=== PATIENT | female | born 1950 | race Caucasian/White ===

== ENCOUNTER → 2020-05-15 11:11 | Outpatient (CLI) | payer MEDICARE, BC, SELFPAY ==
--- NOTE | 2020-05-15 11:25 | RAD_ITS ---
STUDY: X-RAY - LUMBAR SPINE REASON FOR EXAM: Female, 70 years old. LOWER BACK PAIN TECHNIQUE: 3 view(s) of the lumbar spine were obtained. COMPARISON: None FINDINGS: Normal lumbar lordosis. There is no substantial scoliosis. There is a normal alignment of the vertebrae from L1 to L4. There is a grade 1 spondylolisthesis at L4-5. L5 and S1 align anatomically There is multilevel endplate spondylosis of the lumbar vertebrae. There is multi-level degenerative disc disease with multi-level disc space narrowing. There is no demonstrated fracture. There is atherosclerotic calcification of the abdominal aorta without a demonstrated aneurysm. RAD/Lumbar Spine 2 or 3 Views IMPRESSION: Degenerative changes of the spine, as detailed above. No evidence for fracture Grade 1 spondylolisthesis at L4-5 Electronically Signed: Po Perez MD at 11:38 EDT , Service support ,
== END ==
PROVIDERS: PCP Family Medicine; Referring Provider Anesthesiology Pain Medicine; Visit Provider Anesthesiology Pain Medicine
DX: M54.9 Dorsalgia, unspecified (principal)
CPT/HCPCS: 72100

== ENCOUNTER → 2020-05-30 10:03 | Outpatient (CLI) | payer MEDICARE, BC, SELFPAY ==
--- NOTE | 2020-05-30 10:07 | MRI_ITS ---
STUDY: MRI LUMBAR SPINE WITHOUT CONTRAST REASON FOR EXAM: Female, 70 years old. back pain, right hip pain TECHNIQUE: Standardized fat and water weighted pulse sequences were obtained in the sagittal and axial planes. COMPARISON: X-ray dated 05/15/2020 FINDINGS: Lumbar lordosis exaggerated. Dextroscoliosis. Conus medullaris terminates normally at the L1 level. No acute fracture. No acute dislocation. No acute cortical destruction. Degenerative/reactive bone marrow edema predominating at the T12-L1 and L2-3 levels. Paraspinal muscle atrophy. Normal aorta. Gallstone. Sacrum intact. T12-L1: Severe endplate spondylosis. Disc bulge, asymmetric to the right, with minimal central canal narrowing. Normal bilateral facet joints. Right lateral recess narrowing without impingement. Normal bilateral intervertebral neural foramina. L1-2: Mild endplate spondylosis. Shallow disc bulge. Normal bilateral facet joints. Normal central canal and bilateral lateral recesses. Neural foraminal narrowing without impingement. L2-3: Severe endplate spondylosis. Disc bulge, left paracentral disc protrusion, with mild central canal narrowing. Facet degenerative arthrosis. Left lateral recess narrowing with contact of the descending nerve root. Neural foraminal narrowing with impingement on the left. L3-4: Minimal endplate spondylosis. Disc bulge with mild central canal narrowing. Facet joint arthrosis. Bilateral lateral recess narrowing without impingement. Neural foraminal narrowing with contact of the right exiting nerve root. Minimal grade 1 spondylolisthesis. L4-5: Minimal endplate spondylosis. Disc bulge/uncovering with mild central canal narrowing. Facet joint arthrosis. Bilateral lateral recess narrowing without impingement. Neural foraminal narrowing with impingement bilaterally. Grade 1 spondylolisthesis. L5-S1: Mild endplate spondylosis. Disc bulge/uncovering, left paracentral disc protrusion (axial images 33 and 34 series 5), with central canal decompression. Facet joint arthrosis. Left lateral recess narrowing with contact of the left descending nerve root. Neural foraminal narrowing with contact of the left exiting nerve root. Left laminectomy. Minimal grade 1 spondylolisthesis. MRI/Spine Lumbar (Routine) IMPRESSION: Extensive multilevel intervertebral disc disease with mild central canal narrowing Multilevel neural foraminal narrowing with impingement of the left L2, right L3, bilateral L4 and left L5 nerve roots Multilevel lateral recess narrowing with contact of the left L3 and left S1 nerve roots Exaggerated lordosis, dextroscoliosis and moderate osteoarthritis Grade 1 multilevel spondylolisthesis at L3-4, L4-5 and L5-S1 Electronically Signed: Ruddy Hunt DO at 11:48 EDT Tel , Service support ,
== END ==
PROVIDERS: PCP Family Medicine; Referring Provider Anesthesiology Pain Medicine; Visit Provider Anesthesiology Pain Medicine
DX: M54.9 Dorsalgia, unspecified (principal); M79.606 Pain in leg, unspecified
CPT/HCPCS: 72148

== ENCOUNTER → 2020-09-25 11:08 | Outpatient (CLI) | payer MEDICARE, BC, SELFPAY ==
[2020-09-25 12:11] LABS: Amphetamine Urine VISTA NEGATIVE (<1000 ng/mL); Barbiturate Urine VISTA NEGATIVE (< 200 ng/mL); Benzodiazepine Urine VISTA NEGATIVE (< 200 ng/mL); Cocaine Urine VISTA NEGATIVE (< 300 ng/mL); Ecstacy Urine VISTA NEGATIVE (< 500 ng/mL); Methadone Urine VISTA NEGATIVE (< 300 ng/mL); PCP Urine VISTA NEGATIVE (< 25 ng/mL); THC Urine VISTA NEGATIVE (< 50 ng/mL); Vista UDS pH Range 8
== END ==
PROVIDERS: PCP Family Medicine; Referring Provider Anesthesiology Pain Medicine; Visit Provider Anesthesiology Pain Medicine
DX: F11.20 Opioid dependence, uncomplicated (principal)
CPT/HCPCS: 80307

== ENCOUNTER → 2021-04-07 12:30 | Outpatient (CLI) | payer MEDICARE, BC, SELFPAY ==
[2021-01-13 13:45] VITALS: BMI 26.6
[2021-04-07 14:44] LABS: Amphetamine Urine VISTA NEGATIVE (<1000 ng/mL); Barbiturate Urine VISTA NEGATIVE (< 200 ng/mL); Benzodiazepine Urine VISTA NEGATIVE (< 200 ng/mL); Cocaine Urine VISTA NEGATIVE (< 300 ng/mL); Ecstacy Urine VISTA NEGATIVE (< 500 ng/mL); Methadone Urine VISTA NEGATIVE (< 300 ng/mL); PCP Urine VISTA NEGATIVE (< 25 ng/mL); THC Urine VISTA NEGATIVE (< 50 ng/mL); Vista UDS pH Range 6
== END ==
PROVIDERS: PCP Family Medicine; Referring Provider Anesthesiology Pain Medicine; Visit Provider Anesthesiology Pain Medicine
DX: F11.20 Opioid dependence, uncomplicated (principal)
CPT/HCPCS: 80307

== ENCOUNTER → 2022-01-26 | Outpatient (CLI) | payer MEDICARE, BC, SELFPAY ==
[2022-01-26 14:07] LABS: Amphetamine Urine VISTA NEGATIVE (<1000 ng/mL); Barbiturate Urine VISTA NEGATIVE (< 200 ng/mL); Benzodiazepine Urine VISTA NEGATIVE (< 200 ng/mL); Cocaine Urine VISTA NEGATIVE (< 300 ng/mL); Ecstacy Urine VISTA NEGATIVE (< 500 ng/mL); Methadone Urine VISTA NEGATIVE (< 300 ng/mL); PCP Urine VISTA NEGATIVE (< 25 ng/mL); THC Urine VISTA NEGATIVE (< 50 ng/mL); Vista UDS pH Range 7
== END | disposition home or self-care (01) ==
PROVIDERS: PCP Family Medicine; Referring Provider Anesthesiology Pain Medicine; Visit Provider Anesthesiology Pain Medicine
DX: F11.20 Opioid dependence, uncomplicated (principal)
CPT/HCPCS: 80307

== ENCOUNTER → 2022-07-14 | Outpatient (CLI) | payer MEDICARE, BC, SELFPAY ==
[2022-07-14 15:37] LABS: Amphetamine Urine VISTA NEGATIVE (<1000 ng/mL); Barbiturate Urine VISTA NEGATIVE (< 200 ng/mL); Benzodiazepine Urine VISTA NEGATIVE (< 200 ng/mL); Cocaine Urine VISTA NEGATIVE (< 300 ng/mL); Ecstacy Urine VISTA NEGATIVE (< 500 ng/mL); Methadone Urine VISTA NEGATIVE (< 300 ng/mL); PCP Urine VISTA NEGATIVE (< 25 ng/mL); THC Urine VISTA NEGATIVE (< 50 ng/mL); Vista UDS pH Range 7
== END | disposition home or self-care (01) ==
PROVIDERS: PCP Family Medicine; Referring Provider Anesthesiology Pain Medicine; Visit Provider Anesthesiology Pain Medicine
DX: F11.20 Opioid dependence, uncomplicated (principal)
CPT/HCPCS: 80307

== ENCOUNTER → 2023-03-23 | Outpatient (CLI) | payer MEDICARE, BC, SELFPAY ==
--- NOTE | 2023-03-23 13:22 | RAD_ITS ---
STUDY: X-RAY - PELVIS AND RIGHT HIP REASON FOR EXAM: Female, 72 years old. HIP PAIN TECHNIQUE: 3 views of the pelvis and hip. COMPARISON: None. FINDINGS: There is a non-specific bowel gas pattern. Normal visualized soft tissue structures. Normal bilateral iliac wings, sacroiliac joints and visualized sacrum. Normal bilateral superior and inferior pubic rami. Normal pubic symphysis. Normal bilateral ischial tuberosities. Normal visualized femoral head. Normal acetabulum. Normal hip joint. RAD/HIP, UNI W/ Pelvis 2-3 Views IMPRESSION: Normal x-ray examination of the pelvis and hip. Electronically Signed: Dutch Grigsby MD at 23:26 EDT ,
== END | disposition home or self-care (01) ==
LOC: RAD 13:13
PROVIDERS: Referring Provider Anesthesiology Pain Medicine; Visit Provider Anesthesiology Pain Medicine
DX: M25.551 Pain in right hip (principal)
CPT/HCPCS: 73502

== ENCOUNTER → 2023-05-17 | Outpatient (CLI) | payer MEDICARE, BC, SELFPAY ==
[2023-05-17 14:40] LABS: Amphetamine Urine VISTA NEGATIVE (<1000 ng/mL); Barbiturate Urine VISTA NEGATIVE (< 200 ng/mL); Benzodiazepine Urine VISTA NEGATIVE (< 200 ng/mL); Cocaine Urine VISTA NEGATIVE (< 300 ng/mL); Ecstacy Urine VISTA POSITIVE (< 500 ng/mL); Methadone Urine VISTA NEGATIVE (< 300 ng/mL); PCP Urine VISTA NEGATIVE (< 25 ng/mL); THC Urine VISTA POSITIVE (< 50 ng/mL); Vista UDS pH Range 5
== END | disposition home or self-care (01) ==
PROVIDERS: Referring Provider Anesthesiology Pain Medicine; Visit Provider Anesthesiology Pain Medicine
DX: F11.20 Opioid dependence, uncomplicated (principal)
CPT/HCPCS: 80307

== ENCOUNTER → 2023-08-16 | Outpatient (CLI) | payer MEDICARE, BC, SELFPAY ==
--- NOTE | 2023-08-16 10:15 | MRI_ITS ---
STUDY: MRI LUMBAR SPINE WITHOUT CONTRAST REASON FOR EXAM: Female, 73 years old. RADICULOPATHY TECHNIQUE: Standardized fat and water weighted pulse sequences were obtained in the sagittal and axial planes. COMPARISON: May 30, 2020 FINDINGS: T12-L1: Narrowed disc space with endplate spurring. Desiccation of the disc and mild annular bulge.. Normal bilateral facet joints. Normal central canal and bilateral lateral recesses. Normal bilateral intervertebral neural foramina. Normal lumbar lordosis. There is mild dextro scoliosis. Normal conus medullaris that terminates at T12 L1-2: Anterior endplate spurring.. Normal disc height, desiccation and mild annular bulge.. Normal bilateral facet joints. Normal central canal and bilateral lateral recesses. Mild bilateral neural foraminal encroachment. L2-3: Narrowed disc space with degenerative endplate changes. Desiccation of the disc and mild bulging disc osteophyte complex. Facet arthropathy and thickening of ligamenta flava more pronounced on the left. Mild narrowing of the central canal.. Mild narrowing of left lateral recess. Moderate right neural foraminal stenosis and more severe narrowing on the left L3-4: Grade 1 spondylolisthesis Normal endplates. Normal disc height, desiccation mild bulging disc osteophyte complex. Facet arthropathy and thickening of ligamenta flava. Normal central canal and moderate bilateral lateral recess and neural foraminal stenosis L4-5: Degenerative endplate changes Grade 2 spondylolisthesis narrowed disc space with desiccation of the disc and moderate bulging disc osteophyte complex. Facet arthropathy and thickening of ligamenta flava. Mild narrowing of central canal. Severe bilateral lateral recess and neural foraminal stenosis exaggerated by shortened pedicles. L5-S1: Grade 1 spondylolisthesis. Narrowed disc space with desiccation of disc and mild bulging disc osteophyte complex with left paracentral/posterolateral disc protrusion displacing the descending left S1 nerve root.. Bilateral facet arthropathy.. Normal central canal. Moderate left lateral recess and neural foraminal stenosis Normal visualized sacral ala. Normal visualized paraspinous soft tissue structures. Findings are similar to that seen on prior exam MRI/Spine Lumbar (Routine) IMPRESSION: No acute fracture or other significant bony pathology. Scoliosis and degenerative changes. Multilevel spinal stenosis secondary to disc disease and bony hypertrophy most severe at L4-5 Findings as above Electronically Signed: Melecio Miller MD at 21:41 EST ,
== END | disposition home or self-care (01) ==
LOC: MRI 09:20
PROVIDERS: Referring Provider Anesthesiology Pain Medicine; Visit Provider Anesthesiology Pain Medicine
DX: M54.16 Radiculopathy, lumbar region (principal)
CPT/HCPCS: 72148

== ENCOUNTER → 2024-01-24 | Outpatient (CLI) | payer MEDICARE, BC, SELFPAY ==
[2024-01-24 11:43] LABS: Color, Urine Yellow (Yellow); Glucose, Dipstick Normal (Normal); Ketone-Dipstick Negative (Negative); Leukocyte Esterase-Dipstick 25 /ul (Negative); Nitrite-Dipstick Negative (Negative); Occult Blood-Urine Negative /ul (Negative); Protein-Dipstick Negative (Negative); Urine Bilirubin Dipstick Negative (Negative); Urine Clarity Clear (Clear); Urine Urobilinogen Normal (Normal)
[2024-01-24 11:58] LABS: Amphetamine Urine VISTA NEGATIVE (<1000 ng/mL); Barbiturate Urine VISTA NEGATIVE (< 200 ng/mL); Benzodiazepine Urine VISTA NEGATIVE (< 200 ng/mL); Cocaine Urine VISTA NEGATIVE (< 300 ng/mL); Ecstacy Urine VISTA POSITIVE (< 500 ng/mL); Methadone Urine VISTA NEGATIVE (< 300 ng/mL); PCP Urine VISTA NEGATIVE (< 25 ng/mL); THC Urine VISTA NEGATIVE (< 50 ng/mL); Vista UDS pH Range 7
== END | disposition home or self-care (01) ==
PROVIDERS: Referring Provider Anesthesiology Pain Medicine; Visit Provider Anesthesiology Pain Medicine
DX: F11.20 Opioid dependence, uncomplicated (principal)
CPT/HCPCS: 80307; 81002

== ENCOUNTER → 2025-01-08 | Outpatient (CLI) | payer MEDICARE, BC, SELFPAY ==
--- NOTE | 2025-01-08 13:15 | MRI_ITS ---
EXAM: MRI OF THE LUMBAR SPINE WITHOUT CONTRAST. CLINICAL HISTORY: Low back pain. COMPARISON: Radiographs on 12/29/2024. TECHNIQUE: Axial and sagittal T1 and T2 weighted images were obtained. Fat suppressed images were also obtained. FINDINGS: Moderate diffuse spondylotic changes. Findings are demonstrated by multifocal disc dehydration, disc space narrowing, osteophyte formation and degenerative endplate changes. Exaggerated lumbar lordosis. Degenerative dextroscoliosis apex at L3. Moderate chronic changes of Baastrup's disease. There is normal signal intensity from the visualized bone marrow without evidence of replacement or acute fracture. The conus is unremarkable. Evaluation of the individual levels revealed the following: L5-S1: There is grade 1 anterolisthesis measuring 5.2 mm. Moderate diffuse disc bulge. Superimposed broad-based left foraminal disc protrusion measuring 5.2 mm. Bilateral facet joint arthropathy and ligamentum flavum hypertrophy. Well-defined intracanicular synovial cyst adjacent to the left paramedian aspect of the intervertebral disc measuring 8 mm. Secondary compression of the exiting left S1 nerve root. The spinal canal is not narrowed. There is mild right and moderate left neural foramina narrowing. L4-5: There is grade 1 anterolisthesis measuring 7.8 mm. Moderate diffuse disc bulge. Bilateral facet joint arthropathy and ligamentum flavum hypertrophy. The spinal canal is mildly narrowed measuring 8.7 mm. There is moderate bilateral neural foramina narrowing. L3-4: There is grade 1 anterolisthesis measuring 5.6 mm. Mild diffuse disc bulge. Bilateral facet joint arthropathy and ligamentum flavum hypertrophy. The spinal canal is mildly Narrowed. There is mild bilateral neural foramina narrowing. L2-3: There is mild diffuse disc bulge. Superimposed broad-based left foraminal disc protrusion measuring 4.5 mm. Bilateral facet joint arthropathy. The spinal canal is not narrowed. There is mild right and moderate left neural foramina narrowing. L1-2: There is grade 1 retrolisthesis measuring 3.5 mm. Mild diffuse disc bulge. Bilateral facet joint arthropathy and ligamentum flavum hypertrophy. The spinal canal is not narrowed. There is mild bilateral neural foramina narrowing. T12-L1:Mild diffuse disc bulge. Bilateral facet joint arthropathy and ligamentum flavum hypertrophy. The spinal canal is not narrowed. There is mild bilateral neural foramina narrowing. T11-T12:Mild diffuse disc bulge. Bilateral facet joint arthropathy and ligamentum flavum hypertrophy. The spinal canal is not narrowed. There is mild bilateral neural foramina narrowing. T10-T11:Mild diffuse disc bulge. Bilateral facet joint arthropathy and ligamentum flavum hypertrophy. The spinal canal is not narrowed. There is mild bilateral neural foramina narrowing. Normal visualized paraspinous soft tissue structures. Heavily calcified atheromatous plaques of the aorta and its branches. MRI/Spine Lumbar (Routine) IMPRESSION: 1. Spondylosis. 2. Degenerative disc disease. Reading [facility]
== END | disposition home or self-care (01) ==
LOC: MRI 12:29
PROVIDERS: Referring Provider Student in an Organized Health Care Education/Training Program; Visit Provider Student in an Organized Health Care Education/Training Program
DX: M43.16 Spondylolisthesis, lumbar region (principal)
CPT/HCPCS: 72148

== ENCOUNTER → 2025-01-24 | Outpatient (CLI) | payer MEDICARE, BC, SELFPAY ==
--- NOTE | 2025-01-24 12:38 | BD_ITS ---
PROCEDURE: DEXA BONE DENSITY STUDY 01/24/2025 REASON FOR EXAM: LOWER BACK PAIN F, age 74 y/o . Postmenopausal. TECHNIQUE: DEXA scan of sites with data reported below. Scanner utilized: [employer]. REFERENCE LINKS: ISCD Adult Positions COMPARISON: None FINDINGS: BMD and T-SCORES Lumbar spine: 1.071 g/cm2, T-score 0.2 Levels: L1 through L4 Left femoral neck: 0.650 g/cm2, T-score -1.8 Left total hip: 0.725 g/cm2, T-score -1.8 Right femoral neck: 0.561 g/cm2, T-score -2.6 Right total hip: 0.677 g/cm2, T-score -2.2 The World Health Organization has defined the following categories based on bone density: Normal bone density: T-score equal to or greater than -1.0 Osteopenia: T-score between -1.0 and -2.5 Osteoporosis: T-score equal to or less than -2.5 FRAX (or Comparable) Fracture Risk Assessment: 10 Year Probability of Fracture: Major Osteoporotic Fracture: 17% Hip Fracture: 7.4% (Note: FRAX is not to be reported in setting of normal range bone density, osteoporosis on DEXA, known history of osteoporosis, prior osteoporotic hip or vertebral fracture, or for any patient undergoing pharmacological treatment for bone loss.) The National Osteoporosis Foundation (NOF) recommends pharmacological treatment for patients with a FRAX 10-year risk of 3% or higher for a hip fracture, or 20% or higher for a major osteoporotic fracture, to prevent osteoporosis and reduce fracture risk. The patient does meet the pharmacological treatment recommendations for prevention of osteoporosis. BD/Dexa Bone Density Study IMPRESSION: OSTEOPOROSIS. Recommend follow-up as clinically warranted. Reading Location: [id number]
== END | disposition home or self-care (01) ==
LOC: OPBD 12:34
PROVIDERS: Referring Provider Orthopaedic Surgery Orthopaedic Surgery of the Spine; Visit Provider Orthopaedic Surgery Orthopaedic Surgery of the Spine
DX: M81.0 Age-related osteoporosis without current pathological fracture (principal); M85.80 Other specified disorders of bone density and structure, unspecified site
CPT/HCPCS: 77080

== ENCOUNTER 2025-06-15 16:44 | Inpatient (IN) | payer MEDICARE, BC, SELFPAY ==
[2025-06-15] VITALS (19 sets, daily range): BP systolic 128–183; BP diastolic 74–123; PULSE 69–125; RESP 16–20; TEMP 36.4–37; O2SAT 82–99; BMI 30.2
--- NOTE | 2025-06-15 06:52 | PRE.ANES_ITS ---
ASA Classification* ASA Classification ASA Classification: 2 Assessment & Plan Anesthesia* Anesthesia Assessment Anesthesia Assessment: Discussed sedation and/or anesthesia options, risks, benefits, and alternatives with patient/parents/legal guardian/POA. Questions invited. The patient/parents/legal guardian/POA seems to understand and agrees to proceed with anesthesia plan. Reviewed the physical assessment, medical history, allergy history and patient home medications list prior to surgery/procedure/anesthetic and documented any changes. Performed airway and anesthesia risk assessments. 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 When Was Last Pacemaker Check QUESTION #4 FULL TEXT: You/Your Family Experience fever (hyperthermia) with Anesthesia Last Oral Intake Last Oral intake: Last Oral Intake NPO since Meds taken in AM with sips of water? 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 Female Yes 06/11/25 15:17 HX of Motion Sickness No 06/11/25 15:17 HX of N/V After Surgery No 06/11/25 15:17 Non-Smoker No 06/11/25 15:17 Duration of Surgery greater Yes 06/11/25 15:17 than 60 minutes Number of Risk Factors 2 06/11/25 15:17 PONV Score Moderate Risk 06/11/25 15:17 Height & Weight Height & Weight: Anesthesia: Height & Weight Height 5 ft 6 in 02/08/25 13:55 Respiratory Assessment Respiratory Assessment - automotive manufacturer: Respiratory Tract Infection Hx - automotive manufacturer Hx Respiratory Tract Infection No 06/11/25 15:17 STOP Sleep Apnea STOP Sleep Apnea - automotive manufacturer: STOP Sleep Apnea - automotive manufacturer Hx Hypertension Yes: PER PT, CONTROLLED ON 06/11/25 15:17 MEDS Hx Sleep Apnea No 06/11/25 15:17 CPAP BIPAP Do you snore loudly (louder No 06/11/25 15:17 than talking or can be heard Do you often feel tired/ No 06/11/25 15:17 fatigued/ sleepy during daytime? Has anyone observed you stop No 06/11/25 15:17 breathing during sleep? STOP Results Negative 06/11/25 15:17 QUESTION #5 FULL TEXT : Do you snore loudly (louder than talking or can be heard through closed doors)? 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 Specify any problems Hx of Preganancy in last 3 No 06/11/25 15:17 Months Nurse Filling Out Transfusion MGRIFFITH 06/11/25 15:17 & Questions: Date: 06/11/25 06/11/25 15:17 Time: 15:19 06/11/25 15:17 Patient unable to answer at this time (ie. confused, unrespo /Reproduction History /Reproductive History - automotive manufacturer: /Reproductive Hx- automotive manufacturer Hx Now No 06/11/25 15:17 Gestational Age (in weeks): EDC: Hx Hx Para Hx Section SAB No 06/11/25 15:17 PFSH Medical History Wears glasses Wears partial dentures Easy bruising Smoker HTN (hypertension) Home Medications ?Medication ?Instructions ?Recorded ?Last Taken ?Type lisinopril 20 1 tab PO DAILY 01/13/21 Unkn own History mg-hydrochlorothiazide 25 mg tablet tramadol 50 mg tablet 50 mg PO BID 01/13/21 Unknow n History buprenorphine 5 mcg/hour weekly 1 patch topical TH 01/19 Unknown History transdermal patch gabapentin 300 mg capsule 300 mg PO TID 12/29/24 Unkno wn History trazodone 100 mg tablet 100 mg PO QHS 12/29/24 Unkno wn History meloxicam 7.5 mg tablet 7.5 mg PO DAILY ANTIINFLAMAT ORY 06/11/25 Unknown History Allergy/AdvReac Type Severity Reaction Status Date / Time No Known Allergies Allergy Verified 06/11/25 15:14 Family History Father Hypertension Mother Arthritis Surgical History History of colonoscopy History of total left knee replacement (TKR) H/O total knee replacement Social History household members: spouse housing: house Smoking Status: Heavy Smoker (>10/day) Tobacco: How many years used: 25 alcohol intake: never what type of physical activity do you participate in: none do you feel safe at home: Yes Review of Systems (Anesthesia) ROS Narrative System reviewed and no additional complaints, except as documented.
--- OUTSIDE RECORDS SUMMARY | 2025-06-15 07:26 | XMS RPT_ITS | CCD ---
Author Organization [facility] CliniSytx Care Team Providers Care Epic Analyst Name Role Phone MARIE, WEI Attending Unavailable GARZA, EMILY A Consulting Unavailable MARIE, WEI Admitting Unavailable MARIE, WEI Primary Care Unavailable PROVIDER, UNKNOWN Consulting Unavailable PROVIDER, UNKNOWN Consulting Unavailable PROVIDER, UNKNOWN Consulting Unavailable MARIE, WEI Admitting Unavailable GARZA, EMILY A Consulting Unavailable MARIE, WEI Primary Care Unavailable MARIE, WEI Attending Unavailable PROVIDER, UNKNOWN Consulting Unavailable PROVIDER, UNKNOWN Consulting Unavailable PROVIDER, UNKNOWN Consulting Unavailable MARIE, WEI Admitting Unavailable GARZA, EMILY A Consulting Unavailable MARIE, WEI Primary Care Unavailable MARIE, WEI Attending Unavailable PROVIDER, UNKNOWN Consulting Unavailable PROVIDER, UNKNOWN Consulting Unavailable PROVIDER, UNKNOWN Consulting Unavailable Marie DON, Wei J Unavailable [phone] Apple TORO, Dr. Tong Unavailable Gilbert TORO, Dr. Montejo ([place] [facility]) A Unavail able Roshan TORO., Dr. Staley Unavailable Dr. Juan A Pollard MD Unavailable Dr. Yves Rajput MD Unavailable Yudi TORO, Magalys Love Unavailable Alexey CALDERON, Ramya Unavailable Alex TORO, Steve Odonnell Unavailable Liana Osuna MA Unavailable Unavailable Steve CALDERON, Elizabeth C Unavailable Unavailable Gogoi (scribe), Hemanta Unavailable Unavaila ble Elvis CALDERON, Lori Unavailable Unavailable Emily Garza MD Unavailable Jazlyn Fuller Unavailable Unavailable Margaret Hernandez MA Unavailable Unavailable Le Ely LPN Unavailable Unavailable Ruddy PIRES, Rosalia Loyd Unavailable Unavaila ble Mateo MA, Luma Unavailable Unavailable Marthey COMMISSION SPECIALIST, Lynette Unavailable Unavailable Kip (Scribe), Goran Unavailable Unavailab sarah Marie RN, Yaquelin Y Unavailable Unavailable Pinto COMMISSION SPECIALIST, Lizeth Unavailable Unavailable Mutersbaugh COMMISSION SPECIALIST, Mary K Unavailable Unavai rah Kowalski PATerrance, Catherine Escalera Unavailable Richert COMMISSION SPECIALIST, Nohemy L Unavailable Unavailab le Eren COMMISSION SPECIALIST, Magalys M Unavailable Unavailab le [employer] COMMISSION SPECIALIST, Colleen Omalley Unavailable Unavailab sarah Stafford MD, Paul Loyd Unavailable Vess COMMISSION SPECIALIST, Neilee L Unavailable Unavailable Wengerd COMMISSION SPECIALIST, Esperanza Unavailable Unavailabl e Shira COMMISSION SPECIALIST, Jennifer Tolbert Unavailable Unavaila ble Unavailable Unavailable Dulce Maldonado Unavailable Unavailable Jarvis COMMISSION SPECIALIST, Kinga Unavailable Unavailabl e Marie PA, Wei Primary Care Provider Matthew PA Wei Referring Provider Kandace Dai Attending Provider Dr. Crow Lazo MD Attending Provider Kandace Dai Referring Provider Dhruv TORO, Dr. Daley Attending Provider Dr. Edi Bartlett MD Referring Provider Marie, Wei Referring Unavailable BartlettEdi Attending Unavailable Marie, Wei Primary Care Unavailable Marie, Wei Referring Unavailable Bebeto, Kandace Attending Unavailable Marie, Wei Primary Care Unavailable Bebeto, Kandace Attending Unavailable Bebeto, Kandace Referring Unavailable Marie, Wei Primary Care Unavailable BartlettEdi Attending Unavailable Marie, Wei Primary Care Unavailable Bartlett Edi Referring Unavailable Marie, Wei Primary Care Unavailable BasaliBakari Attending Unavailable BasaliBakari Referring Unavailable Crow Lazo Attending Unavailable Marie, Wei Primary Care Unavailable Marie, Wei Referring Unavailable Bartlett Edi Attending Unavailable Marie, Wei Primary Care Unavailable Allergies Allergy Classification Reported Allergen(s) Allergy Type Date of Onset Reaction(s) Facility (20 sources) Afrin 12 Hour *NASAL AGENTS - SYSTEMIC AND TOPICAL* [facility], [employer]. (20 sources) Claritin *ANTIHISTAMINES* [facility], [facility], [facility]. Medications Current Medications Medication Drug Class(es) Dates Sig (Normalized) Sig (Original) alendronic acid 10 mg oral tablet (2 sources) Bisphosphonate Start: 5 alendronate 10 mg tablet ; 1 (one) tablet daily for 90 days Quantity: 90 {Tablet} Refills: 1 Ordered: 13-Feb-2025 DON Marie Start: 13-Feb-2025 168 hr buprenorphine 0.005 mg/hr transdermal system (2 sources) Partial Opioid Agonist Start: 5 apply 5 ug topically every week Buprenorphine 5 mcg/hour patch weekly Active NMA TOPICAL EVERY WEEK December 29, 2024 12:00am gabapentin 300 mg oral capsule (2 sources) Anti-epileptic Agent Start: 5 take 1 capsule by mouth three times daily Gabapentin 300 mg capsule Active 300 mg PO THREE TIMES A DAY December 29, 2024 12:00am hydroCHLOROthiazide 25 mg / lisinopril 20 mg oral tablet (20 sources) Thiazide Diuretic, Angiotensin Converting Enzyme Inhibitor Start: 3 lisinopriL 20 mg-hydrochlorothi azide 25 mg tablet ; 1 Tablet daily for 0 days Quantity: 90 {Tablet} Refills: 3 Ordered: 31-May-2024 DON Marie Start: 31-May-2024 Start: 01-13-2021 Lisinopril-Hyd rochlorothiazide 20-25 mg tablet Active NMA PO January 13, 2021 12:00am Start: 01-13-2021 Lisinopril-Hyd rochlorothiazide Active EACH PO January 13, 2021 12:00am traMADol hydrochloride 50 mg oral tablet (20 sources) Opioid Agonist Start: 01-13-2021 Tramadol Activ e EACH PO January 13, 2021 12:00am Start: 01-13-2021 Tramadol 50 mg tablet Active NMA PO January 13, 2021 12:00am Start: 08-19-2020 End: 08-24-2020 take 1 tablet by mouth every hour for pain traMADol HCl 50 MG Oral Tablet ; 1 (one) Tablet every six hours for moderate pain for 5 days Quantity: 20 {Tablet} Refills: 0 Ordered: 19-Aug-2020 MD Steve Johnson Start: 19-Aug-2020 End: 24-Aug-2020 Status: Inactive Comments: DO NOT TAKE WITHIN 6 HOURS OF ZOLPIDEMWMOARRS 05/20/2020 Comment on above: Dr. Pollard DO NOT TAKE WITHIN 6 HOURS OF ZOLPIDEMWMOARRS 05/20/2020 traZODone hydrochloride 100 mg oral tablet (20 sources) Serotonin Reuptake Inhibitor Start: 04-12-20 take 1 tablet by mouth at bedtime traZODone 100 mg tablet ; 1 (one) Tablet at bedtime for 0 days Quantity: 30 {Tablet} Refills: 1 Ordered: 12-Apr-2025 DON Marie Start: 12-Apr-2025 Start: 12-22-2024 take 1 tablet by chuck th at bedtime traZODone 100 mg tablet ; 1 (one) Tablet at bedtime for 0 days Quantity: 30 {Tablet} Refills: 1 Ordered: 22-Dec-2024 DON Marie Start: 22-Dec-2024 Start: 10-30-2024 take 1 tablet by chuck th at bedtime traZODone 100 mg tablet ; 1 (one) Tablet at bedtime for 0 days Quantity: 30 {Tablet} Refills: 1 Ordered: 30-Oct-2024 DON Marie Start: 30-Oct-2024 Start: 08-28-2024 take 1 tablet by chuck th at bedtime traZODone 100 mg tablet ; 1 (one) Tablet at bedtime for 0 days Quantity: 30 {Tablet} Refills: 1 Ordered: 28-Aug-2024 DON Marie Start: 28-Aug-2024 Start: 07-06-2024 take 1 tablet by chuck th at bedtime traZODone 100 mg tablet ; 1 (one) Tablet at bedtime for 0 days Quantity: 30 {Tablet} Refills: 1 Ordered: 06-Jul-2024 DON Marie Start: 06-Jul-2024 Start: 05-12-2024 take 1 tablet by chuck th at bedtime traZODone 100 mg tablet ; 1 (one) Tablet at bedtime for 0 days Quantity: 30 {Tablet} Refills: 1 Ordered: 12-May-2024 DON Marie Start: 12-May-2024 Start: 11-23-2023 take 1 tablet by chuck th at bedtime traZODone 100 mg tablet ; 1 (one) Tablet at bedtime for 0 days Quantity: 30 {Tablet} Refills: 5 Ordered: 23-Nov-2023 DON Marie Start: 23-Nov-2023 Start: 05-11-2023 take 1 tablet by chuck th at bedtime traZODone 100 mg tablet ; 1 (one) Tablet at bedtime for 0 days Quantity: 30 {Tablet} Refills: 5 Ordered: 11-May-2023 DON Marie Start: 11-May-2023 Completed/Discontinued Medications Medication Drug Class(es) Dates Sig (Normalized) Sig (Original) [id number] 200 actuat albuterol 0.09 mg/actuat metered dose inhaler (20 sources) beta2-Adrenergic Agonist Start: 05-31-2013 End: 11-16-2014 take 2 puff(s) by inhalation every four hours as needed for cough VENTOLIN HFA, 108 (90 Base)MCG/ACT (Inhalation Aerosol Solution) ; 2 (two) puff(s) puff(s) every four hours PRN cough or wheeze for 0 days Quantity: 1 {60_dose_unit} Refills: 0 Ordered: 16-Nov-2014 YUMIKO Silva Start: 31-May-2013 End: 16-Nov-2014 Status: Inactive Start: 12-07-2011 End: 11-04-2012 take 2 puff(s) by inhalation every four hours as needed for wheezing PROAIR HFA, 108 (90 Base)MCG/ACT (Inhalation Aerosol Solution) ; 2 (two) puffs Every 4 hours PRN coughing / wheezing for 0 days Quantity: 1 {Unit(s)} Refills: 0 Ordered: 04-Nov-2012 YUMIKO Silva Start: 07-Dec-2011 End: 04-Nov-2012 Status: Inactive Comments: Maximum 12 puffs/day Comment on above: Maximum 12 puffs/day azithromycin 500 mg oral tablet (20 sources) Macrolide Antimicrobial Start: 05-31-20 13 End: 06-03-20 13 take 1 tablet by mouth once daily ZITHROMAX TRI-KOBE, 500MG (Oral Tablet) ; 1 (one) Tablet daily for 3 days Quantity: 3 {Tablet} Refills: 0 Ordered: 31-May-2013 MD Emily Garza Start: 31-May-2013 End: 03-Jun-2013 Status: Inactive erythromycin 0.005 mg/mg ophthalmic ointment (20 sources) Macrolide, Macrolide Antimicrobial Start: 12-09-19 17 End: 01-08-20 17 Erythromycin 5 MG/GM Ophthalmic Ointment ; 1 application(s) three times daily to left eye for 0 days Quantity: 3.5 {Gram} Refills: 1 Ordered: 07-Jan-2017 Start: 08-Dec-2016 End: 07-Jan-2017 Status: Inactive fluconazole 150 mg oral tablet (20 sources) Azole Antifungal Start: 05-05-20 End: 05-31-20 24 fluconazole 150 mg tablet ; 1 (one) Tablet weekly for 0 days Quantity: 12 {Tablet} Refills: 0 Ordered: 31-May-2024 DON Marie Start: 05-May-2022 End: 31-May-2024 Status: Inactive fluticasone propionate 0.05 mg/actuat metered dose nasal spray (20 sources) Corticosteroid Start: 02-09-20 14 End: 01-08-20 17 take 2 puff(s) nasal route once daily Fluticasone Propionate 50 MCG/ACT Nasal Suspension ; 2 (two) puff(s) once daily each nostril for 0 days Quantity: 1 {Bottle} Refills: 4 Ordered: 07-Jan-2017 Start: 08-Feb-2014 End: 07-Jan-2017 Status: Inactive FLONASE, 50MCG/D OSE (Nasal Inhalant) ; 2 puffs every four hours, as needed (50 MCG/DOSE) Status: Inactive Comments: Medication taken as needed. Comment on above: Medication taken as needed. levoFLOXacin 500 mg oral tablet (20 sources) Quinolone Antimicrobial Start: 2011 End: 2011 take 1 tablet by mouth once daily LEVAQUIN, 500MG (Oral Tablet) ; 1 (one) Tablet daily for 7 days Quantity: 7 {Tablet} Refills: 0 Ordered: 07-Dec-2011 YUMIKO Amezcua Nohemy Underwood Start: 07-Dec-2011 End: 14-Dec-2011 Status: Inactive Loratadine / Pseudoephedrine (20 sources) alpha-Adrenergic Agonist Claritin-D 12 Hour Status: Inactive LORazepam 0.5 mg oral tablet (20 sources) Benzodiazepine Start: 2016 End: 2017 take 1 tablet by mouth once daily as needed for anxiety LORazepam 0.5 MG Oral Tablet ; 1 (one) Tablet once daily PRN anxiety for 0 days Quantity: 15 {Tablet} Refills: 0 Ordered: 15-Jul-2018 YUMIKO Leal K Start: 25-May-2017 End: 15-Jul-2018 Status: Inactive Comments: WM Comment on above: WM lovastatin 20 mg oral tablet (20 sources) HMG-CoA Reductase Inhibitor Start: 2019 End: 2021 take 1 tablet by mouth once daily in the evening Lovastatin 20 MG Oral Tablet ; 1 (one) Tablet daily in the evening for 0 days Quantity: 90 {Tablet} Refills: 3 Ordered: 05-Nov-2021 YUMIKO Ely Start: 30-Apr-2020 End: 05-Nov-2021 Status: Discontinued methylPREDNISolone 4 mg oral tablet (20 sources) Corticosteroid Start: 2012 End: 2012 MEDROL (KOBE), 4MG (Oral Tablet) ; 1 Tablet as directed on pack for 6 days Quantity: 1 {dose_pack} Refills: 0 Ordered: 31-May-2013 MD Emily Garza Start: 31-May-2013 End: 06-Jun-2013 Status: Inactive predniSONE 10 mg oral tablet (20 sources) Start: 2019 End: 2019 take 2 tablets by mouth twice daily predniSONE 10 MG Oral Tablet ; 2 (two) Tablet two times daily for 5 days Quantity: 20 {Tablet} Refills: 0 Ordered: 28-Sep-2019 MD Emily Garza Start: 28-Sep-2019 End: 03-Oct-2019 Status: Inactive sulfamethoxazole 800 mg / trimethoprim 160 mg oral tablet (20 sources) Dihydrofolate Reductase Inhibitor Antibacterial, Sulfonamide Antimicrobial Start: 2009 End: 2010 take 1 tablet by mouth twice daily BACTRIM DS, 800-160MG (Oral Tablet) ; 1 Tab two times daily for 10 days Quantity: 20 {Tab} Refills: 0 Ordered: 25-Sep-2010 MD Paul Stafford Start: 25-Sep-2010 End: 05-Oct-2010 Status: Inactive terbinafine 250 mg oral tablet (20 sources) Allylamine Antifungal Start: 2022 End: 2023 terbinafine HCL 250 mg tablet ; 1 (one) Tablet daily for 0 days Quantity: 42 {Tablet} Refills: 0 Ordered: 31-May-2024 DON Marie Start: 02-Feb-2023 End: 31-May-2024 Status: Inactive zolpidem tartrate 5 mg oral tablet (20 sources) gamma-Aminobutyric Acid-ergic Agonist Start: 2021 End: 2022 zolpidem 5 mg tablet ; 1 (one) Tablet daily at bedtime as needed for insomnia, do not take within 6 hours of tramadol for 0 days Quantity: 30 {Tablet} Refills: 1 Ordered: 11-May-2023 CONSTANZA Osuna Start: 27-Mar-2022 End: 11-May-2023 Status: Inactive Comments: Medication taken as needed. [facility] Comment on above: Medication taken as needed. [facility] Problems Active Problems Problem Classification Problem Date Documented Da te Episodic/Chronic Abdominal pain (20 sources) Flank pain; Translations: [Unspecified abdominal pain] 05-11-2023 Episodic Acute bronchitis (20 sources) Acute bronchitis 07-15-2018 Episodic Administrative/social admission (20 sources) Issue of repeat prescriptions 07-15-2018 Episodic Anxiety disorders (20 sources) Anxiety; Translations: [Anxiety disorder, unspecified] 05-11-2023 Chronic Biliary tract disease (20 sources) Biliary calculus; Translations: [Calculus of gallbladder without cholecystitis without obstruction] 05-11-2023 Episodic Cardiac dysrhythmias (20 sources) Tachycardia; Translations: [Tachycardia, unspecified] 04-17-2019 Episodic Chronic obstructive pulmonary disease and bronchiectasis (20 sources) Bronchitis; Translations: [Bronchitis, not specified as acute or chronic] 05-31-2013 Episodic Coagulation and hemorrhagic disorders (20 sources) Easy bruising; Translations: [Spontaneous ecchymoses] 05-11-2023 Episodic Deficiency and other anemia (20 sources) Anemia; Translations: [Anemia, unspecified] 04-17-2019 Episodic Diabetes mellitus with complications (20 sources) Type 2 diabetes mellitus; Translations: [Type 2 diabetes mellitus with other specified complication] 11-09-2023 Chronic Comment on above: HLD Disorders of lipid metabolism (20 sources) Hyperlipidemia; Translations: [Hyperlipidemia, unspecified] 11-09-2023 Chronic Essential hypertension (20 sources) Diastolic hypertension; Translations: [Essential (primary) hypertension] 05-11-2023 Chronic Comment on above: lisinopril-HCTZ 5 Gastrointestinal hemorrhage (20 sources) Blood in stool 08-03-2011 Episodic Immunizations and screening for infectious disease (20 sources) Needs influenza immunization; Translations: [Encounter for immunization] 07-15-2018 Episodic Inflammation; infection of eye (except that caused by tuberculosis or sexually transmitteddisease) (20 sources) Blepharitis; Translations: [Unspecified blepharitis unspecified eye, unspecified eyelid] 04-29-2012 Episodic Intestinal infection (20 sources) Viral gastroenteritis; Translations: [Viral intestinal infection, unspecified] 08-01-2011 Episodic Mycoses (20 sources) Onychomycosis; Translations: [Tinea unguium] 05-06-2021 Episodic Osteoarthritis (20 sources) Osteoarthritis of left knee joint; Translations: [Unilateral primary osteoarthritis, left knee] 04-17-2019 Chronic Osteoporosis (7 sources) Osteoporosis; Translations: [Age-related osteoporosis without current pathological fracture] Onset: 5 02-08-2025 Chronic Other acquired deformities (3 sources) Scoliosis of lumbar spine; Translations: [Scoliosis, unspecified] 01-15-2025 Chronic Other acquired deformities (1 source) Other secondary scoliosis, lumbar region; Translations: [Other secondary scoliosis, lumbar region] Onset: 5 Chronic Other acquired deformities (7 sources) Lumbar spondylolisthesis; Translations: [Spondylolisthesis, lumbar region] 12-29-2024 Episodic Other aftercare (20 sources) Long-term (current) use of other medications 07-15-2018 Episodic Other bone disease and musculoskeletal deformities (2 sources) Osteopenia; Translations: [Other specified disorders of bone density and structure, unspecified site] 01-15-2025 Episodic Other gastrointestinal disorders (20 sources) Stool DNA-based colorectal cancer screening positive; Translations: [Other fecal abnormalities] 04-17-2019 Episodic Other injuries and conditions due to external causes (20 sources) Injury of nail; Translations: [Unspecified injury of right foot, initial encounter] 01-07-2017 Episodic Other non-traumatic joint disorders (20 sources) Pain in left knee; Translations: [Pain in joint, lower leg] 05-11-2023 Episodic Other nutritional; endocrine; and metabolic disorders (20 sources) Disorder of carbohydrate metabolism; Translations: [Other disorders of intestinal carbohydrate absorption] 05-11-2023 Chronic Other nutritional; endocrine; and metabolic disorders (20 sources) Obesity; Translations: [Obesity, unspecified] 05-11-2023 Chronic Other nutritional; endocrine; and metabolic disorders (20 sources) Overweight; Translations: [Overweight] 04-18-2019 Episodic Other nutritional; endocrine; and metabolic disorders (20 sources) Body mass index 25-29 - overweight; Translations: [Overweight] 04-18-2019 Episodic Other nutritional; endocrine; and metabolic disorders (20 sources) Polydipsia 08-01-2011 Episodic Other screening for suspected conditions (not mental disorders or infectious disease) (20 sources) Electrocardiogram abnormal; Translations: [Abnormal electrocardiogram [ECG] [EKG]] 05-11-2023 Episodic Other upper respiratory disease (20 sources) Allergic rhinitis; Translations: [Allergic rhinitis, unspecified] 05-11-2023 Chronic Other upper respiratory infections (20 sources) Acute sinusitis, unspecified 07-15-2018 Episodic Pneumonia (except that caused by tuberculosis or sexually transmitted disease) (20 sources) Pneumonia; Translations: [Pneumonia, unspecified organism] 12-07-2011 Episodic Residual codes; unclassified (20 sources) Insomnia; Translations: [Insomnia, unspecified] 05-11-2023 Episodic Spondylosis; intervertebral disc disorders; other back problems (5 sources) Degeneration of lumbar intervertebral disc; Translations: [Degeneration of intervertebral disc of lumbar region] 12-29-2024 Chronic Sprains and strains (20 sources) Low back strain; Translations: [Strain of muscle, fascia and tendon of lower back, initial encounter] 05-11-2023 Episodic Substance-related disorders (20 sources) Tobacco user; Translations: [Nicotine dependence, unspecified, uncomplicated] 05-11-2023 Chronic Unclassified (20 sources) Number of Children 11-11-2022 Comment on above: 2. Unclassified (20 sources) Number of Pregnancies 11-11-2022 Comment on above: 2. Unclassified (20 sources) Vaginal deliveries 11-11-2022 Comment on above: 2. Unclassified (20 sources) Follow up for multiple chronic conditions - The patient is here for follow-up of diabetes, hyperlipidemia, insomnia and obesity. The patient always takes the prescribed medications. No side effects noted. The patient has low activity level and no regular exercise program. The patient's out of office blood pressure checks occur occasionally (Reports normal readings at home and at pain management appointments.) and dietary compliance is good with close adherance to recommendations. The patient states that there is no recent angina or dyspnea, there are no vision changes or weakness, weight has decreased (down 5lbs), sleep patterns have improved (Patient reports that she is sleeping better with her current medication. She was also recently started on Meloxicam by pain management. She is not sure how much it is helping her pain, but feels that it may be helping enough to aid in her sleep.) and they do not have headaches. Note for Multiple chronic conditions follow-up: Patient continues to see pain management for chronic hip and lower back pain. She is not interested in surgery at this time.Patient does report noticing easy bruising in her arms and legs for the past several months. She does not note bruises daily, but will find bruises that she does not recall an injury for on her arms. She reports that these heal quickly. She denies any bloody noses, easy bleeding, black stool, or bloody stool. 05-11-2023 Unclassified (20 sources) MCR Well Adult - In general the patient feels well with no complaints, has good energy level and is sleeping well. The patient has a balanced diet. The patient exercises none (active life style) and sleeps 5 hours per night. The patient denies having trouble with bathing, dressing/grooming, toileting, preparing meals and ambulating. The patient denies having trouble with grocery shopping, driving, use of telephone, housework, laundry, preparing/taking medications and finances. The patient performs monthly self breast exam. The patient has a Healthcare Power of Digital Composer and a Living Will. Note for MCR Well Adult: last mamm- November 2021last colonoscopy - 2019Patient has labs to be reviewed today.Reports blood pressure readings in the normal range at home.Patient was treated approximately two years ago for onychomycosis. She reports that her symptoms have returned. 11-11-2022 Unclassified (20 sources) MCR Well Adult - In general the patient feels well with no complaints, has good energy level and is sleeping poorly (has lower back issues- she sees Dr. Pollard for this). The patient has a balanced diet (Has been making changes in her diet to lower her cholesterol and blood sugar. Expresses some frustration over her not being willing to make these dietary changes with her.). The patient exercises none (pt is active) and sleeps 6 (/ - uses zolipem as needed) hours per night. The patient denies having trouble with bathing, dressing/grooming, toileting, preparing meals and ambulating. The patient denies having trouble with grocery shopping, driving, use of telephone, housework, laundry, preparing/taking medications and finances. The patient performs monthly self breast exam. The patient has a Healthcare Power of Digital Composer, but does not have Living Will. Note for MCR Well Adult: Dexa- 2016Mammo 10/2019colonoscopy 2020- by maria de jesus (normal)pt was on lovastatin and this gave her leg cramps- she quit taking it and these cramps seemed to improve 11-05-2021 Unclassified (20 sources) UTI - Symptoms include urinary frequency, flank pain, abdominal pain and back pain, but do not include dysuria, urinary urgency, hematuria, dark urine or malodorous urine. The pain is located in the right lower abdomen and in the right flank. There is no radiation. The patient describes the pain as dull, aching and burning. Onset was gradual 2 month(s) ago (1-2 months ago). There is no known event that preceded symptom onset. The symptoms occur frequently. The patient describes this as moderate in severity and unchanged. Associated symptoms do not include fever, chills, nausea, vomiting, urinary incontinence, urinary retention, urinary hesitancy, nocturia, urethral discharge or vaginal discharge. Note for UTI: pt has a hx of getting kidney stones. Her last kidney stone was the size of a golf ball and she was advised by another physician to come be seen with her history of kidney stones. She sees pain management for chronic back pain and is unsure if this is related to her back pain. Was previously seen by Dr. Victoria. 10-08-2021 Unclassified (20 sources) Follow up for multiple chronic conditions - The patient is here for follow-up of anxiety, hyperlipidemia, hypertension and obesity. The patient always takes the prescribed medications. Side effects noted (Patient has been experiencing some leg pain and is unsure if it is being caused by her cholesterol medication. Because of this, she has only been taking her medication occasionally.). The patient has an active lifestyle but no regular exercise program. The patient's out of office blood pressure checks occur rarely and dietary compliance is fairly good usually adhering to recommendations. The patient states that pain is worse, mood is unchanged and they do not have headaches. The patient states that the disease has mild physical impact. Note for Multiple chronic conditions follow-up: Patient has labs to be reviewed today. Needs refill of Zolpidem.Patient would also like to talk today about a fungal infection in her finger nails. This infection was present about 2 years ago and was successfully treated with terbinafine. It has returned in the last 6 months. 05-06-2021 Unclassified (7 sources) Transition into care - The patient is transitioning into care from another physician (Dr. Pollard) and a summary of care was reviewed. 11-06-2020 Unclassified (7 sources) [ADDITIONAL REASON] [facility] Routine follow-up - The patient is here for follow-up of hypertension, hyperlipidemia, obesity and insomnia. The patient always takes the prescribed medications. No side effects noted. The patient has low activity level and no regular program. The patient's out of office blood pressure checks occur rarely (not oftenat dentist last week and it was good) and dietary compliance is fairly good usually adhering to recommendations (does try to eat healthy but her wont so sometimes she eats things that are not as healthy). The patient states that there is no recent angina or dyspnea, weight is unchanged, they are still having trouble sleeping and they do not have headaches. Note for Routine chronic follow-up: LOV04/30/20labs printed 11-06-2020 Unclassified (20 sources) [facility] Routine follow-up - The patient is here for follow-up of hypertension, hyperlipidemia, obesity and ALLERGIC RHINITIS . The patient always takes the prescribed medications. No side effects noted. The patient has low activity level and no regular program. The patient's out of office blood pressure checks occur occasionally (every now and then) and dietary compliance is fairly good usually adhering to recommendations. The patient states that there is no recent angina or dyspnea, weight has decreased (down 3 lbs), they are still having trouble sleeping and they do not have headaches. Note for Routine chronic follow-up: TRISTIN 10/31/19last labs 10/23/19 lipid, cmppt has had a lot of stress with her being in the hospital, was on a ventilator and now has a bed sore that they are dealing with 04-30-2020 Unclassified (20 sources) Well adult female - The patient feels well with minor complaints (hip/sciatica pain), has good energy level and is sleeping poorly (since knee surgery its worst). The patient has a balanced diet and has poor nutrition. The patient exercises weekly (trying to ride bike and pt is active). The patient sleeps 7 hours per night. Note for Well adult female: [facility] 09/28/19labs printedwould like mammo orderpt hasnt beent aking lovastatin- wants to talk to you about that 11-01-2019 Unclassified (20 sources) [facility] Routine follow-up - The patient is here for follow-up of hypertension, hyperlipidemia, anxiety and insomnia. The patient always takes the prescribed medications. No side effects noted. The patient's out of office blood pressure checks occur rarely. The patient states that breathing effort is stable, there are no vision changes or weakness, pain is generally stable, weight has increased, mood is unchanged, they are still having trouble sleeping and they do not have headaches. The patient states that the disease has no overall impact. Note for Routine chronic follow-up: Having difficulty sleeping at night. Lay in bed awake till 3am most nights since the Ambien has been cut in half.TRISTIN 10/18/2018lipid ALT 10/13/2018, cmp a1c 07/07/2018 04-18-2019 Unclassified (20 sources) [facility] Routine Follow up - The patient is here for follow-up of hypertension, hyperlipidemia, obesity, anxiety and insomnia. The patient always takes the prescribed medications. No side effects noted. The patient has an active lifestyle but no regular program. The patient's out of office blood pressure checks occur rarely and dietary compliance is fairly good usually adhering to recommendations. The patient states that there is no recent angina or dyspnea, there are no vision changes or weakness, weight has increased (2 pounds) and they do not have headaches. Note for Routine chronic follow-up: TRISTIN 07/15/18. Labs printed. 10-18-2018 Unclassified (20 sources) [facility] Routine Follow up - The patient is here for follow-up of hypertension, anxiety and insomnia. The patient always takes the prescribed medications. No side effects noted. (needs refills) The patient has an active lifestyle but no regular program. The patient's out of office blood pressure checks occur rarely and dietary compliance is fair often eating foods not normally recommended. The patient states that there is no recent angina or dyspnea, weight has increased (up 2 pounds) and headaches have been noticed occasionally. Note for Routine chronic follow-up: Last routine office visit 01/2016. Last lipid/cmp 12/2015. 10-20-2016 Unclassified (20 sources) Follow-up for multiple chronic conditions (RAH) - The patient is here for follow-up of hypertension (BMP 11-06-13, LIPID 10-25-12) and other condition(s) (insomnia). The patient always takes the prescribed medications. No side effects noted. The patient has an active lifestyle but no regular exercise program. The patient's out of office blood pressure checks occur rarely. The patient's last lipid profile was (10-25-12). The patient states that the disease has no overall impact. 05-07-2014 Unclassified (20 sources) Well Adult, female - The patient feels well with minor complaints (chronic sinus problems), has good energy level and is sleeping well. Most recent Pap smear : (2009). The first day of the last menstrual period was : (menopause). Last Tetanus booster: unknown/unsure. The patient does not exercise. The patient sleeps 7 hours per night. 11-04-2012 Unclassified (20 sources) [facility] Routine Follow up - The patient is here for follow-up of hypertension. The patient always takes the prescribed medications. No side effects noted. The patient has an active lifestyle but no regular program. The patient's out of office blood pressure checks occur occasionally (usually 140's/80's). Note for Routine chronic follow-up: Patient only concern is that her left eye has been itchy and swollen for the last 2 days. Does wear contacts. 04-29-2012 Unclassified (20 sources) [facility] Routine Follow up - The patient is here for follow-up of hypertension (last bmp Apr 2010 last lipid than also) and other condition(s) (Insomnia Patient has trouble falling asleep for 2-3 months. Would like something to help this.). The patient always takes the prescribed medications. No side effects noted. The patient has an active lifestyle but no regular program. The patient's out of office blood pressure checks occur rarely. 04-28-2011 Unclassified (20 sources) [ADDITIONAL REASON] Cold Symptoms - Symptoms include sneezing, nasal congestion, runny nose, non-purulent sputum, productive cough and facial pain. The onset was sudden 1 week(s) ago. The symptoms occur constantly. The patient describes this as mild and improving. Current treatment includes non-prescription cold medication and NSAIDs. Risk factors include smoking. The patient has been exposed to an individual with an upper respiratory infection ( has same symptoms). Medical History Includes seasonal allergies. 04-28-2011 Unclassified (20 sources) [facility] Routine follow-up - The patient is here for follow-up of hypertension, hyperlipidemia, obesity and insomnia. The patient always takes the prescribed medications. No side effects noted. The patient has low activity level and no regular program. The patient's out of office blood pressure checks occur rarely (not oftenat dentist last week and it was good) and dietary compliance is fairly good usually adhering to recommendations (does try to eat healthy but her wont so sometimes she eats things that are not as healthy). The patient states that there is no recent angina or dyspnea, weight is unchanged, they are still having trouble sleeping and they do not have headaches. Note for Routine chronic follow-up: 04/30/20labs printed 11-06-2020 Unclassified (20 sources) [ADDITIONAL REASON] Transition into care - The patient is transitioning into care from another physician (Dr. Pollard) and a summary of care was reviewed. 11-06-2020 Unclassified (6 sources) Cold Symptoms - Symptoms include sneezing, nasal congestion, runny nose, non-purulent sputum, productive cough and facial pain. The onset was sudden 1 week(s) ago. The symptoms occur constantly. The patient describes this as mild and improving. Current treatment includes non-prescription cold medication and NSAIDs. Risk factors include smoking. The patient has been exposed to an individual with an upper respiratory infection ( has same symptoms). Medical History Includes seasonal allergies. 04-28-2011 Unclassified (6 sources) [ADDITIONAL REASON] [facility] Routine Follow up - The patient is here for follow-up of hypertension (last bmp Apr 2010 last lipid than also) and other condition(s) (Insomnia Patient has trouble falling asleep for 2-3 months. Would like something to help this.). The patient always takes the prescribed medications. No side effects noted. The patient has an active lifestyle but no regular program. The patient's out of office blood pressure checks occur rarely. 04-28-2011 Unclassified (1 source) Follow up for multiple chronic conditions - The patient is here for follow-up of anxiety, diabetes, hyperlipidemia and obesity. The patient always takes the prescribed medications. No side effects noted. The patient has an active lifestyle but no regular exercise program. The patient's glucose levels are monitored on rare occasion and out of office blood pressure checks occur rarely. The patient states that there is no recent angina or dyspnea, there are no vision changes or weakness, weight has increased and they do not have headaches. 05-31-2024 Unclassified (16 sources) Follow up for multiple chronic conditions - The patient is here for follow-up of anxiety, diabetes, hyperlipidemia, insomnia and obesity. The patient always takes the prescribed medications. No side effects noted. The patient has an active lifestyle but no regular exercise program. The patient's glucose levels are monitored on rare occasion, out of office blood pressure checks occur occasionally and dietary compliance is fairly good usually adhering to recommendations. The patient states that there is no recent angina or dyspnea, there are no vision changes or weakness, weight has increased, in general mood has improved (Patient reports good control of her symptoms with her current medication), sleep patterns have improved (Stable with medication) and they do not have headaches. 05-31-2024 Unclassified (1 source) Other intervertebral disc degeneration, lumbar region with discogenic back pain and lower extremity pain; Translations: [Other intervertebral disc degeneration, lumbar region with discogenic back pain and lower extremity pain] Onset: 5 Unclassified (1 source) Low back pain, unspecified; Translations: [Low back pain, unspecified] Onset: 5 Past or Other Problems Problem Classification Problem Date Documented Date Episodic/Chronic Other acquired deformities (1 source) Spondylolisthesis, lumbar region; Translations: [Spondylolisthesis, lumbar region] Onset: 02-08-2025 Episodic Other bone disease and musculoskeletal deformities (1 source) Other specified disorders of bone density and structure, unspecified site; Translations: [Other specified disorders of bone density and structure, unspecified site] Onset: 01-12-2025 Episodic Spondylosis; intervertebral disc disorders; other back problems (20 sources) Lumbar radiculopathy; Translations: [Radiculopathy, lumbar region] Onset: 02-08-2025 04-18-2019 Episodic Unclassified (20 sources) Follow up for multiple chronic conditions - The patient is here for follow-up of anxiety, diabetes, hyperlipidemia, insomnia and obesity. The patient always takes the prescribed medications. No side effects noted. The patient has an active lifestyle but no regular exercise program. The patient's glucose levels are monitored on rare occasion (never), out of office blood pressure checks occur rarely (not recently but gets checked monthly at pain management and its always good) and dietary compliance is fairly good usually adhering to recommendations (tries to make healthier choices). The patient states that there is no recent angina or dyspnea, weight has decreased (down 4 lbs) and they do not have headaches. Note for Multiple chronic conditions follow-up: pt was on terbinafine for onychomycosis in her finger nails and she said it didn't help. she took it for 2 months-- but her had the same thing and was give Diflucan. His resolved with this treatment. 05-05-2022 Unclassified (20 sources) Back pain - The back pain has been occurring in a persistent (the pain is worse at night and is having trouble sleeping) pattern for weeks (2-3 weeks). The course has been increasing. The pain is characterized as a dull ache (will become stabbing pain at times). The pain is located in the lower back (on the right lower back and right buttock/hip area) and radiates to the right thigh (lateral side). 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 Patient noticed that once she stopped taking narcotic pain medications from having the knee surgery that she had the low back/hip pain. Has tried taking Tylenol and Advil, no improvement.Would like refill on Zolpidem today. 09-29-2019 Unclassified (20 sources) Knee pain - The knee pain has been occurring in an intermittent (occurs with walking) pattern for 3 years. The course has been gradually worsening. The knee pain is in the left knee. The knee pain is characterized as a dull aching (during the night, but during the day will be a sharper pain). The knee pain is described as being located in the anterior knee (lower). The knee pain is aggravated by physical activity, twisting, squatting and kneeling. The knee pain is relieved by nothing (has tried ice, heat, ibuprofen). Previous diagnostic tests include plain radiographs (by the chiropractor). Previous evalutations were completed by a chiropractor. There has been no previous surgeries. Note for Knee pain: Was seen 01/29/2017 for Osteoarthritis of left knee--given joint injection at that time. 05-04-2019 Unclassified (19 sources) Fingernail problems - The onset of the fingernail problems has been gradual and they have been occurring in a persistent pattern for 2 months. The course has been increasing. The fingernail problems are described as moderate. The fingernails are characterized as brittle. Note for Fingernail problems: fingernails will not growseems to get white dry crusty under nails from three fingers on left handhusband had same issue and treated with 2 month course of diflucan and cleared completely 01-31-2019 Unclassified (19 sources) [ADDITIONAL REASON] Hip pain - The onset of the hip pain has been acute and has been occurring in a persistent pattern for 6 months. The course has been increasing. The hip pain is described as being a moderate cramping located in the hip. The hip pain radiates to the right buttock. The pain is not aggravated by anything in particular. Relieving factors include rest. The symptoms have been associated with limping, while the symptoms have not been associated with numbness or tingling. 01-31-2019 Unclassified (20 sources) M[facility] Well Adult - In general the patient feels well with minor complaints, has good energy level and is sleeping well. The patient has a balanced diet and takes no supplemental vitamins & iron. The patient exercises weekly and sleeps 7 hours per night. The patient denies having trouble with bathing, dressing/grooming, toileting, preparing meals and ambulating. The patient denies having trouble with grocery shopping, driving, use of telephone, housework, laundry, preparing/taking medications and finances. The patient performs monthly self breast exam. The patient does not have Healthcare Power of Digital Composer or Living Will. 07-15-2018 Unclassified (20 sources) MCR Well Adult - In general the patient feels well with no complaints, has good energy level and is sleeping well. The patient has a balanced diet and takes no supplemental vitamins & iron. The patient does not exercise and sleeps 7 hours per night. The patient denies having trouble with bathing, dressing/grooming, toileting, preparing meals and ambulating. The patient denies having trouble with grocery shopping, driving, use of telephone, housework, laundry, preparing/taking medications and finances. The patient performs monthly self breast exam. The patient has a Healthcare Power of Digital [employer] and a Living Will. 05-25-2017 Unclassified (20 sources) Knee pain - The onset of the knee pain has been sudden following no specific incident and has been occurring in a persistent pattern for 1 week. The course has been increasing. The knee pain is moderate in the left knee. The knee pain is characterized as a sharp stabbing. The knee pain is described as being located in the entire knee. The knee pain is aggravated by physical activity, any movement and stairs. The knee pain is relieved by lying down. The symptoms have been associated with muscle stiffness, muscle swelling and catching. 01-29-2017 Unclassified (20 sources) toe injury - Patient opened a metal door in the garage and caught her right great toenail; it peeled the toenail clear up off the skin. It bled a large amount but that has stopped. The toenail is still attached at the back of the toe but is otherwise loose. Toe is swollen and edematous. Last tetanus was in 2009. Episode happened yesterday afternoon. She has been taking ibuprofen. 01-07-2017 Unclassified (20 sources) Well Adult, female - The patient feels well with no complaints, has good energy level and is sleeping well. The patient has a balanced diet and takes no supplemental vitamins & iron. The patient does not exercise. The patient sleeps 7 hours per night. 01-27-2016 Unclassified (20 sources) Knee pain - The onset of the knee pain has been gradual following no specific incident and has been occurring in an intermittent pattern for years. The course has been gradually worsening. The knee pain is moderate in the left knee. The knee pain is characterized as a dull aching. The knee pain is described as being located in the entire knee. The knee pain is aggravated by physical activity, twisting, squatting, kneeling, climbing, stairs and prolonged standing. The knee pain is relieved by NSAIDs and modification of activity. The symptoms have been associated with giving way, joint swelling, painful ROM, decreased ROM, difficulty arising from chair and difficulty going up and down stairs. There were no previous diagnostic tests. There were no previous evaluations. There has been no previous physical therapy. There has been no previous surgeries. There is no use of assistive devices. Previous medications include Ibuprofen. Note for Knee pain: Patient is interested in getting a cortisone injection in her knee. 12-25-2014 Unclassified (20 sources) Well Adult, female - The patient feels well with minor complaints (sinus problems), has good energy level and is sleeping well. The first day of the last menstrual period was : (absent-menopause). The patient has a balanced diet and takes no supplemental vitamins & iron. The patient exercises weekly. The patient sleeps 7 hours per night. 11-18-2014 Unclassified (20 sources) Well Adult, female - The patient feels well with minor complaints, has good energy level and is sleeping poorly. The first day of the last menstrual period was : (postmenopausal). The current method of contraception is: partner had vasectomy. The patient has a balanced diet and takes no supplemental vitamins & iron. The patient does not exercise. The patient sleeps 7 hours per night. 11-13-2013 Unclassified (20 sources) Cold Symptoms - Symptoms include sneezing, nasal congestion, runny nose, scratchy throat, hoarseness, dry cough (chest burning), general malaise, headache and facial pain. The onset was sudden 1 week(s) ago. The symptoms occur constantly. The patient describes this as moderate in severity and worsening. Current treatment includes non-prescription cold medication (Mucinex) and NSAIDs. Risk factors include smoking. Medical history includes seasonal allergies. 05-31-2013 Unclassified (20 sources) [facility] Routine Follow up - The patient is here for follow-up of hypertension (Last rtn visit 04/29/12. Lipid and CMP 10/25/12.) and other condition(s) (Insomnia). The patient always takes the prescribed medications. No side effects noted. (Patient stopped the flonase because it hasn't been working or helping her symptoms) The patient has low activity level and no regular program. The patient's out of office blood pressure checks occur rarely and dietary compliance is fairly good usually adhering to recommendations. The patient states that breathing effort is stable, there is no recent angina or dyspnea, there are no vision changes or weakness, weight has decreased (1#), mood is unchanged, they are still having trouble sleeping and they do not have headaches. Note for Routine chronic follow-up: Patient is not fasting today. 05-02-2013 Unclassified (20 sources) Cold Symptoms - Symptoms include sneezing, nasal congestion, runny nose, productive cough (Chest feels tight. Is hard to take full breaths at times.), wheezing and facial pain, but do not include fever. The onset was sudden 1 week(s) ago. The symptoms occur constantly. The patient describes this as moderate in severity and worsening. Current treatment includes non-prescription cold medication. Patient denies history of seasonal allergies or asthma. 12-07-2011 Unclassified (20 sources) Well Adult, female - The patient feels well with minor complaints, has good energy level and is sleeping poorly (better with Ambien). Most recent Pap smear: : (). The first day of the last menstrual period was : (2000). Date of last mammogram : (May 2011). Date of most recent cholesterol screening : (2011). Date of most recent glucose screening : (2011). Patient has not had a Pneumovax vaccine. Date of most recent influenza vaccine : (Jun 2011). Last Tetanus booster: unknown/unsure. The patient has a balanced diet and takes no supplemental vitamins & iron. Patient does not exercise. Patient sleeps 7 hours per night. 10-30-2011 Unclassified (20 sources) feeling worse - Pt was seen on 08/01/11 for viral gastroenteritis. She presents today because her sx have not gotten better, in fact have worsened. Having blood in her stool. No n/v, no pain. She is unsteady on her feet and gets these chills that cause her body to just shake all over. She does have cough and some sneezing. These episodes come on her and last about 15minStarted having a shaking spell while waiting in waiting room 08-03-2011 Unclassified (20 sources) Cold Symptoms - Symptoms include nasal congestion, productive cough (clear mucus. No c/o dyspnea. worried she is getting bronchitis), general malaise and headache, but do not include sneezing, runny nose, ear pain, sore throat, scratchy throat or fever. The onset was gradual 4 day(s) ago. The symptoms occur constantly. The patient describes this as moderate in severity and unchanged. Current treatment includes cough suppressants (cough drops) and NSAIDs. The patient has been exposed to an individual with similar symptoms (possibly). Medical History includes seasonal allergies (flonase and claritin)Patient denies history of recurrent sinusitis, recurrent strep pharyngitis, asthma, tonsillectomy or recurrent ear infections. Note for Cold Symptoms: Pt also c/o weakness x 4-5 days. Pt c/o bloating and abd discomfort last Wednesday through Wednesday. Pt used dulcolax otc and an enema and seems to be feeling better concerning gi symptoms. Feels this was a stomach flu. No vomitting but had nausea and almost threw up; no diarrhea. 08-01-2011 Unclassified (20 sources) Cold Symptoms - Symptoms include nasal congestion and runny nose (head congestion, drainage, afebrile). The onset was gradual 2 week(s) ago. The symptoms occur constantly. The patient describes this as moderate in severity. 09-25-2010 Unclassified (10 sources) Hip pain - The onset of the hip pain has been acute and has been occurring in a persistent pattern for 6 months. The course has been increasing. The hip pain is described as being a moderate cramping located in the hip. The hip pain radiates to the right buttock. The pain is not aggravated by anything in particular. Relieving factors include rest. The symptoms have been associated with limping, while the symptoms have not been associated with numbness or tingling. 01-31-2019 Unclassified (10 sources) [ADDITIONAL REASON] Fingernail problems - The onset of the fingernail problems has been gradual and they have been occurring in a persistent pattern for 2 months. The course has been increasing. The fingernail problems are described as moderate. The fingernails are characterized as brittle. Note for Fingernail problems: fingernails will not growseems to get white dry crusty under nails from three fingers on left handhusband had same issue and treated with 2 month course of diflucan and cleared completely 01-31-2019 Unclassified (20 sources) MCR Well Adult - In general the patient feels well with no complaints, has good energy level and is sleeping well. The patient has a balanced diet. The patient does not exercise and sleeps 6 hours per night. The patient denies having trouble with bathing, dressing/grooming, toileting, preparing meals and ambulating. The patient denies having trouble with grocery shopping, driving, use of telephone, housework, laundry, preparing/taking medications and finances. The patient performs monthly self breast exam. The patient has a Healthcare Power of Digital Composer and a Living Will. Note for MCR Well Adult: Has labs to be reviewed today.Colonoscopy 2018- repeat in 10 years.Due for breast cancer screening. 11-23-2023 Unclassified (10 sources) MCR Well Adult - In general the patient feels well with no complaints, has good energy level and is sleeping well. The patient has a balanced diet. The patient does not exercise and sleeps 7 hours per night. The patient denies having trouble with bathing, dressing/grooming, toileting, preparing meals and ambulating. The patient denies having trouble with grocery shopping, driving, use of telephone, housework, laundry, preparing/taking medications and finances. The patient performs monthly self breast exam. The patient has a Healthcare Power of Digital Composer and a Living Will. Note for MCR Well Adult: mammogram 2Colonoscopy 2020 - repeat 10 yearsPatient has labs to be reviewed today. 11-28-2024 Results Test Name Value Interpretation Reference Range Facility ALBUMIN, RANDOM URINE W/CREA Dandre 06-06-2025 ALBUMIN, URINE 1.3 mg/dL Normal See Note: [facility] Comment on above: Result Comment: Refe wily Range: Reference Range Not established Performed By: #### 6 [id number] #### [facility] of [address], [address] [place] [address] Production Cook: Naun Toribio MD ALBUMIN/CREATININE RATIO, RANDOM URINE 8 mg/g creat Normal <30 [facility] Comment on above: Result Comment: The ADA defines abnormalities in albumin excretion as follows: Albuminuria Category Result (mg/g creatinine) Normal to Mildly increased <30 Moderately increased 30-299 Severely increased > OR = 300 The ADA recommends that at least two of three specimens collected within a 3-6 month period be abnormal before considering a patient to be within a diagnostic category. Performed By: #### 6 517 #### [facility] [address], [address] [place] [address] Production Cook: Naun Toribio MD Creatinine (U) [Mass/Vol] 164 mg/dL Normal 20-275 [facility] Comment on above: Performed By: #### 6 517 #### [facility] [address], [address] [place] [address] Production Cook: Naun Toribio MD Orthopedic Visit Reporton Orthopedic Visit Report [facility] [address] [place] [address] OFFICE VISIT Date of Service: 02/08/25 MR#: [id number] Acct: [id number] Name: ESTELLA BURNHAM Jw Rep #: [id number] : 1950 Provider: Dr. Edi Bartlett MD Age/Sex: 74/F Location: [facility] Status: Signed Intake Vital Signs 12/29/24 10:20 02/08/25 13:55 Height 5 ft 6 in 5 ft 6 in Weight: 160 lb BMI 25.8 Intake Visit Reasons: LUMBAR SPINE Chief Complaint: lumbar spine Bonse density results Accompanied by: Is patient in pain?: Yes Pain scale (1-10): 8 Allergies No Known Allergies Allergy (Verified 02/08/25 13:57) Medications ???Medication ???Instructions ???Recorded ???Confirmed ???Type lisinopril 20 ea PO 01/13/21 02/08/25 History mg-hydrochlorothiazide 25 mg tablet tramadol 50 mg tablet ea PO 01/13/21 02/08/25 History buprenorphine 5 mcg/hour weekly patch topical QWEEK 12/29/2402/08 History transdermal patch gabapentin 300 mg capsule 300 mg PO TID 12/29/24 02/08/25 Hi story trazodone 100 mg tablet 100 mg PO QHS 12/29/24 02/08/25 Hi story Have you fallen in the past year?: No PFSH Medical History HTN (hypertension) Surgical History H/O total knee replacement Family History Father Hypertension Mother Arthritis Social History household members: spouse housing: house Smoking Status: Heavy Smoker (>10/day) Tobacco: How many years used: 25 alcohol intake: never what type of physical activity do you participate in: none do you feel safe at home: Yes HPI LUMBAR SPINE Details: This documentation accurately reflects the service provided and the decisions made by me, Dr. Edi Bartlett MD 02/08/25 6284. Part of today???s visit was documented by Eleanor Pichardo MA and Jennifer Patel RN, acting as scribe. ESTELLA BURNHAM is a 74 year old F here today for bone density results. She complains of ongoing low back pain that is worse on the right side and radiates into her buttocks. She has to stop frequently when walking even just to her mailbox. She does have a cane but she does not use it. She does hold on to jose and items when walking around the house. She is not as active as she would like to be due to the pain. She does not have weakness in her legs or feet. The pain is better when she is sitting. She has not had any injections since her last visit. 01/12/25: ESTELLA BURNHAM is a 74 year old F here today for MRI lumbar spine follow-up. Symptoms unchanged. 12/29/24 lumbar spine pain. Pt was referred by Dr. Pollard. Pt. advises she has been experiencing low back pain for 4-5 years. Which has been progressively worsening over this time. She denies known back injury. Her pain is located over her right sided buttock and will extend down the back of the right leg. She had been seeing a chiropractor for several years and was just maintaining. She was seen by Dr. Shay in the past but patient states he wasn't really recommending it because of the long recovery and possibility of it not improving. Pt gets lumbar spine injections from Dr. Pollard every 3 months which are somewhat helpful for about a month. Last injection was 12/19/24. She currently has a pain patch for 4 weeks which has not been very helpful either. No recent MRI. She c/o pain in her right low back which radiates down her right leg to her ankle at times. She states her pain increases with weight bearing. She is also taking Gabapentin. Says that she can only walk about a block before she needs to sit down and rest due to increased low back pain. She will occasionally use a cane due to the back pain. Patient reports that recently she has to rely on a shopping cart when going grocery shopping to lean on. She says that primarily it feels like her back pain is what increases when she is walking and not her legs. No diabetes, no heart or lung issues, no blood thinners. No prior abdominal surgeries. Imaging shows a slight dextroscoliosis, multilevel disc height loss, a spondylolisthesis of L4 on L5 with instability seen on dynamic view, vacuum phenomenon of L2 on L3 seen on extension view, imaging also shows a low bone density. Reviewed MRI from July 2023 which showed L3-4 spondylolisthesis with moderate bilateral lateral recess and neuroforaminal stenosis, L4-5 spondylolisthesis with mild stenosis and severe bilateral lateral recess and neuroforaminal stenosis, L5-S1 moderate left lateral recess and neural foraminal stenosis. No MRI in the last year. Ortho Exam General General: Yes no acute distress Neurologic: (more content not included)... [facility] Dexa Bone Density Studyon Dexa Bone Density Study [facility] Imaging Services [address] [place] [address] Dexa Bone Density Study MR#: [id number] Acct: [id number] Name: ESTELLA BURNHAM Rep #: [id number] : 1950 F 74 From: Kelly Mayo PCP: LISA Robles Status: REG CLI Study: Dexa Bone Density Study Date of Exam: 01/24/25 Exam# [id number] Ordering Dr: Edi Bartlett MD PROCEDURE: DEXA BONE DENSITY STUDY 01/24/2025 REASON FOR EXAM: LOWER BACK PAIN F, age 74 y/o . Postmenopausal. TECHNIQUE: DEXA scan of sites with data reported below. Scanner utilized: [employer]. REFERENCE LINKS: ISCD Adult Positions COMPARISON: None FINDINGS: BMD and T-SCORES Lumbar spine: 1.071 g/cm2, T-score 0.2 Levels: L1 through L4 Left femoral neck: 0.650 g/cm2, T-score -1.8 Left total hip: 0.725 g/cm2, T-score -1.8 Right femoral neck: 0.561 g/cm2, T-score -2.6 Right total hip: 0.677 g/cm2, T-score -2.2 The World Health Organization has defined the following categories based on bone density: Normal bone density: T-score equal to or greater than -1.0 Osteopenia: T-score between -1.0 and -2.5 Osteoporosis: T-score equal to or less than -2.5 FRAX (or Comparable) Fracture Risk Assessment: 10 Year Probability of Fracture: Major Osteoporotic Fracture: 17% Hip Fracture: 7.4% (Note: FRAX is not to be reported in setting of normal range bone density, osteoporosis on DEXA, known history of osteoporosis, prior osteoporotic hip or vertebral fracture, or for any patient undergoing pharmacological treatment for bone loss.) The National Osteoporosis Foundation (NOF) recommends pharmacological treatment for patients with a FRAX 10-year risk of 3% or higher for a hip fracture, or 20% or higher for a major osteoporotic fracture, to prevent osteoporosis and reduce fracture risk. The patient does meet the pharmacological treatment recommendations for prevention of osteoporosis. BD/Dexa Bone Density Study IMPRESSION: OSTEOPOROSIS. Recommend follow-up as clinically warranted. Reading Location: [id number] CC: Dr. Edi Bartlett MD; LISA Robles [employer] Supervisor: Signed [facility] Orthopedic Visit Reporton Orthopedic Visit Report [facility] [address] [place] [address] [address] [place] [address] OFFICE VISIT Date of Service: 01/12/25 MR#: [id number] Acct: [id number] Name: ESTELLA BURNHAM Rep #: [id number] : 1950 Provider: Dr. 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 Accompanied by: Is patient in pain?: Yes (Right low back RLE) Pain scale (1-10): 1 Allergies No Known Allergies Allergy (Verified 01/12/25 15:09) Medications ???Medication ???Instructions ???Recorded ???Confirmed ???Type lisinopril 20 ea PO 01/13/21 01/12/25 History mg-hydrochlorothiazide 25 mg tablet tramadol 50 mg tablet ea PO 01/13/21 01/12/25 History buprenorphine 5 mcg/hour weekly patch topical QWEEK 12/29/2401/12 History transdermal patch gabapentin 300 mg capsule 300 mg PO TID 12/29/24 01/12/25 Hi story trazodone 100 mg tablet 100 mg PO QHS 12/29/24 01/12/25 Hi story Have you fallen in the past year?: No PFSH Medical History HTN (hypertension) Surgical History H/O total knee replacement Family History Father Hypertension Mother Arthritis Social History household members: spouse housing: house Smoking Status: Heavy Smoker (>10/day) Tobacco: How many years used: 25 alcohol intake: never what type of physical activity do you participate in: none do you feel safe at home: Yes HPI LUMBAR SPINE Chief Complaint: lumbar spine Details: This documentation accurately reflects the service provided and the decisions made by me, Dr. Edi Bartlett MD 01/12/25 8534. Part of today???s visit was documented by [ ], acting as scribe. ESTELLA BURNHAM is a 74 year old F here today for MRI lumbar spine follow-up. Symptoms unchanged. OV 12/29/24 lumbar spine pain. Pt was referred by Dr. Pollard. Pt. advises she has been experiencing low back pain for 4-5 years. Which has been progressively worsening over this time. She denies known back injury. Her pain is located over her right sided buttock and will extend down the back of the right leg. She had been seeing a chiropractor for several years and was just maintaining. She was seen by Dr. Shay in the past but patient states he wasn't really recommending it because of the long recovery and possibility of it not improving. Pt gets lumbar spine injections from Dr. Pollard every 3 months which are somewhat helpful for about a month. Last injection was 12/19/24. She currently has a pain patch for 4 weeks which has not been very helpful either. No recent MRI. She c/o pain in her right low back which radiates down her right leg to her ankle at times. She states her pain increases with weight bearing. She is also taking Gabapentin. Says that she can only walk about a block before she needs to sit down and rest due to increased low back pain. She will occasionally use a cane due to the back pain. Patient reports that recently she has to rely on a shopping cart when going grocery shopping to lean on. She says that primarily it feels like her back pain is what increases when she is walking and not her legs. No diabetes, no heart or lung issues, no blood thinners. No prior abdominal surgeries. Imaging shows a slight dextroscoliosis, multilevel disc height loss, a spondylolisthesis of L4 on L5 with instability seen on dynamic view, vacuum phenomenon of L2 on L3 seen on extension view, imaging also shows a low bone density. Reviewed MRI from July 2023 which showed L3-4 spondylolisthesis with moderate bilateral lateral recess and neuroforaminal stenosis, L4-5 spondylolisthesis with mild stenosis and severe bilateral lateral recess and neuroforaminal stenosis, L5-S1 moderate left lateral recess and neural foraminal stenosis. No MRI in the last year. At this time due to the patient's continued worsening walking distance due to back pain which has resulted in her needing to lean on a shopping cart and has made it only possible for her to walk a block at a time before she needs to sit down recommend a new MRI at this time. Lumbar stenosis without neurogenic claudication. Due to the spondylolisthesis most likely a fusion surgery will be recommended due to the instability. At this time the patient has tried multiple conservative treatments such as injections with pain management which has slowly been giving less and less relief the patient has also tried physical therapy in the past which did not give her any benefit. (more content not included)... [facility] Magnetic resonance imaging r eportOrdered By: Manolo Hill on 01-09-2025 Study report [facility] Imaging Services [address] [place] [address] Spine Lumbar (Routine) MR#: [id number] Acct: [id number] Name: ESTELLA BURNHAM Rep #: [id number] : 1950 F 74 From: Swati Hill MD PCP: LISA Robles Status: REG CLI Study:Spine Lumbar (Routine) Date of Exam: 01/08/25 Exam# [id number] Ordering Dr: Erick Tate EXAM: MRI OF THE LUMBAR SPINE WITHOUT CONTRAST. CLINICAL HISTORY: Low back pain. COMPARISON: Radiographs on 12/29/2024. TECHNIQUE: Axial and sagittal T1 and T2 weighted images were obtained. Fat suppressed images were also obtained. FINDINGS: Moderate diffuse spondylotic changes. Findings are demonstrated by multifocal disc dehydration, disc space narrowing, osteophyte formation and degenerative endplate changes. Exaggerated lumbar lordosis. Degenerative dextroscoliosis apex at L3. Moderate chronic changes of Baastrup's disease. There is normal signal intensity from the visualized bone marrow without evidence of replacement or acute fracture. The conus is unremarkable. Evaluation of the individual levels revealed the following: L5-S1: There is grade 1 anterolisthesis measuring 5.2 mm. Moderate diffuse discbulge. Superimposed broad-based left foraminal disc protrusion measuring 5.2 mm. Bilateral facet joint arthropathy and ligamentum flavum hypertrophy. Well-defined intracanicular synovial cyst adjacent to the left paramedian aspect of the intervertebral disc measuring 8 mm. Secondary compression of the exiting left S1 nerve root. The spinal canal is not narrowed. There is mild right and moderate left neural foramina narrowing. L4-5: There is grade 1 anterolisthesis measuring 7.8 mm. Moderate diffuse disc bulge. Bilateral facet joint arthropathy and ligamentum flavum hypertrophy. The spinal canal is mildly narrowed measuring 8.7 mm. There is moderate bilateral neural foramina narrowing. L3-4: There is grade 1 anterolisthesis measuring 5.6 mm. Mild diffuse disc bulge. Bilateral facet joint arthropathy and ligamentum flavum hypertrophy. The spinal canal is mildly Narrowed. There is mild bilateral neural foramina narrowing. L2-3: There is mild diffuse disc bulge. Superimposed broad-based left foraminal disc protrusion measuring 4.5 mm. Bilateral facet joint arthropathy. The spinal canal is not narrowed. There is mild right and moderate left neural foramina narrowing. L1-2: There is grade 1 retrolisthesis measuring 3.5 mm. Mild diffuse disc bulge. Bilateral facet joint arthropathy and ligamentum flavum hypertrophy. The spinal canal is not narrowed. There is mild bilateral neural foramina narrowing. T12-L1:Mild diffuse disc bulge. Bilateral facet joint arthropathy and ligamentum flavum hypertrophy. The spinal canal is not narrowed. There is mild bilateral neural foramina narrowing. T11-T12:Mild diffuse disc bulge. Bilateral facet joint arthropathy and ligamentum flavum hypertrophy. The spinal canal is not narrowed. There is mild bilateral neural foramina narrowing. T10-T11:Mild diffuse disc bulge. Bilateral facet joint arthropathy and ligamentum flavum hypertrophy. The spinal canal is not narrowed. There is mild bilateral neural foramina narrowing. Normal visualized paraspinous soft tissue structures. Heavily calcified atheromatous plaques of the aorta and its branches. MRI/Spine Lumbar (Routine) IMPRESSION: 1. Spondylosis. 2. Degenerative disc disease. Reading Location: [place] [address] CC: LISA Yan; LISA Robles ~ Food And Nutrition Services Supervisor: Signed [facility] Spine Lumbar (Routine)on Spine Lumbar (Routine) [facility] Imaging Services [address] [place] [address] Spine Lumbar (Routine) MR#: [id number] Acct: [id number] Name: ESTELLA BURNHAM Rep #: [id number] : 1950 F 74 From: Manolo tolbert MD PCP: LISA Robles Status: REG CLI Study: Spine Lumbar (Routine) Date of Exam: 01/08/25 Exam# [id number] Ordering Dr: Kandace Tate EXAM: MRI OF THE LUMBAR SPINE WITHOUT CONTRAST. CLINICAL HISTORY: Low back pain. COMPARISON: Radiographs on 12/29/2024. TECHNIQUE: Axial and sagittal T1 and T2 weighted images were obtained. Fat suppressed images were also obtained. FINDINGS: Moderate diffuse spondylotic changes. Findings are demonstrated by multifocal disc dehydration, disc space narrowing, osteophyte formation and degenerative endplate changes. Exaggerated lumbar lordosis. Degenerative dextroscoliosis apex at L3. Moderate chronic changes of Baastrup's disease. There is normal signal intensity from the visualized bone marrow without evidence of replacement or acute fracture. The conus is unremarkable. Evaluation of the individual levels revealed the following: L5-S1: There is grade 1 anterolisthesis measuring 5.2 mm. Moderate diffuse disc bulge. Superimposed broad-based left foraminal disc protrusion measuring 5.2 mm. Bilateral facet joint arthropathy and ligamentum flavum hypertrophy. Well-defined intracanicular synovial cyst adjacent to the left paramedian aspect of the intervertebral disc measuring 8 mm. Secondary compression of the exiting left S1 nerve root. The spinal canal is not narrowed. There is mild right and moderate left neural foramina narrowing. L4-5: There is grade 1 anterolisthesis measuring 7.8 mm. Moderate diffuse disc bulge. Bilateral facet joint arthropathy and ligamentum flavum hypertrophy. The spinal canal is mildly narrowed measuring 8.7 mm. There is moderate bilateral neural foramina narrowing. L3-4: There is grade 1 anterolisthesis measuring 5.6 mm. Mild diffuse disc bulge. Bilateral facet joint arthropathy and ligamentum flavum hypertrophy. The spinal canal is mildly Narrowed. There is mild bilateral neural foramina narrowing. L2-3: There is mild diffuse disc bulge. Superimposed broad-based left foraminal disc protrusion measuring 4.5 mm. Bilateral facet joint arthropathy. The spinal canal is not narrowed. There is mild right and moderate left neural foramina narrowing. L1-2: There is grade 1 retrolisthesis measuring 3.5 mm. Mild diffuse disc bulge. Bilateral facet joint arthropathy and ligamentum flavum hypertrophy. The spinal canal is not narrowed. There is mild bilateral neural foramina narrowing. T12-L1:Mild diffuse disc bulge. Bilateral facet joint arthropathy and ligamentum flavum hypertrophy. The spinal canal is not narrowed. There is mild bilateral neural foramina narrowing. T11-T12:Mild diffuse disc bulge. Bilateral facet joint arthropathy and ligamentum flavum hypertrophy. The spinal canal is not narrowed. There is mild bilateral neural foramina narrowing. T10-T11:Mild diffuse disc bulge. Bilateral facet joint arthropathy and ligamentum flavum hypertrophy. The spinal canal is not narrowed. There is mild bilateral neural foramina narrowing. Normal visualized paraspinous soft tissue structures. Heavily calcified atheromatous plaques of the aorta and its branches. MRI/Spine Lumbar (Routine) IMPRESSION: 1. Spondylosis. 2. Degenerative disc disease. Reading Location[facility] CC: LISA Yan; LISA Robles [employer] Services Supervisor: Signed [facility] L/S Spine Min 4 Viewson 04-0 L/S Spine Min 4 Views [facility] Imaging Services [address] [place], [place] [address] L/S Spine Min 4 Views MR#: [id number] Acct: [id number] Name: ESTELLA BURNHAM Rep #: [id number] : 1950 F 74 From: Uriah Parekh DO PCP: LISA Robles Status: DEP AMB Study: L/S Spine Min 4 Views Date of Exam: 12/29/24 Exam# [id number] Ordering Dr: Kandace Tate PROCEDURE: L/S SPINE MIN 4 VIEWS 12/29/2024 REASON FOR EXAM: CHRONIC PAIN TECHNIQUE: Standing AP view(s) of the thoracic and lumbar spine with flexion and extension maneuvers. COMPARISON: None FINDINGS: Curvature: Right convex scoliosis with a center point or apex L 3. Other findings: Grade 2 anterolisthesis of L4 on L5 which is stable in flexion and extension Other: Multi level degenerative disc disease, endplate spondylosis and facet arthritis RAD/L/S Spine Min 4 Views IMPRESSION: Grade 2 anterolisthesis L4 on L5, scoliosis and other degenerative changes as noted above. Reading Location[facility] CC: LISA Yan; LISA Robles [employer] Services Supervisor: Signed [facility] Orthopedic Visit Reporton Orthopedic Visit Report [facility] [address] [place] [id number] OFFICE VISIT Date of Service: 12/29/24 MR#: [id number] Acct: [id number] Name: ESTELLA BURNHAM Rep #: [id number] : 1950 Provider: LISA Yan Age/Sex: 74/F Location: [facility] Status: Signed Intake Vital Signs 01/13/21 13:45 12/29/24 10:20 Height 5 ft 6 in 5 ft 6 in Weight: 161 lb BMI 25.9 Intake Visit Reasons: LUMBAR SPINE Chief Complaint: lumbar spine Is patient in pain?: Yes (lumbar spine) Pain scale (1-10): 7 Allergies No Known Allergies Allergy (Verified 12/29/24 10:22) Medications ???Medication ???Instructions ???Recorded ???Confirmed ???Type lisinopril 20 ea PO 01/13/21 01/13/21 History mg-hydrochlorothiazide 25 mg tablet tramadol 50 mg tablet ea PO 01/13/21 01/13/21 History buprenorphine 5 mcg/hour weekly patch topical QWEEK 12/29/2412/29 History transdermal patch gabapentin 300 mg capsule 300 mg PO TID 12/29/24 12/29/24 Hi story trazodone 100 mg tablet 100 mg PO QHS 12/29/24 12/29/24 Hi story Have you fallen in the past year?: No PFSH Medical History HTN (hypertension) Surgical History H/O total knee replacement Family History Father Hypertension Mother Arthritis Social History household members: spouse housing: house Smoking Status: Heavy Smoker (>10/day) Tobacco: How many years used: 25 alcohol intake: never what type of physical activity do you participate in: none do you feel safe at home: Yes HPI LUMBAR SPINE Chief Complaint: lumbar spine Details: This documentation accurately reflects the service provided and the decisions made by me, LISA Yan 12/29/24 1020. Part of today???s visit was documented by [ ], acting as scribe. ESTELLA BURNHAM is a 74 year old F here today for lumbar spine pain. Pt was referred by Dr. Pollard. Pt. advises she has been experiencing low back pain for 4-5 years. Which has been progressively worsening over this time. She denies known back injury. Her pain is located over her right sided buttock and will extend down the back of the right leg. She had been seeing a chiropractor for several years and was just maintaining. She was seen by Dr. Shay in the past but patient states he wasn't really recommending it because of the long recovery and possibility of it not improving. Pt gets lumbar spine injections from Dr. Pollard every 3 months which are somewhat helpful for about a month. Last injection was 12/19/24. She currently has a pain patch for 4 weeks which has not been very helpful either. No recent MRI. She c/o pain in her right low back which radiates down her right leg to her ankle at times. She states her pain increases with weight bearing. She is also taking Gabapentin. Says that she can only walk about a block before she needs to sit down and rest due to increased low back pain. She will occasionally use a cane due to the back pain. Patient reports that recently she has to rely on a shopping cart when going grocery shopping to lean on. She says that primarily it feels like her back pain is what increases when she is walking and not her legs. No diabetes, no heart or lung issues, no blood thinners. No prior abdominal surgeries. Ortho Exam General General: Yes no acute distress Neurologic: Yes alert and Yes oriented x3 Spine SPINE TESTING CERVICAL THORACIC LUMBAR Musculoskeletal Strength 0=absent - 5=normal Details: Neurological exam of the lower extremities shows 5x5 power. Normal sensations across all dermatomes. No hyperreflexia. No midline or paraspinal tenderness. Coding Level of Care Code Off vis,new,level 4 Diagnoses Spondylolisthesis at L4-L5 level M43.16 Lumbar stenosis without neurogenic claudication M48.061 Degeneration of intervertebral disc of lumbar region with discogenic back pain and lower extremity pain M51.362 Disc-related pain type: discogenic back pain and lower extremity pain Assessment and Plan Assessment and Plan (1) Spondylolisthesis at L4-L5 level: Status: Acute (2) Lumbar stenosis without neurogenic claudication: Status: Acute (3) Degenerative disc disease, lumbar: Status: Acute Qualifiers: Disc-related pain type: discogenic back pain and lower extremity pain Qualified Code(s): M51.362 - Other intervertebral disc degeneration, lumbar region with discogenic back pain and lower extremity pain Orders: Orders L/S Spine Min 4 Views Today M54.50 - Low back pain, unspecified Spine Lumbar (Routine) Today M43.16 - Spondylolisthesis, lumbar region, M48.061 - Spinal stenosis, lumbar region wit (more content not included)... Normal [facility] COMPREHENSIVE METABOLIC PANE Ryan 11-22-2024 Albumin [Mass/Vol] 4.8 g/dL Normal 3.6-5.1 [facility] Comment on above: Performed By: #### 7 600, 496, 54599 #### [facility] [place] [address] Production Cook: Naun Toribio MD Albumin/Globulin [Mass ratio] 2.0 {ratio} Normal 1.0-2.5 [facility] Comment on above: Performed By: #### 7 600, 496, 51063 #### [facility] of [place] [address] Production Cook: Naun Toribio MD ALP [Catalytic activity/Vol] 78 U/L Normal 37-153 [facility] Comment on above: Performed By: #### 7 600, 496, 85374 #### [facility] [place] [address] Production Cook: Naun Toribio MD ALT [Catalytic activity/Vol] 16 U/L Normal 6-29 [facility] Comment on above: Performed By: #### 7 600, 496, 99256 #### [facility] [place] [address] Production Cook: Naun Toribio MD AST [Catalytic activity/Vol] 14 U/L Normal 10-35 [facility] Comment on above: Performed By: #### 7 600, 496, 80547 #### [facility] [place] [address] Production Cook: Naun Toribio MD Bilirubin [Mass/Vol] 0.5 mg/dL Normal 0.2-1.2 [facility] Comment on above: Performed By: #### 7 600, 496, 02264 #### [facility] of [place] [address] Production Cook: Naun Toribio MD BUN/CREATININE RATIO SEE NOTE: Normal 6-22 [facility] Comment on above: Result Comment: Not Reported: BUN and Creatinine are within reference range. Performed By: #### 7 600, 496, 66843 #### [facility] of [place] [address] Production Cook: Naun Toribio MD Calcium [Mass/Vol] 10.9 mg/dL High 8.6-10.4 [facility] Comment on above: Performed By: #### 7 600, 496, 84206 #### [facility] of [place] [address] Production Cook: Naun Toribio MD Chloride [Moles/Vol] 102 mmol/L Normal 98-110 [facility] Comment on above: Performed By: #### 7 600, 496, 03826 #### [facility] of [place] [address] Production Cook: Naun Toribio MD CO2 [Moles/Vol] 27 mmol/L Normal 20-32 [facility] Comment on above: Performed By: #### 7 600, 496, 51034 #### [facility] of [place] [address] Production Cook: Naun Toribio MD Creatinine [Mass/Vol] 0.82 mg/dL Normal 0.60-1.[address] [facility] Comment on above: Performed By: #### 7 600, 496, 53945 #### [facility] [place] [address] Production Cook: aNun Toribio MD GFR/1.73 sq M.predicted among non-blacks MDRD (S/P/Bld) [Vol rate/Area] 76 mL/min/{1.73_m2} Normal > OR = 60 [facility] Comment on above: Performed By: #### 7 600, 496, 24275 #### [facility] of [place] [address] Production Cook: Naun Toribio MD Globulin (S) [Mass/Vol] 2.4 g/dL Normal 1.9-3.7 [facility] Comment on above: Performed By: #### 7 600, 496, 50494 #### [facility] of [address] [place] [address] Production Cook: Naun Toribio MD Glucose [Mass/Vol] 97 mg/dL Normal 65-99 [facility] Comment on above: Result Comment: Fasting reference interval Performed By: #### 7 600, 496, 46634 #### [facility] [address], [address] [place] [address] Production Cook: Naun Toribio MD Potassium [Moles/Vol] 4.2 mmol/L Normal 3.5-5.[address] [facility] Comment on above: Performed By: #### 7 600, 496, 23770 #### [facility] [place] [address] Production Cook: Naun Toribio MD Protein [Mass/Vol] 7.2 g/dL Normal 6.1-8.1 [facility] Comment on above: Performed By: #### 7 600, 496, 05770 #### [facility] [place] [address] Production Cook: Naun Toribio MD Sodium [Moles/Vol] 138 mmol/L Normal 135-146 [facility] Comment on above: Performed By: #### 7 600, 496, 97538 #### [facility] [place] [address] Production Cook: Naun Toribio MD Urea nitrogen [Mass/Vol] 21 mg/dL Normal 7-25 [facility] Comment on above: Performed By: #### 7 600, 496, 47522 #### [facility] [place] [address] Production Cook: Naun Toribio MD HEMOGLOBIN A1con 11-22-2024 HEMOGLOBIN A1c 5.9 % of total Hgb High <5.7 [facility] Comment on above: Result Comment: For someone without known diabetes, a hemoglobin A1c value between 5.7% and 6.4% is consistent with prediabetes and should be confirmed with a follow-up test. For someone with known diabetes, a value <7% indicates that their diabetes is well controlled. A1c targets should be individualized based on duration of diabetes, age, comorbid conditions, and other considerations. This assay result is consistent with an increased risk of diabetes. Currently, no consensus exists regarding use of hemoglobin A1c for diagnosis of diabetes for children. Performed By: #### 7 600, 496, 55459 #### [facility] [address], [address] [place] [address] Production Cook: Naun Toribio MD LIPID PANEL, [facility] 10-29 Cholesterol [Mass/Vol] 252 mg/dL High <200 [facility] Comment on above: Performed By: #### 7 600, 496, 80114 #### [facility] [address], [address] [place] [address] Production Cook: Naun Toribio MD Cholesterol in HDL [Mass/Vol] 69 mg/dL Normal > OR = 50 [facility] Comment on above: Performed By: #### 7 600, 496, 84354 #### [facility] [address], [address] [place] [address] Production Cook: Naun Toribio MD Cholesterol in LDL [Mass/Vol] 155 mg/dL High [facility] Comment on above: Result Comment: Refe rence range: <100 Desirable range <100 mg/dL for primary prevention; <70 mg/dL for patients with CHD or diabetic patients with > or = 2 CHD risk factors. LDL-C is now calculated using the Magnus-Donita calculation, which is a validated novel method providing better accuracy than the Friedewald equation in the estimation of LDL-C. Magnus CAMPA et al. BRENTON. 2013;310(19): 0731-9935 (http://education.[employer].AlignMed/faq/DQR412) Performed By: #### 7 600, 496, 44699 #### [facility] [address], [address] [place] [address] Production Cook: Naun Toribio MD Cholesterol.total/Mitzi sterol in HDL [Mass ratio] 3.7 {ratio} Normal <5.0 [facility] Comment on above: Performed By: #### 7 600, 496, 47040 #### [facility] [address], [address] [place] [address] Production Cook: Naun Toribio MD NON HDL CHOLESTEROL 183 mg/dL (calc) High <130 [facility] Comment on above: Result Comment: For patients with diabetes plus 1 major ASCVD risk factor, treating to a non-HDL-C goal of <100 mg/dL (LDL-C of <70 mg/dL) is considered a therapeutic option. Performed By: #### 7 600, 496, 91447 #### [facility] [address], [address] [place] [address] Production Cook: Naun Toribio MD Triglyceride [Mass/Vol] 153 mg/dL High <150 [facility] Comment on above: Performed By: #### 7 600, 496, 31001 #### [facility] [address], [address] [place] [address] Production Cook: Naun Toribio MD Laboratory - Chemistry and C hemistry - challengeon 11-21-2024 Albumin [Mass/Vol] 4.8 g/dL Normal 3.6 - 5.1 g/dL [facility] [employer] Albumin/Globulin [Mass ratio] 2.0 {ratio} Normal 1.0 - 2.5 [facility], [facility] [employer] ALP [Catalytic activity/Vol] 78 U/L Normal 37 - 153 U/L [employer] [employer] [employer] ALT [Catalytic activity/Vol] 16 U/L Normal 6 - 29 U/L [employer], [facility].; [employer] AST [Catalytic activity/Vol] 14 U/L Normal 10 - 35 U/L [employer] [employer] [employer] Bilirubin [Mass/Vol] 0.5 mg/dL Normal 0.2 - 1 .2 mg/dL [facility] [employer] [employer] Calcium [Mass/Vol] 10.9 mg/dL Abnormal 8.6 - 10. 4 mg/dL [facility] [employer] [employer] Chloride [Moles/Vol] 102 mmol/L Normal 98 - 11 0 mmol/L [facility], [facility].; [facility], [facility]. Cholesterol [Mass/Vol] 252 mg/dL Abnormal [facility].; [facility], [facility] Cholesterol in HDL [Mass/Vol] 69 mg/dL Normal [facility], [facility].; [facility], [facility] Cholesterol in LDL [Mass/Vol] 155 mg/dL Abnormal [facility].; [facility] [employer] [facility], [facility]. CO2 [Moles/Vol] 27 mmol/L Normal 20 - 32 mmol/L [facility].; [facility] [employer] [facility], [facility]. Creatinine [Mass/Vol] 0.82 mg/dL Normal 0.60 - 1.00 mg/dL [facility].; [facility], [facility]. GFR/1.73 sq M.predicted among non-blacks MDRD (S/P/Bld) [Vol rate/Area] 76 mL/min/{1.73_m2} Normal [facility].; [employer] [facility] Glucose [Mass/Vol] 97 mg/dL Normal 65 - 99 mg/dL [facility], [facility].; [facility] [employer] [facility], [facility]. Potassium [Moles/Vol] 4.2 mmol/L Normal 3.5 - 5.3 mmol/L [facility].; [employer] Protein [Mass/Vol] 7.2 g/dL Normal 6.1 - 8.1 g/dL [facility], [facility].; [employer] Sodium [Moles/Vol] 138 mmol/L Normal 135 - 146 mmol/L [facility], [facility].; [employer] Triglyceride [Mass/Vol] 153 mg/dL Abnormal [facility].; [employer], [facility] Urea nitrogen [Mass/Vol] 21 mg/dL Normal 7 - 25 mg/dL [facility], [facility].; [employer], [facility]. Laboratory - Hematology and Cell countson 11-21-2024 HbA1c (Bld) [Mass fraction] 5.9 % Abnormal [facility].; [employer], [employer]. No Panel Informationon 11-21 BUN/CREATININE RATIO SEE NOTE: Normal 6 - 22 [facility].; [facility]. CHOL/HDLC RATIO 3.7 Normal [facility]; [facility] GLOBULIN 2.4 Normal 1.9 - 3.[address] [facility].; [facility], [facility] NON HDL CHOLESTEROL 183 Abnormal [facility].; [facility]. Laboratory - Hematology and Cell countson 05-31-2024 HbA1c (Bld) [Mass fraction] 6.0 % Normal 4.6 - 7.1 % [facility].; [facility]. Bilirubin Test strip Ql (U)O rdered By: Bakari Pollard on 01-24-2024 Bilirubin Ql (U) Negative Negative [facility] Ketones Test strip Ql (U)Ord ered By: Bakari Pollard on 01-24-2024 Ketones Ql (U) Negative Negative [facility] Laboratory - Drug toxicology Ordered By: Bakari Pollard on 01-24-2024 Amphetamines Ql (U) Negative <1000 ng/mL [facility] Benzodiazepines Ql (U) Negative < 200 ng/mL [facility] Cannabinoids Screen Ql (U) Negative < 50 ng/mL [facility] Cocaine Ql (U) Negative < 300 ng/mL [facility] Opiates Ql (U) Negative < 300 ng/mL [facility] Nitrite Test strip Ql (U)Ord ered By: Bakari Pollard on 01-24-2024 Nitrite Ql (U) Negative Negative [facility] No Panel InformationOrdered By: Bakari Pollard on 01-24-2024 MDMA (Ecstasy) Screen Positive < 500 ng/mL [facility] Miscellaneous Test See comment [facility] Comment on above: TEST RESULTS LIMITST ramadol POSITIVE Dhzsut=125 Tramadol Conf, MS, UR 3135 Cienck=030 TESTING PERFORMED AT [facility]. ORIGINAL REPORT ON FILE IN LAB CONTAINS ADDITIONAL TEST SITE INFORMATION. Urine Barbiturates Screen Negative < 200 ng/mL [facility] Urine Drug Screen Comment [facility] Comment on above: CONFIRMATORY TESTING FOR ALL POSITIVE URINE DRUG SCREENRESULTS WILL ONLY BE SENT OUT UPON PHYSICIAN ORDER. [facility]ISTA Urine Drug Screen methods provide only preliminaryanalytical test results. A more specific alternate chemicalmethod must be used in order to obtain a confirmedanalytical result. Gas chromatography/mass spectrometery(GC/MS) is the preferred confirmatory method. Clinicalconsideration and professional judgement should be appliedto any drug of abuse test result, particularly whenpreliminary positive results are used. URINE TCA TESTING MUST BE ORDERED SEPARATELY. USE TESTMNEMONIC: [facility] Urine Methadone Screen Negative < 300 ng/mL [facility] Protein Test strip Ql (U)Ord ered By: Bakari Pollard on 01-24-2024 Protein Ql (U) Negative Negative [facility] Urine blood detectionOrdered By: Bakari Pollard on 01-24-2024 RBC Ql (U) Negative Negative [facility] Urine clarityOrdered By: Jeremias Pollard on 01-24-2024 Clarity (U) Clear Clear [facility] Urine color determinationOrd ered By: Bakari Pollard on 01-24-2024 Color (U) Yellow Yellow [facility] Urine glucose detectionOrder ed By: Bakari Pollard on 01-24-2024 Glucose Ql (U) Normal mg/dl Normal [facility] Urine leukocyte esterase det ection by dipstickOrdered By: Bakari Pollard on 01-24-2024 Leukocyte esterase Test strip Ql (U) 25 /ul Negative [facility] Urine pHOrdered By: Bakari landers on 01-24-2024 pH (U) 7.0 [pH] 5.0 - 8.0 [facility] Urine phencyclidine (PCP) de tectionOrdered By: Bakari Pollard on 01-24-2024 Phencyclidine Ql (U) Negative < 25 ng/mL [facility] Urine specific gravity measu rementOrdered By: Bakari Carltonbrayden on 01-24-2024 Specific gravity (U) [Rel density] 1.010 1.002-1.030 [facility] Urine urobilinogen measureme ntOrdered By: Bakari Carltonbrayden on 01-24-2024 Urobilinogen Ql (U) Normal mg/dl Normal [facility] Laboratory - Chemistry and C hemistry - challengeon 11-16-2023 Albumin [Mass/Vol] 4.3 g/dL Normal 3.6 - 5.1 g/dL [facility], [facility].; [facility] [employer] [facility], [facility]. Albumin/Globulin [Mass ratio] 1.5 {ratio} Normal 1.0 - 2.5 [facility], [facility].; [facility] [employer] [facility], [facility]. ALP [Catalytic activity/Vol] 68 U/L Normal 37 - 153 U/L [facility], [facility].; [employer] ALT [Catalytic activity/Vol] 20 U/L Normal 6 - 29 U/L [facility], [facility].; [employer] AST [Catalytic activity/Vol] 14 U/L Normal 10 - 35 U/L [facility], [facility].; [employer] [employer]. Bilirubin [Mass/Vol] 0.4 mg/dL Normal 0.2 - 1 .2 mg/dL [facility] [employer] [facility], [facility].; [employer] Calcium [Mass/Vol] 10.7 mg/dL Abnormal 8.6 - 10. 4 mg/dL [facility], [facility].; [employer] Chloride [Moles/Vol] 101 mmol/L Normal 98 - 11 0 mmol/L [facility], [facility].; [employer] Cholesterol [Mass/Vol] 229 mg/dL Abnormal [facility], [facility].; [employer] Cholesterol in HDL [Mass/Vol] 56 mg/dL Normal [facility] [employer] [facility], [facility].; [employer] Cholesterol in LDL [Mass/Vol] 141 mg/dL Abnormal [facility] [employer] [facility], [facility].; [employer] CO2 [Moles/Vol] 29 mmol/L Normal 20 - 32 mmol/L [facility], [facility].; [employer] Creatinine [Mass/Vol] 0.79 mg/dL Normal 0.60 - 1.00 mg/dL [facility], [facility].; [facility] [employer] [facility], [facility]. GFR/1.73 sq M.predicted among non-blacks MDRD (S/P/Bld) [Vol rate/Area] 80 mL/min/{1.73_m2} Normal [facility], [facility].; [employer] [employer]. Glucose [Mass/Vol] 108 mg/dL Abnormal 65 - 99 mg/dL [facility].; [employer], [facility]. Potassium [Moles/Vol] 3.8 mmol/L Normal 3.5 - 5.3 mmol/L [facility].; [facility] [employer] [facility], [facility]. Protein [Mass/Vol] 7.1 g/dL Normal 6.1 - 8.1 g/dL [facility].; [employer], [employer]. Sodium [Moles/Vol] 139 mmol/L Normal 135 - 146 mmol/L [facility].; [employer], [employer]. Triglyceride [Mass/Vol] 186 mg/dL Abnormal [facility].; [employer], [employer]. Urea nitrogen [Mass/Vol] 19 mg/dL Normal 7 - 25 mg/dL [facility].; [employer] [employer]. Laboratory - Hematology and Cell countson 11-16-2023 HbA1c (Bld) [Mass fraction] 6.3 % Abnormal [facility].; [employer] [employer]. No Panel Informationon 11-16 BUN/CREATININE RATIO SEE NOTE: Normal 6 - 22 [facility].; [employer] CHOL/HDLC RATIO 4.1 Normal [facility], [facility].; [employer] GLOBULIN 2.8 Normal 1.9 - 3.7 [facility].; [employer] NON HDL CHOLESTEROL 173 Abnormal [facility].; [employer], [employer]. Laboratory - Drug toxicology Ordered By: Bakari Pollard on 05-17-2023 Amphetamines Ql (U) Negative <1000 ng/mL [facility] Benzodiazepines Ql (U) Negative < 200 ng/mL [facility] Cannabinoids Screen Ql (U) Positive < 50 ng/mL [facility] Cocaine Ql (U) Negative < 300 ng/mL [facility] Opiates Ql (U) Negative < 300 ng/mL [facility] No Panel InformationOrdered By: Bakari Pollard on 05-17-2023 MDMA (Ecstasy) Screen Positive < 500 ng/mL [facility] Miscellaneous Test See comment [facility] Comment on above: TEST RESULTS LIMITS Tramadol Positive Sanjcp=906 Tramadol Conf, MS, UR >26229 ng/mL Ooxjgz=642 TESTING PERFORMED AT [facility]. ORIGINAL REPORT ON FILE IN LAB CONTAINS ADDITIONAL TEST SITE INFORMATION. Urine Barbiturates Screen Negative < 200 ng/mL [facility] Urine Drug Screen Comment [facility] Comment on above: CONFIRMATORY TESTING FOR ALL POSITIVE URINE DRUG SCREENRESULTS WILL ONLY BE SENT OUT UPON PHYSICIAN ORDER. [facility]ISTA Urine Drug Screen methods provide only preliminaryanalytical test results. A more specific alternate chemicalmethod must be used in order to obtain a confirmedanalytical result. Gas chromatography/mass spectrometery(GC/MS) is the preferred confirmatory method. Clinicalconsideration and professional judgement should be appliedto any drug of abuse test result, particularly whenpreliminary positive results are used. URINE TCA TESTING MUST BE ORDERED SEPARATELY. USE TESTMNEMONIC: [facility] Urine Methadone Screen Negative < 300 ng/mL [facility] Urine phencyclidine (PCP) de tectionOrdered By: Bakari Pollard on 05-17-2023 Phencyclidine Ql (U) Negative < 25 ng/mL [facility] Laboratory - Hematology and Cell countson 05-11-2023 HbA1c (Bld) [Mass fraction] 6.0 % Normal 4.6 - 7.1 % [facility]. Laboratory - Chemistry and C hemistry - challengeon 11-04-2022 Albumin [Mass/Vol] 4.4 g/dL Normal 3.6 - 5.1 g/dL [facility]; [facility], [facility] Albumin/Globulin [Mass ratio] 1.9 {ratio} Normal 1.0 - 2.[address] [facility].; [facility] ALP [Catalytic activity/Vol] 97 U/L Normal 37 - 153 U/L [facility].; [place] [employer] [facility]. ALT [Catalytic activity/Vol] 34 U/L Abnormal 6 - 29 U/L [facility].; [facility]. AST [Catalytic activity/Vol] 23 U/L Normal 10 - 35 U/L [facility].; [place] [employer] [facility] Bilirubin [Mass/Vol] 0.5 mg/dL Normal 0.2 - 1 .2 mg/dL [facility].; [place] [employer] [facility]. Calcium [Mass/Vol] 10.4 mg/dL Normal 8.6 - 10. 4 mg/dL [facility].; [place] [employer] [facility]. Chloride [Moles/Vol] 103 mmol/L Normal 98 - 11 0 mmol/L [facility].; [place] [employer] [facility]. Cholesterol [Mass/Vol] 217 mg/dL Abnormal [facility]; [facility] Cholesterol in HDL [Mass/Vol] 65 mg/dL Normal [facility].; [facility]. Cholesterol in LDL [Mass/Vol] 127 mg/dL Abnormal [facility].; [place] [employer] [facility] CO2 [Moles/Vol] 32 mmol/L Normal 20 - 32 mmol/L [facility].; [place] [employer] [facility]. Creatinine [Mass/Vol] 0.86 mg/dL Normal 0.60 - 1.00 mg/dL [facility].; [place] [employer] [facility]. GFR/1.73 sq M.predicted among non-blacks MDRD (S/P/Bld) [Vol rate/Area] 73 mL/min/{1.73_m2} Normal [facility], [facility].; [facility] Glucose [Mass/Vol] 93 mg/dL Normal 65 - 99 mg/dL [facility].; [facility], [facility]. Potassium [Moles/Vol] 4.8 mmol/L Normal 3.5 - 5.3 mmol/L [facility].; [facility] Protein [Mass/Vol] 6.7 g/dL Normal 6.1 - 8.1 g/dL [facility].; [facility] Sodium [Moles/Vol] 137 mmol/L Normal 135 - 146 mmol/L [facility]; [facility] Triglyceride [Mass/Vol] 136 mg/dL Normal [facility].; [facility], [facility]. Urea nitrogen [Mass/Vol] 21 mg/dL Normal 7 - 25 mg/dL [facility]; [facility] Laboratory - Hematology and Cell countson 11-04-2022 HbA1c (Bld) [Mass fraction] 5.9 % Abnormal [facility]; [facility] No Panel Informationon 11-04 BUN/CREATININE RATIO NOT APPLICABLE Normal 6 - 22 [facility]; [facility]. CHOL/HDLC RATIO 3.3 Normal [facility]; [facility], [facility]. GLOBULIN 2.3 Normal 1.9 - 3.7 [facility]; [facility] NON HDL CHOLESTEROL 152 Abnormal [facility].; [facility] Laboratory - Drug toxicology on 07-14-2022 Amphetamines Ql (U) Negative <1000 ng/mL [facility] Work Phone: Benzodiazepines Ql (U) Negative < 200 ng/mL [facility] Work Phone: Cannabinoids Screen Ql (U) Negative < 50 ng/mL [facility] Work Phone: Cocaine Ql (U) Negative < 300 ng/mL [facility] Work Phone: Opiates Ql (U) Negative < 300 ng/mL [facility] Work Phone: No Panel Informationon 07-14 MDMA (Ecstasy) Screen Negative < 500 ng/mL [facility] Work Phone: Urine Barbiturates Screen Negative < 200 ng/mL [facility] Work Phone: Urine Drug Screen Comment [facility] Work Phone: Comment on above: CONFIRMATORY TESTING FOR ALL POSITIVE URINE DRUG SCREENRESULTS WILL ONLY BE SENT OUT UPON PHYSICIAN ORDER. VISTA Urine Drug Screen methods provide only preliminaryanalytical test results. A more specific alternate chemicalmethod must be used in order to obtain a confirmedanalytical result. Gas chromatography/mass spectrometery(GC/MS) is the preferred confirmatory method. Clinicalconsideration and professional judgement should be appliedto any drug of abuse test result, particularly whenpreliminary positive results are used. URINE TCA TESTING MUST BE ORDERED SEPARATELY. USE TESTMNEMONIC: [facility] Urine Methadone Screen Negative < 300 ng/mL [facility] Work Phone: Urine phencyclidine (PCP) de tectionon 07-14-2022 Phencyclidine Ql (U) Negative < 25 ng/mL [facility] Work Phone: Laboratory - Hematology and Cell countson 05-05-2022 HbA1c (Bld) [Mass fraction] 6.3 % Normal 4.6 - 7.1 % [facility]. Laboratory - Drug toxicology on 01-26-2022 Amphetamines Ql (U) Negative [facility] Work Phone: Benzodiazepines Ql (U) Negative [facility] Work Phone: Cannabinoids Screen Ql (U) Negative [facility] Work Phone: Cocaine Ql (U) Negative [facility] Work Phone: Opiates Ql (U) Negative [facility] Work Phone: No Panel Informationon 01-26 MDMA (Ecstasy) Screen Negative [facility] Work Phone: Urine Barbiturates Screen Negative [facility] Work Phone: Urine Drug Screen Comment [facility] Work Phone: Comment on above: CONFIRMATORY TESTING FOR ALL POSITIVE URINE DRUG SCREENRESULTS WILL ONLY BE SENT OUT UPON PHYSICIAN ORDER. VISTA Urine Drug Screen methods provide only preliminaryanalytical test results. A more specific alternate chemicalmethod must be used in order to obtain a confirmedanalytical result. Gas chromatography/mass spectrometery(GC/MS) is the preferred confirmatory method. Clinicalconsideration and professional judgement should be appliedto any drug of abuse test result, particularly whenpreliminary positive results are used. URINE TCA TESTING MUST BE ORDERED SEPARATELY. USE TESTMNEMONIC: [facility] Urine Methadone Screen Negative [facility] Work Phone: Urine phencyclidine (PCP) de tectionon 01-26-2022 Phencyclidine Ql (U) Negative [facility] Work Phone: 3D MAMM BILAT SCREENon 12-18 3D MAMM BILAT SCREEN [place] [address] Patient: ESTELLA BURNHAM Phone#: : 1950 Age: 71 Gender: F Pt. Type: Out Account: [id number] Location: [facility] Ordering: WEI MARIE Exam Date: 12/18/2021/9:08 Family Phys: Charge Code: [id number] Physician: [place] Order #: [id number] DLP Dose#: PROCEDURE: BILATERAL SCREENING BREAST TOMOSYNTHESIS MAMMOGRAM WITH CAD COMPARISON: [facility], BILAT SCREENING, 08/16/2018, 10:45. [facility], BILAT SCREENING, 11/23/2019, 11:12. INDICATIONS: screening BREAST COMPOSITION: Scattered fibroglandular densities(25-50% glandular). FINDINGS: DIAGNOSTIC CATEGORY 1--NEGATIVE NO CHANGE FROM COMPARISON ASSESSMENT. RIGHT BREAST: No significant suspicious finding. No significant change has occurred. LEFT BREAST: No significant suspicious finding. No significant change has occurred. RECOMMENDATIONS: ROUTINE MAMMOGRAM AND CLINICAL EVALUATION IN 12 MONTHS. PLEASE NOTE: A NORMAL MAMMOGRAM DOES NOT EXCLUDE THE POSSIBILITY OF BREAST CANCER. A CLINICALLY SUSPICIOUS PALPABLE LUMP SHOULD BE BIOPSIED. THIS FACILITY UTILIZES A REMINDER SYSTEM TO ENSURE THAT ALL PATIENTS RECEIVE REMINDER LETTERS FOR APPOINTMENTS. THIS INCLUDES REMINDERS FOR ROUTINE MAMMOGRAMS, DIAGNOSITC MAMMOGRAMS, OR OTHER BREAST IMAGING INTERVENTIONS WHEN APPROPRIATE. THIS PATIENT WILL BE PLACED IN THE APPROPRIATE REMINDER SYSTEM. Dictated by: Chan Darnell MD on 12/18/2021 at 12:30 Approved by: Chan Darnell MD on 12/18/2021 at 12:35 Normal [facility] Laboratory - Chemistry and C hemistry - challengeon 10-28-2021 Albumin [Mass/Vol] 4.5 g/dL Normal 3.6 - 5.1 g/dL [facility].; [facility]. Albumin/Globulin [Mass ratio] 1.8 {ratio} Normal 1.0 - 2.5 [facility], [facility].; [place] [employer] [facility], [facility]. ALP [Catalytic activity/Vol] 97 U/L Normal 37 - 153 U/L [facility], [facility].; [place] [employer] [facility], [facility]. ALT [Catalytic activity/Vol] 49 U/L Abnormal 6 - 29 U/L [facility].; [place] [employer] [facility] AST [Catalytic activity/Vol] 30 U/L Normal 10 - 35 U/L [facility].; [place] [employer] [facility], [facility]. Bilirubin [Mass/Vol] 0.4 mg/dL Normal 0.2 - 1 .2 mg/dL [facility], [facility].; [place] [employer] [facility], [facility]. Calcium [Mass/Vol] 11.2 mg/dL Abnormal 8.6 - 10. 4 mg/dL [facility], [facility].; [place] [employer] [facility] Chloride [Moles/Vol] 102 mmol/L Normal 98 - 11 0 mmol/L [facility], [facility].; [place] [employer] [facility] Cholesterol [Mass/Vol] 207 mg/dL Abnormal [facility], [facility].; [facility] Cholesterol in HDL [Mass/Vol] 58 mg/dL Normal [facility], [facility].; [facility]. Cholesterol in LDL [Mass/Vol] 124 mg/dL Abnormal [facility].; [facility]. CO2 [Moles/Vol] 26 mmol/L Normal 20 - 32 mmol/L [facility].; [facility]. Creatinine [Mass/Vol] 0.92 mg/dL Normal 0.50 - 0.99 mg/dL [facility].; [facility]. GFR/1.73 sq M.predicted among blacks MDRD (S/P/Bld) [Vol rate/Area] 74 mL/min/{1.73_m2} Normal [facility].; [facility], [facility]. Glucose [Mass/Vol] 111 mg/dL Abnormal 65 - 99 mg/dL [facility].; [facility]. Potassium [Moles/Vol] 3.7 mmol/L Normal 3.5 - 5.3 mmol/L [facility].; [facility]. Protein [Mass/Vol] 7.0 g/dL Normal 6.1 - 8.1 g/dL [facility], [facility].; [facility]. Sodium [Moles/Vol] 136 mmol/L Normal 135 - 146 mmol/L [facility], [facility].; [place] [employer] [facility] Triglyceride [Mass/Vol] 141 mg/dL Normal [facility], [facility].; [facility]. Urea nitrogen [Mass/Vol] 18 mg/dL Normal 7 - 25 mg/dL [facility], [facility].; [place] [employer] [facility], [facility]. Laboratory - Hematology and Cell countson 10-28-2021 HbA1c (Bld) [Mass fraction] 6.3 % Abnormal [facility], [facility].; [place] [employer] [facility], [facility]. No Panel Informationon 10-28 BUN/CREATININE RATIO NOT APPLICABLE Normal 6 - 22 [facility], [facility].; [place] [employer] CHOL/HDLC RATIO 3.6 Normal [facility], [facility].; [place] [employer] [facility] eGFR NON-AFR. MACANESE 64 Normal [facility]; [facility] GLOBULIN 2.5 Normal 1.9 - 3.7 [facility] [employer] NON HDL CHOLESTEROL 149 Abnormal [facility] [place] [facility], [employer]. US RUQ (GB/PANCREAS)on 10-17 US RUQ (GB/PANCREAS) [address] [address] Patient: ESTELLA BURNHAM Phone#: : 1950 Age: 71 Gender: F Pt. Type: Out Account: [id number] Location: 062 Ordering: [employer] Exam Date: 10/17/2021/11:12 Family Phys: Charge Code: [id number] Physician: [place] Order #: [id number] DLP Dose#: PROCEDURE: RUQ (GB) ULTRASOUND COMPARISON: None. INDICATIONS: flank pain FINDINGS: LIVER: Normal. Normal size and echotexture. No significant masses. BILIARY: A 2.4 centimeter gallbladder calculus is present. The is normal in thickness. The common bile duct is 2.2 millimeters. PANCREAS: Normal. No visible mass, abnormal atrophy, or ductal dilatation. RIGHT KIDNEY: Normal. No mass or obstruction. OTHER: Negative. CONCLUSION: 1. Cholelithiasis. DICTATED BY: CHAN DARNELL MD ON 10/17/2021 AT 11:50 APPROVED BY: CHAN DARNELL MD ON 10/17/2021 AT 11:51 Normal [facility] CT KUB (KIDNEY STONE PROTOCO L)on 10-14-2021 CT KUB (KIDNEY STONE PROTOCOL) [address] [address] Patient: ESTELLA BURNHAM Phone#: : 1950 Age: 71 Gender: F Pt. Type: Out Account: [id number] Location: 062 Ordering: [employer] Exam Date: 10/14/2021/14:52 Family Phys: Charge Code: [id number] Physician: [place] Order #: [id number] DLP Dose#: [id number] PROCEDURE: CT ABDOMEN AND PELVIS WITHOUT CONTRAST COMPARISON: None. INDICATIONS: Right Flank Pain. TECHNIQUE: After obtaining the patient's consent, CT images of the abdomen and pelvis were created without non-ionic intravenous contrast material. All CT scans at this facility use dose modulation, iterative reconstruction, and/or weight based dosing when appropriate to reduce radiation dose to as low as reasonably achievable. IV CONTRAST: No IV contrast used,0ml TOTAL DOSE: 13.60 CTDIvol(mGy) FINDINGS: KIDNEYS: Normal. No mass, obstruction, or calcification. ADRENALS: Normal. No mass or enlargement. URINARY BLADDER: Normal. No visible focal wall thickening, lesion, or calculus. LIVER: Normal. No enlargement, atrophy, abnormal density, or significant focal lesion. BILIARY: Focus of increased attenuation is present in the gallbladder fundus and possibly related to a cholesterol stone versus thickened mucosa. Gallbladder ultrasound is recommended. PANCREAS: Normal. No lesion, fluid collection, ductal dilatation, or atrophy. SPLEEN: Normal. No enlargement or focal lesion. AORTA/VASCULAR: Normal. No aneurysm. RETROPERITONEUM: Normal. No mass or adenopathy. BOWEL/MESENTERY: Descending and sigmoid colon diverticula are present without inflammatory change. ABDOMINAL WALL: Bilateral inguinal hernias with fat are present. PELVIC NODES: Normal. No adenopathy. PELVIC ORGANS: Normal. No visible mass. Pelvic organs appropriate for patient age. Continued Report - Page 2 of 2 Patient: ESTELLA BURNHAM Phone#: : 1950 Age: 71 Gender: F Pt. Type: Out Account: [id number] Location: 2 Ordering: [employer] Exam Date: 10/14/2021/14:52 Family Phys: Charge Code: [id number] Physician: [place] Order #: [id number] DLP Dose#: 13.60 BONES: Degenerative changes of the spine are present. LUNG BASES: Normal. No visible pulmonary or pleural disease. OTHER: Negative. CONCLUSION: 1. Diverticulosis. 2. Focus of abnormal density at the gallbladder fundus is present raising the possibility of cholesterol stone versus mucosal lesion. Further evaluation by ultrasound is recommended. 3. There is no evidence of renal or ureteral calculi or hydronephrosis. Dictated by: Chan Darnell MD on 10/14/2021 at 15:11 Approved by: Chan Darnell MD on 10/14/2021 at 15:15 Normal [facility] Laboratory - Chemistry and C hemistry - challengeon 10-08-2021 Bilirubin Ql (U) Negative Normal [place] [facility].; [employer]. Ketones Ql (U) Negative Normal [place] [facility] [email or web address]. pH (U) 6.5 [pH] Normal [employer].; [employer]. Specific gravity (U) [Rel density] 1.025 Normal [employer].; [employer]. Urobilinogen Qn (U) 0.2 mg/dL Normal [facility] [employer]. Laboratory - Hematology and Cell countson 10-08-2021 Hemoglobin Ql (U) Negative Normal [employer].; [employer]. Laboratory - Specimen inform ationon 10-08-2021 Appearance (U) clear Normal [place] [facility] [email or web address].; [employer]. Color (U) yellow Normal [employer].; [employer]. Laboratory - Urinalysison Glucose Test strip (U) [Mass/Vol] Negative Normal [employer].; [employer]. Leukocyte esterase Test strip Ql (U) Negative Normal [employer].; [employer]. Protein Ql (U) Negative Normal [place] [facility] [email or web address].; [employer]. Laboratory - UrinalysisOrder ed By: Lizeth Pinto on 10-08-2021 Nitrite Ql (U) Negative Normal [place] [facility] [email or web address].; [employer]. Laboratory - Hematology and Cell countsOrdered By: Lynette Navarro on 05-06-2021 HbA1c (Bld) [Mass fraction] 6.5 % Normal 4.6 - 7.1 % [employer].; [employer]. Laboratory - Chemistry and C hemistry - challengeon 04-29-2021 Albumin [Mass/Vol] 4.5 g/dL Normal 3.6 - 5.1 g/dL [facility]; [facility] Albumin/Globulin [Mass ratio] 1.9 {ratio} Normal 1.0 - 2.5 [facility]; [facility] ALP [Catalytic activity/Vol] 88 U/L Normal 37 - 153 U/L [facility].; [facility], [facility]. ALT [Catalytic activity/Vol] 58 U/L Abnormal 6 - 29 U/L [facility].; [facility], [facility]. AST [Catalytic activity/Vol] 32 U/L Normal 10 - 35 U/L [facility]; [facility] Bilirubin [Mass/Vol] 0.5 mg/dL Normal 0.2 - 1 .2 mg/dL [facility]; [facility] Calcium [Mass/Vol] 11.0 mg/dL Abnormal 8.6 - 10. 4 mg/dL [facility].; [facility], [facility]. Chloride [Moles/Vol] 102 mmol/L Normal 98 - 11 0 mmol/L [facility]; [facility], [facility]. Cholesterol [Mass/Vol] 192 mg/dL Normal [facility]; [facility] Cholesterol in HDL [Mass/Vol] 55 mg/dL Normal [facility]; [facility] Cholesterol in LDL [Mass/Vol] 111 mg/dL Abnormal [facility].; [facility], [facility]. CO2 [Moles/Vol] 27 mmol/L Normal 20 - 32 mmol/L [facility]; [facility] Creatinine [Mass/Vol] 1.00 mg/dL Abnormal 0.50 - 0.99 mg/dL [facility], [facility].; [facility]. GFR/1.73 sq M.predicted among blacks MDRD (S/P/Bld) [Vol rate/Area] 67 mL/min/{1.73_m2} Normal [facility], [facility].; [facility] Glucose [Mass/Vol] 128 mg/dL Abnormal 65 - 99 mg/dL [facility].; [facility] Potassium [Moles/Vol] 4.9 mmol/L Normal 3.5 - 5.3 mmol/L [facility]; [facility] Protein [Mass/Vol] 6.9 g/dL Normal 6.1 - 8.1 g/dL [facility]; [facility] Sodium [Moles/Vol] 137 mmol/L Normal 135 - 146 mmol/L [facility]; [facility] Triglyceride [Mass/Vol] 149 mg/dL Normal [facility]; [facility] Urea nitrogen [Mass/Vol] 20 mg/dL Normal 7 - 25 mg/dL [facility]; [facility] Urea nitrogen/Creatinine [Mass ratio] 20 mg/mg Normal 6 - 22 [facility]; [place] [employer] [facility] No Panel Informationon 04-29 CHOL/HDLC RATIO 3.5 Normal [facility]; [facility] eGFR NON-AFR. MACANESE 57 Abnormal [facility]; [facility] GLOBULIN 2.4 Normal 1.9 - 3.7 [facility]; [facility] NON HDL CHOLESTEROL 137 Abnormal [facility].; [place] [employer] [facility], [facility] Laboratory - Chemistry and C hemistry - challengeon 10-29-2020 Albumin [Mass/Vol] 4.6 g/dL Normal 3.6 - 5.1 g/dL [facility]; [facility]. Albumin/Globulin [Mass ratio] 2.0 {ratio} Normal 1.0 - 2.5 [facility]; [facility]. ALP [Catalytic activity/Vol] 82 U/L Normal 37 - 153 U/L [facility].; [place] [employer] [facility], [facility]. ALT [Catalytic activity/Vol] 47 U/L Abnormal 6 - 29 U/L [facility].; [place] [employer] [facility]. AST [Catalytic activity/Vol] 24 U/L Normal 10 - 35 U/L [facility].; [facility]. Bilirubin [Mass/Vol] 0.6 mg/dL Normal 0.2 - 1 .2 mg/dL [facility], [facility].; [facility]. Calcium [Mass/Vol] 10.5 mg/dL Abnormal 8.6 - 10. 4 mg/dL [facility], [facility].; [facility]. Chloride [Moles/Vol] 100 mmol/L Normal 98 - 11 0 mmol/L [facility].; [facility], [facility]. Cholesterol [Mass/Vol] 177 mg/dL Normal [facility].; [facility] Cholesterol in HDL [Mass/Vol] 56 mg/dL Normal [facility], [facility].; [facility]. Cholesterol in LDL [Mass/Vol] 97 mg/dL Normal [facility], [facility].; [facility]. CO2 [Moles/Vol] 29 mmol/L Normal 20 - 32 mmol/L [facility], [facility].; [place] [employer] [facility], [facility]. Creatinine [Mass/Vol] 0.87 mg/dL Normal 0.50 - 0.99 mg/dL [facility], [facility].; [facility], [facility]. GFR/1.73 sq M.predicted among blacks MDRD (S/P/Bld) [Vol rate/Area] 79 mL/min/{1.73_m2} Normal [facility], [facility].; [facility] Glucose [Mass/Vol] 110 mg/dL Abnormal 65 - 99 mg/dL [facility], [facility].; [place] [employer] [facility] Potassium [Moles/Vol] 4.0 mmol/L Normal 3.5 - 5.3 mmol/L [facility], [facility].; [place] [employer] [facility] Protein [Mass/Vol] 6.9 g/dL Normal 6.1 - 8.1 g/dL [facility], [facility].; [place] [employer] [facility] Sodium [Moles/Vol] 136 mmol/L Normal 135 - 146 mmol/L [facility], [facility].; [facility] Triglyceride [Mass/Vol] 142 mg/dL Normal [facility]; [facility] Urea nitrogen [Mass/Vol] 21 mg/dL Normal 7 - 25 mg/dL [facility]; [facility] No Panel Informationon 10-29 BUN/CREATININE RATIO NOT APPLICABLE Normal 6 - 22 [facility]; [facility] CHOL/HDLC RATIO 3.2 Normal [facility]; [facility] eGFR NON-AFR. MACANESE 68 Normal [facility] [facility]; [facility] GLOBULIN 2.3 Normal 1.9 - 3.7 [facility]; [facility] NON HDL CHOLESTEROL 121 Normal [facility]; [place] [employer] [facility] Laboratory - Chemistry and C hemistry - challengeon 10-23-2019 Albumin [Mass/Vol] 4.5 g/dL Normal 3.6 - 5.1 g/dL [facility]; [facility] Albumin/Globulin [Mass ratio] 1.9 {ratio} Normal 1.0 - 2.5 [facility]; [facility] ALP [Catalytic activity/Vol] 80 U/L Normal 33 - 130 U/L [facility]; [place] [employer] [facility], [facility]. ALT [Catalytic activity/Vol] 33 U/L Abnormal 6 - 29 U/L [facility]; [facility] AST [Catalytic activity/Vol] 20 U/L Normal 10 - 35 U/L [facility]; [place] [employer] [facility] Bilirubin [Mass/Vol] 0.5 mg/dL Normal 0.2 - 1 .2 mg/dL [facility]; [facility] Calcium [Mass/Vol] 11.0 mg/dL Abnormal 8.6 - 10. 4 mg/dL [facility]; [place] [employer] [facility], [facility] Chloride [Moles/Vol] 102 mmol/L Normal 98 - 11 0 mmol/L [facility]; [facility] Cholesterol [Mass/Vol] 199 mg/dL Normal [facility].; [facility], [facility]. Cholesterol in HDL [Mass/Vol] 66 mg/dL Normal [facility].; [facility], [facility] Cholesterol in LDL [Mass/Vol] 107 mg/dL Abnormal [facility].; [facility], [facility]. CO2 [Moles/Vol] 27 mmol/L Normal 20 - 32 mmol/L [facility], [facility].; [facility] Creatinine [Mass/Vol] 0.90 mg/dL Normal 0.50 - 0.99 mg/dL [facility], [facility].; [facility], [facility]. GFR/1.73 sq M.predicted among blacks MDRD (S/P/Bld) [Vol rate/Area] 77 mL/min/{1.73_m2} Normal [facility], [facility].; [facility], [facility] Glucose [Mass/Vol] 107 mg/dL Abnormal 65 - 99 mg/dL [facility], [facility].; [facility], [facility]. Potassium [Moles/Vol] 3.8 mmol/L Normal 3.5 - 5.3 mmol/L [facility].; [facility], [facility]. Protein [Mass/Vol] 6.9 g/dL Normal 6.1 - 8.1 g/dL [facility], [facility].; [facility] Sodium [Moles/Vol] 137 mmol/L Normal 135 - 146 mmol/L [facility], [facility].; [facility], [facility]. Triglyceride [Mass/Vol] 138 mg/dL Normal [facility].; [facility], [facility]. Urea nitrogen [Mass/Vol] 26 mg/dL Abnormal 7 - 25 mg/dL [facility], [facility].; [facility], [facility]. Urea nitrogen/Creatinine [Mass ratio] 29 mg/mg Abnormal 6 - 22 [facility].; [place] [employer] [facility], [facility] No Panel Informationon 10-23 CHOL/HDLC RATIO 3.0 Normal [facility].; [facility] eGFR NON-AFR. MACANESE 66 Normal [facility], [facility].; [facility], [facility] GLOBULIN 2.4 Normal 1.9 - 3.7 [facility]. NON HDL CHOLESTEROL 133 Abnormal [facility]. Final Surgical Pathology Rep [facility] 08-09-2019 Final Surgical Pathology Report . Pathology Reports Accession: Collected Date/Time: Received Date/Time: Pathologist: [id number] 08/07/2019 08:37 EST 08/08/2019 08:37 EST DO ROSA CHANEL Final Surgical Pathology Report DIAGNOSIS: BONE WITH CHANGES OF DEGENERATIVE OSTEOARTHRITIS, CLINICALLY LEFT KNEE. COMMENT: [facility] A [id number] CLINICAL INFORMATION: PRIMARY OSTEOARTHRITIS SPECIMEN: A LEFT KNEE BONE GROSS DESCRIPTION: Received- in formalin Labeled with the patient's name Description/dimensions- multiple convex and concave fragmented portions of stinson-yellow bone/ soft tissue aggregating 8 x 8 x 2.5 cm, articular surfaces are focally eburnated, cartilage is focally nodular, underlying bone is yellow/dense to trabecular RS-1 following decalcification Dictated by ROSA CHANEL DO MICROSCOPIC DESCRIPTION: Slides reviewed. Electronically Signed by Pathology Report verified by [facility] Electronically signed by ROSA CHANEL DO Sign out Date: 08/09/2019 13:40 Performing Lab: [address] ([place]) Comment on above: Performed By: #### S PFR #### [place] [address] Final Surgical Pathology Rep [facility] 12-28-2018 Final Surgical Pathology Report . Pathology Reports Accession: Collected Date/Time: Received Date/Time: Pathologist: [id number] 12/27/2018 14:19 EDT 12/27/2018 14:19 EDT DO ROSA CHANEL Final Surgical Pathology Report DIAGNOSIS: HYPERPLASTIC POLYP, SIGMOID COLON. COMMENT: [facility] - A# [id number] CLINICAL INFORMATION: SCREENING SPECIMEN: A SIGMOID POLYP GROSS DESCRIPTION: Received in formalin labeled sigmoid polyp is a 0.3 cm stinson glistening soft tissue. TS -1 Dictated by Jenifer GONZALEZ ([facility]) MICROSCOPIC DESCRIPTION: Slides reviewed. Electronically Signed by Pathology Report verified by [facility] Electronically signed by ROSA CHANEL DO Sign out Date: 12/28/2018 11:21 Performing Lab: [place] [id number] [facility] Normal [facility] ([place]) Comment on above: Performed By: #### S PFR #### [facility] [address] [place] [id number] Laboratory - Chemistry and C hemistry - challengeon 10-13-2018 ALT [Catalytic activity/Vol] 28 U/L Normal 6 - 29 U/L [employer] [employer] Cholesterol [Mass/Vol] 164 mg/dL Normal [facility] [employer] Cholesterol in HDL [Mass/Vol] 66 mg/dL Normal [employer] [employer] Cholesterol in LDL [Mass/Vol] 80 mg/dL Normal 0 - 100 mg/dL [employer] [employer] Cholesterol non HDL [Mass/Vol] 98 mg/dL Normal [employer] [employer] Cholesterol.total/Mitzi sterol in HDL [Mass ratio] 2.5 {ratio} Normal [employer] Triglyceride [Mass/Vol] 93 mg/dL Normal [facility] [employer] [employer] Laboratory - Chemistry and C hemistry - challengeon 07-07-2018 Albumin [Mass/Vol] 4.8 g/dL Normal 3.6 - 5.1 g/dL [employer] Albumin/Globulin [Mass ratio] 2.1 {ratio} Normal 1.0 - 2.5 [employer] ALP [Catalytic activity/Vol] 96 U/L Normal 33 - 130 U/L [employer] ALT [Catalytic activity/Vol] 27 U/L Normal 6 - 29 U/L [employer] AST [Catalytic activity/Vol] 17 U/L Normal 10 - 35 U/L [employer] Bilirubin [Mass/Vol] 0.6 mg/dL Normal 0.2 - 1 .2 mg/dL [employer] [facility], [facility]. Calcium [Mass/Vol] 11.0 mg/dL Abnormal 8.6 - 10. 4 mg/dL [facility], [facility].; [facility] Chloride [Moles/Vol] 102 mmol/L Normal 98 - 11 0 mmol/L [facility], [facility].; [facility], [facility]. Cholesterol [Mass/Vol] 235 mg/dL Abnormal [facility].; [facility], [facility] Cholesterol in HDL [Mass/Vol] 68 mg/dL Normal [facility].; [facility], [facility]. Cholesterol in LDL [Mass/Vol] 141 mg/dL Abnormal 0 - 100 mg/dL [facility], [facility].; [facility] Cholesterol non HDL [Mass/Vol] 167 mg/dL Abnormal [facility].; [facility], [facility]. Cholesterol.total/Mitzi sterol in HDL [Mass ratio] 3.5 {ratio} Normal [facility].; [facility], [facility] CO2 [Moles/Vol] 27 mmol/L Normal 20 - 32 mmol/L [facility].; [place] [employer] [facility], [facility]. Creatinine [Mass/Vol] 0.93 mg/dL Normal 0.50 - 0.99 mg/dL [facility], [facility].; [facility], [facility]. GFR/1.73 sq M.predicted among blacks MDRD (S/P/Bld) [Vol rate/Area] 74 {ML/MIN/1.73M2} Normal [facility], [facility].; [facility], [facility]. GFR/1.73 sq M.predicted MDRD (S/P/Bld) [Vol rate/Area] 64 {ML/MIN/1.73M2} Normal [facility], [facility].; [facility], [facility]. Globulin (S) [Mass/Vol] 2.2 g/dL Normal 1.9 - 3.7 g/dL [facility], [facility].; [place] [employer] [facility] Glucose [Mass/Vol] 108 mg/dL Abnormal 65 - 99 mg/dL [facility], [facility].; [place] [employer] [facility], [facility]. Potassium [Moles/Vol] 4.2 mmol/L Normal 3.5 - 5.3 mmol/L [facility].; [facility]. Protein [Mass/Vol] 7.0 g/dL Normal 6.1 - 8.1 g/dL [facility].; [facility], [facility]. Sodium [Moles/Vol] 136 mmol/L Normal 135 - 146 mmol/L [facility], [facility].; [facility], [facility]. Triglyceride [Mass/Vol] 135 mg/dL Normal [facility].; [facility], [facility]. Urea nitrogen [Mass/Vol] 27 mg/dL Abnormal 7 - 25 mg/dL [facility].; [place] [employer], [facility]. Urea nitrogen/Creatinine [Mass ratio] 29.0 mg/mg Abnormal [facility].; [place] [employer] [facility]. Laboratory - Hematology and Cell countson 07-07-2018 HbA1c (Bld) [Mass fraction] 6.0 % Abnormal 0 - 5.6 % [facility].; [place] [employer]. Laboratory - Chemistry and C hemistry - challengeon 05-18-2017 Albumin [Mass/Vol] 4.6 g/dL Normal 3.6 - 5.1 g/dL [facility], [facility].; [place] [employer], [employer]. Albumin/Globulin [Mass ratio] 2.0 {ratio} Normal 1.0 - 2.5 [facility].; [place] [employer], [facility]. ALP [Catalytic activity/Vol] 86 U/L Normal 33 - 130 U/L [facility].; [place] [employer], [employer]. ALT [Catalytic activity/Vol] 34 U/L Abnormal 6 - 29 U/L [facility].; [place] [employer], [employer]. AST [Catalytic activity/Vol] 18 U/L Normal 10 - 35 U/L [facility].; [place] [employer], [employer]. Bilirubin [Mass/Vol] 0.5 mg/dL Normal 0.2 - 1 .2 mg/dL [facility], [facility].; [place] [employer], [facility]. Calcium [Mass/Vol] 11.0 mg/dL Abnormal 8.6 - 10. 4 mg/dL [facility].; [place] [employer], [employer]. Chloride [Moles/Vol] 106 mmol/L Normal 98 - 11 0 mmol/L [facility], [facility].; [facility], [facility]. Cholesterol [Mass/Vol] 204 mg/dL Abnormal [facility].; [facility], [facility] Cholesterol in HDL [Mass/Vol] 64 mg/dL Normal [facility], [facility].; [facility] Cholesterol in LDL [Mass/Vol] 116 mg/dL Abnormal 0 - 100 mg/dL [facility], [facility].; [facility] Cholesterol non HDL [Mass/Vol] 140 mg/dL Abnormal [facility], [facility].; [facility] Cholesterol.total/Mitzi sterol in HDL [Mass ratio] 3.2 {ratio} Normal [facility].; [facility] CO2 [Moles/Vol] 26 mmol/L Normal 20 - 31 mmol/L [facility], [facility].; [facility], [facility]. Creatinine [Mass/Vol] 0.86 mg/dL Normal 0.50 - 0.99 mg/dL [facility], [facility].; [facility], [facility]. GFR/1.73 sq M.predicted among blacks MDRD (S/P/Bld) [Vol rate/Area] 82 {ML/MIN/1.73M2} Normal [facility], [facility].; [facility], [facility]. GFR/1.73 sq M.predicted MDRD (S/P/Bld) [Vol rate/Area] 71 {ML/MIN/1.73M2} Normal [facility], [facility].; [place] [employer] [facility], [facility]. Globulin (S) [Mass/Vol] 2.2 g/dL Normal 1.9 - 3.7 g/dL [facility], [facility].; [place] [employer] [facility], [facility]. Glucose [Mass/Vol] 110 mg/dL Abnormal 65 - 99 mg/dL [facility], [facility].; [facility], [facility]. Potassium [Moles/Vol] 4.4 mmol/L Normal 3.5 - 5.3 mmol/L [facility], [facility].; [place] [employer] [facility], [facility]. Protein [Mass/Vol] 6.8 g/dL Normal 6.1 - 8.1 g/dL [facility], [facility]. Sodium [Moles/Vol] 139 mmol/L Normal 135 - 146 mmol/L [facility].; [facility]. Triglyceride [Mass/Vol] 127 mg/dL Normal [facility].; [facility], [facility]. Urea nitrogen [Mass/Vol] 23 mg/dL Normal 7 - 25 mg/dL [facility], [facility].; [facility], [facility]. Urea nitrogen/Creatinine [Mass ratio] 26.9 mg/mg Abnormal 6 - [facility].; [place] [employer], [facility]. Laboratory - Cytologyon Microscopic observation Cyto stain Nom (Cvx) Normal [facility].; [facility], [facility]. Laboratory - Chemistry and C hemistry - challengeon 01-20-2016 Albumin [Mass/Vol] 4.8 g/dL Normal 3.6 - 5.1 g/dL [facility].; [facility] [employer] [facility]. Albumin/Globulin [Mass ratio] 1.9 {ratio} Normal 1.0 - 2.5 [facility].; [place] [employer], [facility]. ALP [Catalytic activity/Vol] 81 U/L Normal 33 - 130 U/L [facility].; [place] [employer], [facility]. ALT [Catalytic activity/Vol] 34 U/L Abnormal 6 - 29 U/L [facility].; [place] [employer], [facility]. AST [Catalytic activity/Vol] 20 U/L Normal 10 - 35 U/L [facility].; [place] [employer], [facility]. Bilirubin [Mass/Vol] 0.5 mg/dL Normal 0.2 - 1 .2 mg/dL [facility].; [place] [employer], [facility]. Calcium [Mass/Vol] 10.9 mg/dL Abnormal 8.6 - 10. 4 mg/dL [facility].; [place] [employer], [facility]. Chloride [Moles/Vol] 102 mmol/L Normal 98 - 11 0 mmol/L [facility], [facility].; [place] [employer], [employer]. Cholesterol [Mass/Vol] 235 mg/dL Abnormal 125 - 200 mg/dL [facility].; [facility]. Cholesterol in HDL [Mass/Vol] 67 mg/dL Normal [facility].; [facility], [facility]. Cholesterol in LDL [Mass/Vol] 142 mg/dL Abnormal [facility].; [facility], [facility]. Cholesterol non HDL [Mass/Vol] 168 mg/dL Abnormal [facility], [facility].; [facility], [facility]. Cholesterol.total/Mitzi sterol in HDL [Mass ratio] 3.5 {ratio} Normal [facility].; [facility]. CO2 [Moles/Vol] 25 mmol/L Normal 19 - 30 mmol/L [facility], [facility].; [facility], [facility]. Creatinine [Mass/Vol] 0.96 mg/dL Normal 0.50 - 0.99 mg/dL [facility], [facility].; [facility], [facility]. GFR/1.73 sq M.predicted among blacks MDRD (S/P/Bld) [Vol rate/Area] 73 {ML/MIN/1.73M2} Normal [facility], [facility].; [facility], [facility]. GFR/1.73 sq M.predicted MDRD (S/P/Bld) [Vol rate/Area] 63 {ML/MIN/1.73M2} Normal [facility], [facility].; [facility], [facility]. Globulin (S) [Mass/Vol] 2.5 g/dL Normal 1.9 - 3.7 g/dL [facility], [facility].; [facility], [facility]. Glucose [Mass/Vol] 108 mg/dL Abnormal 65 - 99 mg/dL [facility], [facility].; [facility], [facility]. Potassium [Moles/Vol] 4.1 mmol/L Normal 3.5 - 5.3 mmol/L [facility], [facility].; [place] [employer] [facility], [facility]. Protein [Mass/Vol] 7.3 g/dL Normal 6.1 - 8.1 g/dL [facility], [facility].; [place] [employer] [facility], [facility]. Sodium [Moles/Vol] 138 mmol/L Normal 135 - 146 mmol/L [facility], [facility].; [facility], [facility]. Triglyceride [Mass/Vol] 132 mg/dL Normal [facility].; [facility] [employer]. Urea nitrogen [Mass/Vol] 25 mg/dL Normal 7 - 25 mg/dL [facility].; [employer], [employer]. Urea nitrogen/Creatinine [Mass ratio] 25.7 mg/mg Abnormal 6 - [facility].; [employer], [employer]. Laboratoryon 11-30-2014 Lower GI hemoglobin IA Ql (Stl) Not detected Normal [place] [employer] [facility]. Laboratory - Chemistry and C hemistry - challengeon 10-25-2014 Calcium [Mass/Vol] 10.7 mg/dL Abnormal 8.6 - 10. 4 mg/dL [facility].; [employer], [employer]. Chloride [Moles/Vol] 105 mmol/L Normal 98 - 11 0 mmol/L [facility].; [employer], [employer]. Cholesterol [Mass/Vol] 200 mg/dL Normal 125 - 200 mg/dL [place] [employer] [facility].; [employer], [employer]. Cholesterol in HDL [Mass/Vol] 68 mg/dL Normal [place] [employer] [facility].; [facility]. Cholesterol in LDL [Mass/Vol] 108 mg/dL Normal [place] [employer].; [facility]. Cholesterol non HDL [Mass/Vol] 132 mg/dL Normal [place] [employer] [facility].; [employer], [employer]. Cholesterol.total/Mitzi sterol in HDL [Mass ratio] 2.9 {ratio} Normal [place] [employer] [facility].; [place] [employer]. CO2 [Moles/Vol] 23 mmol/L Normal 19 - 30 mmol/L [place] [employer] [facility].; [employer], [employer]. Creatinine [Mass/Vol] 0.89 mg/dL Normal 0.50 - 0.99 mg/dL [place] [employer] [facility].; [employer], [facility]. GFR/1.73 sq M.predicted among blacks MDRD (S/P/Bld) [Vol rate/Area] 81 {ML/MIN/1.73M2} Normal [facility], [facility].; [place] [employer] GFR/1.73 sq M.predicted MDRD (S/P/Bld) [Vol rate/Area] 69 {ML/MIN/1.73M2} Normal [facility].; [place] [employer]. Glucose [Mass/Vol] 108 mg/dL Abnormal 65 - 99 mg/dL [facility].; [place] [employer]. Potassium [Moles/Vol] 4.0 mmol/L Normal 3.5 - 5.3 mmol/L [facility].; [place] [employer], [employer]. Sodium [Moles/Vol] 138 mmol/L Normal 135 - 146 mmol/L [facility].; [place] [employer]. Triglyceride [Mass/Vol] 119 mg/dL Normal [facility].; [place] [employer]. Urea nitrogen [Mass/Vol] 20 mg/dL Normal 7 - 25 mg/dL [facility].; [facility]. Urea nitrogen/Creatinine [Mass ratio] 22.2 mg/mg Abnormal 6 - 22 [facility]. Laboratoryon 11-23-2013 Lower GI hemoglobin IA Ql (Stl) Not detected Normal [place] [employer] [facility] Work Phone: Laboratory - Chemistry and C hemistry - challengeon 11-06-2013 Calcium [Mass/Vol] 10.5 mg/dL Abnormal 8.6 - 10. 4 mg/dL [facility].; [employer], [employer]. Chloride [Moles/Vol] 105 mmol/L Normal 98 - 11 0 mmol/L [facility].; [employer], [employer]. CO2 [Moles/Vol] 25 mmol/L Normal 19 - 30 mmol/L [place] [employer] [facility].; [facility]. Creatinine [Mass/Vol] 0.90 mg/dL Normal 0.50 - 0.99 mg/dL [place] [employer] [facility] [employer], [employer]. GFR/1.73 sq M.predicted among blacks MDRD (S/P/Bld) [Vol rate/Area] 80 {ML/MIN/1.73M2} Normal [place] [employer] [facility].; [employer], [employer]. GFR/1.73 sq M.predicted MDRD (S/P/Bld) [Vol rate/Area] 69 {ML/MIN/1.73M2} Normal [facility].; [facility] Glucose [Mass/Vol] 111 mg/dL Abnormal 65 - 99 mg/dL [facility].; [facility], [facility] Potassium [Moles/Vol] 4.3 mmol/L Normal 3.5 - 5.3 mmol/L [facility].; [facility], [facility] Sodium [Moles/Vol] 137 mmol/L Normal 135 - 146 mmol/L [facility].; [facility], [facility] Urea nitrogen [Mass/Vol] 22 mg/dL Normal 7 - 25 mg/dL [facility].; [facility], [facility] Urea nitrogen/Creatinine [Mass ratio] 24.8 mg/mg Abnormal 6 - 22 [facility].; [place] [employer] [facility], [facility]. Laboratory - Cytologyon Microscopic observation Cyto stain Nom (Cvx) SEE NOTE [facility].; [place] [employer] [facility], [facility]. Laboratory - Chemistry and C hemistry - challengeon 10-25-2012 Albumin [Mass/Vol] 4.8 g/dL Normal 3.6 - 5.1 g/dL [facility].; [facility], [facility]. Albumin/Globulin [Mass ratio] 2.0 {ratio} Normal 1.0 - 2.5 [facility].; [place] [employer] [facility], [facility] [facility]. ALP [Catalytic activity/Vol] 71 U/L Normal 33 - 130 U/L [facility].; [place] [employer], [facility]. ALT [Catalytic activity/Vol] 19 U/L Normal 6 - 40 U/L [facility].; [place] [employer], [facility]. AST [Catalytic activity/Vol] 15 U/L Normal 10 - 35 U/L [facility].; [place] [employer], [facility]. Bilirubin [Mass/Vol] 0.4 mg/dL Normal 0.2 - 1 .2 mg/dL [facility].; [place] [employer], [facility]. Calcium [Mass/Vol] 10.5 mg/dL Abnormal 8.6 - 10. 4 mg/dL [facility].; [place] [employer]. Chloride [Moles/Vol] 103 mmol/L Normal 98 - 11 0 mmol/L [facility].; [facility], [facility]. Cholesterol [Mass/Vol] 218 mg/dL Abnormal 125 - 200 mg/dL [facility], [facility].; [facility], [facility]. Cholesterol in HDL [Mass/Vol] 74 mg/dL Normal [facility].; [facility], [facility]. Cholesterol in LDL [Mass/Vol] 124 mg/dL Normal [facility].; [facility], [facility]. Cholesterol non HDL [Mass/Vol] 144 mg/dL Normal [facility].; [facility], [facility]. Cholesterol.total/Mitzi sterol in HDL [Mass ratio] 2.9 {ratio} Normal [facility].; [place] [employer] [facility], [employer]. CO2 [Moles/Vol] 28 mmol/L Normal 19 - 30 mmol/L [facility].; [facility], [facility]. Creatinine [Mass/Vol] 0.95 mg/dL Normal 0.50 - 0.99 mg/dL [facility], [facility].; [facility], [facility]. GFR/1.73 sq M.predicted among blacks MDRD (S/P/Bld) [Vol rate/Area] 75 {ML/MIN/1.73M2} Normal [facility], [facility].; [facility], [facility]. GFR/1.73 sq M.predicted MDRD (S/P/Bld) [Vol rate/Area] 65 {ML/MIN/1.73M2} Normal [facility], [facility].; [facility], [facility]. Globulin (S) [Mass/Vol] 2.4 g/dL Normal 1.9 - 3.7 g/dL [facility], [facility].; [facility], [facility]. Glucose [Mass/Vol] 99 mg/dL Normal 65 - 99 mg/dL [facility], [facility].; [facility], [facility]. Potassium [Moles/Vol] 4.3 mmol/L Normal 3.5 - 5.3 mmol/L [facility], [facility].; [place] [employer] [facility], [facility]. Protein [Mass/Vol] 7.2 g/dL Normal 6.1 - 8.1 g/dL [facility].; [place] [employer]. Sodium [Moles/Vol] 138 mmol/L Normal 135 - 146 mmol/L [facility].; [place] [employer] [facility], [employer]. Triglyceride [Mass/Vol] 98 mg/dL [facility].; [facility], [facility]. Urea nitrogen [Mass/Vol] 18 mg/dL Normal 7 - 25 mg/dL [facility].; [place] [employer], [employer] Urea nitrogen/Creatinine [Mass ratio] 19.3 mg/mg Normal 6 - 22 [facility].; [place] [employer], [employer]. Laboratory - Chemistry and C hemistry - challengeon 10-30-2011 Bilirubin Ql (U) Negative [facility].; [place] [employer] [facility], [employer]. Ketones Ql (U) Negative Normal [facility].; [place] [employer], [employer] pH (U) 6.0 [pH] Normal 4.6 - 8.0 [facility].; [place] [employer]. Specific gravity (U) [Rel density] 1.025 Normal 1.001 - 1.025 [facility].; [employer], [employer]. Laboratory - Hematology and Cell countson 10-30-2011 Basophils (Bld) [#/Vol] 20 {Cells}/uL Normal 0 - 200 {Cells}/uL [facility].; [employer], [employer]. Basophils/100 WBC (Bld) 0 % Normal 0 - 2 % [facility].; [place] [employer], [employer]. Eosinophils (Bld) [#/Vol] 130 {Cells}/uL Normal 15 - 500 {Cells}/uL [facility].; [employer], [employer]. Eosinophils/100 WBC (Bld) 2 % Normal 0 - 8 % [facility] [employer].; [employer], [employer]. Erythrocyte distribution width (RBC) [Ratio] 13.2 % Normal 11.0 - 15.0 % [facility].; [employer], [employer]. Hematocrit (Bld) [Volume fraction] 39.1 % Normal 35.0 - 45.0 % [facility] [employer]. Hemoglobin (Bld) [Mass/Vol] 13.1 g/dL Normal 11.7 - 15.5 g/dL [facility].; [facility] Hemoglobin Ql (U) trace, non-hemolyzed Abnormal [facility]; [facility], [facility] Lymphocytes (Bld) [#/Vol] 1120 {Cells}/uL Normal 850 - 3900 {Cells}/uL [facility].; [facility] Lymphocytes/100 WBC (Bld) 19 % Normal 15 - 49 % [facility].; [facility], [facility] MCH (RBC) [Entitic mass] 31.3 pg Normal 27.0 - 33.0 PG [facility].; [facility], [facility]. MCHC (RBC) [Mass/Vol] 33.4 g/dL Normal 32.0 - 36.0 g/dL [facility].; [facility], [facility]. MCV (RBC) [Entitic vol] 93.8 fL Normal 80.0 - 100.0 fL [facility].; [facility], [facility] Monocytes (Bld) [#/Vol] 400 {Cells}/uL Normal 20 0 - 950 {Cells}/uL [facility].; [facility], [facility]. Monocytes/100 WBC (Bld) 7 % Normal 0 - 13 % [facility].; [facility], [facility]. Neutrophils (Bld) [#/Vol] 4320 {Cells}/uL Normal 1500 - 7800 {Cells}/uL [facility].; [place] [employer], [facility]. Neutrophils/100 WBC (Bld) 72 % Normal 38 - 80 % [facility].; [facility], [facility]. Platelets (Bld) [#/Vol] 242 10*3/uL Normal 140 - 400 10*3/uL [facility].; [facility], [facility]. RBC (Bld) [#/Vol] 4.17 10*6/uL Normal 3.80 - 5.1 0 10*6/uL [facility].; [place] [employer] [facility], [facility]. WBC (Bld) [#/Vol] 6.0 10*3/uL Normal 3.8 - 10.8 10*3/uL [place] [employer].; [employer]. Laboratory - Specimen inform ationon 10-30-2011 Appearance (U) clear Normal [facility] [employer].; [employer], [employer]. Color (U) yellow Normal [place] [employer].; [employer]. Laboratory - Urinalysison Glucose Test strip (U) [Mass/Vol] Negative Normal [place] [employer].; [employer]. Leukocyte esterase Test strip Ql (U) Negative Normal [place] [employer].; [employer]. Nitrite Ql (U) Negative Normal [facility] [employer].; [employer], [employer]. Protein Ql (U) Negative Normal [facility] [employer].; [employer]. No Panel Informationon 10-30 UA - UROBILINOGEN 0.2 mg/dL Normal [employer].; [employer]. Laboratory - Chemistry and C hemistry - challengeon 10-15-2011 Calcium [Mass/Vol] 10.6 mg/dL Abnormal 8.6 - 10. 4 mg/dL [place] [employer].; [employer], [employer]. Chloride [Moles/Vol] 102 mmol/L Normal 98 - 11 0 mmol/L [place] [employer].; [employer]. Cholesterol [Mass/Vol] 211 mg/dL Abnormal 125 - 200 mg/dL [place] [employer].; [employer]. Cholesterol in HDL [Mass/Vol] 79 mg/dL Normal [employer].; [employer]. Cholesterol in LDL [Mass/Vol] 118 mg/dL Normal [employer].; [employer], [employer]. Cholesterol.total/Mitzi sterol in HDL [Mass ratio] 2.7 {ratio} Normal [employer].; [employer]. CO2 [Moles/Vol] 26 mmol/L Normal 21 - 33 mmol/L [employer].; [employer], [employer]. Creatinine [Mass/Vol] 0.98 mg/dL Normal 0.50 - 1.05 mg/dL [facility], [facility].; [place] [employer] [facility], [facility]. GFR/1.73 sq M.predicted among blacks MDRD (S/P/Bld) [Vol rate/Area] 73 {ML/MIN/1.73M2} Normal [facility], [facility].; [facility] GFR/1.73 sq M.predicted MDRD (S/P/Bld) [Vol rate/Area] 63 {ML/MIN/1.73M2} Normal [facility], [facility].; [place] [employer] Glucose [Mass/Vol] 98 mg/dL Normal 65 - 99 mg/dL [facility], [facility].; [place] [employer] [facility], [facility]. Potassium [Moles/Vol] 4.0 mmol/L Normal 3.5 - 5.3 mmol/L [facility].; [place] [employer], [facility]. Sodium [Moles/Vol] 137 mmol/L Normal 135 - 146 mmol/L [facility], [facility].; [place] [employer], [employer]. Triglyceride [Mass/Vol] 71 mg/dL [facility].; [place] [employer] [facility], [facility]. Urea nitrogen [Mass/Vol] 21 mg/dL Normal 7 - 25 mg/dL [facility].; [place] [employer], [employer]. Urea nitrogen/Creatinine [Mass ratio] 21.2 mg/mg Normal 6 - 22 [facility], [facility].; [employer] Laboratory - Chemistry and C hemistry - challengeon 08-01-2011 Glucose Glucometer (BldC) [Moles/Vol] 132 Abnormal 60 - 120 [facility].; [employer], [employer]. Laboratoryon 08-06-2010 Lower GI hemoglobin IA Ql (Stl) Not detected Normal [place] [employer] [facility], [facility].; [employer] Work Phone: Vital Signs Date Time Vital Sign Value Performing Clinician Facility 02-08-2025 13:55-0400 Body height 167.64 cm Wei GONZALEZ Work Phone: [facility] 02-08-2025 13:55-0400 Body mass index (BMI) [Ratio] 25.8 kg/m2 Wei GONZALEZ Work Phone: [facility] 02-08-2025 13:55-0400 Body weight 72.57 kg Wei Marie PA Work Phone: [facility] 12-29-2024 10:20-0400 Body height 167.64 cm Wei Marie PA Work Phone: [facility] 12-29-2024 10:20-0400 Body mass index (BMI) [Ratio] 25.9 kg/m2 Wei Marie PA Work Phone: [facility] 12-29-2024 10:20-0400 Body weight 73.02 kg Wei Marie PA Work Phone: [facility] 11-28-2024 09:46-0500 Body height 163.83 cm Margaret Hernandez MA [facility], [facility].; [facility] 11-28-2024 09:46-0500 Body mass index (BMI) [Ratio] 27.64 kg/m2 Margaret Hernandez MA [facility], [facility].; [facility]. 11-28-2024 09:46-0500 Body surface area Derived from formula 1.81 m2 Margaret Hernandez MA [facility], [facility].; [facility], [facility]. 11-28-2024 09:46-0500 Body weight 74.19 kg Margaret Hernandez MA [facility], [facility].; [facility]. 11-28-2024 09:46-0500 Diastolic blood pressure 80 mm[Hg] Margaret Hernandez MA [facility].; [facility]. Comment on above: Patient Position: Sitting; Cuff Location : Left Arm; Cuff Size: Standard 11-28-2024 09:46-0500 Heart rate 91 /min Margaret Hernandez MA [facility], [facility].; [facility], [facility]. Comment on above: Pattern: Regular 11-28-2024 09:46-0500 Systolic blood pressure 117 mm[Hg] Margaret Hernandez MA [facility], [facility].; [facility]. Comment on above: Patient Position: Sitting; Cuff Location : Left Arm; Cuff Size: Standard 05-31-2024 09:51-0400 Body height 163.83 cm Margaret Hernandez MA [facility] [place] [employer] [facility], [employer] 05-31-2024 09:51-0400 Body mass index (BMI) [Ratio] 28.56 kg/m2 Margaret Hernandez MA [facility] [place] [employer] [facility], [facility] 05-31-2024 09:51-0400 Body surface area Derived from formula 1.83 m2 Margaret Hernandez MA [facility] [place] [employer] [facility], [employer] 05-31-2024 09:51-0400 Body weight 76.66 kg Margaret Hernandez MA [facility] [place] [employer] [facility], [facility]. 05-31-2024 09:51-0400 Diastolic blood pressure 84 mm[Hg] Margaret Hernandez MA [facility].; [employer] Comment on above: Patient Position: Sitting; Cuff Location : Left Arm; Cuff Size: Standard 05-31-2024 09:51-0400 Heart rate 81 /min Margaret Hernandez MA [facility] [employer] Comment on above: Pattern: Regular 05-31-2024 09:51-0400 Systolic blood pressure 133 mm[Hg] Margaret Hernandez MA [facility].; [employer] Comment on above: Patient Position: Sitting; Cuff Location : Left Arm; Cuff Size: Standard 11-23-2023 09:57-0500 Body height 163.83 cm Margaret Hernandez MA [facility] [place] [employer] [facility], [employer] 11-23-2023 09:57-0500 Body mass index (BMI) [Ratio] 27.77 kg/m2 Margaret Hernandez MA [facility].; [place] [employer] [facility], [employer] 11-23-2023 09:57-0500 Body surface area Derived from formula 1.81 m2 Margaret Hernandez MA [facility].; [place] [employer], [facility]. 11-23-2023 09:57-0500 Body weight 74.53 kg Margaret Hernandez MA [place] [employer] [facility].; [employer]. 11-23-2023 09:57-0500 Diastolic blood pressure 86 mm[Hg] Margaret Hernandez MA [facility] [employer]. Comment on above: Patient Position: Sitting; Cuff Location : Left Arm; Cuff Size: Standard 11-23-2023 09:57-0500 Heart rate 92 /min Margaret Hernandez MA [facility] [employer]. Comment on above: Pattern: Regular 11-23-2023 09:57-0500 Systolic blood pressure 132 mm[Hg] Margaret Hernandez MA [facility] [employer]. Comment on above: Patient Position: Sitting; Cuff Location : Left Arm; Cuff Size: Standard 05-11-2023 10:02-0400 Body height 163.83 cm Liana Osuna MA [facility] [place] [employer]. 05-11-2023 10:02-0400 Body mass index (BMI) [Ratio] 28.05 kg/m2 Liana Osuna MA [facility] [place] [employer] [facility]. 05-11-2023 10:02-0400 Body surface area Derived from formula 1.82 m2 Liana Osuna MA [facility].; [place] [employer] [facility]. 05-11-2023 10:02-0400 Body weight 75.3 kg Liana Osuna MA [facility].; [place] [employer]. 05-11-2023 10:02-0400 Diastolic blood pressure 70 mm[Hg] Liana Osuna MA [facility] [employer]. Comment on above: Patient Position: Sitting; Cuff Location : Left Arm; Cuff Size: Standard 05-11-2023 10:02-0400 Heart rate 71 /min Liana Osuna MA [place] [employer] [facility] [employer]. Comment on above: Pattern: Regular 05-11-2023 10:02-0400 Systolic blood pressure 135 mm[Hg] Liana Osuna MA [place] [employer].; [employer]. Comment on above: Patient Position: Sitting; Cuff Location : Left Arm; Cuff Size: Standard 11-11-2022 09:57-0500 Body weight 77.57 kg Margaret Hernandez MA [facility], [facility].; [employer] [facility]. 11-11-2022 09:57-0500 Diastolic blood pressure 83 mm[Hg] Margaret Hernandez MA [facility], [facility].; [employer], [employer]. Comment on above: Patient Position: Sitting; Cuff Location : Left Arm; Cuff Size: Standard 11-11-2022 09:57-0500 Heart rate 84 /min Margaret Hernandez MA [facility], [facility].; [employer]. Comment on above: Pattern: Regular 11-11-2022 09:57-0500 Systolic blood pressure 146 mm[Hg] Margaret Hernandez MA [facility], [facility].; [employer], [employer]. Comment on above: Patient Position: Sitting; Cuff Location : Left Arm; Cuff Size: Standard 05-05-2022 10:07-0400 Body height 163.83 cm Le Ely LPN [facility], [facility].; [place] [employer] [facility], [facility]. 05-05-2022 10:07-0400 Body mass index (BMI) [Ratio] 30.93 kg/m2 Le Ely LPN [facility], [facility].; [employer], [facility]. 05-05-2022 10:07-0400 Body surface area Derived from formula 1.89 m2 Le Ely LPN [facility], [facility].; [employer], [facility]. 05-05-2022 10:07-0400 Body weight 83.01 kg Le Ely LPN [facility], [facility].; [employer], [facility]. 05-05-2022 10:07-0400 Diastolic blood pressure 85 mm[Hg] Le Ely LPN [facility], [facility].; [employer], [employer]. Comment on above: Patient Position: Sitting; Cuff Location : Left Arm; Cuff Size: Standard 05-05-2022 10:07-0400 Heart rate 118 /min Le Ely LPN [facility], [facility].; [employer], [employer]. Comment on above: Pattern: Regular 05-05-2022 10:07-0400 Systolic blood pressure 139 mm[Hg] Le Ely LPN [facility], [facility].; [employer]. Comment on above: Patient Position: Sitting; Cuff Location : Left Arm; Cuff Size: Standard 11-05-2021 09:50-0500 Body height 163.83 cm Le Ely LPN [facility], [facility].; [facility], [facility]. 11-05-2021 09:50-0500 Body mass index (BMI) [Ratio] 31.6 kg/m2 Le Ely LPN [facility], [facility].; [place] [employer] [facility]. 11-05-2021 09:50-0500 Body surface area Derived from formula 1.91 m2 Le Ely LPN [facility], [facility].; [place] [employer] [facility], [facility]. 11-05-2021 09:50-0500 Body weight 84.82 kg Le Ely LPN [facility], [facility].; [place] [employer] [facility], [facility]. 11-05-2021 09:50-0500 Diastolic blood pressure 80 mm[Hg] Le Ely LPN [facility], [facility].; [employer]. Comment on above: Patient Position: Sitting; Cuff Location : Left Arm; Cuff Size: Standard 11-05-2021 09:50-0500 Heart rate 90 /min Le Ely LPN [facility], [facility].; [employer]. Comment on above: Pattern: Regular 11-05-2021 09:50-0500 Systolic blood pressure 145 mm[Hg] Le Ely LPN [facility], [facility].; [place] [employer]. Comment on above: Patient Position: Sitting; Cuff Location : Left Arm; Cuff Size: Standard 10-08-2021 09:12-0500 Body height 163.83 cm Lizeth Pinto LPN [facility], [facility].; [employer]. 10-08-2021 09:12-0500 Body mass index (BMI) [Ratio] 31.77 kg/m2 Lizeth Pinto LPN [facility], [facility].; [place] [employer] [facility] [employer] 10-08-2021 09:12-0500 Body surface area Derived from formula 1.92 m2 Lizeth Pinto LPN [facility], [facility].; [place] [employer]. 10-08-2021 09:12-0500 Body temperature 97.3 [degF] Lizeth Pinto LPN [facility], [facility].; [place], [employer]. Comment on above: Method: Tympanic 10-08-2021 09:12-0500 Body weight 85.28 kg Lizeth Pinto LPN [facility].; [employer] 10-08-2021 09:12-0500 Diastolic blood pressure 88 mm[Hg] [facility].; [place], [employer] Comment on above: Patient Position: Sitting; Cuff Location : Left Arm; Cuff Size: Standard 10-08-2021 09:12-0500 Heart rate 98 /min [facility], [facility].; [employer], [employer]. Comment on above: Pattern: Regular 10-08-2021 09:12-0500 Systolic blood pressure 126 mm[Hg] Lizeth [facility], Inc.; [employer] Comment on above: Patient Position: Sitting; Cuff Location : Left Arm; Cuff Size: Standard 05-06-2021 09:50-0400 Body height 163.83 cm Lynette Navarro [facility], Inc.; [place] [employer] [facility], [facility] 05-06-2021 09:50-0400 Body mass index (BMI) [Ratio] 31.94 kg/m2 Lynettekelsey Navarro [facility], [facility].; [employer] 05-06-2021 09:50-0400 Body surface area Derived from formula 1.92 m2 Lynette Navarro LPN [facility], [facility].; [place] [employer] [facility], [employer] 05-06-2021 09:50-0400 Body weight 85.73 kg Lynette Navarro [facility], [facility].; [employer], [employer]. 05-06-2021 09:50-0400 Diastolic blood pressure 78 mm[Hg] Lynettekelsey Navarro [facility], [facility].; [employer], [employer]. Comment on above: Patient Position: Sitting; Cuff Location : Left Arm; Cuff Size: Standard 05-06-2021 09:50-0400 Heart rate 101 /min Lynette Navarro LPN [facility], [facility].; [employer]. Comment on above: Pattern: Regular 05-06-2021 09:50-0400 Systolic blood pressure 121 mm[Hg] Lynette Navarro LPN [facility].; [facility]. Comment on above: Patient Position: Sitting; Cuff Location : Left Arm; Cuff Size: Standard 11-05-2020 10:21-0500 Body height 163.83 cm Le Ely LPN [facility].; [facility] 11-05-2020 10:21-0500 Body mass index (BMI) [Ratio] 30.93 kg/m2 [facility].; [facility]. 11-05-2020 10:21-0500 Body surface area Derived from formula 1.89 m2 Le Ely LPN [facility].; [facility] 11-05-2020 10:21-0500 Body weight 83.01 kg Le Ely [employer] [facility].; [facility]. 11-05-2020 10:21-0500 Diastolic blood pressure 85 mm[Hg] Le Ely [facility].; [place] [employer] [facility]. Comment on above: Patient Position: Sitting; Cuff Location : Left Arm; Cuff Size: Standard 11-05-2020 10:21-0500 Heart rate 98 /min Le Ely LPN [facility].; [place] [employer] [facility]. Comment on above: Pattern: Regular 11-05-2020 10:21-0500 Systolic blood pressure 132 mm[Hg] Le Ely LPN [facility].; [place] [employer] [facility]. Comment on above: Patient Position: Sitting; Cuff Location : Left Arm; Cuff Size: Standard 04-30-2020 10:12-0400 Body height 163.83 cm Emily Garza MD Work Phone: [facility].; [place] [employer]. 04-30-2020 10:12-0400 Body mass index (BMI) [Ratio] 30.93 kg/m2 Emily Garza MD Work Phone: [facility] [employer]. 04-30-2020 10:12-0400 Body surface area Derived from formula 1.89 m2 Emily Garza MD Work Phone: [place] [employer].; [employer] 04-30-2020 10:12-0400 Body weight 83.01 kg Emily Garza MD Work Phone: [place] [employer].; [employer]. 04-30-2020 10:12-0400 Diastolic blood pressure 90 mm[Hg] Emily Garza MD Work Phone: [place] [employer].; [employer]. Comment on above: Patient Position: Sitting; Cuff Location : Left Arm; Cuff Size: Standard 04-30-2020 10:12-0400 Heart rate 104 /min Emily Garza MD Work Phone: [place] [employer] [facility] [employer]. Comment on above: Pattern: Regular 04-30-2020 10:12-0400 Systolic blood pressure 144 mm[Hg] Emily Garza MD Work Phone: [employer]. Comment on above: Patient Position: Sitting; Cuff Location : Left Arm; Cuff Size: Standard 10-31-2019 10:37-0500 Body height 163.83 cm Le Ely LPN [place] [employer] [facility].; [employer]. 10-31-2019 10:37-0500 Body mass index (BMI) [Ratio] 30.25 kg/m2 Le Ely LPN [place] [employer] [facility].; [employer]. 10-31-2019 10:37-0500 Body surface area Derived from formula 1.88 m2 Le Ely LPN [place] [employer] [facility].; [employer], [facility]. 10-31-2019 10:37-0500 Body weight 81.19 kg Le Ely LPN [place] [employer] [facility].; [employer], [employer]. 10-31-2019 10:37-0500 Diastolic blood pressure 95 mm[Hg] Le Ely LPN [facility].; [employer]. Comment on above: Patient Position: Sitting; Cuff Location : Left Arm; Cuff Size: Standard 10-31-2019 10:37-0500 Heart rate 92 /min Le Ely LPN [facility] [employer]. Comment on above: Pattern: Regular 10-31-2019 10:37-0500 Systolic blood pressure 149 mm[Hg] Le Ely LPN [facility] [employer].; [employer]. Comment on above: Patient Position: Sitting; Cuff Location : Left Arm; Cuff Size: Standard 09-28-2019 11:32-0500 Body height 163.83 cm Rosalia Fox RN [employer].; [employer]. 09-28-2019 11:32-0500 Body mass index (BMI) [Ratio] 29.74 kg/m2 Rosalia Fox RN [place] [employer].; [employer]. 09-28-2019 11:32-0500 Body surface area Derived from formula 1.86 m2 Rosalia Fox RN [employer].; [employer]. 09-28-2019 11:32-0500 Body temperature 98.6 [degF] Rosalia Fox RN [employer].; [employer]. Comment on above: Method: Tympanic 09-28-2019 11:32-0500 Body weight 79.83 kg Rosalia Fox RN [employer].; [employer]. 09-28-2019 11:32-0500 Diastolic blood pressure 87 mm[Hg] Rosalia Fox RN [employer].; [employer]. Comment on above: Patient Position: Sitting; Cuff Location : Right Arm; Cuff Size: Standard 09-28-2019 11:32-0500 Heart rate 88 /min Rosalia Fox RN [employer].; [employer]. Comment on above: Pattern: Regular 09-28-2019 11:32-0500 Systolic blood pressure 141 mm[Hg] Rosalia Fox RN [employer].; [employer]. Comment on above: Patient Position: Sitting; Cuff Location : Right Arm; Cuff Size: Standard 05-04-2019 08:32-0400 Body height 163.83 cm Rosalia Fox RN [employer] [facility].; [employer]. 05-04-2019 08:32-0400 Body mass index (BMI) [Ratio] 30.59 kg/m2 Rosalia Fox RN [place] [employer] [facility].; [employer]. 05-04-2019 08:32-0400 Body surface area Derived from formula 1.89 m2 Rosalia Fox RN [employer].; [employer]. 05-04-2019 08:32-0400 Body temperature 98 [degF] Rosalia Fox RN [employer].; [employer]. Comment on above: Method: Tympanic 05-04-2019 08:32-0400 Body weight 82.1 kg Rosalia Fox RN [employer].; [employer]. 05-04-2019 08:32-0400 Diastolic blood pressure 78 mm[Hg] Rosalia Fox RN [employer].; [employer]. Comment on above: Patient Position: Sitting; Cuff Location : Left Arm; Cuff Size: Standard 05-04-2019 08:32-0400 Heart rate 85 /min Rosalia Fox RN [employer].; [employer]. Comment on above: Pattern: Regular 05-04-2019 08:32-0400 Systolic blood pressure 121 mm[Hg] Rosalia Fox RN [employer].; [employer]. Comment on above: Patient Position: Sitting; Cuff Location : Left Arm; Cuff Size: Standard 04-18-2019 09:23-0400 Body height 163.[address] [facility] Partnerssaurabh Rodrigorodrigo (scrjosette) [place] [employer] [facility].; [employer]. 04-18-2019 09:23-0400 Body mass index (BMI) [Ratio] 30.93 kg/m2 [facility] (scrib) [employer].; [employer]. 04-18-2019 09:23-0400 Body surface area Derived from formula 1.89 m2 [facility] Rodrigogoi (scribe) [employer] [facility], Inc.; [employer] 04-18-2019 09:23-0400 Body weight 83.01 kg Hemsaurabh Garciai (scribe) [employer] [facility], Inc.; [employer] 04-18-2019 09:23-0400 Diastolic blood pressure 88 mm[Hg] Hemanta Rodrigogoi (scribe) [employer] Comment on above: Patient Position: Sitting; Cuff Location : Left Arm; Cuff Size: Standard 04-18-2019 09:23-0400 Heart rate 82 /min [employer]abh Garciai (scribe) [employer] [facility], Inc.; [employer] Comment on above: Pattern: Regular 04-18-2019 09:23-0400 Systolic blood pressure 154 mm[Hg] [employer]aurabh Garciai (scribe) [employer] [facility], Inc.; [employer] Comment on above: Patient Position: Sitting; Cuff Location : Left Arm; Cuff Size: Standard 01-31-2019 11:20-0400 Body height 163.83 cm Lori Leal LPN [employer] [facility], Inc.; [employer] 01-31-2019 11:20-0400 Body mass index (BMI) [Ratio] 30.08 kg/m2 Lori Leal LPN [employer], [employer].; [employer] 01-31-2019 11:20-0400 Body surface area Derived from formula 1.87 m2 Lori Leal LPN [employer], [employer].; [employer] 01-31-2019 11:20-0400 Body weight 80.74 kg Lori Leal LPN [employer], [employer].; [employer]. 01-31-2019 11:20-0400 Diastolic blood pressure 83 mm[Hg] Lori Leal LPN [employer], [employer] Comment on above: Patient Position: Sitting; Cuff Location : Left Arm; Cuff Size: Standard 01-31-2019 11:20-0400 Heart rate 91 /min Lori Leal LPN [facility].; [employer]. Comment on above: Pattern: Regular 01-31-2019 11:20-0400 Systolic blood pressure 133 mm[Hg] Lori Leal LPN [place] [employer] [facility].; [employer]. Comment on above: Patient Position: Sitting; Cuff Location : Left Arm; Cuff Size: Standard 10-18-2018 07:53-0500 Body height 163.83 cm Hemanta Gogoi (scribe) [facility], Inc.; [employer]. 10-18-2018 07:53-0500 Body mass index (BMI) [Ratio] 29.91 kg/m2 [facility] Gogoi (scribe) [employer] [facility].; [employer]. 10-18-2018 07:53-0500 Body surface area Derived from formula 1.87 m2 [facility] [employer] (scribe) [place] [employer] [facility], Inc.; [employer]. 10-18-2018 07:53-0500 Body weight [address] [facility] Partnersanta [employer] (scribe) [place] [employer] [facility].; [employer]. 10-18-2018 07:53-0500 Diastolic blood pressure 88 mm[Hg] Hemanta Gogoi (scribe) [employer] [facility].; [employer], [employer]. Comment on above: Patient Position: Sitting; Cuff Location : Left Arm; Cuff Size: Standard 10-18-2018 07:53-0500 Heart rate 100 /min [facility] PartnersKontestgoi (scribe) [employer] [facility], Inc.; [employer]. Comment on above: Pattern: Regular 10-18-2018 07:53-0500 Systolic blood pressure 134 mm[Hg] Hemanta Gogoi (scribe) [employer] [facility].; [employer]. Comment on above: Patient Position: Sitting; Cuff Location : Left Arm; Cuff Size: Standard 07-15-2018 08:44-0400 Body height 163.83 cm Mary Leal LPN [employer]. 07-15-2018 08:44-0400 Body mass index (BMI) [Ratio] 29.57 kg/m2 Mary K Mutersbaugh COMMISSION SPECIALIST [employer], [employer].; [employer], [employer]. 07-15-2018 08:44-0400 Body surface area Derived from formula 1.86 m2 Mary K Mutersbaugh COMMISSION SPECIALIST [employer], Inc.; [employer] 07-15-2018 08:44-0400 Body weight 79.38 kg Mary Smiley Bolesersbaugh COMMISSION SPECIALIST [employer], [employer].; [employer]. 07-15-2018 08:44-0400 Diastolic blood pressure 79 mm[Hg] Mary K Mutersbaugh COMMISSION SPECIALIST [employer], [facility].; [employer], [employer]. Comment on above: Patient Position: Sitting; Cuff Location : Left Arm; Cuff Size: Standard 07-15-2018 08:44-0400 Heart rate 97 /min Mary Smiley Fontenotbaugh COMMISSION SPECIALIST [employer], Inc.; [employer], [employer]. Comment on above: Pattern: Regular 07-15-2018 08:44-0400 Systolic blood pressure 131 mm[Hg] Mary K Mutersbaugh COMMISSION SPECIALIST [employer]. Comment on above: Patient Position: Sitting; Cuff Location : Left Arm; Cuff Size: Standard 05-25-2017 08:53-0400 Body height 163.83 cm Wei Marie PA-C Work Phone: [employer].; [employer]. 05-25-2017 08:53-0400 Body mass index (BMI) [Ratio] 30.42 kg/m2 Wei Marie PA-C Work Phone: [employer]. 05-25-2017 08:53-0400 Body surface area Derived from formula 1.88 m2 Wei Marie PA-C Work Phone: [employer].; [employer]. 05-25-2017 08:530400 Body weight 81.65 kg Wei Marie PA-C Work Phone: [employer]. 05-25-2017 08:53-0400 Diastolic blood pressure 88 mm[Hg] Wei Marie PA-C Work Phone: [place] [employer].; [employer]. Comment on above: Patient Position: Sitting; Cuff Location : Left Arm; Cuff Size: Standard 05-25-2017 08:53-0400 Heart rate 85 /min Wei Marie PA-C Work Phone: [place] [employer].; [employer]. Comment on above: Pattern: Regular 05-25-2017 08:53-0400 Systolic blood pressure 138 mm[Hg] Wei Marie PA-C Work Phone: [place] [employer].; [employer]. Comment on above: Patient Position: Sitting; Cuff Location : Left Arm; Cuff Size: Standard 01-29-2017 11:49-0400 Body height 163.83 cm Mary K Mutmeirbaugh [facility] [employer] [facility], Inc.; [employer]. 01-29-2017 11:49-0400 Body mass index (BMI) [Ratio] 30.25 kg/m2 Mary K Mutersbaugh [facility] [employer].; [employer]. 01-29-2017 11:49-0400 Body surface area Derived from formula 1.88 m2 Mary K Mutersbaugh COMMISSION SPECIALIST [place] [employer], [employer].; [employer]. 01-29-2017 11:49-0400 Body weight 81.19 kg Mary K Mutersbaugh COMMISSION SPECIALIST [employer], [facility].; [employer]. 01-29-2017 11:49-0400 Diastolic blood pressure 102 mm[Hg] Mary K Mutersbaugh COMMISSION SPECIALIST [employer], [employer].; [employer]. Comment on above: Patient Position: Sitting; Cuff Location : Left Arm; Cuff Size: Standard 01-29-2017 11:49-0400 Heart rate 102 /min Mary K Mutersbaugh COMMISSION SPECIALIST [employer], [employer].; [employer]. Comment on above: Pattern: Regular 01-29-2017 11:49-0400 Systolic blood pressure 147 mm[Hg] Mary Leal LPN [employer].; [employer]. Comment on above: Patient Position: Sitting; Cuff Location : Left Arm; Cuff Size: Standard 01-07-2017 08:46-0400 Body height 163.83 cm Wei Marie PA-C Work Phone: [employer]. 01-07-2017 08:46-0400 Body mass index (BMI) [Ratio] 30.25 kg/m2 Wei Marie PA-C Work Phone: [employer].; [employer]. 01-07-2017 08:46-0400 Body surface area Derived from formula 1.88 m2 Wei Marie PA-C Work Phone: [employer].; [employer]. 01-07-2017 08:46-0400 Body temperature 97.8 [degF] Wei Marie PA-C Work Phone: [employer].; [employer]. Comment on above: Method: Tympanic 01-07-2017 08:46-0400 Body weight 81.19 kg Wei Marie PA-C Work Phone: [employer].; [employer]. 01-07-2017 08:46-0400 Diastolic blood pressure 90 mm[Hg] Wei Marie PA-C Work Phone: [employer].; [employer]. Comment on above: Patient Position: Sitting; Cuff Location : Left Arm; Cuff Size: Large 01-07-2017 08:46-0400 Heart rate 103 /min Wei Marie PA-C Work Phone: [employer].; [employer]. Comment on above: Pattern: Regular 01-07-2017 08:46-0400 Systolic blood pressure 141 mm[Hg] Wei Marie PA-C Work Phone: [employer].; [employer]. Comment on above: Patient Position: Sitting; Cuff Location : Left Arm; Cuff Size: Large 10-20-2016 13:53-0500 Body height 163.83 cm Colleen Dietz LPN [facility], Inc.; [employer] 10-20-2016 13:53-0500 Body mass index (BMI) [Ratio] 30.08 kg/m2 Colleen Dietz COMMISSION SPECIALIST [place] [employer] [facility], Inc.; [employer], [employer] 10-20-2016 13:53-0500 Body surface area Derived from formula 1.87 m2 Colleen Dietz COMMISSION SPECIALIST [employer], [employer].; [employer], [employer]. 10-20-2016 13:53-0500 Body weight 80.74 kg Colleen Dietz LPN [employer] [facility], Inc.; [employer], [employer]. 10-20-2016 13:53-0500 Diastolic blood pressure 87 mm[Hg] Colleen Dietz COMMISSION SPECIALIST [place] [employer] [facility], Inc.; [employer], [employer]. Comment on above: Patient Position: Sitting; Cuff Location : Left Arm; Cuff Size: Large 10-20-2016 13:53-0500 Heart rate 111 /min Colleen Dietz COMMISSION SPECIALIST [employer] [facility], Inc.; [employer], [employer]. Comment on above: Pattern: Regular 10-20-2016 13:53-0500 Systolic blood pressure 127 mm[Hg] Colleen Dietz COMMISSION SPECIALIST [place] [employer] [facility], Inc.; [employer], [employer]. Comment on above: Patient Position: Sitting; Cuff Location : Left Arm; Cuff Size: Large 01-27-2016 09:120400 Body height 163.83 cm Emily Garza MD Work Phone: [employer], [employer].; [employer] 01-27-2016 09:12-0400 Body mass index (BMI) [Ratio] 29.74 kg/m2 Emily Garza MD Work Phone: [employer], [employer].; [employer] 01-27-2016 09:120400 Body surface area Derived from formula 1.86 m2 Emily Garza MD Work Phone: [place] [employer].; [employer]. 01-27-2016 09:12-0400 Body weight 79.83 kg Emily Garza MD Work Phone: [place] [employer] 01-27-2016 09:12-0400 Diastolic blood pressure 82 mm[Hg] Emily Garza MD Work Phone: [place] [employer]. Comment on above: Patient Position: Sitting; Cuff Location : Left Arm; Cuff Size: Standard 01-27-2016 09:12-0400 Heart rate 96 /min Emily Garza MD Work Phone: [place] [employer].; [employer]. Comment on above: Pattern: Regular 01-27-2016 09:12-0400 Systolic blood pressure 124 mm[Hg] Emily Garza MD Work Phone: [place] [employer].; [employer]. Comment on above: Patient Position: Sitting; Cuff Location : Left Arm; Cuff Size: Standard 12-25-2014 11:35-0400 Body height 163.83 cm Jennifer Silva LPN [place] [employer] [facility], Inc.; [employer] 12-25-2014 11:35-0400 Body mass index (BMI) [Ratio] 29.07 kg/m2 Jennifer Silva COMMISSION SPECIALIST [place] [employer] [facility], Inc.; [employer] 12-25-2014 11:35-0400 Body surface area Derived from formula 1.85 m2 Jennifer Silva LPN [place] [employer], [employer].; [employer], [employer]. 12-25-2014 11:35-0400 Body weight 78.02 kg Jennifer Silva COMMISSION SPECIALIST [employer], [employer].; [employer], [employer]. 12-25-2014 11:35-0400 Diastolic blood pressure 95 mm[Hg] Jennifer Silva LPN [employer], [employer].; [employer], [employer]. Comment on above: Patient Position: Sitting; Cuff Location : Right Arm; Cuff Size: Standard 12-25-2014 11:35-0400 Heart rate 100 /min Jennifer Josh Silva COMMISSION SPECIALIST [facility], Inc.; [employer], [employer]. Comment on above: Pattern: Regular 12-25-2014 11:35-0400 Systolic blood pressure 137 mm[Hg] Jennifer Josh Silva COMMISSION SPECIALIST [facility], Inc.; [employer], [employer]. Comment on above: Patient Position: Sitting; Cuff Location : Right Arm; Cuff Size: Standard 11-16-2014 08:20-0500 Body height 163.83 cm Jennifer Silva [facility], Inc.; [employer], [employer]. 11-16-2014 08:20-0500 Body mass index (BMI) [Ratio] 29.57 kg/m2 Jennifer Silva [facility], Inc.; [employer], [employer]. 11-16-2014 08:20-0500 Body surface area Derived from formula 1.86 m2 Jennifer Silva [facility] [employer] [facility], Inc.; [employer], [employer]. 11-16-2014 08:20-0500 Body weight 79.38 kg Jennifer Silva [facility] [employer] [facility], Inc.; [employer], [employer]. 11-16-2014 08:20-0500 Diastolic blood pressure 77 mm[Hg] Jenniferblake Silva [facility], Inc.; [employer], [employer]. Comment on above: Patient Position: Sitting; Cuff Location : Left Arm; Cuff Size: Standard 11-16-2014 08:20-0500 Heart rate 98 /min Jenniferblake Silva COMMISSION SPECIALIST [facility], Inc.; [employer], [employer]. Comment on above: Pattern: Regular 11-16-2014 08:20-0500 Systolic blood pressure 128 mm[Hg] Jennifer Josh Silva [facility] [employer] [facility], Inc.; [employer], [employer]. Comment on above: Patient Position: Sitting; Cuff Location : Left Arm; Cuff Size: Standard 05-07-2014 08:57-0400 Body height 163.83 cm Magalys Jason [facility] [employer] [facility], Inc.; [employer], [employer]. 05-07-2014 08:57-0400 Body mass index (BMI) [Ratio] 29.24 kg/m2 Magalys Gale Eren CALDERON [facility], Inc.; [employer], [employer] 05-07-2014 08:57-0400 Body surface area Derived from formula 1.85 m2 Magalys Gale Eren [facility], Inc.; [employer], [employer] 05-07-2014 08:57-0400 Body weight 78.47 kg Magalys Gale Eren [facility] [employer] [facility], Inc.; [employer], [employer] 05-07-2014 08:57-0400 Diastolic blood pressure 77 mm[Hg] Magalys Gale Eren [facility] [employer] [facility], Inc.; [employer] Comment on above: Patient Position: Sitting; Cuff Location : Left Arm; Cuff Size: Standard 05-07-2014 08:57-0400 Heart rate 77 /min Magalys Hual[place]ach [facility], Inc.; [employer] Comment on above: Pattern: Regular 05-07-2014 08:57-0400 Systolic blood pressure 121 mm[Hg] Magalys Gale Eren [facility], Inc.; [employer] Comment on above: Patient Position: Sitting; Cuff Location : Left Arm; Cuff Size: Standard 11-13-2013 08:12-0500 Body height 163.83 cm Jennifer Silva LPN [facility], Inc.; [employer] 11-13-2013 08:12-0500 Body mass index (BMI) [Ratio] 29.07 kg/m2 Jennifer Silva LPN [facility], Inc.; [employer], [employer] 11-13-2013 08:12-0500 Body surface area Derived from formula 1.85 m2 Jennifer Silva LPN [place] [employer] [facility], Inc.; [employer], [employer] 11-13-2013 08:12-0500 Body weight 78.02 kg Jennifer Silva LPN [place] [employer] [facility], Inc.; [employer] 11-13-2013 08:12-0500 Diastolic blood pressure 83 mm[Hg] Jennifer Silva LPN [place] [employer] [facility], Inc.; [employer], [employer]. Comment on above: Patient Position: Sitting; Cuff Location : Right Arm; Cuff Size: Standard 11-13-2013 08:12-0500 Heart rate 92 /min Jennifer Josh Silva COMMISSION SPECIALIST [facility], Inc.; [employer]. Comment on above: Pattern: Regular 11-13-2013 08:12-0500 Systolic blood pressure 127 mm[Hg] Jennifer Josh TamezBurlingame COMMISSION SPECIALIST [facility], Inc.; [employer]. Comment on above: Patient Position: Sitting; Cuff Location : Right Arm; Cuff Size: Standard 05-31-2013 14:46-0400 Body height 162.56 cm Jennifer Josh Silva [facility] [employer] [facility], Inc.; [employer], [employer]. 05-31-2013 14:46-0400 Body mass index (BMI) [Ratio] 29.7 kg/m2 Jennifer Silva COMMISSION SPECIALIST [place] [employer] [facility], Inc.; [employer], [employer]. 05-31-2013 14:46-0400 Body surface area Derived from formula 1.84 m2 Jennifer Silva [facility] [employer] [facility], [employer].; [employer], [employer]. 05-31-2013 14:46-0400 Body temperature 97.9 [degF] Jennifer Josh Silva [facility], [employer].; [employer]. Comment on above: Method: Tympanic 05-31-2013 14:46-0400 Body weight 78.47 kg Jennifer Silva [facility] [employer] [facility], Inc.; [employer], [employer]. 05-31-2013 14:46-0400 Diastolic blood pressure 85 mm[Hg] Jennifer Josh Silva COMMISSION SPECIALIST [employer] [facility], [employer].; [employer]. Comment on above: Patient Position: Sitting; Cuff Location : Left Arm; Cuff Size: Standard 05-31-2013 14:46-0400 Heart rate 92 /min Jennifer Josh Silva COMMISSION SPECIALIST [place] [employer] [facility], [employer].; [employer]. Comment on above: Pattern: Regular 05-31-2013 14:46-0400 Systolic blood pressure 135 mm[Hg] Jennifer Josh Silva COMMISSION SPECIALIST [employer], [employer].; [employer]. Comment on above: Patient Position: Sitting; Cuff Location : Left Arm; Cuff Size: Standard 05-02-2013 09:45-0400 Body height 162.56 cm Jennifer Josh Silva COMMISSION SPECIALIST [employer], Inc.; [employer], [employer]. 05-02-2013 09:45-0400 Body mass index (BMI) [Ratio] 29.87 kg/m2 Jennifer N [place]ling[place] COMMISSION SPECIALIST [employer], Inc.; [employer], [employer]. 05-02-2013 09:45-0400 Body surface area Derived from formula 1.84 m2 Jennifer N Shira COMMISSION SPECIALIST [employer], Inc.; [employer], [employer]. 05-02-2013 09:45-0400 Body weight 78.93 kg Jennifer Josh Silva COMMISSION SPECIALIST [employer], [employer].; [employer], [employer]. 05-02-2013 09:45-0400 Diastolic blood pressure 82 mm[Hg] Jennifer Josh Silva COMMISSION SPECIALIST [employer], [employer].; [employer], [employer]. Comment on above: Patient Position: Sitting; Cuff Location : Left Arm; Cuff Size: Standard 05-02-2013 09:45-0400 Heart rate 93 /min Jennifer Josh Silva COMMISSION SPECIALIST [employer], [employer].; [employer]. Comment on above: Pattern: Regular 05-02-2013 09:45-0400 Systolic blood pressure 129 mm[Hg] Jennifer Josh TamezBurlingame COMMISSION SPECIALIST [employer], Inc.; [employer], [employer]. Comment on above: Patient Position: Sitting; Cuff Location : Left Arm; Cuff Size: Standard 11-04-2012 08:11-0500 Body height 162.56 cm Jennifer Josh Silva LPN [employer], Inc.; [employer], [employer]. 11-04-2012 08:11-0500 Body mass index (BMI) [Ratio] 30.04 kg/m2 Jennifer N [place]ling[place] COMMISSION SPECIALIST [employer], Inc.; [employer], [employer]. 11-04-2012 08:11-0500 Body surface area Derived from formula 1.85 m2 Jennifer Josh Silva COMMISSION SPECIALIST [employer], Inc.; [employer]. 11-04-2012 08:11-0500 Body temperature 97.1 [degF] Jennifer Tamezjuma CALDERON [facility], Inc.; [employer] [facility], [employer]. Comment on above: Method: Tympanic 11-04-2012 08:11-0500 Body weight 79.38 kg Jennifer Tolbert Shira CALDERON [facility], Inc.; [employer] [facility], Inc. 11-04-2012 08:11-0500 Diastolic blood pressure 88 mm[Hg] Jennifer Josh Silva LPN [facility], Inc.; [employer], [employer]. Comment on above: Patient Position: Sitting; Cuff Location : Left Arm; Cuff Size: Standard 11-04-2012 08:11-0500 Heart rate 95 /min Jennifer Josh Silva LPN [facility] [employer] Comment on above: Pattern: Regular 11-04-2012 08:11-0500 Systolic blood pressure 134 mm[Hg] Jennifer Josh Silva LPN [facility] [employer] Comment on above: Patient Position: Sitting; Cuff Location : Left Arm; Cuff Size: Standard 04-29-2012 08:35-0400 Body height 163.83 cm Nohemy Amezcua [facility] [place] [employer] [facility], [facility]. 04-29-2012 08:35-0400 Body mass index (BMI) [Ratio] 28.9 kg/m2 Nohemy Kj Amezcua [facility] [employer] 04-29-2012 08:35-0400 Body surface area Derived from formula 1.84 m2 Nohemy Amezcua COMMISSION SPECIALIST [facility] [employer], [employer]. 04-29-2012 08:35-0400 Body weight 77.57 kg Nohemy Kj Amezcua [facility] [employer] [facility], [facility].; [employer], [employer]. 04-29-2012 08:35-0400 Diastolic blood pressure 88 mm[Hg] Nohemy Kj Amezcua COMMISSION SPECIALIST [place] [employer] [facility], [facility].; [employer], [employer]. Comment on above: Patient Position: Sitting; Cuff Location : Right Arm; Cuff Size: Standard 04-29-2012 08:35-0400 Heart rate 87 /min Nohemy Amezcua COMMISSION SPECIALIST [facility] [place] [employer] [facility], [employer]. Comment on above: Pattern: Regular 04-29-2012 08:35-0400 Systolic blood pressure 141 mm[Hg] Nohemy Amezcua [facility] [place] [employer] [facility], [employer]. Comment on above: Patient Position: Sitting; Cuff Location : Right Arm; Cuff Size: Standard 12-07-2011 11:15-0400 Body height 163.83 cm Colleen Dietz [facility] [place] [employer] [facility], [employer]. 12-07-2011 11:15-0400 Body mass index (BMI) [Ratio] 28.22 kg/m2 Sheila J Luis [facility] [place] [employer] [facility], [employer]. 12-07-2011 11:15-0400 Body surface area Derived from formula 1.82 m2 Colleen Dietz [facility] [place] [employer] [facility], [employer]. 12-07-2011 11:15-0400 Body temperature 97.5 [degF] SheilaLyssa Dietz [facility] [place] [employer], [employer]. Comment on above: Method: Tympanic 12-07-2011 11:15-0400 Body weight 75.75 kg Colleen Dietz [facility] [place] [employer] [facility], [facility] 12-07-2011 11:15-0400 Diastolic blood pressure 85 mm[Hg] Colleen Dietz [facility] [place] [employer], [employer]. Comment on above: Patient Position: Sitting; Cuff Location : Left Arm; Cuff Size: Large 12-07-2011 11:15-0400 Heart rate 103 /min Colleen Dietz [facility] Nov[employer] [facility], [employer]. Comment on above: Pattern: Regular 12-07-2011 11:15-0400 Inhaled oxygen concentration 20 % SheilaLyssa Dietz [facility] [place] [employer], [employer]. Comment on above: Room air 12-07-2011 11:15-0400 Inhaled oxygen concentration 21 % Colleen Dietz [facility], [employer].; [employer]. Comment on above: Room air 12-07-2011 11:15-0400 SaO2% (BldA) [Mass fraction] 99 % Colleen Dietz [facility] [employer]. 12-07-2011 11:15-0400 Systolic blood pressure 133 mm[Hg] Col[facility].; [employer]. Comment on above: Patient Position: Sitting; Cuff Location : Left Arm; Cuff Size: Large 10-30-2011 08:26-0500 Body height 163.83 cm Elizabeth Farhan GreerSteve [facility] [employer] [facility], [employer].; [employer]. 10-30-2011 08:26-0500 Body mass index (BMI) [Ratio] 28.9 kg/m2 Elizabeth MobileSpaces[facility] [employer] [facility] [employer]. 10-30-2011 08:26-0500 Body surface area Derived from formula 1.84 m2 Elizabeth MobileSpacesSteve [facility].; [employer]. 10-30-2011 08:26-0500 Body weight 77.57 kg Elizabeth Farhan GreerSteve [facility].; [employer]. 10-30-2011 08:26-0500 Diastolic blood pressure 68 mm[Hg] Elizabeth C Steve COMMISSION SPECIALIST [employer].; [employer]. Comment on above: Patient Position: Sitting; Cuff Location : Left Arm; Cuff Size: Large 10-30-2011 08:26-0500 Heart rate 86 /min Elizabeth Farhan GreerQuincy COMMISSION SPECIALIST [employer].; [employer]. Comment on above: Pattern: Regular 10-30-2011 08:26-0500 Systolic blood pressure 117 mm[Hg] Elizabeth C Steve COMMISSION SPECIALIST [employer].; [employer]. Comment on above: Patient Position: Sitting; Cuff Location : Left Arm; Cuff Size: Large 08-03-2011 11:42-0500 Body temperature 98.8 [degF] Wei Marie PA-C Work Phone: [employer].; [employer]. Comment on above: Method: Tympanic 08-03-2011 11:42-0500 Body weight 77.11 kg Wei Marie PA-C Work Phone: [employer]; [employer]. 08-03-2011 11:42-0500 Heart rate 144 /min Wei Marie PA-C Work Phone: [employer].; [employer]. Comment on above: Pattern: Regular 08-03-2011 11:42-0500 Inhaled oxygen concentration 20 % Wei Marie PA-C Work Phone: [employer]; [employer]. Comment on above: Room air 08-03-2011 11:42-0500 Inhaled oxygen concentration 21 % Wei Marie PA-C Work Phone: [employer]; [employer]. Comment on above: Room air 08-03-2011 11:42-0500 SaO2% (BldA) [Mass fraction] 79 % Wei Marie PA-C Work Phone: [employer]; [employer]. 08-01-2011 10:06-0400 Body height 167.64 cm Yaquelin Marie RN [employer].; [employer]. 08-01-2011 10:06-0400 Body mass index (BMI) [Ratio] 27.57 kg/m2 Yaquelin Marie RN [employer].; [employer]. 08-01-2011 10:06-0400 Body surface area Derived from formula 1.87 m2 Yaquelin Marie RN [employer].; [employer]. 08-01-2011 10:06-0400 Body temperature 97.7 [degF] Yaquelin Marie RN [employer].; [employer]. Comment on above: Method: Tympanic 08-01-2011 10:06-0400 Body weight 77.47 kg Yaquelin Marie RN [employer].; [employer]. 08-01-2011 10:06-0400 Diastolic blood pressure 62 mm[Hg] Yaquelin Marie RN [facility] [employer]. Comment on above: Patient Position: Sitting; Cuff Location : Left Arm; Cuff Size: Standard 08-01-2011 10:06-0400 Heart rate 115 /min Yaquelin Marie RN [facility] [employer]. Comment on above: Pattern: Regular 08-01-2011 10:06-0400 Systolic blood pressure 102 mm[Hg] Yaquelin Marie RN [facility], [facility].; [place] [employer]. Comment on above: Patient Position: Sitting; Cuff Location : Left Arm; Cuff Size: Standard 04-28-2011 08:44-0400 Body height 167.64 cm Elizabeth Wilson LPN [facility] [employer], [employer]. 04-28-2011 08:44-0400 Body mass index (BMI) [Ratio] 27.31 kg/m2 Elizabeth Farhan Wilson COMMISSION SPECIALIST [facility] [place] [employer], [employer]. 04-28-2011 08:44-0400 Body surface area Derived from formula 1.86 m2 Elizabeth Farhan Wilson COMMISSION SPECIALIST [facility], [facility].; [employer], [employer]. 04-28-2011 08:44-0400 Body weight 76.75 kg Elizabethrossy Wilson COMMISSION SPECIALIST [facility], [facility].; [employer]. 04-28-2011 08:44-0400 Diastolic blood pressure 87 mm[Hg] Elizabeth Farhan Wilson LPN [place] [employer] [facility], [facility].; [employer]. Comment on above: Patient Position: Sitting; Cuff Location : Left Arm; Cuff Size: Large 04-28-2011 08:44-0400 Heart rate 83 /min Elizabethrossy Wilson LPN [place] [employer] [facility], [employer].; [employer]. Comment on above: Pattern: Regular 04-28-2011 08:44-0400 Systolic blood pressure 123 mm[Hg] Elizabeth Farhan Wilson LPN [place] [employer] [facility] [employer]. Comment on above: Patient Position: Sitting; Cuff Location : Left Arm; Cuff Size: Large 09-25-2010 11:58-0500 Body temperature 97.7 [degF] Neilee L Vess COMMISSION SPECIALIST [employer], [employer].; [employer]. 09-25-2010 11:58-0500 Body weight 77.11 kg Nejulissae L Vess COMMISSION SPECIALIST [place], [employer].; [place], [employer]. 09-25-2010 11:58-0500 Diastolic blood pressure 82 mm[Hg] Neilee L Vess COMMISSION SPECIALIST [employer].; [employer]. Comment on above: Patient Position: Sitting; Cuff Location : Left Arm; Cuff Size: Standard 09-25-2010 11:58-0500 Heart rate 101 /min HowDojulissae L Vess COMMISSION SPECIALIST [place], [employer].; [employer]. Comment on above: Pattern: Regular 09-25-2010 11:58-0500 Systolic blood pressure 140 mm[Hg] Neilee L Vess COMMISSION SPECIALIST [place], [employer].; [place], [employer]. Comment on above: Patient Position: Sitting; Cuff Location : Left Arm; Cuff Size: Standard Encounters Encounter Date Encounter Type Care Provider Facility Start: 06-15-2025 ambulatory Wei Marie Facility:[facility] Start: 02-13-2025 End: 02-13-2025 Medication eWi Marie PA-C Work Phone: [place] [employer], [employer]. Start: 02-08-2025 End: 02-08-[address] Edi Bartlett MD -[facility] Work Phone: Start: 02-08-2025 End: 02-08-2025 ambulatory Wei Marie PA Work Phone: [facility] Work Phone: Start: 01-24-2025 End: 01-24-[address] Edi Bartlett MD -[facility] Work Phone: Start: 01-24-2025 End: 01-24-2025 ambulatory Edi Bartlett Facility:[facility] Start: 01-12-2025 End: 01-12-[address] Edi Bartlett MD -[facility] Work Phone: Start: 01-12-2025 End: 01-12-2025 ambulatory Weiritu Marie Facility:[facility] Start: 01-08-2025 End: 01-08-2025 ambulatory Wei Marie PA Work Phone: [facility] Work Phone: Start: 01-08-2025 End: 01-08-2025 Patient encounter [facility] Work Phone: Start: 01-08-2025 End: 01-08-2025 ambulatory Kandace Tate Facility:[facility] Start: 12-29-2024 End: 12-29-2024 Patient encounter procedure Kandace Fulk LISA -[facility] Work Phone: Start: 12-29-2024 End: 12-29-2024 ambulatory Weiritu Marie Facility:[facility] Start: 11-28-2024 End: 11-28-2024 Patient encounter procedure Wei J Marie PA-C Work Phone: [facility] Start: 11-28-2024 End: 11-28-2024 Periodic preventive med est patient 65yrs& older Wei Marie PA-C Work Phone: [employer] Start: 11-21-2024 End: 11-21-2024 Orders Wei Marie PA-C Work Phone: [facility] Start: 11-20-2024 End: 11-20-2024 Orders Wei Marie PA-C Work Phone: [facility] Start: 05-31-2024 Follow-up encounter Wei Be an PA-C Work Phone: [employer] Start: 05-31-2024 End: 05-31-2024 Office outpatient visit 15 minutes Wei Marie PA-C Work Phone: [facility] Start: 01-24-2024 End: 01-24-2024 ambulatory [facility] Work Phone: Start: 01-24-2024 End: 01-24-2024 Patient encounter procedure [facility] Work Phone: Start: 11-23-2023 End: 11-23-2023 Patient encounter procedure [facility] Start: 11-23-2023 End: 11-23-2023 Periodic preventive med est patient 65yrs& older Wei Marie PA-C Work Phone: [facility] Start: 11-09-2023 End: 11-09-2023 Orders Wei Marie PA-C Work [facility]: [facility] Start: 08-16-2023 End: 08-16-2023 ambulatory [facility] Work Phone: Start: 08-16-2023 End: 08-16-2023 Patient encounter procedure [facility] - [facility] Work Phone: Start: 05-17-2023 End: 05-17-2023 ambulatory [facility] Work Phone: Start: 05-17-2023 End: 05-17-2023 Patient encounter procedure [facility] Work Phone: Start: 05-11-2023 End: 05-11-2023 Office outpatient visit 25 minutes Wei Marie PA-C Work [facility]: [facility] Start: 03-23-2023 End: 03-23-2023 ambulatory [facility] Work Phone: Start: 03-23-2023 End: 03-23-2023 Patient encounter procedure [facility], [facility] Work Phone: Start: 11-11-2022 End: 11-11-2022 Patient encounter procedure Wei Marie PA-C Work [facility]: [facility] Start: 11-04-2022 End: 11-04-2022 Orders Wei Marie PA-C Work Phone: [employer] Start: 07-14-2022 End: 07-14-2022 ambulatory [facility] Work Phone: Start: 07-14-2022 End: 07-14-2022 [facility] Start: 05-05-2022 End: 05-05-2022 Office outpatient visit 25 minutes Wei Marie PA-C Work Phone: [facility] Start: 03-27-2022 End: 03-27-2022 Medication Wei Marie PA-C Work Phone: [employer] Start: 01-26-2022 End: 01-26-2022 [facility] Start: 01-21-2022 End: 01-21-2022 Medication Wei Marie PA-C Work Phone: [employer] Start: 12-18-2021 End: 12-18-2021 ambulatory WEI MARIE [facility] Start: 12-01-2021 End: 12-01-2021 Medication Wei Marie PA-C Work Phone: [employer] Start: 11-05-2021 End: 11-05-2021 Patient encounter procedure Wei Marie PA-C Work Phone: [facility] Start: 10-27-2021 End: 10-27-2021 Orders Wei Marie PA-C Work Phone: [employer] Start: 10-20-2021 End: 10-20-2021 Patient encounter procedure Wei Marie PA-C Work Phone: [facility] Start: 10-17-2021 End: 10-17-2021 ambulatory WEI MARIE [facility] Start: 10-15-2021 End: 10-15-2021 Orders Wei Marie PA-C Work Phone: [employer] Start: 10-14-2021 End: 10-14-2021 ambulatory WEI MARIE [facility] Start: 10-08-2021 End: 10-08-2021 Office outpatient visit 15 minutes Wei Marie PA-C Work Phone: [facility] Start: 08-28-2021 End: 08-28-2021 Medication Wei Marie PA-C Work Phone: [employer] Start: 07-15-2021 End: 07-15-2021 Nursing evaluation of patient and report Wei Marie PA-C Work Phone: [employer] Start: 07-03-2021 End: 07-03-2021 Medication Wei Marie PA-C Work Phone: [employer] Start: 05-06-2021 End: 05-06-2021 Office outpatient visit 25 minutes Wei Marie PA-C Work Phone: [facility] Start: 04-29-2021 End: 04-29-2021 Orders Wei Marie PA-C Work Phone: [employer] Start: 03-17-2021 End: 03-17-2021 Orders Wei Marie PA-C Work Phone: [employer] Start: 11-05-2020 End: 11-06-2020 Office outpatient visit 15 minutes Wei Marie PA-C Work Phone: [employer] Start: 10-29-2020 End: 10-29-2020 Orders Wei Marie PA-C Work Phone: [employer] Start: 07-08-2020 End: 07-08-2020 Nursing evaluation of patient and report Wei Marie PA-C Work Phone: [employer] Start: 04-30-2020 End: 04-30-2020 Office outpatient visit 25 minutes Wei Marie PA-C Work Phone: [employer] Start: 12-11-2019 End: 12-15-2019 Medication Wei Marie PA-C Work Phone: [employer]. Start: 10-31-2019 End: 11-01-2019 Office outpatient visit 15 minutes Wei Marie PA-C Work Phone: [employer]. Start: 10-31-2019 End: 11-01-2019 Patient encounter procedure Wei Marie PA-C Work Phone: [employer].; [employer]. Start: 10-23-2019 End: 10-31-2019 Orders Wei Marie PA-C Work Phone: [employer] Start: 10-05-2019 End: 10-05-2019 Orders Wei Marie PA-C Work Phone: [employer]. Start: 09-28-2019 End: 09-29-2019 Office outpatient visit 15 minutes Wei Marie PA-C Work Phone: [employer] Start: 07-05-2019 End: 07-05-2019 Nursing evaluation of patient and report Wei Marie PA-C Work Phone: [employer] Start: 06-02-2019 End: 06-02-2019 Orders Wei Marie PA-C Work Phone: [employer]. Start: 05-04-2019 End: 05-04-2019 Office outpatient visit 15 minutes Wei Marie PA-C Work Phone: [employer] Start: 04-18-2019 End: 04-18-2019 Office outpatient visit 25 minutes Wei Marie PA-C Work Phone: [employer] Start: 01-31-2019 End: 01-31-2019 Office outpatient visit 25 minutes Wei Marie PA-C Work Phone: [employer] Start: 12-03-2018 End: 12-03-2018 Orders Wei Marie PA-C Work Phone: [employer]. Start: 11-28-2018 End: 11-28-2018 Historical Summary Wei Marie PA-C Work Phone: [employer]. Start: 10-18-2018 End: 10-18-2018 Office outpatient visit 25 minutes Wei Marie PA-C Work Phone: [employer]. Start: 10-13-2018 End: 10-13-2018 Orders Wei Marie PA-C Work Phone: [employer] Start: 07-15-2018 End: 07-15-2018 Patient encounter status Wei Marie PA-C Work Phone: [employer].; [employer]. Start: 07-15-2018 End: 07-15-2018 Periodic preventive med est patient 65yrs& older Wei Marie PA-C Work Phone: [employer]. Start: 07-07-2018 End: 07-07-2018 Orders Wei Marie PA-C Work Phone: [employer]. Start: 06-23-2018 End: 06-23-2018 Orders Wei Marie PA-C Work Phone: [employer] Start: 05-25-2017 End: 05-25-2017 Patient encounter procedure Mary Leal LPN [employer].; [employer]. Start: 05-25-2017 End: 05-25-2017 Periodic preventive med est patient 65yrs& older Wei Marie PA-C Work Phone: [employer]. Start: 05-18-2017 End: 05-18-2017 Orders Wei Marie PA-C Work Phone: [employer] Start: 05-17-2017 End: 05-17-2017 Orders Wei Marie PA-C Work Phone: [employer] Start: 01-29-2017 End: 01-29-2017 Office outpatient visit 15 minutes Wei Marie PA-C Work Phone: [employer] Start: 01-07-2017 End: 01-07-2017 Office outpatient visit 15 minutes Wei Marie PA-C Work Phone: [employer] Start: 10-20-2016 End: 10-20-2016 Patient encounter procedure Wei Marie PA-C Work Phone: [employer] Start: 01-27-2016 End: 01-27-2016 Patient encounter procedure Wei Marie PA-C Work Phone: [employer]; [employer]. Start: 01-27-2016 End: 01-27-2016 Periodic preventive med est patient 40-64yrs Wei Marie PA-C Work Phone: [employer] Start: 01-20-2016 End: 01-20-2016 Orders Wei Marie PA-C Work Phone: [employer] Start: 01-06-2016 End: 01-07-2016 Orders Wei Marie PA-C Work Phone: [employer] Start: 11-29-2015 End: 11-29-2015 Medication Wei Marie PA-C Work Phone: [employer] Start: 12-25-2014 End: 12-25-2014 Office outpatient visit 10 minutes Wei Maire PA-C Work Phone: [employer] Start: 11-16-2014 End: 11-18-2014 Manual pelvic examination Wei Marie PA-C Work Phone: [employer]; [facility] Start: 11-16-2014 End: 11-18-2014 Periodic preventive med est patient 40-64yrs Wei Marie PA-C Work Phone: [employer] Start: 10-25-2014 End: 10-25-2014 Orders Wei Marie PA-C Work Phone: [employer]. Start: 10-18-2014 End: 10-18-2014 Orders Wei Marie PA-C Work Phone: [employer]. Start: 05-07-2014 End: 05-07-2014 Patient encounter procedure Wei Marie PA-C Work Phone: [employer]. Start: 11-13-2013 End: 11-13-2013 Patient encounter procedure Wei Marie PA-C Work Phone: [employer]. Start: 11-13-2013 End: 11-13-2013 Routine general medical examination at a health care facility Wei Marie PA-C Work Phone: [employer].; [employer]. Start: 11-10-2013 End: 11-10-2013 Historical Summary Wei Marie PA-C Work Phone: [employer]. Start: 11-06-2013 End: 11-06-2013 Orders Wei Marie PA-C Work Phone: [employer]. Start: 05-31-2013 End: 05-31-2013 Patient encounter procedure Wei Marie PA-C Work Phone: [employer]. Start: 05-02-2013 End: 05-02-2013 Patient encounter procedure Wei Marie PA-C Work Phone: [employer]. Start: 11-04-2012 End: 11-04-2012 Patient encounter procedure Wei Marie PA-C Work Phone: [employer]. Start: 11-04-2012 End: 11-04-2012 Routine general medical examination at a health care facility Wei Marie PA-C Work Phone: [employer].; [employer]. Start: 11-02-2012 End: 11-02-2012 Historical Summary Wei Marie PA-C Work Phone: [employer]. Start: 10-25-2012 End: 10-25-2012 Orders Wei Marie PA-C Work Phone: [employer]. Start: 09-29-2012 End: 09-30-2012 Orders Wei Marie PA-C Work Phone: [employer]. Start: 08-24-2012 End: 08-25-2012 Medication Wei Marie PA-C Work Phone: [employer]. Start: 04-29-2012 End: 04-29-2012 Patient encounter procedure Wei Marie PA-C Work Phone: [employer]. Start: 12-07-2011 End: 12-07-2011 Patient encounter procedure Wei Marie PA-C Work Phone: [employer]. Start: 10-30-2011 End: 10-30-2011 Patient encounter procedure Wei Marie PA-C Work Phone: [facility] Start: 10-30-2011 End: 10-30-2011 Routine gynecological examination Wei Marie PA-C Work Phone: [employer]; [employer]. Start: 10-15-2011 End: 10-15-2011 Orders Wei Marie PA-C Work Phone: [employer]. Start: 08-03-2011 End: 08-03-2011 Patient encounter procedure Wei Marie PA-C Work Phone: [facility] Start: 08-01-2011 End: 08-01-2011 Patient encounter procedure Wei Marie PA-C Work Phone: [facility] Start: 04-28-2011 End: 04-28-2011 Patient encounter procedure Wei Marie PA-C Work Phone: [employer] Start: 04-28-2011 End: 04-28-2011 Routine general medical examination at a [facility] facility Wei Marie PA-C Work Phone: [employer]. Start: 02-17-2011 End: 02-17-2011 Medication Wei Marie PA-C Work Phone: [employer]. Start: 12-09-2010 End: 12-09-2010 Medication Weiritu Marie PA-C Work Phone: [employer]. Start: 09-25-2010 End: 09-25-2010 Patient encounter procedure Weiritu Marie PA-C Work Phone: [employer]. Start: 05-24-2010 End: 05-24-2010 Historical Summary Wei Marie PA-C Work Phone: [employer] Manual pelvic examination Mary Leal LPN [employer] [facility].; [employer] Patient encounter procedure Mary Leal LPN [facility].; [employer] Patient encounter procedure Le Ely LPN [employer].; [employer]. Patient encounter procedure Emily Garza MD Work Phone: [place] [employer] Patient encounter procedure Liana Osuna MA [place] [employer] [facility] [employer] Patient encounter procedure Steve Johnson MD Work Phone: [employer].; [employer] Patient encounter procedure Margaret Hernandez MA [employer] [facility] [employer] Patient encounter status Hemanta Gogoi (scribe) [employer] [facility].; [employer] Routine general medi celestino examination at a [facility] facility Mary Leal LPN [employer], [employer].; [employer] Routine gynecologica l examination Marydebra Leal LPN [employer] [facility], [employer].; [employer] Procedures Date Procedure Procedure Detail Performing Clinician Start: 01-24-2025 Dual energy X-ray absorptiometry Wei Marie PA Work Phone: Start: 01-08-2025 MRI of lumbar spine Paloma ritu Marie PA Work Phone: Start: 12-29-2024 X-ray of lumbosacral spine Weiritu Marie PA Work Phone: Start: 11-28-2024 End: 11-27-2024 Adv care pln/ no alt dcsn mkr docd or refusal Wei J Marie PA-C Work Phone: Start: 11-28-2024 End: 11-27-2024 Depression screening Wei J Marie PA-C Work Phone: Start: 11-28-2024 End: 11-27-2024 Falls risk assessment documented Wei J Marie PA-C Work Phone: Start: 11-28-2024 End: 11-27-2024 PPPS, subseq visit Wei J Marie PA-C Work Phone: Start: 11-28-2024 End: 11-27-2024 Pt falls assess docd w/o fall/injury past year Wei J Marie PA-C Work Phone: Start: 11-28-2024 End: 11-27-2024 Scr dep neg, no plan reqd Wei Jw Marie PA-C Work Phone: Start: 11-21-2024 End: 11-21-2024 Hemoglobin A1c/Hemoglobin.total in Blood Margaret Hernandez MA Comment on above: 5.9 Start: 11-21-2024 End: 11-21-2024 Lab findings surveillance Margaret Loyd Start: 11-21-2024 End: 11-21-2024 Lipid panel results documented & reviewed Margaret Hernandez MA Start: 05-31-2024 End: 05-31-2024 Hemoglobin A1c/Hemoglobin.total in Blood Margaret Hernandez MA Start: 11-23-2023 End: 11-22-2023 Adv care pln/ no alt dcsn mkr docd or refusal Wei J Marie PA-C Work Phone: Start: 11-23-2023 End: 11-22-2023 Depression screening Wei Jw Marie PA-C Work Phone: Start: 11-23-2023 End: 11-22-2023 Falls risk assessment documented Wei Escalera Marie PA-C Work Phone: Start: 11-23-2023 End: 11-22-2023 PPPS, subseq visit Wei J Marie PA-C Work Phone: Start: 11-23-2023 End: 11-22-2023 Pt falls assess docd 2/> falls/fall w/injury/yr Wei Jw Marie PA-C Work Phone: Start: 11-23-2023 End: 11-22-2023 Scr dep neg, no plan reqd Wei Jw Marie PA-C Work Phone: Start: 11-16-2023 End: 11-16-2023 Hemoglobin A1c/Hemoglobin.total in Blood Margaret Hernandez MA Comment on above: 6.3 Start: 11-16-2023 End: 11-16-2023 Lab findings surveillance Margaret Loyd Start: 11-16-2023 End: 11-16-2023 Lipid panel results documented & reviewed Margaret Hernandez MA Start: 08-16-2023 MRI of lumbar spine Start: 03-23-2023 Plain x-ray of pelvi s and lower extremity Start: 11-11-2022 End: 11-11-2022 Adv care pln tlkd & alt dcsn maker docd Wei Escalera Marie PA-C Work Phone: Start: 11-11-2022 End: 11-11-2022 Depression screening Wei Jw Marie PA-C Work Phone: Start: 11-11-2022 End: 11-11-2022 Falls risk assessment documented Wei Jw Marie PA-C Work Phone: Start: 11-11-2022 End: 11-11-2022 PPPS, subseq visit Wei Escalera Marie PA-C Work Phone: Start: 11-11-2022 End: 11-11-2022 Pt falls assess docd w/o fall/injury past year Wei J Marie PA-C Work Phone: Start: 11-11-2022 End: 11-11-2022 Scr dep neg, no plan reqd Wei J Marie PA-C Work Phone: Start: 11-04-2022 End: 11-04-2022 Hemoglobin A1c/Hemoglobin.total in Blood Margaret Hernandez MA Comment on above: 5.9 Start: 11-04-2022 End: 11-04-2022 Lab findings surveillance Margaret Loyd Comment on above: 93 CMP Start: 11-04-2022 End: 11-04-2022 Lipid panel results documented & reviewed Margaret Hernandez MA Comment on above: CHOL- 217 HDL 65 TRI 136 LDL 127 Start: 11-05-2021 End: 11-05-2021 Depression screening Wei Jw Marie PA-C Work Phone: Start: 11-05-2021 End: 11-05-2021 Falls risk assessment documented Wei Jw Marie PA-C Work Phone: Start: 11-05-2021 End: 11-05-2021 PPPS, subseq visit Wei Jw Marie PA-C Work Phone: Start: 11-05-2021 End: 11-05-2021 Pt falls assess docd w/o fall/injury past year Wei Jw Marie PA-C Work Phone: Start: 11-05-2021 End: 11-05-2021 Scr dep neg, no plan reqd Wei Jw Marie PA-C Work Phone: Start: 11-05-2021 End: 12-18-2021 Screening mammography bi 2-view breast inc cad Wei Jw Marie PA-C Work Phone: Start: 10-15-2021 End: 10-17-2021 Us abdominal real time w/image limited Wei Jw Marie PA-C Work Phone: Start: 10-08-2021 End: 10-14-2021 Ct limited/localized follow up study Wei Marie PA-C Work Phone: Start: 07-15-2021 End: 07-15-2021 Flu immunize order/admin Wei Marie PA-C Work Phone: Start: 05-06-2021 End: 05-06-2021 No Known Past Surgical History Margaret Hernandez MA Start: 09-27-2020 End: 09-27-2020 Screening colonoscopy Le Ely LPN Comment on above: maria de jesus- repeat in 10 yrs Start: 07-08-2020 End: 07-08-2020 Flu immunize order/admin Emily Ledesma Work Phone: Start: 10-31-2019 End: 10-31-2019 Depression screening Emily Garza MD Work Phone: Start: 10-31-2019 End: 10-31-2019 Falls risk assessment documented Emily Garza MD Work Phone: Start: 10-31-2019 End: 10-31-2019 PPPS, subseq visit Emily Garza MD Work Phone: Start: 10-31-2019 End: 10-31-2019 Pt falls assess docd w/o fall/injury past year Emily Garza MD Work Phone: Start: 10-31-2019 End: 10-31-2019 Scr dep neg, no plan reqd Emily Garza MD Work Phone: Start: 10-31-2019 End: 11-24-2019 Screening mammography bi 2-view breast inc cad Emily Garza MD Work Phone: Start: 08-07-2019 End: 08-07-2019 Replacement of total knee joint Margaret Hernandez MA Comment on above: Left. Start: 07-05-2019 End: 07-05-2019 Flu immunize order/admin Emily Ledesma Work Phone: Start: 05-04-2019 End: 05-04-2019 Arthrocentesis aspir&/inj interm jt/burs w/o us Emily Garza MD Work Phone: Start: 01-31-2019 End: 01-31-2019 Triamcinolone acet inj NOS Emily Garza MD Work Phone: Start: 11-28-2018 End: 11-28-2018 Cologuard [facility] Solis CALDERON Comment on above: Abnormal. Start: 11-25-2018 End: 11-25-2018 Screening for malignant neoplasm of large intestine Le Solis CALDERON Comment on above: Abnormal. cologuard- positive Start: 08-16-2018 End: 08-16-2018 Screening mammography [facility] Start: 07-15-2018 End: 11-30-2018 Oncology colorectal screening dayana 10 dna markrs Emily Garza MD Work Phone: Start: 07-15-2018 End: 07-15-2018 PPPS, subseq visit Emily Garza MD Work Phone: Start: 07-15-2018 End: 07-15-2018 Pt falls assess docd w/o fall/injury past year Emily Garza MD Work Phone: Start: 07-15-2018 End: 07-15-2018 Scr dep neg, no plan reqd Emily Garza MD Work Phone: Start: 07-15-2018 End: 08-16-2018 Screening mammography bi 2-view breast inc cad Emily Garza MD Work Phone: Start: 07-15-2018 End: 07-15-2018 Falls risk assessment documented Emily Garza MD Work Phone: Start: 07-15-2018 End: 07-15-2018 Depression screen annual Emily Ledesma Work Phone: Start: 06-01-2017 End: 06-01-2017 Bone density scan [facility] Start: 05-25-2017 End: 06-01-2017 Dxa bone density study 1/> sites axial skel Emily Garza MD Work Phone: Start: 05-25-2017 End: 05-25-2017 Pos clin depres scrn f/u doc Emily Garza MD Work Phone: Start: 05-25-2017 End: 05-25-2017 PPPS, subseq visit Emily Garza MD Work Phone: Start: 05-25-2017 End: 05-25-2017 Pt falls assess docd w/o fall/injury past year Emily Garza MD Work Phone: Start: 05-25-2017 End: 06-01-2017 Screening mammography bi 2-view breast inc cad Emily Garza MD Work Phone: Start: 05-25-2017 End: 05-25-2017 Falls risk assessment documented Emily Garza MD Work Phone: Start: 05-25-2017 End: 05-25-2017 Depression screen annual Emily Ledesma Work Phone: Start: 01-29-2017 End: 01-29-2017 Arthrocentesis aspir&/inj interm jt/burs w/o us Emily Garza MD Work Phone: Start: 12-25-2014 End: 12-25-2014 Arthrocentesis aspir&/inj interm jt/burs w/o us Emily Garza MD Work Phone: Start: 10-18-2014 End: 11-01-2014 Mammogram, screening Emily Garza MD Work Phone: Start: 11-04-2012 End: 11-04-2012 Microscopic examination of cervical Papanicolaou smear Le Ely LPN Comment on above: Within Normal Limits . Start: 09-29-2012 End: 10-18-2012 Mammogram, screening Emily Garza MD Work Phone: Start: 04-28-2011 End: 06-12-2011 Mammogram, screening Emily Garza MD Work Phone: Plan of Treatment Date Care Activity Detail Author Start: 06-05-2025 Patient encounter procedure Medical; EXTENDED RTN - 6 mo rtn [facility] Start: 05-Jun-2025 10:00-04:00 DON Marie Appointment Request [facility] Start: 11-28-2024 Dxa bone density study 1/> sites axial skel Bone Density (37143) Start: 28-Nov-2024 Intent [facility] [facility].; [employer] Start: 11-28-2024 Screening mammography bi 2-view breast inc cad Mammogram Bilateral Screening Digital w/CAD (13195) with 3D (tomosynthesis), bilateral (09560) Start: 28-Nov-2024 Intent [employer] Start: 11-28-2024 Patient encounter procedure Medical; PHYSICAL - AWV [facility]. Start: 28-Nov-2024 09:50-05:00 DON Marie Appointment Request [employer] [employer]. Start: 11-21-2024 Comprehensive metabolic panel CMP w/ GFR* (63802) Start: 21-Nov-2024 Request [facility] [employer] Start: 11-21-2024 Hemoglobin glycosylated a1c HEMOGLOBIN A1C* (40664) Start: 21-Nov-2024 Request [facility].; [employer] Start: 11-21-2024 Lipid panel LIPID PANEL (90672) Start: 21-Nov-2024 Request [facility] [employer] Start: 11-21-2024 Nursing evaluation of patient and report Medical; Nurse visit - [facility]. Start: 21-Nov-2024 10:00-05:00 NURSE, FLOAT Appointment Request [employer] [employer]. Start: 05-31-2024 Well child visit Medical; EXTENDED RTN - HTN 6 mo check [employer] Start: 31-May-2024 10:00-04:00 DON Marie Appointment Request [facility]. Start: 05-23-2024 Patient encounter procedure Medical; EXTENDED RTN - 6 mo rtn [employer] Start: 23-May-2024 10:20-04:00 DON Marie Appointment Request [employer] [employer]. Start: 01-27-2024 Procedure [facility] Start: 11-23-2023 Screening mammography bi 2-view breast inc cad Mammogram Bilateral Screening Digital w/CAD (04983) with 3D (tomosynthesis), bilateral (78535) Start: 23-Nov-2023 [facility] Start: 11-23-2023 Patient encounter procedure Medical; PHYSICAL - PHYSICAL [facility]. Start: 23-Nov-2023 10:10 DON Marie Appointment Request [facility] Start: 11-16-2023 Nursing evaluation of patient and report Medical; Nurse visit - [facility]. Start: 16-Nov-2023 10:00 NURSE, FLOAT Appointment Request [facility] Start: 11-16-2023 Comprehensive metabolic panel [facility]. Start: 11-16-2023 Hemoglobin glycosylated a1c [facility] Start: 11-16-2023 Lipid panel [facility] Start: 05-17-2023 Procedure [facility] Start: 11-11-2022 Screening mammography bi 2-view breast inc cad Mammogram Bilateral Screening Digital w/CAD (93727) with 3D (tomosynthesis), bilateral (84503) Start: 11-Nov-2022 Intent [facility]; [facility]. Start: 07-14-2022 Procedure [facility] Work Phone: Patient referral [facility] Work Phone: Procedure [facility] Work Phone: Immunizations Immunization Date Immunization Notes Care Provider Jennifer wild 07-15-2021 influenza virus vacc ine, unspecified formulation Wei Marie PA-C Work Phone: [facility]. 07-15-2021 influenza, injectabl e, quadrivalent, contains preservative Wei Marie PA-C Work Phone: [facility]; [facility] Comment on above: Site: Left DeltoidVI S Given: * Influenza - Inactivated (05/11/19) 07-08-2020 influenza, injectabl e, quadrivalent, contains preservative Wei Marie PA-C Work Phone: [employer]; [facility] Comment on above: Site: Left DeltoidVI S Given: * Influenza - Inactivated (05/03/15) 07-08-2020 influenza virus vacc ine, unspecified formulation Wei Marie PA-C Work Phone: [facility]; [facility] 10-31-2019 pneumococcal polysaccharide vaccine, 23 valent Wei Marie PA-C Work Phone: [facility]; [facility] Comment on above: Site: Left ArmVIS Gi jairo: * Pneumococcal Polysaccharide (PPSV23) (01/18/15) 07-05-2019 influenza virus vacc ine, unspecified formulation Wei Marie PA-C Work Phone: [facility]; [facility] 07-05-2019 influenza, injectabl e, quadrivalent, contains preservative Wei Marie PA-C Work Phone: [facility]; [facility]. Comment on above: Site: Left DeltoidVI S Given: * Influenza - Inactivated (05/03/15) 07-15-2018 pneumococcal conjuga te vaccine, 13 valent Wei Marie PA-C Work Phone: [facility]; [facility] Comment on above: Site: Left DeltoidVI S Given: * Pneumococcal Conjugate (PCV13) (08/01/15) 07-15-2018 influenza, injectabl e, quadrivalent, contains preservative Wei Marie PA-C Work Phone: [facility]; [facility] Comment on above: Site: Right DeltoidV IS Given: * Influenza - Inactivated (05/03/15) 10-20-2016 zoster vaccine, live Wei Marie PA-C Work Phone: [facility]; [facility] Comment on above: Site: Deltoid Area ( Left)VIS Given: * Shingles (Herpes Zoster) (07/02/09) 07-28-2012 influenza virus vacc ine, unspecified formulation Wei Marie PA-C Work Phone: [facility] 07-28-2012 influenza, seasonal, injectable Wei Marie PA-C Work Phone: [facility]; [facility] 06-29-2011 influenza, seasonal, injectable Wei Marie PA-C Work Phone: [facility] [facility]; [place] [employer] [facility] 09-27-2009 tetanus toxoid, redu geoffrey diphtheria toxoid, and acellular pertussis vaccine, adsorbed Wei Marie PA-C Work Phone: [facility]; [facility] Comment on above: ER? Payers Date Payer Category Payer Self-pay [id number] 2024 Medicare [id number] 2024 Unknown [id number] 1950 Unknown [id number] 2.16.84 [id number] 1950 Unknown [id number] 2.16.84 [id number] 1950 Unknown [id number] 2.16.84 [id number] Unknown Unknown [id number] 2.16.8 [id number] Unknown [id number] 2.16.8 [id number] Unknown [id number] 2.16.8 [id number] Unknown [id number] 2.16.8 [id number] Unknown [id number] 2.16.8 [id number] Unknown [id number] 2.16.8 [id number] Unknown [id number] 2.16.8 [id number] Social History Date Type Detail Facility Start: 01-13-2021 End: 01-13-2021 Tobacco smoking status AKIS Unknown if ever smoked [facility] Start: 1950 Sex Assigned At Female W [facility] Alcohol Use: Alcohol Use: ; Occasional alcohol use. [facility]; [facility] Caffeine Use Caffeine Use [facility]; [facility] Current Work/Study Status: Current Work/Study Status: ; Retired. [employer]; [facility] [facility] Tobacco Use: Tobacco Use: ; S mokes < 1 pack of cigarettes per day. Current every day smoker. [facility] Occasional alcohol use [employer]; [employer] [facility]. Work Phone: Smokes tobacco daily [facility]; [facility] Work Phone: Smokes < 1 pack of cigarettes per day [employer] Work Phone: Retired [employer]; [facility] Work Phone: Start: 01-13-2021 [facility] tobacco smoker [facility] Start: 01-11-2025 Sex Female (finding) [facility] Progress note 02-08-2025 Note Date & Type Note Facility 02-08-2025 Progress note [facility] Progress note 02-08-2025 Note Date & Type Note Facility 02-08-2025 Progress note Note Date/Time February 08, 2025 2:57pm [facility] [address] [place] [address] OFFICE VISIT Date of Service: 02/08/25 MR#: [id number] Acct: [id number] Name: ESTELLA BURNHAM Rep #: [id number] : 1950 Provider: Dr. Dex Bartlett MD Age/Sex: 74/F Location: [facility] Status: Signed Intake Vital Signs 12/29/24 10:20 02/08/25 13:55 Height 5 ft 6 in 5 ft 6 in Weight: 160 lb BMI 25.8 Intake Visit Reasons: LUMBAR SPINE Chief Complaint: lumbar spine Bonse density results Accompanied by: Is patient in pain?: Yes Pain scale (1-10): 8 Allergies No Known Allergies Allergy (Verified 02/08/25 13:57) Medications ?Medication ?Instructions ?Recorded ?Confirmed ?Type lisinopril 20 ea PO 01/13/21 02/08/25 Hist ory mg-hydrochlorothiazide 25 mg tablet tramadol 50 mg tablet ea PO 01/13/21 02/08/25 Hist ory buprenorphine 5 mcg/hour weekly patch topical QWEEK 02/08/25 History transdermal patch gabapentin 300 mg capsule 300 mg PO TID 12/29/2402/08 History trazodone 100 mg tablet 100 mg PO QHS 12/29/2402/08 History Have you fallen in the past year?: No PFSH Medical History HTN (hypertension) Surgical History H/O total knee replacement Family History Father Hypertension Mother Arthritis Social History household members: spouse housing: house Smoking Status: Heavy Smoker (>10/day) Tobacco: How many years used: 25 alcohol intake: never what type of physical activity do you participate in: none do you feel safe at home: Yes HPI LUMBAR SPINE Details: This documentation accurately reflects the service provided and the decisions made by me, Dr. Edi Bartlett MD 02/08/25 3876. Part of today?s visit was documented by Eleanor Pichardo MA and Jennifer Patel RN, acting as scribe. ESTELLA BURNHAM is a 74 year old F here today for bone density results. She complains of ongoing low back pain that is worse on the right side and radiates into her buttocks. She has to stop frequently when walking even just to her mailbox. She does have a cane but she does not use it. She does hold on to wallsand items when walking around the house. She is not as active as she would like to be due to the pain. She does not have weakness in her legs or feet. The pain is better when she is sitting. She has not had any injections since her last visit. 01/12/25: ESTELLA BURNHAM is a 74 year old F here today for MRI lumbar spine follow-up. Symptoms unchanged. 12/29/24 lumbar spine pain. Pt was referred by Dr. Pollard. Pt. advises she has been experiencing low back pain for 4-5 years. Which has been progressively worsening over this time. She denies known back injury. Her pain is located over her right sided buttock and will extend down the back of the right leg. Shehad been seeing a chiropractor for several years and was just maintaining. She was seen by Dr. Shay in the past but patient states he wasn't really recommending it because of the long recovery and possibility of it not improving. Pt gets lumbar spine injections from Dr. Pollard every 3 months which are somewhat helpful for about a month. Last injection was 12/19/24. She currently has a pain patch for 4 weeks which has not been very helpful either. No recent MRI. She c/o pain in her right low back which radiates down her right leg to her ankle at times. She states her pain increases with weight bearing. She is also taking Gabapentin. Says that she can only walk about a block beforeshe needs to sit down and rest due to increased low back pain. She will occasionally use a cane due to the back pain. Patient reports that recently shehas to rely on a shopping cart when going grocery shopping to lean on. She saysthat primarily it feels like her back pain is what increases when she is walkingand not her legs. No diabetes, no heart or lung issues, no blood thinners. No prior abdominal surgeries. Imaging shows a slight dextroscoliosis, multilevel disc height loss, a spondylolisthesis of L4 on L5 with instability seen on dynamic view, vacuum phenomenon of L2 on L3 seen on extension view, imaging also shows a low bone density. Reviewed MRI from July 2023 which showed L3-4 spondylolisthesis with moderate bilateral lateral recess and neuroforaminal stenosis, L4-5 spondylolisthesis with mild stenosis and severe bilateral lateral recess and neuroforaminal stenosis, L5-S1 moderate left lateral recess and neural foraminalstenosis. No MRI in the last year. Ortho Exam General General: Yes no acute distress Neurologic: Yes alert Psychologic: Yes reasonable and appropriate Spine SPINE TESTING CERVICAL THORACIC LUMBAR Musculoskeletal Strength 0=absent - 5=normal Details: Neurological exam of the lower extremities shows 5x5 power. Normal sensations across all dermatomes. No hyperreflexia. No midline or paraspinal tenderness. 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 Scoliosis type: other secondary scoliosis Spondylolisthesis, lumbar region M43.16 Degeneration of intervertebral disc of lumbar region with discogenic back pain and lower extremity pain M51.362 Disc-related pain type: discogenic back pain and lower extremity pain Lumbar stenosis without neurogenic claudication M48.061 Age-related osteoporosis without current pathological fracture M81.0 Osteoporosis type: age-related Presence of current pathological fracture: without current pathological fracture Time Spent (min) 35 Assessment and Plan Assessment and Plan (1) Lumbar scoliosis: Status: Acute Qualifiers: Scoliosis type: other secondary scoliosis Qualified Code(s): M41.56 - Other secondary scoliosis, lumbar region (2) Spondylolisthesis, lumbar region: Status: Acute (3) Degenerative disc disease, lumbar: Status: Acute Qualifiers: Disc-related pain type: discogenic back pain and lower extremity pain Qualified Code(s): M51.362 - Other intervertebral disc degeneration, lumbar region with discogenic back pain and lower extremity pain (4) Lumbar stenosis without neurogenic claudication: Status: Acute (5) Osteoporosis: Status: Acute Qualifiers: Osteoporosis type: age-related Presence of current pathological fracture: without current pathological fracture Qualified Code(s): M81.0 - Age-related osteoporosis without current pathological fracture Plan I reviewed pt's Dexa scan results in detail. She has osteoporosis with T-score on the hips -2.5. Again reviewed previous imaging. Imaging shows a slight dextroscoliosis, multilevel disc height loss, a spondylolisthesis of L4 on L5 with instability seen on dynamic view, vacuum phenomenon of L2 on L3 seen on extension view, imaging also shows a low bone density. MRI shows L3-4 spondylolisthesis with moderate bilateral lateral recess and neuroforaminal stenosis, L4-5 spondylolisthesis with mild stenosis and severe bilateral lateral recess and neuroforaminal stenosis, L5-S1 moderate left lateral recess and neural foraminalstenosis. She is currently not on any medications for osteoporosis including OTC calcium. She has severe osteoporosis. She needs to follow up with her pcp/endocrinology for treatment of this as soon as possible. Our office will send a copy of the report to them.She will need at least three months of treatment before we can proceed with surgery. I recommend patient use a walker to help with stability inthe meantime. I also recommend that she continue to follow up with pain management. Follow up after treatment for the osteoporosis in three months or sooner if pain, swelling, numbness or associated symptoms, or concerns develop. All questions answered. Patient in agreement of plan. Clinical Quality Measures Falls Risk Screening/Assistive Devices Have you fallen in the past year?: No 02/08/25 4492 <Electronically signed by Edi Bartlett MD> Date _ Edi Bartlett MD Cosigner Signature: Date (if applicable) CC: LISA Robles ~ [place] [facility] Work Phone: Evaluation note 12-29-2024 Note Date & Type Note Facility 12-29-2024 Evaluation note Diagnosis Onset Date Resolution Degenerative disc disease, lumbar acute December 29, 2024 10:16am Lumbar stenosis without neurogenic claudication acute December 10:16am Spondylolisthesis at L4-L5 level acute December 29, 2024 10:16am [facility] Work Phone: Evaluation note 12-29-2024 Note Date & Type Note Facility 12-29-2024 Evaluation note Diagnosis Onset Date Resolution Degenerative disc disease, lumbar acute December 29, 2024 10:16am Lumbar stenosis without neurogenic claudication acute December 10:16am Spondylolisthesis at L4-L5 level acute December 29, 2024 10:16am Lumbar scoliosis acute January 122024 2:36pm Osteopenia determined by x-ray acute January 12, 2025 2:36pm Spondylolisthesis, lumbar region acute January 12, 2025 2:36pm Degenerative disc disease, lumbar acute February 08, 2025 1:52pm Lumbar scoliosis acute January 1:52pm Lumbar stenosis without neurogenic claudication acute January 1:52pm Osteoporosis acute February 08 1:52pm Spondylolisthesis, lumbar region acute February 08, 2025 1:52pm [facility] Work Phone: Evaluation note Note Date & Type Note Facility Evaluation note No assessment information availa ble [facility] Work Phone: Reason for referral (narrative) Note Date & Type Note Facility Reason for referral (narrative) No reason for referral information available [facility] Work Phone: Summary Purpose Family History No Family History Records Found Relationship Condition Age at Onset Recorded Date/T anson father Hypertension Unknown mother Arthritis Unknown Hypertension Status:Active Comments:Father. Osteoarthritis Status:Active Comments:Mother. Hypertension Status:Active Comments:Father. Osteoarthritis Status:Active Comments:Mother. Hypertension Status:Active Comments:Father. Osteoarthritis Status:Active Comments:Mother. Hypertension Status:Active Comments:Father. Osteoarthritis Status:Active Comments:Mother. Hypertension Status:Active Comments:Father. Osteoarthritis Status:Active Comments:Mother. Hypertension Status:Active Comments:Father. Osteoarthritis Status:Active Comments:Mother. Hypertension Status:Active Comments:Father. Osteoarthritis Status:Active Comments:Mother. Hypertension Status:Active Comments:Father. Osteoarthritis Status:Active Comments:Mother. Hypertension Status:Active Comments:Father. Osteoarthritis Status:Active Comments:Mother. Hypertension Status:Active Comments:Father. Osteoarthritis Status:Active Comments:Mother. Hypertension Status:Active Comments:Father. Osteoarthritis Status:Active Comments:Mother. Hypertension Status:Active Comments:Father. Osteoarthritis Status:Active Comments:Mother. Hypertension Status:Active Comments:Father. Osteoarthritis Status:Active Comments:Mother. Hypertension Status:Active Comments:Father. Osteoarthritis Status:Active Comments:Mother. Hypertension Status:Active Comments:Father. Osteoarthritis Status:Active Comments:Mother. Hypertension Status:Active Comments:Father. Osteoarthritis Status:Active Comments:Mother. Hypertension Status:Active Comments:Father. Osteoarthritis Status:Active Comments:Mother. Hypertension Status:Active Comments:Father. Osteoarthritis Status:Active Comments:Mother. Hypertension Status:Active Comments:Father. Osteoarthritis Status:Active Comments:Mother. Hypertension Status:Active Comments:Father. Osteoarthritis Status:Active Comments:Mother. Hypertension Status:Active Comments:Father. Osteoarthritis Status:Active Comments:Mother. Hypertension Status:Active Comments:Father. Osteoarthritis Status:Active Comments:Mother. Hypertension Status:Active Comments:Father. Osteoarthritis Status:Active Comments:Mother. Hypertension Status:Active Comments:Father. Osteoarthritis Status:Active Comments:Mother. Hypertension Status:Active Comments:Father. Osteoarthritis Status:Active Comments:Mother. Hypertension Status:Active Comments:Father. Osteoarthritis Status:Active Comments:Mother. Hypertension Status:Active Comments:Father. Osteoarthritis Status:Active Comments:Mother. Hypertension Status:Active Comments:Father. Osteoarthritis Status:Active Comments:Mother. Hypertension Status:Active Comments:Father. Osteoarthritis Status:Active Comments:Mother. Advance Directives No Advanced Directives Records FoundNo Advanced Directives Records FoundNo Advanced Directives Records FoundNo Advanced Directives Records Found Chief Complaint and Reason for Visit Chief Complaint RIGHT HIP PAIN Chief Complaint LUMBAR RAD Chief Complaint Admit Date LUMBAR SPINE December 29, 2024 10:1 6am Xray room 8 December 29, 2024 10:3 4am PAIN,SPONDYLOLISTHESIS January 08, 2025 12:28pm Reason for Visit Admit Date Degenerative disc disease, lumbar December 29, 2024 10:16am Lumbar stenosis without neurogenic christen ication December 29, 2024 10:16am Spondylolisthesis at L4-L5 level December 292024 10:16am Chief Complaint Admit Date LUMBAR SPINE December 29, 2024 10:1 6am Xray room 8 December 29, 2024 10:3 4am PAIN,SPONDYLOLISTHESIS January 08, 2025 12:28pm LUMBAR SPINE January 12, 2025 2:3 6pm lower back pain January 24, 2025 12: 33pm LUMBAR SPINE February 08, 2025 1:52p m Reason for Visit Admit Date Degenerative disc disease, lumbar December 29, 2024 10:16am Lumbar stenosis without neurogenic christen ication December 29, 2024 10:16am Spondylolisthesis at L4-L5 level December 292024 10:16am Lumbar scoliosis January 12, 2025 2:3 6pm Osteopenia determined by x-ray December 2:36pm Spondylolisthesis, lumbar region December 262024 2:36pm Degenerative disc disease, lumbar February 082024 1:52pm Lumbar scoliosis February 08, 2025 1:52p m Lumbar stenosis without neurogenic christen ication February 08, 2025 1:52pm Osteoporosis February 08, 2025 1:52p m Spondylolisthesis, lumbar region January 1:52pm Additional Source Comments INFORMATION SOURCE (unrecogn ized section and content) DATE CREATED AUTHOR 08/09/[address] [facility] ([place]) DATE CREATED AUTHOR AUTHOR'S ORGANIZ ATION 12/19/2021 [facility] DATE CREATED AUTHOR AUTHOR'S ORGANIZ ATION 06/08/2025 [facility] DATE CREATED AUTHOR AUTHOR'S ORGANIZ ATION 06/14/2025 [facility] Goals (unrecognized section and content) Goals may be documented in a n alternate sectionGoals may be documented in an alternate sectionGoals may be documented in an alternate sectionGoals may be documented in an alternate sectionGoals may be documented in an alternate sectionGoals may be documented in an alternate sectionGoals may be documented in an alternate sectionGoals may be documented in an alternate section Care Teams (unrecognized sec tion and content) Team Status: Active Member Role Status Dates LISA Robles Primary Care Provider Active Team Status: Inactive Member Role Status Dates LISA Robles Primary Care Provider Active Dr. Bakari Pollard MD Attending Provider, Referring Pr ihsan Active Team Status: Inactive Member Role Status Dates LISA Robles Primary Care Provider Active S tart: December 29, 2024 End: December 29, 2024 Wei Marie PA Referring Provider Active Star t: December 29, 2024 End: December 29, 2024 LISA Yan Attending Provider Active Star t: December 29, 2024 End: December 29, 2024 Team Status: Inactive Member Role Status Dates Wei Marie PA Primary Care Provider Active S tart: December 29, 2024 End: December 29, 2024 Dr. Crow Lazo MD Attending Provider Active S tart: December 29, 2024 End: December 29, 2024 Team Status: Inactive Member Role Status Dates Wei Marie PA Primary Care Provider Active S tart: January 08, 2025 End: January 08, 2025 LISA Yan Attending Provider Active Star t: January 08, 2025 End: January 08, 2025 Kandace Tate PA Referring Provider Active Star t: January 08, 2025 End: January 08, 2025 Team Status: Inactive Member Role Status Dates LISA Robles Primary Care Provider Active S tart: January 12, 2025 End: January 12, 2025 Wei Marie PA Referring Provider Active Star t: January 12, 2025 End: January 12, 2025 Dr. Edi Bartlett MD Attending Provider Active Start: January 12, 2025 End: January 12, 2025 Team Status: Inactive Member Role Status Dates LISA Robles Primary Care Provider Active S tart: January 24, 2025 End: January 24, 2025 Dr. Edi Bartlett MD Attending Provider Active Start: January 24, 2025 End: January 24, 2025 Dr. Edi Bartlett MD Referring Provider Active Start: January 24, 2025 End: January 24, 2025 Team Status: Inactive Member Role Status Dates LISA Robles Primary Care Provider Active S tart: February 08, 2025 End: February 08, 2025 LISA Robles Referring Provider Active Star t: February 08, 2025 End: February 08, 2025 Dr. Edi Bartlett MD Attending Provider Active Start: February 08, 2025 End: February 08, 2025 FOR RECORDS PERTAINING TO PATIENTS WHO ARE OR HAVE BEEN ENROLLED IN A CHEMICAL DEPENDENCY/SUBSTANCEABUSE PROGRAM, SOME INFORMATION MAY BE OMITTED. This clinical summary was aggregated from multiple sources. Caution should be exercised in using it in the provision of clinical care. This summary normalizes information from multiple sources, and as a consequence, information in this document may materially change the coding, format and clinical context of patient data. In addition, data may be omitted in some cases. CLINICAL DECISIONS SHOULD BE BASED ON THE PRIMARY CLINICAL RECORDS. [facility] [employer] [facility]. provides no warranty or guarantee of the accuracy or completeness of information in this document.
[2025-06-15] MEDS: Lactated Ringers 1,000 ML 15 ML IV (07:46)
[2025-06-15] MEDS: fentaNYL 100 MCG/2 ML Ampul IV (09:28)
[2025-06-15] MEDS: Lidocaine 1% (5 ml sdv) 5 ML Vial 10 ML IV (09:29)
[2025-06-15] MEDS: Midazolam 2 MG/2 ML Syringe IV (09:30)
[2025-06-15] MEDS: Cefazolin 1 GM/5 ML Vial 2 GM IV (09:40)
--- NOTE | 2025-06-15 09:47 | RAD_ITS ---
PROCEDURE: Intraoperative fluoroscopic services provided for spinal cord stimulator device placement. 06/15/2025 REASON FOR EXAM: Chronic back pain. TECHNIQUE: Procedure Code: RADSPLL Modality: DX Procedure: LUMBAR SPINE 2 OR 3 VIEWS Fluoroscopic services provided for spinal cord stimulator device placement. Radiation dose: Fluoroscopy 9 minutes and 16 seconds. Radiation dose: 391.26 mGy. 5 images were submitted. COMPARISON: None FINDINGS: Intraoperative fluoroscopic services provided for spinal cord stimulator device placement. RAD/Lumbar Spine 2 or 3 Views IMPRESSION: Fluoroscopic services provided for spinal cord stimulator placement. Reading Location: [id number]
[2025-06-15] MEDS: Lidocaine 0.5% (50 ml) 50 ML Vial (11:11)
[2025-06-15] MEDS: Bupiv/Epi 0.25% 30 ML Vial (11:11)
--- NOTE | 2025-06-15 11:45 | PCM.POST.ANE ---
Anesthesia: Postop Eval I Current Vital Signs Temperature: 97.5 F Pulse Rate: 120 Blood Pressure: 157/102 Respiratory Rate: 16 Pulse Ox: 94 Oxygen Delivery Method: Room Air Assessment Airway patent: Yes Spontaneous unlabored respirations: Yes Mental status: Awake and Calm nausea: No Vomiting: No Anesthesia Complication: No Fluid Hydration Crystalloid volume administer (ml): 1,200 Total IV fluid infused: 1,200 Progress Note Anesthesia document: Postop Eval 1 completed: Yes
--- NOTE | 2025-06-15 13:17 | POSTOPAN2_ITS ---
Anesthesia Postop Eval I Sum Postop Eval Completion status Anesthesia document: Postop Eval 1 completed: Yes Anesthesia Postop Eval I Summary Anesthesia Postop Eval I Summary: Anesthesia Postop Eval I: Assessment Summary Airway patent Yes 06/15/25 11:46 HAND CANDLE [email or web address] Spontaneous unlabored Yes 06/15/25 11:46 HAND CANDLE [email or web address] respirations Mental status Awake,Calm 06/15/25 11:46 HAND CANDLE [email or web address].[email or web address] nausea No 06/15/25 11:46 HAND CANDLE MOLDER.[email or web address] Vomiting No 06/15/25 11:46 HAND CANDLE MOLDER.[email or web address] Anesthesia Postop Eval I: Fluid Summary Crystalloid volume administer 1,200 06/15/25 11:46 HAND CANDLE [email or web address].JDEF (ml) Colloids volume administered ( ml) Blood Product volume administered (ml) Total IV fluid infused 1,200 06/15/25 11:46 HAND CANDLE MOLDER.JDEF Anesthesia Postop Eval I: Summary Notes Anesthesia Complication No 06/15/25 11:46 HAND CANDLE [email or web address].[email or web address] Anesthesia Complication Comment: Post-operative progress note Anesthesia: Postop Eval II Evaluation Mental status: Awake Pain Level: 2 nausea: No Vomiting: No
--- NOTE | 2025-06-15 13:17 | PCM.POSTANE2 ---
Anesthesia Postop Eval I Sum Postop Eval Completion status Anesthesia document: Postop Eval 1 completed: Yes Anesthesia Postop Eval I Summary Anesthesia Postop Eval I Summary: Anesthesia Postop Eval I: Assessment Summary Airway patent Yes 06/15/25 11:46 CONTROL OPERATOR FLOW COAT.[email or web address] Spontaneous unlabored Yes 06/15/25 11:46 CONTROL OPERATOR FLOW COAT.JDEF respirations Mental status Awake,Calm 06/15/25 11:46 CONTROL OPERATOR FLOW COAT.JDEF nausea No 06/15/25 11:46 CONTROL OPERATOR FLOW COAT.JDEF Vomiting No 06/15/25 11:46 CONTROL OPERATOR FLOW COAT.JDEF Anesthesia Postop Eval I: Fluid Summary Crystalloid volume administer 1,200 06/15/25 11:46 CONTROL OPERATOR FLOW COAT.JDEF (ml) Colloids volume administered ( ml) Blood Product volume administered (ml) Total IV fluid infused 1,200 06/15/25 11:46 CONTROL OPERATOR FLOW COAT.JDEF Anesthesia Postop Eval I: Summary Notes Anesthesia Complication No 06/15/25 11:46 CONTROL OPERATOR FLOW COAT.JDEF Anesthesia Complication Comment: Post-operative progress note Anesthesia: Postop Eval II Evaluation Mental status: Awake Pain Level: 2 nausea: No Vomiting: No
[2025-06-15] MEDS: fentaNYL 100 MCG/2 ML Ampul 50 MCG IV ×3 (15:33→16:52)
--- NOTE | 2025-06-15 15:37 | SUR.PHASEII ---
Dr. Pollard speaking with Dr. Alvarez regarding admission
--- NOTE | 2025-06-15 15:51 | SUR.PHASEII ---
dr pollard in to see patient, neuro checks within normal limits per Dr Pollard. Dr ordered CT of lumbar and thoracic spine, patient will be admitted for pain control. ordered 50mcg iv x2, Applied o2 at 2L before second dose of fentanyl. SPO2 at 2L nc is 98%
--- NOTE | 2025-06-15 15:55 | CT_ITS ---
EXAM: CT Thoracic Spine Without Intravenous Contrast CLINICAL INDICATION: PAIN, POST OP TECHNIQUE: Axial computed tomography images of the thoracic spine without intravenous contrast. This CT exam was performed using one or more of the following dose reduction techniques: automated exposure control, adjustment of the mA and/or kV according to patient size, and/or use of iterative reconstruction technique. COMPARISON: No relevant prior studies available. 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 No acute fracture. DISCS/SPINAL CANAL/NEURAL FORAMINA: See above. SOFT TISSUES: Soft tissue emphysema could be secondary to postprocedure changes. TUBES, LINES AND DEVICES: Posterior neurostimulator placement with lead at the superior endplate of T11. CT/Spine Thoracic without Contras IMPRESSION: 1. No acute fracture. 2. Neurostimulator as above. 3. Degenerative changes thoracic spine as described. Reading Location: [id number]
--- NOTE | 2025-06-15 15:55 | CT_ITS ---
EXAM: CT Lumbar Spine Without Intravenous Contrast CLINICAL INDICATION: PAIN TECHNIQUE: Axial computed tomography images of the lumbar spine without intravenous contrast. This CT exam was performed using one or more of the following dose reduction techniques: automated exposure control, adjustment of the mA and/or kV according to patient size, and/or use of iterative reconstruction technique. COMPARISON: No relevant prior studies available. FINDINGS: VERTEBRAE: Multilevel endplate degenerative changes and disc degeneration of the visualized spine. Anterior spondylolisthesis of L4 on L5 by 9 mm. No acute fracture. DISCS/SPINAL CANAL/NEURAL FORAMINA: Moderate spinal canal stenosis or neural foramina narrowing of L4-5 secondary to disc bulge and facet arthropathy. SOFT TISSUES: Unremarkable. CT/Spine Lumbar without Contrast IMPRESSION: 1. No acute fracture. 2. Moderate spinal canal stenosis or neural foramina narrowing of L4-5 seconda ry to disc bulge and facet arthropathy. 3. Anterior spondylolisthesis of L4 on L5 by 9 mm. Reading Location: [id number]
--- OUTSIDE RECORDS SUMMARY | 2025-06-15 17:11 | XMS RPT_ITS | CCD ---
Author Organization [facility] CliniSyri Care Team Providers Care Tank Crewmember Name Role Phone MARIE, WEI Attending Unavailable [...] Consulting Unavailable Marie DON, Wei J Unavailable [phone] Apple TORO, Dr. Tong Unavailable Gilbert TORO, Dr. Montejo ([place] [facility]) A Unavail able Roshan TORO., Dr. [...] ble Mateo MA, Luma Unavailable Unavailable Marthey AERIAL GUNNER SUPERINTENDENT, Lynette Unavailable Unavailable Kip (Scribe), Goran Unavailable Unavailab sarah Marie RN, Yaquelin Y Unavailable Unavailable Pinto AERIAL GUNNER SUPERINTENDENT, Lizeth Unavailable Unavailable Mutersbaugh AERIAL GUNNER SUPERINTENDENT, Mary K Unavailable Unavai rah Kowalski PATerrance, Catherine Escalera Unavailable Richert AERIAL GUNNER SUPERINTENDENT, Nohemy L Unavailable Unavailab le Eren AERIAL GUNNER SUPERINTENDENT, Magalys M Unavailable Unavailab le Bogard AERIAL GUNNER SUPERINTENDENT, Colleen Omalley Unavailable Unavailab sarah Stafford MD, Paul Loyd Unavailable Vess AERIAL GUNNER SUPERINTENDENT, Neilee L Unavailable Unavailable Wengerd AERIAL GUNNER SUPERINTENDENT, Esperanza Unavailable Unavailabl e Shira AERIAL GUNNER SUPERINTENDENT, Jennifer Tolbert Unavailable Unavaila ble Unavailable Unavailable Dulce Maldonado Unavailable Unavailable Jarvis AERIAL GUNNER SUPERINTENDENT, Kinga Unavailable Unavailabl e Marie PA, Wei [...] Hour *NASAL AGENTS - SYSTEMIC AND TOPICAL* [facility], [place]. (20 sources) Claritin *ANTIHISTAMINES* [facility], [facility], [facility]. Medications Current Medications Medication Drug Class(es) Dates [...] 20 {Tablet} Refills: 0 Ordered: 19-Aug-2020 MD tSeve Johnson Start: 19-Aug-2020 End: 24-Aug-2020 Status: Inactive [...] Drug Class(es) Dates Sig (Normalized) Sig (Original) [id number] 200 actuat albuterol 0.09 mg/actuat metered dose [...] Status: Inactive Comments: Medication [facility] as needed. [facility] Comment on above: Medication taken as needed. [facility] Avoca[facility]ardino 03/27/2022 Problems Active Problems Problem Classification Problem [...] The patient has a Healthcare Power of Executive Administrative Asst and a Living Will. Note for MCR [...] The patient has a Healthcare Power of Executive Administrative Asst, but does not have Living Will. Note [...] reviewed. 11-06-2020 Unclassified (7 sources) [ADDITIONAL REASON] [facility] Routine follow-up - The patient is here [...] follow-up: LOV04/30/20labs printed 11-06-2020 Unclassified (20 sources) [facility] Routine follow-up - The patient is here [...] per night. Note for Well adult female: [facility] 09/28/19labs printedwould like mammo orderpt hasnt beent aking lovastatin- wants to talk to you about that 11-01-2019 Unclassified (20 sources) [facility] Routine follow-up - The patient is here [...] cmp a1c 07/07/2018 04-18-2019 Unclassified (20 sources) [facility] Routine Follow up - The patient is [...] 07/15/18. Labs printed. 10-18-2018 Unclassified (20 sources) [facility] Routine Follow up - The patient is [...] hours per night. 11-04-2012 Unclassified (20 sources) [facility] Routine Follow up - The patient is [...] Does wear contacts. 04-29-2012 Unclassified (20 sources) [facility] Routine Follow up - The patient is [...] Includes seasonal allergies. 04-28-2011 Unclassified (20 sources) [facility] Routine follow-up - The patient is here [...] allergies. 04-28-2011 Unclassified (6 sources) [ADDITIONAL REASON] [facility] Routine Follow up - The patient is [...] patient does not have Healthcare Power of Executive Administrative Asst or Living Will. 07-15-2018 Unclassified (20 sources) [...] The patient has a Healthcare Power of Executive Administrative Asst and a Living Will. 05-25-2017 Unclassified (20 [...] includes seasonal allergies. 05-31-2013 Unclassified (20 sources) [facility] Routine Follow up - The patient is [...] The patient has a Healthcare Power of Executive Administrative Asst and a Living Will. Note for MCR [...] The patient has a Healthcare Power of Executive Administrative Asst and a Living Will. Note for MCR [...] #### 6 [phone] #### [facility] of [address], [address] [place] [address] Padding Machine Operator: Naun Toribio MD ALBUMIN/CREATININE RATIO, RANDOM URINE [...] By: #### 6 517 #### [facility] [address], [address] [place] [address] Padding Machine Operator: Naun Toribio MD Creatinine (U) [Mass/Vol] 164 mg/dL Normal 20-275 [facility] Comment on above: Performed By: #### 6 517 #### [facility] [address], [address] [place] [address] Padding Machine Operator: Naun Toribio MD Orthopedic Visit Reporton Orthopedic Visit Report [facility] [address] [place] [address] OFFICE VISIT Date of Service: 02/08/25 MR#: [id number] Acct: [id number] Name: ESTELLA BURNHAM Jw Rep #: [id number] : 1950 Provider: Dr. Edi Bartlett MD Age/Sex: 74/F Location: [facility] Status: Signed Intake Vital Signs 12/29/24 10:20 [...] by me, Dr. Edi Bartlett MD 02/08/25 3647. Part of today???s visit was documented by Eleanor Pichardo MA and Jennifer Patel RN, acting as scribe. ESTELLA BURNHMA is a 74 year old F here [...] distress Neurologic: (more content not included)... Normal [facility] Dexa Bone Density Studyon Dexa Bone Density Study [facility] Imaging Services [address] [place] [address] Dexa Bone Density Study MR#: [id number] Acct: [id number] Name: ESTELLA BURNHAM Rep #: [id number] : 1950 F 74 From: Kelly Mayo PCP: LISA Robles Status: REG CLI Study: Dexa Bone Density Study Date of Exam: 01/24/25 Exam# [id number] Ordering Dr: Edi Bartlett MD PROCEDURE: DEXA BONE DENSITY STUDY 01/24/2025 REASON FOR EXAM: LOWER BACK PAIN F, age 74 y/o . Postmenopausal. TECHNIQUE: DEXA scan of sites with data reported below. Scanner utilized: [employer]. REFERENCE LINKS: ISCD Adult Positions COMPARISON: None [...] Recommend follow-up as clinically warranted. Reading Location: [id number] CC: Dr. Edi Bartlett MD; LISA Robles Accounting Machine Operator: Signed Normal [facility] Orthopedic Visit Reporton Orthopedic Visit Report [facility] [address] [place] [address] [address] [place] [address] OFFICE VISIT Date of Service: 01/12/25 MR#: [id number] Acct: [id number] Name: ESTELLA BURNHAM Rep #: [id number] : 1950 Provider: Dr. 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 Edi Bartlett MD 01/12/25 4799. Part of today???s visit was documented by [...] any benefit. (more content not included)... Normal [facility] Magnetic resonance imaging r eportOrdered By: Manolo Hill on 01-09-2025 Study report [facility] Imaging Services [address] [place] [address] Spine Lumbar (Routine) MR#: [id number] Acct: [id number] Name: ESTELLA BURNHAM Rep #: [id number] : 1950 F 74 From: Swati Hill MD PCP: LISA Robles Status: REG CLI Study:Spine Lumbar (Routine) Date of Exam: 01/08/25 Exam# [id number] Ordering Dr: Erick Tate EXAM: MRI OF [...] Spondylosis. 2. Degenerative disc disease. Reading Location: [place] [address] CC: LISA Yan; LISA Robles ~ Accounting Machine Operator: Signed [facility] Spine Lumbar (Routine)on Spine Lumbar (Routine) [facility] Imaging Services [address] [place] [address] Spine Lumbar (Routine) MR#: [id number] Acct: [id number] Name: ESTELLA BURNHAM Rep #: [id number] : 1950 F 74 From: Manolo tolbert MD PCP: LISA Robles Status: REG CLI Study: Spine Lumbar (Routine) Date of Exam: 01/08/25 Exam# [id number] Ordering Dr: Kandace Tate EXAM: MRI OF [...] Spondylosis. 2. Degenerative disc disease. Reading [facility] CC: LISA Yan; LISA Robles Accounting Machine Operator: Signed Normal [facility] L/S Spine Min 4 Viewson 04-0 L/S Spine Min 4 Views [facility] Imaging Services [address] [place], [place] [address] L/S Spine Min 4 Views MR#: [id number] Acct: [id number] Name: ESTELLA BURNHAM Rep #: [id number] : 1950 F 74 From: Uriah Parekh DO PCP: LISA oRbles Status: DEP AMB Study: L/S Spine Min 4 Views Date of Exam: 12/29/24 Exam# [id number] Ordering Dr: Kandace Tate PROCEDURE: L/S SPINE [...] degenerative changes as noted above. Reading [facility] CC: LISA Yan; LISA Robles Accounting Machine Operator: Signed Normal [facility] Orthopedic Visit Reporton Orthopedic Visit Report [facility] [address] [place] [address] OFFICE VISIT Date of Service: 12/29/24 MR#: [id number] Acct: [id number] Name: ESTELLA BURNHAM Rep #: [id number] : 1950 Provider: LISA Yan Age/Sex: 74/F Location: [facility] Status: Signed Intake Vital Signs 01/13/21 13:45 [...] region wit (more content not included)... Normal [facility] COMPREHENSIVE METABOLIC PANE Ryan 11-22-2024 Albumin [Mass/Vol] 4.8 g/dL Normal 3.6-5.1 [facility] Comment on above: Performed By: #### 7 600, 496, 81624 #### [facility] [place] [address] Padding Machine Operator: Naun Toribio MD Albumin/Globulin [Mass ratio] 2.0 {ratio} Normal 1.0-2.5 [facility] Comment on above: Performed By: #### 7 600, 496, 57524 #### [facility] of [place] [address] Padding Machine Operator: Naun Toribio MD ALP [Catalytic activity/Vol] 78 U/L Normal 37-153 [facility] Comment on above: Performed By: #### 7 600, 496, 59677 #### [facility] [place] [address] Padding Machine Operator: Naun Toribio MD ALT [Catalytic activity/Vol] 16 U/L Normal 6-29 [facility] Comment on above: Performed By: #### 7 600, 496, 97779 #### [facility] [place] [address] Padding Machine Operator: Naun Toribio MD AST [Catalytic activity/Vol] 14 U/L Normal 10-35 [facility] Comment on above: Performed By: #### 7 600, 496, 03363 #### [facility] [place] [address] Padding Machine Operator: Naun Toribio MD Bilirubin [Mass/Vol] 0.5 mg/dL Normal 0.2-1.2 [facility] Comment on above: Performed By: #### 7 600, 496, 67566 #### [facility] of [place] [address] Padding Machine Operator: Naun Toribio MD BUN/CREATININE RATIO SEE NOTE: Normal 6-22 [facility] Comment on above: Result Comment: Not Reported: BUN and Creatinine are within reference range. Performed By: #### 7 600, 496, 64406 #### [facility] of [place] [address] Padding Machine Operator: Naun Toribio MD Calcium [Mass/Vol] 10.9 mg/dL High 8.6-10.4 [facility] Comment on above: Performed By: #### 7 600, 496, 90273 #### [facility] of [place] [address] Padding Machine Operator: Naun Toribio MD Chloride [Moles/Vol] 102 mmol/L Normal 98-110 [facility] Comment on above: Performed By: #### 7 600, 496, 16432 #### [facility] of [place] [address] Padding Machine Operator: Naun Toribio MD CO2 [Moles/Vol] 27 mmol/L Normal 20-32 [facility] Comment on above: Performed By: #### 7 600, 496, 32677 #### [facility] of [place] [address] Padding Machine Operator: Naun Toribio MD Creatinine [Mass/Vol] 0.82 mg/dL Normal 0.60-1.[address] [facility] Comment on above: Performed By: #### 7 600, 496, 36117 #### [facility] [place] [address] Padding Machine Operator: Naun Toribio MD GFR/1.73 sq M.predicted among non-blacks MDRD (S/P/Bld) [Vol rate/Area] 76 mL/min/{1.73_m2} Normal > OR = 60 [facility] Comment on above: Performed By: #### 7 600, 496, 42087 #### [facility] of [place] [address] Padding Machine Operator: Naun Toribio MD Globulin (S) [Mass/Vol] 2.4 g/dL Normal 1.9-3.7 [facility] Comment on above: Performed By: #### 7 600, 496, 45473 #### [facility] of [address] [place] [address] Padding Machine Operator: Naun Toribio MD Glucose [Mass/Vol] 97 mg/dL Normal 65-99 [facility] Comment on above: Result Comment: Fasting reference interval Performed By: #### 7 600, 496, 75034 #### [facility] [address], [address] [place] [address] Padding Machine Operator: Naun Toribio MD Potassium [Moles/Vol] 4.2 mmol/L Normal 3.5-5.[address] [facility] Comment on above: Performed By: #### 7 600, 496, 39010 #### [facility] [place] [address] Padding Machine Operator: Naun Toribio MD Protein [Mass/Vol] 7.2 g/dL Normal 6.1-8.1 [facility] Comment on above: Performed By: #### 7 600, 496, 49084 #### [facility] [place] [address] Padding Machine Operator: Naun Toribio MD Sodium [Moles/Vol] 138 mmol/L Normal 135-146 [facility] Comment on above: Performed By: #### 7 600, 496, 63608 #### [facility] [place] [address] Padding Machine Operator: Naun Toribio MD Urea nitrogen [Mass/Vol] 21 mg/dL Normal 7-25 [facility] Comment on above: Performed By: #### 7 600, 496, 10847 #### [facility] [place] [address] Padding Machine Operator: Naun Toribio MD HEMOGLOBIN A1con 11-22-2024 HEMOGLOBIN [...] children. Performed By: #### 7 600, 496, 71326 #### [facility] [address], [address] [place] [address] Padding Machine Operator: Naun Toribio MD LIPID PANEL, [facility] 10-29 Cholesterol [Mass/Vol] 252 mg/dL High <200 [facility] Comment on above: Performed By: #### 7 600, 496, 72560 #### [facility] [address], [address] [place] [address] Padding Machine Operator: Naun Toribio MD Cholesterol in HDL [Mass/Vol] 69 mg/dL Normal > OR = 50 [facility] Comment on above: Performed By: #### 7 600, 496, 74548 #### [facility] [address], [address] [place] [address] Padding Machine Operator: Naun Toribio MD Cholesterol in LDL [Mass/Vol] [...] LDL-C. Magnus CAMPA et al. BRENTON. 2013;310(19): 3040-6920 (http://education.[employer].Freepath/faq/BRA027) Performed By: #### 7 600, 496, 47269 #### [facility] [address], [address] [place] [address] Padding Machine Operator: Naun Toribio MD Cholesterol.total/Mitzi sterol in HDL [Mass ratio] 3.7 {ratio} Normal <5.0 [facility] Comment on above: Performed By: #### 7 600, 496, 61177 #### [facility] [address], [address] [place] [address] Padding Machine Operator: Naun Toribio MD NON HDL CHOLESTEROL 183 mg/dL (calc) High <130 [facility] Comment on above: Result Comment: For patients with diabetes plus 1 major ASCVD risk factor, treating to a non-HDL-C goal of <100 mg/dL (LDL-C of <70 mg/dL) is considered a therapeutic option. Performed By: #### 7 600, 496, 38270 #### [facility] [address], [address] [place] [address] Padding Machine Operator: Naun Toribio MD Triglyceride [Mass/Vol] 153 mg/dL High <150 [facility] Comment on above: Performed By: #### 7 600, 496, 64126 #### [facility] [address], [address] [place] [address] Padding Machine Operator: Naun Toribio MD Laboratory - Chemistry and C hemistry - challengeon 11-21-2024 Albumin [Mass/Vol] 4.8 g/dL Normal 3.6 - 5.1 g/dL [facility] [employer] Albumin/Globulin [Mass ratio] 2.0 {ratio} Normal 1.0 - 2.5 [facility], [facility].; [employer] ALP [Catalytic activity/Vol] 78 U/L Normal 37 - 153 U/L [employer] [employer] [employer] ALT [Catalytic activity/Vol] 16 U/L Normal 6 - 29 U/L [employer], [facility].; [employer] AST [Catalytic activity/Vol] 14 U/L Normal 10 - 35 U/L [employer] [employer] [employer] Bilirubin [Mass/Vol] 0.5 mg/dL Normal 0.2 - 1 .2 mg/dL [employer] [employer] Calcium [Mass/Vol] 10.9 mg/dL Abnormal 8.6 - 10. 4 mg/dL [employer] [employer] [employer] Chloride [Moles/Vol] 102 mmol/L Normal 98 - 11 0 mmol/L [facility], [facility].; [facility], [facility]. Cholesterol [Mass/Vol] 252 mg/dL Abnormal [facility].; [facility], [facility] Cholesterol in HDL [Mass/Vol] 69 mg/dL Normal [facility], [facility].; [facility], [facility] Cholesterol in LDL [Mass/Vol] 155 mg/dL Abnormal [facility].; [employer] [facility], [facility]. CO2 [Moles/Vol] 27 mmol/L Normal 20 - 32 mmol/L [facility].; [employer] [facility], [facility]. Creatinine [Mass/Vol] 0.82 mg/dL Normal 0.60 - 1.00 mg/dL [facility].; [facility], [facility]. GFR/1.73 sq M.predicted among non-blacks MDRD (S/P/Bld) [Vol rate/Area] 76 mL/min/{1.73_m2} Normal [facility].; [employer] [facility] Glucose [Mass/Vol] 97 mg/dL Normal 65 - 99 mg/dL [facility], [facility].; [employer] [facility], [facility]. Potassium [Moles/Vol] 4.2 mmol/L Normal 3.5 - 5.3 mmol/L [facility].; [employer] Protein [Mass/Vol] 7.2 g/dL Normal 6.1 - 8.1 g/dL [facility], [facility].; [employer] Sodium [Moles/Vol] 138 mmol/L Normal 135 - 146 mmol/L [facility], [facility].; [employer] Triglyceride [Mass/Vol] 153 mg/dL Abnormal [facility].; [employer], [facility] Urea nitrogen [Mass/Vol] 21 mg/dL Normal 7 - 25 mg/dL [facility], [facility].; [employer], [facility]. Laboratory - Hematology and Cell countson 11-21-2024 HbA1c (Bld) [Mass fraction] 5.9 % Abnormal [facility].; [employer], [place]. No Panel Informationon 11-21 BUN/CREATININE RATIO SEE NOTE: Normal 6 - 22 [facility]. CHOL/HDLC RATIO 3.7 Normal [facility]; [facility] GLOBULIN 2.4 Normal 1.9 - 3.7 [facility].; [facility], [facility] NON HDL CHOLESTEROL 183 Abnormal [facility].; [facility]. Laboratory - Hematology and Cell countson 05-31-2024 HbA1c (Bld) [Mass fraction] 6.0 % Normal 4.6 - 7.1 % [facility].; [facility]. Bilirubin Test strip Ql (U)O rdered By: Bakari Pollard on 01-24-2024 Bilirubin Ql (U) Negative Negative [facility] Ketones Test strip Ql (U)Ord ered By: Bakari Pollard on 01-24-2024 Ketones Ql (U) Negative Negative [facility] Laboratory - Drug toxicology Ordered By: Bakari Pollard on 01-24-2024 Amphetamines Ql (U) Negative <1000 ng/mL [facility] Benzodiazepines Ql (U) Negative < 200 ng/mL [facility] Cannabinoids Screen Ql (U) Negative < 50 ng/mL [facility] Cocaine Ql (U) Negative < 300 ng/mL [facility] Opiates Ql (U) Negative < 300 ng/mL [facility] Nitrite Test strip Ql (U)Ord ered By: Bakari Pollard on 01-24-2024 Nitrite Ql (U) Negative Negative [facility] No Panel InformationOrdered By: Bakari Pollard on 01-24-2024 MDMA (Ecstasy) Screen Positive < 500 ng/mL [facility] Miscellaneous Test See comment [facility] Comment on above: TEST RESULTS LIMITST ramadol POSITIVE [id number] Tramadol Conf, MS, UR 3135 [id number] TESTING PERFORMED AT [facility]. ORIGINAL REPORT ON FILE IN LAB CONTAINS ADDITIONAL TEST SITE INFORMATION. Urine Barbiturates Screen Negative < 200 ng/mL [facility] Urine Drug Screen Comment [facility] Comment on above: CONFIRMATORY TESTING FOR ALL [...] Methadone Screen Negative < 300 ng/mL [facility] Protein Test strip Ql (U)Ord ered By: Bakari Pollard on 01-24-2024 Protein Ql (U) Negative Negative [facility] Urine blood detectionOrdered By: Bakari Pollard on 01-24-2024 RBC Ql (U) Negative Negative [facility] Urine clarityOrdered By: Jeremias Pollard on 01-24-2024 Clarity (U) Clear Clear [facility] Urine color determinationOrd ered By: Bakari Pollard on 01-24-2024 Color (U) Yellow Yellow [facility] Urine glucose detectionOrder ed By: Bakari Pollard on 01-24-2024 Glucose Ql (U) Normal mg/dl Normal [facility] Urine leukocyte esterase det ection by dipstickOrdered By: Bakari Pollard on 01-24-2024 Leukocyte esterase Test strip Ql (U) 25 /ul Negative [facility] Urine pHOrdered By: Bakari landers on 01-24-2024 pH (U) 7.0 [pH] 5.0 - 8.0 [facility] Urine phencyclidine (PCP) de tectionOrdered By: Bakari Pollard on 01-24-2024 Phencyclidine Ql (U) Negative < 25 ng/mL [facility] Urine specific gravity measu rementOrdered By: Bakari Carltonbrayden on 01-24-2024 Specific gravity (U) [Rel density] 1.010 1.002-1.030 [facility] Urine urobilinogen measureme ntOrdered By: Bakari Carltonbrayden on 01-24-2024 Urobilinogen Ql (U) Normal mg/dl Normal [facility] Laboratory - Chemistry and C hemistry - challengeon 11-16-2023 Albumin [Mass/Vol] 4.3 g/dL Normal 3.6 - 5.1 g/dL [facility], [facility].; [employer] [facility], [facility]. Albumin/Globulin [Mass ratio] 1.5 {ratio} Normal 1.0 - 2.5 [facility], [facility].; [employer] [facility], [facility]. ALP [Catalytic activity/Vol] 68 U/L Normal 37 - 153 U/L [facility], [facility].; [employer] ALT [Catalytic activity/Vol] 20 U/L Normal 6 - 29 U/L [facility], [facility].; [employer] AST [Catalytic activity/Vol] 14 U/L Normal 10 - 35 U/L [facility], [facility].; [employer], [place]. Bilirubin [Mass/Vol] 0.4 mg/dL Normal 0.2 - 1 .2 mg/dL [place] [employer] [facility], [facility].; [place] [employer] Calcium [Mass/Vol] 10.7 mg/dL Abnormal 8.6 - 10. 4 mg/dL [facility], [facility].; [place] [employer] Chloride [Moles/Vol] 101 mmol/L Normal 98 - 11 0 mmol/L [facility], [facility].; [employer] Cholesterol [Mass/Vol] 229 mg/dL Abnormal [facility], [facility].; [employer] Cholesterol in HDL [Mass/Vol] 56 mg/dL Normal [place] [employer] [facility], [facility].; [place] [employer] Cholesterol in LDL [Mass/Vol] 141 mg/dL Abnormal [place] [employer] [facility], [facility].; [place] [employer] CO2 [Moles/Vol] 29 mmol/L Normal 20 - 32 mmol/L [facility], [facility].; [place] [employer] Creatinine [Mass/Vol] 0.79 mg/dL Normal 0.60 - 1.00 mg/dL [facility], [facility].; [place] [employer] [facility], [facility]. GFR/1.73 sq M.predicted among non-blacks MDRD (S/P/Bld) [Vol rate/Area] 80 mL/min/{1.73_m2} Normal [facility], [facility].; [employer] [place]. Glucose [Mass/Vol] 108 mg/dL Abnormal 65 - 99 mg/dL [facility].; [place] [employer], [facility]. Potassium [Moles/Vol] 3.8 mmol/L Normal 3.5 - 5.3 mmol/L [facility].; [place] [employer] [facility], [facility]. Protein [Mass/Vol] 7.1 g/dL Normal 6.1 - 8.1 g/dL [facility].; [employer] [place]. Sodium [Moles/Vol] 139 mmol/L Normal 135 - 146 mmol/L [facility].; [place] [employer] [place]. Triglyceride [Mass/Vol] 186 mg/dL Abnormal [facility].; [place] [employer] [place]. Urea nitrogen [Mass/Vol] 19 mg/dL Normal 7 - 25 mg/dL [facility].; [employer] [place]. Laboratory - Hematology and Cell countson 11-16-2023 HbA1c (Bld) [Mass fraction] 6.3 % Abnormal [facility].; [employer] [place]. No Panel Informationon 11-16 BUN/CREATININE RATIO SEE NOTE: Normal 6 - 22 [facility].; [employer] CHOL/HDLC RATIO 4.1 Normal [facility], [facility].; [place] [employer] GLOBULIN 2.8 Normal 1.9 - 3.7 [facility].; [place] [employer] NON HDL CHOLESTEROL 173 Abnormal [facility].; [employer] [place]. Laboratory - Drug toxicology Ordered By: Bakari Pollard on 05-17-2023 Amphetamines Ql (U) Negative <1000 ng/mL [facility] Benzodiazepines Ql (U) Negative < 200 ng/mL [facility] Cannabinoids Screen Ql (U) Positive < 50 ng/mL [facility] Cocaine Ql (U) Negative < 300 ng/mL [facility] Opiates Ql (U) Negative < 300 ng/mL [facility] No Panel InformationOrdered By: Bakari Pollard on 05-17-2023 MDMA (Ecstasy) Screen Positive < 500 ng/mL [facility] Miscellaneous Test See comment [facility] Comment on above: TEST RESULTS LIMITS Tramadol Positive [id number] Tramadol Conf, [place], UR >[id number] ng/mL [id number] TESTING PERFORMED AT [facility]. ORIGINAL REPORT ON FILE IN LAB CONTAINS ADDITIONAL TEST SITE INFORMATION. Urine Barbiturates Screen Negative < 200 ng/mL [facility] Urine Drug Screen Comment [facility] Comment on above: CONFIRMATORY TESTING FOR ALL [...] TESTING MUST BE ORDERED SEPARATELY. USE TESTMNEMONIC: [facility] Urine Methadone Screen Negative < 300 ng/mL [facility] Urine phencyclidine (PCP) de tectionOrdered By: Bakari Pollard on 05-17-2023 Phencyclidine Ql (U) Negative < 25 ng/mL [facility] Laboratory - Hematology and Cell countson 05-11-2023 HbA1c (Bld) [Mass fraction] 6.0 % Normal 4.6 - 7.1 % [facility]. Laboratory - Chemistry and C hemistry - challengeon 11-04-2022 Albumin [Mass/Vol] 4.4 g/dL Normal 3.6 - 5.1 g/dL [facility]; [facility], [facility] Albumin/Globulin [Mass ratio] 1.9 {ratio} Normal 1.0 - 2.5 [facility].; [facility] ALP [Catalytic activity/Vol] 97 U/L Normal 37 - 153 U/L [facility].; [place] [employer] [facility]. ALT [Catalytic activity/Vol] 34 U/L Abnormal 6 - 29 U/L [facility].; [facility]. AST [Catalytic activity/Vol] 23 U/L Normal 10 - 35 U/L [facility].; [place] [employer] [facility] Bilirubin [Mass/Vol] 0.5 mg/dL Normal 0.2 - 1 .2 mg/dL [facility].; [place] [employer] [facility]. Calcium [Mass/Vol] 10.4 mg/dL Normal 8.6 - 10. 4 mg/dL [facility].; [place] [employer] [facility]. Chloride [Moles/Vol] 103 mmol/L Normal 98 - 11 0 mmol/L [facility].; [place] [employer] [facility]. Cholesterol [Mass/Vol] 217 mg/dL Abnormal [facility]; [facility] Cholesterol in HDL [Mass/Vol] 65 mg/dL Normal [facility].; [facility]. Cholesterol in LDL [Mass/Vol] 127 mg/dL Abnormal [facility].; [place] [employer] [facility] CO2 [Moles/Vol] 32 mmol/L Normal 20 - 32 mmol/L [facility].; [place] [employer] [facility]. Creatinine [Mass/Vol] 0.86 mg/dL Normal 0.60 - 1.00 mg/dL [facility].; [place] [employer] [facility]. GFR/1.73 sq M.predicted among non-blacks MDRD (S/P/Bld) [Vol rate/Area] 73 mL/min/{1.73_m2} Normal [facility], [facility].; [facility], [facility] Glucose [Mass/Vol] 93 mg/dL Normal 65 - 99 mg/dL [facility].; [facility], [facility]. Potassium [Moles/Vol] 4.8 mmol/L Normal 3.5 - 5.3 mmol/L [facility].; [facility], [facility] Protein [Mass/Vol] 6.7 g/dL Normal 6.1 - 8.1 g/dL [facility].; [facility], [facility] Sodium [Moles/Vol] 137 mmol/L Normal 135 - 146 mmol/L [facility]; [facility], [facility] Triglyceride [Mass/Vol] 136 mg/dL Normal [facility].; [facility], [facility]. Urea nitrogen [Mass/Vol] 21 mg/dL Normal 7 - 25 mg/dL [facility]; [facility], [facility] Laboratory - Hematology and Cell countson 11-04-2022 HbA1c (Bld) [Mass fraction] 5.9 % Abnormal [facility]; [facility] No Panel Informationon 11-04 BUN/CREATININE RATIO NOT APPLICABLE Normal 6 - 22 [facility]; [facility], [facility]. CHOL/HDLC RATIO 3.3 Normal [facility]; [facility], [facility]. GLOBULIN 2.3 Normal 1.9 - 3.7 [facility]; [facility], [facility] NON HDL CHOLESTEROL 152 Abnormal [facility].; [facility] Laboratory - Drug toxicology on 07-14-2022 Amphetamines Ql (U) Negative <1000 ng/mL [facility] Work Phone: Benzodiazepines Ql (U) Negative < 200 ng/mL [facility] Work Phone: Cannabinoids Screen Ql (U) Negative < 50 ng/mL [facility] Work Phone: Cocaine Ql (U) Negative < 300 ng/mL [facility] Work Phone: Opiates Ql (U) Negative < 300 ng/mL [facility] Work Phone: No Panel Informationon 07-14 MDMA (Ecstasy) Screen Negative < 500 ng/mL [facility] Work Phone: Urine Barbiturates Screen Negative < 200 ng/mL [facility] Work Phone: Urine Drug Screen Comment [facility] Work Phone: Comment on above: CONFIRMATORY TESTING [...] Urine Methadone Screen Negative < 300 ng/mL [facility] Work Phone: Urine phencyclidine (PCP) de tectionon 07-14-2022 Phencyclidine Ql (U) Negative < 25 ng/mL [facility] Work Phone: Laboratory - Hematology and Cell countson 05-05-2022 HbA1c (Bld) [Mass fraction] 6.3 % Normal 4.6 - 7.1 % [facility], [facility]. Laboratory - Drug toxicology on 01-26-2022 Amphetamines Ql (U) Negative [facility] Work Phone: Benzodiazepines Ql (U) Negative [facility] Work Phone: Cannabinoids Screen Ql (U) Negative [facility] Work Phone: Cocaine Ql (U) Negative [facility] Work Phone: Opiates Ql (U) Negative [facility] Work Phone: No Panel Informationon 01-26 MDMA (Ecstasy) Screen Negative [facility] Work Phone: Urine Barbiturates Screen Negative [facility] Work Phone: Urine Drug Screen Comment [facility] Work Phone: Comment on above: CONFIRMATORY TESTING [...] USE TESTMNEMONIC: [facility] Urine Methadone Screen Negative [facility] Work Phone: Urine phencyclidine (PCP) de tectionon 01-26-2022 Phencyclidine Ql (U) Negative [facility] Work Phone: 3D MAMM BILAT SCREENon 12-18 3D MAMM BILAT SCREEN [place] [address] Patient: ESTELLA BURNHAM Phone#: : 1950 Age: 71 Gender: F Pt. Type: Out Account: [id number] Location: [facility] Ordering: WEI MARIE Exam Date: 12/18/2021/9:08 Family Phys: Charge Code: [id number] Physician: [place] Order #: [id number] DLP Dose#: PROCEDURE: BILATERAL SCREENING BREAST TOMOSYNTHESIS MAMMOGRAM WITH CAD COMPARISON: [facility], BILAT SCREENING, 08/16/2018, 10:45. [facility], BILAT SCREENING, 11/23/2019, 11:12. INDICATIONS: screening [...] Darnell MD on 12/18/2021 at 12:[address] [facility] Laboratory - Chemistry and C hemistry - challengeon 10-28-2021 Albumin [Mass/Vol] 4.5 g/dL Normal 3.6 - 5.1 g/dL [facility], [facility].; [facility], [facility]. Albumin/Globulin [Mass ratio] 1.8 {ratio} Normal 1.0 - 2.5 [facility], [facility].; [employer] [place] [employer] [facility], [facility]. ALP [Catalytic activity/Vol] 97 U/L Normal 37 - 153 U/L [facility], [facility].; [place] [employer] [facility], [facility]. ALT [Catalytic activity/Vol] 49 U/L Abnormal 6 - 29 U/L [facility], [facility].; [place] [employer] [facility], [employer] AST [Catalytic activity/Vol] 30 U/L Normal 10 - 35 U/L [facility], [facility].; [place] [employer] [facility], [facility]. Bilirubin [Mass/Vol] 0.4 mg/dL Normal 0.2 - 1 .2 mg/dL [facility], [facility].; [place] [employer] [facility], [facility]. Calcium [Mass/Vol] 11.2 mg/dL Abnormal 8.6 - 10. 4 mg/dL [facility], [facility].; [place] [employer] [facility], [employer] Chloride [Moles/Vol] 102 mmol/L Normal 98 - 11 0 mmol/L [facility], [facility].; [employer] [facility], [employer] Cholesterol [Mass/Vol] 207 mg/dL Abnormal [facility], [facility].; [facility], [facility] Cholesterol in HDL [Mass/Vol] 58 mg/dL Normal [facility], [facility].; [facility], [facility]. Cholesterol in LDL [Mass/Vol] 124 mg/dL Abnormal [facility].; [facility], [facility]. CO2 [Moles/Vol] 26 mmol/L Normal 20 - 32 mmol/L [facility], [facility].; [facility], [facility]. Creatinine [Mass/Vol] 0.92 mg/dL Normal 0.50 - 0.99 mg/dL [facility], [facility].; [facility], [facility]. GFR/1.73 sq M.predicted among blacks MDRD (S/P/Bld) [Vol rate/Area] 74 mL/min/{1.73_m2} Normal [facility].; [facility], [facility]. Glucose [Mass/Vol] 111 mg/dL Abnormal 65 - 99 mg/dL [facility], [facility].; [facility], [facility]. Potassium [Moles/Vol] 3.7 mmol/L Normal 3.5 - 5.3 mmol/L [facility], [facility].; [facility], [facility]. Protein [Mass/Vol] 7.0 g/dL Normal 6.1 - 8.1 g/dL [facility], [facility].; [facility], [facility]. Sodium [Moles/Vol] 136 mmol/L Normal 135 - 146 mmol/L [facility], [facility].; [place] [employer] [facility], [employer] Triglyceride [Mass/Vol] 141 mg/dL Normal [facility], [facility].; [facility], [facility]. Urea nitrogen [Mass/Vol] 18 mg/dL Normal 7 - 25 mg/dL [facility], [facility].; [place] [employer] [facility], [facility]. Laboratory - Hematology and Cell countson 10-28-2021 HbA1c (Bld) [Mass fraction] 6.3 % Abnormal [facility], [facility].; [place] [employer] [facility], [facility]. No Panel Informationon 10-28 BUN/CREATININE RATIO NOT APPLICABLE Normal 6 - 22 [facility], [facility].; [employer] CHOL/HDLC RATIO 3.6 Normal [facility], [facility].; [place] [employer] [facility], Inc eGFR NON-AFR. MONGOLIAN 64 Normal [facility]; [facility], [facility] GLOBULIN 2.5 Normal 1.9 - 3.7 [facility].; [employer] NON HDL CHOLESTEROL 149 Abnormal [facility].; [employer] [facility], [place]. US RUQ (GB/PANCREAS)on 10-17 US RUQ (GB/PANCREAS) [address] [address] Patient: ESTELLA BURNHAM Phone#: : 1950 Age: 71 Gender: F Pt. Type: Out Account: [id number] Location: 062 Ordering: [employer] Exam Date: 10/17/2021/11:12 Family Phys: Charge Code: [id number] Physician: [place] Order #: [id number] DLP Dose#: PROCEDURE: RUQ (GB) ULTRASOUND COMPARISON: [...] DARNELL MD ON 10/17/2021 AT 11:[address] [facility] CT KUB (KIDNEY STONE PROTOCO L)on 10-14-2021 CT KUB (KIDNEY STONE PROTOCOL) [address] [address] Patient: ESTELLA BURNHAM Phone#: : 1950 Age: 71 Gender: F Pt. Type: Out Account: [id number] Location: 062 Ordering: [employer] Exam Date: 10/14/2021/14:52 Family Phys: Charge Code: [id number] Physician: [place] Order #: [id number] DLP Dose#: [id number] PROCEDURE: CT ABDOMEN AND [...] 71 Gender: F Pt. Type: Out Account: [id number] Location: 2 Ordering: [employer] Exam Date: 10/14/2021/14:52 Family Phys: Charge Code: [id number] Physician: [place] Order #: [id number] DLP Dose#: 13.60 BONES: Degenerative changes of [...] Darnell MD on 10/14/2021 at 15:[address] [facility] Laboratory - Chemistry and C hemistry - challengeon 10-08-2021 Bilirubin Ql (U) Negative Normal [facility] [employer]. Ketones Ql (U) Negative Normal [facility] [employer]. pH (U) 6.5 [pH] Normal [employer].; [employer]. Specific gravity (U) [Rel density] 1.025 Normal [employer].; [employer]. Urobilinogen Qn (U) 0.2 mg/dL Normal [facility] [employer]. Laboratory - Hematology and Cell countson 10-08-2021 Hemoglobin Ql (U) Negative Normal [employer].; [employer]. Laboratory - Specimen inform ationon 10-08-2021 Appearance (U) clear Normal [facility] [employer].; [employer]. Color (U) yellow Normal [employer].; [employer]. Laboratory - Urinalysison Glucose Test strip (U) [Mass/Vol] Negative Normal [employer].; [employer]. Leukocyte esterase Test strip Ql (U) Negative Normal [employer].; [employer]. Protein Ql (U) Negative Normal [facility] [employer].; [employer]. Laboratory - UrinalysisOrder ed By: Lizeth Pinto on 10-08-2021 Nitrite Ql (U) Negative Normal [facility] [employer].; [employer]. Laboratory - Hematology and Cell countsOrdered By: Lynette Navarro on 05-06-2021 HbA1c (Bld) [Mass fraction] 6.5 % Normal 4.6 - 7.1 % [employer].; [employer]. Laboratory - Chemistry and C hemistry - challengeon 04-29-2021 Albumin [Mass/Vol] 4.5 g/dL Normal 3.6 - 5.1 g/dL [facility]; [facility], [facility] Albumin/Globulin [Mass ratio] 1.9 {ratio} Normal 1.0 - 2.5 [facility]; [facility], [facility] ALP [Catalytic activity/Vol] 88 U/L Normal 37 - 153 U/L [facility].; [facility], [facility]. ALT [Catalytic activity/Vol] 58 U/L Abnormal 6 - 29 U/L [facility].; [facility], [facility]. AST [Catalytic activity/Vol] 32 U/L Normal 10 - 35 U/L [facility]; [facility], [facility] Bilirubin [Mass/Vol] 0.5 mg/dL Normal 0.2 - 1 .2 mg/dL [facility]; [facility], [facility] Calcium [Mass/Vol] 11.0 mg/dL Abnormal 8.6 - 10. 4 mg/dL [facility].; [facility], [facility]. Chloride [Moles/Vol] 102 mmol/L Normal 98 - 11 0 mmol/L [facility]; [facility], [facility]. Cholesterol [Mass/Vol] 192 mg/dL Normal [facility]; [facility], [facility] Cholesterol in HDL [Mass/Vol] 55 mg/dL Normal [facility]; [facility], [facility] Cholesterol in LDL [Mass/Vol] 111 mg/dL Abnormal [facility].; [facility], [facility]. CO2 [Moles/Vol] 27 mmol/L Normal 20 - 32 mmol/L [facility]; [facility], [facility] Creatinine [Mass/Vol] 1.00 mg/dL Abnormal 0.50 - 0.99 mg/dL [facility], [facility].; [facility], [facility]. GFR/1.73 sq M.predicted among blacks MDRD (S/P/Bld) [Vol rate/Area] 67 mL/min/{1.73_m2} Normal [facility], [facility].; [facility] Glucose [Mass/Vol] 128 mg/dL Abnormal 65 - 99 mg/dL [facility].; [facility], [facility] Potassium [Moles/Vol] 4.9 mmol/L Normal 3.5 - 5.3 mmol/L [facility]; [facility], [facility] Protein [Mass/Vol] 6.9 g/dL Normal 6.1 - 8.1 g/dL [facility], [facility]; [facility], [facility] Sodium [Moles/Vol] 137 mmol/L Normal 135 - 146 mmol/L [facility]; [facility], [facility] Triglyceride [Mass/Vol] 149 mg/dL Normal [facility]; [facility], [facility] Urea nitrogen [Mass/Vol] 20 mg/dL Normal 7 - 25 mg/dL [facility]; [facility], [facility] Urea nitrogen/Creatinine [Mass ratio] 20 mg/mg Normal 6 - 22 [facility]; [place] [employer] [facility], [facility] No Panel Informationon 04-29 CHOL/HDLC RATIO 3.5 Normal [facility]; [facility], [facility] eGFR NON-AFR. MONGOLIAN [address] [facility]; [facility], [facility] GLOBULIN 2.4 Normal 1.9 - 3.7 [facility]; [facility], [facility] NON HDL CHOLESTEROL 137 Abnormal [facility].; [place] [employer] [facility], [facility] Laboratory - Chemistry and C hemistry - challengeon 10-29-2020 Albumin [Mass/Vol] 4.6 g/dL Normal 3.6 - 5.1 g/dL [facility]; [facility], [facility]. Albumin/Globulin [Mass ratio] 2.0 {ratio} Normal 1.0 - 2.5 [facility]; [facility], [facility]. ALP [Catalytic activity/Vol] 82 U/L Normal 37 - 153 U/L [facility].; [place] [employer] [facility], [facility]. ALT [Catalytic activity/Vol] 47 U/L Abnormal 6 - 29 U/L [facility].; [place] [employer] [facility]. AST [Catalytic activity/Vol] 24 U/L Normal 10 - 35 U/L [facility], [facility].; [facility], [facility]. Bilirubin [Mass/Vol] 0.6 mg/dL Normal 0.2 - 1 .2 mg/dL [facility], [facility].; [facility] [facility]. Calcium [Mass/Vol] 10.5 mg/dL Abnormal 8.6 - 10. 4 mg/dL [facility], [facility].; [facility], [facility]. Chloride [Moles/Vol] 100 mmol/L Normal 98 - 11 0 mmol/L [facility].; [facility], [facility]. Cholesterol [Mass/Vol] 177 mg/dL Normal [facility], [facility] Cholesterol in HDL [Mass/Vol] 56 mg/dL Normal [facility], [facility].; [facility], [facility]. Cholesterol in LDL [Mass/Vol] 97 mg/dL Normal [facility], [facility].; [facility], [facility]. CO2 [Moles/Vol] 29 mmol/L Normal 20 - 32 mmol/L [facility], [facility].; [place] [employer] [facility], [facility]. Creatinine [Mass/Vol] 0.87 mg/dL Normal 0.50 - 0.99 mg/dL [facility], [facility].; [facility], [facility]. GFR/1.73 sq M.predicted among blacks MDRD (S/P/Bld) [Vol rate/Area] 79 mL/min/{1.73_m2} Normal [facility], [facility].; [facility] Glucose [Mass/Vol] 110 mg/dL Abnormal 65 - 99 mg/dL [facility], [facility].; [place] [employer] [facility] Potassium [Moles/Vol] 4.0 mmol/L Normal 3.5 - 5.3 mmol/L [facility], [facility].; [place] [employer] [facility], [facility] Protein [Mass/Vol] 6.9 g/dL Normal 6.1 - 8.1 g/dL [facility], [facility].; [place] [employer] [facility], [facility] Sodium [Moles/Vol] 136 mmol/L Normal 135 - 146 mmol/L [facility], [facility].; [facility] Triglyceride [Mass/Vol] 142 mg/dL Normal [facility]; [facility] Urea nitrogen [Mass/Vol] 21 mg/dL Normal 7 - 25 mg/dL [facility]; [facility] No Panel Informationon 10-29 BUN/CREATININE RATIO NOT APPLICABLE Normal 6 - 22 [facility]; [facility] CHOL/HDLC RATIO 3.2 Normal [facility]; [facility] eGFR NON-AFR. MONGOLIAN 68 Normal [facility]; [facility] GLOBULIN 2.3 Normal 1.9 - 3.7 [facility]; [facility] NON HDL CHOLESTEROL 121 Normal [facility]; [place] [employer] [facility] Laboratory - Chemistry and C hemistry - challengeon 10-23-2019 Albumin [Mass/Vol] 4.5 g/dL Normal 3.6 - 5.1 g/dL [facility]; [facility] Albumin/Globulin [Mass ratio] 1.9 {ratio} Normal 1.0 - 2.5 [facility]; [facility] ALP [Catalytic activity/Vol] 80 U/L Normal 33 - 130 U/L [facility]; [place] [employer] [facility], [facility]. ALT [Catalytic activity/Vol] 33 U/L Abnormal 6 - 29 U/L [facility]; [facility] AST [Catalytic activity/Vol] 20 U/L Normal 10 - 35 U/L [facility]; [place] [employer] [facility] Bilirubin [Mass/Vol] 0.5 mg/dL Normal 0.2 - 1 .2 mg/dL [facility]; [facility] Calcium [Mass/Vol] 11.0 mg/dL Abnormal 8.6 - 10. 4 mg/dL [facility]; [place] [employer] [facility], [facility] Chloride [Moles/Vol] 102 mmol/L Normal 98 - 11 0 mmol/L [facility]; [facility], [facility] Cholesterol [Mass/Vol] 199 mg/dL Normal [facility], [facility]. Cholesterol in HDL [Mass/Vol] 66 mg/dL Normal [facility].; [facility], [facility] Cholesterol in LDL [Mass/Vol] 107 mg/dL Abnormal [facility].; [facility], [facility]. CO2 [Moles/Vol] 27 mmol/L Normal 20 - 32 mmol/L [facility], [facility].; [facility], [facility] Creatinine [Mass/Vol] 0.90 mg/dL Normal 0.50 - 0.99 mg/dL [facility], [facility].; [facility], [facility]. GFR/1.73 sq M.predicted among blacks MDRD (S/P/Bld) [Vol rate/Area] 77 mL/min/{1.73_m2} Normal [facility], [facility].; [facility], [facility] Glucose [Mass/Vol] 107 mg/dL Abnormal 65 - 99 mg/dL [facility], [facility].; [facility], [facility]. Potassium [Moles/Vol] 3.8 mmol/L Normal 3.5 - 5.3 mmol/L [facility].; [facility], [facility]. Protein [Mass/Vol] 6.9 g/dL Normal 6.1 - 8.1 g/dL [facility], [facility].; [facility] Sodium [Moles/Vol] 137 mmol/L Normal 135 - 146 mmol/L [facility], [facility].; [facility], [facility]. Triglyceride [Mass/Vol] 138 mg/dL Normal [facility].; [facility], [facility]. Urea nitrogen [Mass/Vol] 26 mg/dL Abnormal 7 - 25 mg/dL [facility], [facility].; [facility], [facility]. Urea nitrogen/Creatinine [Mass ratio] 29 mg/mg Abnormal 6 - 22 [facility].; [place] [employer] [facility], [facility] No Panel Informationon 10-23 CHOL/HDLC RATIO 3.0 Normal [facility] eGFR NON-AFR. MONGOLIAN [address] [facility], [facility].; [facility], [facility] GLOBULIN 2.4 Normal 1.9 - 3.7 [facility].; [facility]. NON HDL CHOLESTEROL 133 Abnormal [facility].; [facility]. Final Surgical Pathology Rep [facility] 08-09-2019 Final Surgical Pathology Report . Pathology Reports Accession: Collected Date/Time: Received Date/Time: Pathologist: [id number] 08/07/2019 08:37 EST 08/08/2019 08:37 EST DO ROSA CHANEL Final Surgical Pathology Report DIAGNOSIS: BONE WITH CHANGES OF DEGENERATIVE OSTEOARTHRITIS, CLINICALLY LEFT KNEE. COMMENT: [facility] A [id number] CLINICAL INFORMATION: PRIMARY OSTEOARTHRITIS SPECIMEN: A LEFT [...] Electronically Signed by Pathology Report verified by [facility] Electronically signed by ROSA CHANEL DO Sign out Date: 08/09/2019 13:40 Performing Lab: [address] ([place]) Comment on above: Performed By: #### S PFR #### [place] [id number] Final Surgical Pathology Rep [facility] 12-28-2018 Final Surgical Pathology Report . Pathology Reports Accession: Collected Date/Time: Received Date/Time: Pathologist: [id number] 12/27/2018 14:19 EDT 12/27/2018 14:19 EDT DO ROSA CHANEL Final Surgical Pathology Report DIAGNOSIS: HYPERPLASTIC POLYP, SIGMOID COLON. COMMENT: [facility] - A# [id number] CLINICAL INFORMATION: SCREENING SPECIMEN: A SIGMOID POLYP GROSS DESCRIPTION: Received in formalin labeled sigmoid polyp is a 0.3 cm stinson glistening soft tissue. TS -1 Dictated by Jenifer GONZALEZ ([facility]) MICROSCOPIC DESCRIPTION: Slides reviewed. Electronically Signed by Pathology Report verified by [facility] Electronically signed by ROSA CHANEL DO Sign out Date: 12/28/2018 11:21 Performing Lab: [place] [id number] [facility] Normal [facility] ([place]) Comment on above: Performed By: #### S PFR #### [facility] [address] [place] [id number] Laboratory - Chemistry and C hemistry - challengeon 10-13-2018 ALT [Catalytic activity/Vol] 28 U/L Normal 6 - 29 U/L [employer] Cholesterol [Mass/Vol] 164 mg/dL Normal [employer] Cholesterol in HDL [Mass/Vol] 66 mg/dL Normal [employer] Cholesterol in LDL [Mass/Vol] 80 mg/dL Normal 0 - 100 mg/dL [employer] Cholesterol non HDL [Mass/Vol] 98 mg/dL Normal [employer] Cholesterol.total/Mitzi sterol in HDL [Mass ratio] 2.5 {ratio} Normal [employer] Triglyceride [Mass/Vol] 93 mg/dL Normal [facility] [employer] Laboratory - Chemistry and C hemistry - challengeon 07-07-2018 Albumin [Mass/Vol] 4.8 g/dL Normal 3.6 - 5.1 g/dL [employer] Albumin/Globulin [Mass ratio] 2.1 {ratio} Normal 1.0 - 2.5 [employer] ALP [Catalytic activity/Vol] 96 U/L Normal 33 - 130 U/L [employer] ALT [Catalytic activity/Vol] 27 U/L Normal 6 - 29 U/L [employer] AST [Catalytic activity/Vol] 17 U/L Normal 10 - 35 U/L [employer] Bilirubin [Mass/Vol] 0.6 mg/dL Normal 0.2 - 1 .2 mg/dL [employer], [place].; [employer], [facility]. Calcium [Mass/Vol] 11.0 mg/dL Abnormal 8.6 - 10. 4 mg/dL [facility], [facility].; [facility], [facility] Chloride [Moles/Vol] 102 mmol/L Normal 98 - 11 0 mmol/L [facility], [facility].; [facility], [facility]. Cholesterol [Mass/Vol] 235 mg/dL Abnormal [facility].; [facility], [facility] Cholesterol in HDL [Mass/Vol] 68 mg/dL Normal [facility].; [facility], [facility]. Cholesterol in LDL [Mass/Vol] 141 mg/dL Abnormal 0 - 100 mg/dL [facility], [facility].; [facility], [facility] Cholesterol non HDL [Mass/Vol] 167 mg/dL Abnormal [facility].; [facility], [facility]. Cholesterol.total/Mitzi sterol in HDL [Mass ratio] 3.5 {ratio} Normal [facility].; [facility], [facility] CO2 [Moles/Vol] 27 mmol/L Normal 20 - 32 mmol/L [facility].; [place] [employer] [facility], [facility]. Creatinine [Mass/Vol] 0.93 mg/dL Normal 0.50 - 0.99 mg/dL [facility], [facility].; [facility], [facility]. GFR/1.73 sq M.predicted among blacks MDRD (S/P/Bld) [Vol rate/Area] 74 {ML/MIN/1.73M2} Normal [facility], [facility].; [facility], [facility]. GFR/1.73 sq M.predicted MDRD (S/P/Bld) [Vol rate/Area] 64 {ML/MIN/1.73M2} Normal [facility], [facility].; [facility], [facility]. Globulin (S) [Mass/Vol] 2.2 g/dL Normal 1.9 - 3.7 g/dL [facility], [facility].; [place] [employer] [facility], [facility] Glucose [Mass/Vol] 108 mg/dL Abnormal 65 - 99 mg/dL [facility], [facility].; [place] [employer] [facility], [facility]. Potassium [Moles/Vol] 4.2 mmol/L Normal 3.5 - 5.3 mmol/L [facility].; [facility]. Protein [Mass/Vol] 7.0 g/dL Normal 6.1 - 8.1 g/dL [facility].; [facility], [facility]. Sodium [Moles/Vol] 136 mmol/L Normal 135 - 146 mmol/L [facility], [facility].; [facility], [facility]. Triglyceride [Mass/Vol] 135 mg/dL Normal H [facility].; [facility], [facility]. Urea nitrogen [Mass/Vol] 27 mg/dL Abnormal 7 - 25 mg/dL [facility].; [place] [employer], [facility]. Urea nitrogen/Creatinine [Mass ratio] 29.0 mg/mg Abnormal [facility].; [place] [employer] [facility]. Laboratory - Hematology and Cell countson 07-07-2018 HbA1c (Bld) [Mass fraction] 6.0 % Abnormal 0 - 5.6 % [facility].; [place] [employer]. Laboratory - Chemistry and C hemistry - challengeon 05-18-2017 Albumin [Mass/Vol] 4.6 g/dL Normal 3.6 - 5.1 g/dL [facility], [facility].; [place] [employer], [place]. Albumin/Globulin [Mass ratio] 2.0 {ratio} Normal 1.0 - 2.5 [facility].; [place] [employer], [facility]. ALP [Catalytic activity/Vol] 86 U/L Normal 33 - 130 U/L [facility].; [place] [employer], [place]. ALT [Catalytic activity/Vol] 34 U/L Abnormal 6 - 29 U/L [facility].; [place] [employer], [place]. AST [Catalytic activity/Vol] 18 U/L Normal 10 - 35 U/L [facility].; [place] [employer], [place]. Bilirubin [Mass/Vol] 0.5 mg/dL Normal 0.2 - 1 .2 mg/dL [facility], [facility].; [place] [employer], [facility]. Calcium [Mass/Vol] 11.0 mg/dL Abnormal 8.6 - 10. 4 mg/dL [facility].; [place] [employer], [place]. Chloride [Moles/Vol] 106 mmol/L Normal 98 - 11 0 mmol/L [facility], [facility].; [facility], [facility]. Cholesterol [Mass/Vol] 204 mg/dL Abnormal [facility].; [facility], [facility] Cholesterol in HDL [Mass/Vol] 64 mg/dL Normal [facility], [facility].; [facility], [facility] Cholesterol in LDL [Mass/Vol] 116 mg/dL Abnormal 0 - 100 mg/dL [facility], [facility].; [facility], [facility] Cholesterol non HDL [Mass/Vol] 140 mg/dL Abnormal [facility], [facility].; [facility], [facility] Cholesterol.total/Mitzi sterol in HDL [Mass ratio] 3.2 {ratio} Normal [facility].; [facility], [facility] CO2 [Moles/Vol] 26 mmol/L Normal 20 - 31 mmol/L [facility], [facility].; [facility], [facility]. Creatinine [Mass/Vol] 0.86 mg/dL Normal 0.50 - 0.99 mg/dL [facility], [facility].; [facility], [facility]. GFR/1.73 sq M.predicted among blacks MDRD (S/P/Bld) [Vol rate/Area] 82 {ML/MIN/1.73M2} Normal [facility], [facility].; [facility], [facility]. GFR/1.73 sq M.predicted MDRD (S/P/Bld) [Vol rate/Area] 71 {ML/MIN/1.73M2} Normal [facility], [facility].; [place] [employer] [facility], [facility]. Globulin (S) [Mass/Vol] 2.2 g/dL Normal 1.9 - 3.7 g/dL [facility], [facility].; [place] [employer] [facility], [facility]. Glucose [Mass/Vol] 110 mg/dL Abnormal 65 - 99 mg/dL [facility], [facility].; [facility], [facility]. Potassium [Moles/Vol] 4.4 mmol/L Normal 3.5 - 5.3 mmol/L [facility], [facility].; [place] [employer] [facility], [facility]. Protein [Mass/Vol] 6.8 g/dL Normal 6.1 - 8.1 g/dL [facility].; [facility], [facility]. Sodium [Moles/Vol] 139 mmol/L Normal 135 - 146 mmol/L [facility].; [facility]. Triglyceride [Mass/Vol] 127 mg/dL Normal H [facility].; [facility], [facility]. Urea nitrogen [Mass/Vol] 23 mg/dL Normal 7 - 25 mg/dL [facility], [facility].; [facility], [facility]. Urea nitrogen/Creatinine [Mass ratio] 26.9 mg/mg Abnormal 6 - [facility].; [place] [employer], [facility]. Laboratory - Cytologyon Microscopic observation Cyto stain Nom (Cvx) Normal [facility].; [facility], [facility]. Laboratory - Chemistry and C hemistry - challengeon 01-20-2016 Albumin [Mass/Vol] 4.8 g/dL Normal 3.6 - 5.1 g/dL [facility].; [facility], [facility]. Albumin/Globulin [Mass ratio] 1.9 {ratio} Normal 1.0 - 2.5 [facility].; [place] [employer], [facility]. ALP [Catalytic activity/Vol] 81 U/L Normal 33 - 130 U/L [facility].; [place] [employer], [facility]. ALT [Catalytic activity/Vol] 34 U/L Abnormal 6 - 29 U/L [facility].; [place] [employer], [facility]. AST [Catalytic activity/Vol] 20 U/L Normal 10 - 35 U/L [facility].; [place] [employer], [facility]. Bilirubin [Mass/Vol] 0.5 mg/dL Normal 0.2 - 1 .2 mg/dL [facility].; [place] [employer], [facility]. Calcium [Mass/Vol] 10.9 mg/dL Abnormal 8.6 - 10. 4 mg/dL [facility].; [place] [employer], [facility]. Chloride [Moles/Vol] 102 mmol/L Normal 98 - 11 0 mmol/L [facility], [facility].; [place] [employer], [place]. Cholesterol [Mass/Vol] 235 mg/dL Abnormal 125 - 200 mg/dL [facility].; [facility], [facility]. Cholesterol in HDL [Mass/Vol] 67 mg/dL Normal [facility].; [facility], [facility]. Cholesterol in LDL [Mass/Vol] 142 mg/dL Abnormal [facility].; [facility], [facility]. Cholesterol non HDL [Mass/Vol] 168 mg/dL Abnormal [facility], [facility].; [facility], [facility]. Cholesterol.total/Mitzi sterol in HDL [Mass ratio] 3.5 {ratio} Normal [facility].; [facility]. CO2 [Moles/Vol] 25 mmol/L Normal 19 - 30 mmol/L [facility], [facility].; [facility], [facility]. Creatinine [Mass/Vol] 0.96 mg/dL Normal 0.50 - 0.99 mg/dL [facility], [facility].; [facility], [facility]. GFR/1.73 sq M.predicted among blacks MDRD (S/P/Bld) [Vol rate/Area] 73 {ML/MIN/1.73M2} Normal [facility], [facility].; [facility], [facility]. GFR/1.73 sq M.predicted MDRD (S/P/Bld) [Vol rate/Area] 63 {ML/MIN/1.73M2} Normal [facility], [facility].; [facility], [facility]. Globulin (S) [Mass/Vol] 2.5 g/dL Normal 1.9 - 3.7 g/dL [facility], [facility].; [facility], [facility]. Glucose [Mass/Vol] 108 mg/dL Abnormal 65 - 99 mg/dL [facility], [facility].; [facility], [facility]. Potassium [Moles/Vol] 4.1 mmol/L Normal 3.5 - 5.3 mmol/L [facility], [facility].; [place] [employer] [facility], [facility]. Protein [Mass/Vol] 7.3 g/dL Normal 6.1 - 8.1 g/dL [facility], [facility].; [place] [employer] [facility], [facility]. Sodium [Moles/Vol] 138 mmol/L Normal 135 - 146 mmol/L [facility], [facility].; [facility], [facility]. Triglyceride [Mass/Vol] 132 mg/dL Normal [facility].; [facility] [place]. Urea nitrogen [Mass/Vol] 25 mg/dL Normal 7 - 25 mg/dL [facility].; [employer], [place]. Urea nitrogen/Creatinine [Mass ratio] 25.7 mg/mg Abnormal 6 - [facility].; [employer], [place]. Laboratoryon 11-30-2014 Lower GI hemoglobin IA Ql (Stl) Not detected Normal [place] [employer]. Laboratory - Chemistry and C hemistry - challengeon 10-25-2014 Calcium [Mass/Vol] 10.7 mg/dL Abnormal 8.6 - 10. 4 mg/dL [facility].; [employer], [place]. Chloride [Moles/Vol] 105 mmol/L Normal 98 - 11 0 mmol/L [facility].; [employer], [place]. Cholesterol [Mass/Vol] 200 mg/dL Normal 125 - 200 mg/dL [place] [employer] [facility].; [employer], [place]. Cholesterol in HDL [Mass/Vol] 68 mg/dL Normal [place] [employer] [facility].; [employer]. Cholesterol in LDL [Mass/Vol] 108 mg/dL Normal [place] [employer].; [employer]. Cholesterol non HDL [Mass/Vol] 132 mg/dL Normal [place] [employer] [facility].; [employer], [place]. Cholesterol.total/Mitzi sterol in HDL [Mass ratio] 2.9 {ratio} Normal [place] [employer] [facility].; [place]. CO2 [Moles/Vol] 23 mmol/L Normal 19 - 30 mmol/L [place] [employer] [facility].; [employer], [place]. Creatinine [Mass/Vol] 0.89 mg/dL Normal 0.50 - 0.99 mg/dL [place] [employer] [facility].; [employer], [facility]. GFR/1.73 sq M.predicted among blacks MDRD (S/P/Bld) [Vol rate/Area] 81 {ML/MIN/1.73M2} Normal [facility], [facility].; [employer] GFR/1.73 sq M.predicted MDRD (S/P/Bld) [Vol rate/Area] 69 {ML/MIN/1.73M2} Normal [facility].; [employer]. Glucose [Mass/Vol] 108 mg/dL Abnormal 65 - 99 mg/dL [facility].; [place] [employer]. Potassium [Moles/Vol] 4.0 mmol/L Normal 3.5 - 5.3 mmol/L [facility].; [place] [employer], [place]. Sodium [Moles/Vol] 138 mmol/L Normal 135 - 146 mmol/L [facility].; [place] [employer]. Triglyceride [Mass/Vol] 119 mg/dL Normal H [facility].; [place] [employer]. Urea nitrogen [Mass/Vol] 20 mg/dL Normal 7 - 25 mg/dL [facility].; [employer]. Urea nitrogen/Creatinine [Mass ratio] 22.2 mg/mg Abnormal 6 - 22 [facility].; [employer]. Laboratoryon 11-23-2013 Lower GI hemoglobin IA Ql (Stl) Not detected Normal [place] [employer] [facility].; [employer] Work Phone: Laboratory - Chemistry and C hemistry - challengeon 11-06-2013 Calcium [Mass/Vol] 10.5 mg/dL Abnormal 8.6 - 10. 4 mg/dL [facility].; [employer], [place]. Chloride [Moles/Vol] 105 mmol/L Normal 98 - 11 0 mmol/L [facility].; [employer], [place]. CO2 [Moles/Vol] 25 mmol/L Normal 19 - 30 mmol/L [place] [employer] [facility].; [employer]. Creatinine [Mass/Vol] 0.90 mg/dL Normal 0.50 - 0.99 mg/dL [place] [employer] [facility].; [employer], [place]. GFR/1.73 sq M.predicted among blacks MDRD (S/P/Bld) [Vol rate/Area] 80 {ML/MIN/1.73M2} Normal [place] [employer] [facility].; [employer], [place]. GFR/1.73 sq M.predicted MDRD (S/P/Bld) [Vol rate/Area] 69 {ML/MIN/1.73M2} Normal [facility].; [facility] Glucose [Mass/Vol] 111 mg/dL Abnormal 65 - 99 mg/dL [facility].; [facility], [facility] Potassium [Moles/Vol] 4.3 mmol/L Normal 3.5 - 5.3 mmol/L [facility].; [facility], [facility] Sodium [Moles/Vol] 137 mmol/L Normal 135 - 146 mmol/L [facility].; [facility], [facility] Urea nitrogen [Mass/Vol] 22 mg/dL Normal 7 - 25 mg/dL [facility].; [facility], [facility] Urea nitrogen/Creatinine [Mass ratio] 24.8 mg/mg Abnormal 6 - 22 [facility].; [place] [employer] [facility], [facility]. Laboratory - Cytologyon Microscopic observation Cyto stain Nom (Cvx) SEE NOTE Normal [facility].; [place] [employer] [facility], [facility]. Laboratory - Chemistry and C hemistry - challengeon 10-25-2012 Albumin [Mass/Vol] 4.8 g/dL Normal 3.6 - 5.1 g/dL [facility].; [facility], [facility]. Albumin/Globulin [Mass ratio] 2.0 {ratio} Normal 1.0 - 2.5 [facility].; [place] [employer] [facility], [facility]. ALP [Catalytic activity/Vol] 71 U/L Normal 33 - 130 U/L [facility].; [place] [employer], [facility]. ALT [Catalytic activity/Vol] 19 U/L Normal 6 - 40 U/L [facility].; [place] [employer], [facility]. AST [Catalytic activity/Vol] 15 U/L Normal 10 - 35 U/L [facility].; [place] [employer], [facility]. Bilirubin [Mass/Vol] 0.4 mg/dL Normal 0.2 - 1 .2 mg/dL [facility].; [place] [employer], [facility]. Calcium [Mass/Vol] 10.5 mg/dL Abnormal 8.6 - 10. 4 mg/dL [facility].; [place] [employer]. Chloride [Moles/Vol] 103 mmol/L Normal 98 - 11 0 mmol/L [facility].; [facility], [facility]. Cholesterol [Mass/Vol] 218 mg/dL Abnormal 125 - 200 mg/dL [facility], [facility].; [facility], [facility]. Cholesterol in HDL [Mass/Vol] 74 mg/dL Normal [facility].; [facility], [facility]. Cholesterol in LDL [Mass/Vol] 124 mg/dL Normal [facility].; [facility], [facility]. Cholesterol non HDL [Mass/Vol] 144 mg/dL Normal [facility].; [facility], [facility]. Cholesterol.total/Mitzi sterol in HDL [Mass ratio] 2.9 {ratio} Normal [facility].; [place] [employer] [facility], [place]. CO2 [Moles/Vol] 28 mmol/L Normal 19 - 30 mmol/L [facility].; [facility], [facility]. Creatinine [Mass/Vol] 0.95 mg/dL Normal 0.50 - 0.99 mg/dL [facility], [facility].; [facility], [facility]. GFR/1.73 sq M.predicted among blacks MDRD (S/P/Bld) [Vol rate/Area] 75 {ML/MIN/1.73M2} Normal [facility], [facility].; [facility], [facility]. GFR/1.73 sq M.predicted MDRD (S/P/Bld) [Vol rate/Area] 65 {ML/MIN/1.73M2} Normal [facility], [facility].; [facility], [facility]. Globulin (S) [Mass/Vol] 2.4 g/dL Normal 1.9 - 3.7 g/dL [facility], [facility].; [facility], [facility]. Glucose [Mass/Vol] 99 mg/dL Normal 65 - 99 mg/dL [facility], [facility].; [facility], [facility]. Potassium [Moles/Vol] 4.3 mmol/L Normal 3.5 - 5.3 mmol/L [facility], [facility].; [place] [employer] [facility], [facility]. Protein [Mass/Vol] 7.2 g/dL Normal 6.1 - 8.1 g/dL [facility].; [place] [employer]. Sodium [Moles/Vol] 138 mmol/L Normal 135 - 146 mmol/L [facility].; [place] [employer] [facility], [place]. Triglyceride [Mass/Vol] 98 mg/dL Normal H [facility].; [facility], [facility]. Urea nitrogen [Mass/Vol] 18 mg/dL Normal 7 - 25 mg/dL [facility].; [place] [employer], [place] Urea nitrogen/Creatinine [Mass ratio] 19.3 mg/mg Normal 6 - 22 [facility].; [employer], [place]. Laboratory - Chemistry and C hemistry - challengeon 10-30-2011 Bilirubin Ql (U) Negative Normal [facility].; [place] [employer] [facility], [place]. Ketones Ql (U) Negative Normal [facility].; [place] [employer], [place] pH (U) 6.0 [pH] Normal 4.6 - 8.0 [facility].; [place] [employer]. Specific gravity (U) [Rel density] 1.025 Normal 1.001 - 1.025 [facility].; [employer], [place]. Laboratory - Hematology and Cell countson 10-30-2011 Basophils (Bld) [#/Vol] 20 {Cells}/uL Normal 0 - 200 {Cells}/uL [facility].; [employer], [place]. Basophils/100 WBC (Bld) 0 % Normal 0 - 2 % [facility].; [place] [employer], [place]. Eosinophils (Bld) [#/Vol] 130 {Cells}/uL Normal 15 - 500 {Cells}/uL [facility] [employer] [facility].; [employer], [place]. Eosinophils/100 WBC (Bld) 2 % Normal 0 - 8 % [facility] [employer].; [employer], [place]. Erythrocyte distribution width (RBC) [Ratio] 13.2 % Normal 11.0 - 15.0 % [facility] [employer] [facility].; [employer], [place]. Hematocrit (Bld) [Volume fraction] 39.1 % Normal 35.0 - 45.0 % [facility].; [employer]. Hemoglobin (Bld) [Mass/Vol] 13.1 g/dL Normal 11.7 - 15.5 g/dL [facility].; [facility] Hemoglobin Ql (U) trace, non-hemolyzed Abnormal [facility]; [facility], [facility] Lymphocytes (Bld) [#/Vol] 1120 {Cells}/uL Normal 850 - 3900 {Cells}/uL [facility].; [facility] Lymphocytes/100 WBC (Bld) 19 % Normal 15 - 49 % [facility].; [facility], [facility] MCH (RBC) [Entitic mass] 31.3 pg Normal 27.0 - 33.0 PG [facility].; [facility], [facility]. MCHC (RBC) [Mass/Vol] 33.4 g/dL Normal 32.0 - 36.0 g/dL [facility].; [facility], [facility]. MCV (RBC) [Entitic vol] 93.8 fL Normal 80.0 - 100.0 fL [facility].; [facility], [facility] Monocytes (Bld) [#/Vol] 400 {Cells}/uL Normal 20 0 - 950 {Cells}/uL [facility].; [facility], [facility]. Monocytes/100 WBC (Bld) 7 % Normal 0 - 13 % H [facility].; [facility], [facility]. Neutrophils (Bld) [#/Vol] 4320 {Cells}/uL Normal 1500 - 7800 {Cells}/uL [facility].; [place] [employer], [facility]. Neutrophils/100 WBC (Bld) 72 % Normal 38 - 80 % [facility].; [facility], [facility]. Platelets (Bld) [#/Vol] 242 10*3/uL Normal 140 - 400 10*3/uL [facility].; [facility], [facility]. RBC (Bld) [#/Vol] 4.17 10*6/uL Normal 3.80 - 5.1 0 10*6/uL [facility].; [place] [employer] [facility], [facility]. WBC (Bld) [#/Vol] 6.0 10*3/uL Normal 3.8 - 10.8 10*3/uL [place] [employer].; [employer]. Laboratory - Specimen inform ationon 10-30-2011 Appearance (U) clear Normal [facility].; [employer], [place]. Color (U) yellow Normal [employer].; [employer]. Laboratory - Urinalysison Glucose Test strip (U) [Mass/Vol] Negative Normal [place] [employer].; [employer]. Leukocyte esterase Test strip Ql (U) Negative Normal [place] [employer].; [employer]. Nitrite Ql (U) Negative Normal [facility] [employer].; [employer], [place]. Protein Ql (U) Negative Normal [facility] [employer].; [employer]. No Panel Informationon 10-30 UA - UROBILINOGEN 0.2 mg/dL Normal [employer].; [employer]. Laboratory - Chemistry and C hemistry - challengeon 10-15-2011 Calcium [Mass/Vol] 10.6 mg/dL Abnormal 8.6 - 10. 4 mg/dL [place] [employer].; [employer], [place]. Chloride [Moles/Vol] 102 mmol/L Normal 98 - 11 0 mmol/L [place] [employer].; [employer]. Cholesterol [Mass/Vol] 211 mg/dL Abnormal 125 - 200 mg/dL [employer] [employer].; [employer]. Cholesterol in HDL [Mass/Vol] 79 mg/dL Normal [employer].; [employer]. Cholesterol in LDL [Mass/Vol] 118 mg/dL Normal [employer].; [employer], [place]. Cholesterol.total/Mitzi sterol in HDL [Mass ratio] 2.7 {ratio} Normal [employer].; [employer]. CO2 [Moles/Vol] 26 mmol/L Normal 21 - 33 mmol/L [employer].; [employer], [place]. Creatinine [Mass/Vol] 0.98 mg/dL Normal 0.50 - 1.05 mg/dL [facility], [facility].; [place] [employer] [facility], [facility]. GFR/1.73 sq M.predicted among blacks MDRD (S/P/Bld) [Vol rate/Area] 73 {ML/MIN/1.73M2} Normal [facility], [facility].; [facility] GFR/1.73 sq M.predicted MDRD (S/P/Bld) [Vol rate/Area] 63 {ML/MIN/1.73M2} Normal [facility], [facility].; [place] [employer] Glucose [Mass/Vol] 98 mg/dL Normal 65 - 99 mg/dL [facility], [facility].; [place] [employer] [facility], [facility]. Potassium [Moles/Vol] 4.0 mmol/L Normal 3.5 - 5.3 mmol/L [facility], [facility].; [place] [employer], [facility]. Sodium [Moles/Vol] 137 mmol/L Normal 135 - 146 mmol/L [facility], [facility].; [place] [employer], [place]. Triglyceride [Mass/Vol] 71 mg/dL Normal H [facility].; [place] [employer] [facility], [facility]. Urea nitrogen [Mass/Vol] 21 mg/dL Normal 7 - 25 mg/dL [facility].; [place] [employer], [place]. Urea nitrogen/Creatinine [Mass ratio] 21.2 mg/mg Normal 6 - 22 [facility], [facility].; [employer] Laboratory - Chemistry and C hemistry - challengeon 08-01-2011 Glucose Glucometer (BldC) [Moles/Vol] 132 Abnormal 60 - 120 [facility].; [employer], [place]. Laboratoryon 08-06-2010 Lower GI hemoglobin IA Ql (Stl) Not detected Normal [place] [employer] [facility], [facility].; [employer] Work Phone: Vital Signs Date Time Vital Sign Value Performing Clinician Facility 02-08-2025 13:55-0400 Body height 167.64 cm Wei GONZALEZ Work Phone: [facility] 02-08-2025 13:55-0400 Body mass index (BMI) [Ratio] 25.8 kg/m2 Wei GONZALEZ Work Phone: [facility] 02-08-2025 13:55-0400 Body weight 72.57 kg Wei Marie PA Work Phone: [facility] 12-29-2024 10:20-0400 Body height 167.64 cm Wei Marie PA Work Phone: [facility] 12-29-2024 10:20-0400 Body mass index (BMI) [Ratio] 25.9 kg/m2 Wei Marie PA Work Phone: [facility] 12-29-2024 10:20-0400 Body weight 73.02 kg Wei Marie PA Work Phone: [facility] 11-28-2024 09:46-0500 Body height 163.83 cm Margaret Hernandez MA [facility], [facility].; [facility] 11-28-2024 09:46-0500 Body mass index (BMI) [Ratio] 27.64 kg/m2 Margaret Hernandez MA [facility], [facility].; [facility]. 11-28-2024 09:46-0500 Body surface area Derived from formula 1.81 m2 Margaret Hernandez MA [facility], [facility].; [facility], [facility]. 11-28-2024 09:46-0500 Body weight 74.19 kg Margaret Hernandez MA [facility], [facility].; [facility]. 11-28-2024 09:46-0500 Diastolic blood pressure 80 mm[Hg] Margaret Hernandez MA [facility].; [facility]. Comment on above: Patient Position: Sitting; Cuff Location : Left Arm; Cuff Size: Standard 11-28-2024 09:46-0500 Heart rate 91 /min Margaret Hernandez MA [facility], [facility].; [facility], [facility]. Comment on above: Pattern: Regular 11-28-2024 09:46-0500 Systolic blood pressure 117 mm[Hg] Margaret Hernandez MA [facility], [facility].; [facility]. Comment on above: Patient Position: Sitting; Cuff Location : Left Arm; Cuff Size: Standard 05-31-2024 09:51-0400 Body height 163.83 cm Margaret Hernandez MA [facility], Inc.; [employer] [facility], [employer] 05-31-2024 09:51-0400 Body mass index (BMI) [Ratio] 28.56 kg/m2 Margaret Hernandez MA [facility], [facility].; [place] [employer] [facility], [facility] 05-31-2024 09:51-0400 Body surface area Derived from formula 1.83 m2 Margaret Hernandez MA [facility], [facility].; [place] [employer] [facility], [employer] 05-31-2024 09:51-0400 Body weight 76.66 kg Margaret Hernandez MA [facility], [facility].; [place] [employer] [facility], [facility]. 05-31-2024 09:51-0400 Diastolic blood pressure 84 mm[Hg] Margaret Hernandez MA [facility] Inc.; [employer] Comment on above: Patient Position: Sitting; Cuff Location : Left Arm; Cuff Size: Standard 05-31-2024 09:51-0400 Heart rate 81 /min Margaret Hernandez MA [facility].; [employer] Comment on above: Pattern: Regular 05-31-2024 09:51-0400 Systolic blood pressure 133 mm[Hg] Margaret Hernandez MA [facility].; [employer] Comment on above: Patient Position: Sitting; Cuff Location : Left Arm; Cuff Size: Standard 11-23-2023 09:57-0500 Body height 163.83 cm Margaret Hernandez MA [facility], [facility].; [place] [employer] [facility], [facility] 11-23-2023 09:57-0500 Body mass index (BMI) [Ratio] 27.77 kg/m2 Margaret Hernandez MA [facility] Inc.; [place] [employer] [facility], [facility] 11-23-2023 09:57-0500 Body surface area Derived from formula 1.81 m2 Margaret Hernandez MA [facility].; [employer], [facility]. 11-23-2023 09:57-0500 Body weight 74.53 kg Margaret Hernandez MA [place] [employer] [facility] Inc.; [employer]. 11-23-2023 09:57-0500 Diastolic blood pressure 86 mm[Hg] Margaret Hernandez MA [facility].; [employer]. Comment on above: Patient Position: Sitting; Cuff Location : Left Arm; Cuff Size: Standard 11-23-2023 09:57-0500 Heart rate 92 /min Margaret Hernandez MA [facility].; [employer]. Comment on above: Pattern: Regular 11-23-2023 09:57-0500 Systolic blood pressure 132 mm[Hg] Margaret Hernandez MA [facility].; [employer]. Comment on above: Patient Position: Sitting; Cuff Location : Left Arm; Cuff Size: Standard 05-11-2023 10:02-0400 Body height 163.83 cm Liana Osuna MA [facility].; [employer] [employer]. 05-11-2023 10:02-0400 Body mass index (BMI) [Ratio] 28.05 kg/m2 Liana Osuna MA [facility].; [place] [employer] [facility]. 05-11-2023 10:02-0400 Body surface area Derived from formula 1.82 m2 Liana Osuna MA [facility].; [place] [employer] [facility]. 05-11-2023 10:02-0400 Body weight 75.3 kg Liana Osuna MA [facility].; [employer]. 05-11-2023 10:02-0400 Diastolic blood pressure 70 mm[Hg] Liana Osuna MA [facility].; [employer]. Comment on above: Patient Position: Sitting; Cuff Location : Left Arm; Cuff Size: Standard 05-11-2023 10:02-0400 Heart rate 71 /min Liana Osuna MA [place] [employer] [facility].; [employer]. Comment on above: Pattern: Regular 05-11-2023 10:02-0400 Systolic blood pressure 135 mm[Hg] Liana Osuna MA [place] [employer].; [employer]. Comment on above: Patient Position: Sitting; Cuff Location : Left Arm; Cuff Size: Standard 11-11-2022 09:57-0500 Body weight 77.57 kg Margaret Hernandez MA [facility], [facility].; [employer] [facility] SystemCom[facility]. 11-11-2022 09:57-0500 Diastolic blood pressure 83 mm[Hg] Margaret Hernandez MA [facility], [facility].; [employer], [place]. Comment on above: Patient Position: Sitting; Cuff Location : Left Arm; Cuff Size: Standard 11-11-2022 09:57-0500 Heart rate 84 /min Margaret Hernandez MA [facility], [facility].; [employer]. Comment on above: Pattern: Regular 11-11-2022 09:57-0500 Systolic blood pressure 146 mm[Hg] Margaret Hernandez MA [facility], [facility].; [employer], [place]. Comment on above: Patient Position: Sitting; Cuff Location : Left Arm; Cuff Size: Standard 05-05-2022 10:07-0400 Body height 163.83 cm Le Ely LPN [facility], [facility].; [place] [employer] [facility], [facility]. 05-05-2022 10:07-0400 Body mass index (BMI) [Ratio] 30.93 kg/m2 Le Ely LPN [facility], [facility].; [employer], [facility]. 05-05-2022 10:07-0400 Body surface area Derived from formula 1.89 m2 Le Ely LPN [facility], [facility].; [employer], [facility]. 05-05-2022 10:07-0400 Body weight 83.01 kg Le Ely LPN [facility], [facility].; [employer], [facility]. 05-05-2022 10:07-0400 Diastolic blood pressure 85 mm[Hg] Le Ely LPN [facility], [facility].; [employer], [place]. Comment on above: Patient Position: Sitting; Cuff Location : Left Arm; Cuff Size: Standard 05-05-2022 10:07-0400 Heart rate 118 /min Le Ely LPN [facility], [facility].; [employer], [place]. Comment on above: Pattern: Regular 05-05-2022 10:07-0400 Systolic blood pressure 139 mm[Hg] Le Ely LPN [facility], [facility].; [employer]. Comment on above: Patient Position: Sitting; Cuff Location : Left Arm; Cuff Size: Standard 11-05-2021 09:50-0500 Body height 163.83 cm Le Ely LPN [facility], [facility].; [facility], [facility]. 11-05-2021 09:50-0500 Body mass index (BMI) [Ratio] 31.6 kg/m2 Le Ely LPN [facility], [facility].; [place] [employer] [facility]. 11-05-2021 09:50-0500 Body surface area Derived from formula 1.91 m2 Le Ely LPN [facility], [facility].; [place] [employer] [facility], [facility]. 11-05-2021 09:50-0500 Body weight 84.82 kg Le Ely LPN [facility], [facility].; [place] [employer] [facility], [facility]. 11-05-2021 09:50-0500 Diastolic blood pressure 80 mm[Hg] Le Ely LPN [facility], [facility].; [employer]. Comment on above: Patient Position: Sitting; Cuff Location : Left Arm; Cuff Size: Standard 11-05-2021 09:50-0500 Heart rate 90 /min Le Ely LPN [facility], [facility].; [employer]. Comment on above: Pattern: Regular 11-05-2021 09:50-0500 Systolic blood pressure 145 mm[Hg] Le Ely LPN [facility], [facility].; [place] [employer]. Comment on above: Patient Position: Sitting; Cuff Location : Left Arm; Cuff Size: Standard 10-08-2021 09:12-0500 Body height 163.83 cm Lizeth Pinto LPN [facility], [facility].; [employer]. 10-08-2021 09:12-0500 Body mass index (BMI) [Ratio] 31.77 kg/m2 Lizeth Pinto LPN [facility], [facility].; [place] [employer] [facility], Inc[employer] 10-08-2021 09:12-0500 Body surface area Derived from formula 1.92 m2 Lizeth Pinto LPN [facility], [facility].; [place] [employer]. 10-08-2021 09:12-0500 Body temperature 97.3 [degF] Lizeth Pinto LPN [facility], Inc.; [employer], [place]. Comment on above: Method: Tympanic 10-08-2021 09:12-0500 Body weight 85.28 kg Lizeth Pinto LPN [facility], Inc.; [employer], [employer] 10-08-2021 09:12-0500 Diastolic blood pressure 88 mm[Hg] [facility].; [employer], [employer] Comment on above: Patient Position: Sitting; Cuff Location : Left Arm; Cuff Size: Standard 10-08-2021 09:12-0500 Heart rate 98 /min Lizeth [facility]into [facility], Inc.; [employer], [place]. Comment on above: Pattern: Regular 10-08-2021 09:12-0500 Systolic blood pressure 126 mm[Hg] Lizeth Pinto [facility], Inc.; [employer], [employer] Comment on above: Patient Position: Sitting; Cuff Location : Left Arm; Cuff Size: Standard 05-06-2021 09:50-0400 Body height 163.83 cm Lynette Navarro [facility], Inc.; [place] [employer] [facility], Inc[facility] 05-06-2021 09:50-0400 Body mass index (BMI) [Ratio] 31.94 kg/m2 Lynettekelsey Navarro [facility], [facility].; [employer], [employer] 05-06-2021 09:50-0400 Body surface area Derived from formula 1.92 m2 Lynette Navarro LPN [facility], [facility].; [place] [employer] [facility], Inc[facility] 05-06-2021 09:50-0400 Body weight 85.73 kg Lynette Navarro [facility], [facility].; [employer], [place]. 05-06-2021 09:50-0400 Diastolic blood pressure 78 mm[Hg] Lynettekelsey Navarro [facility], [facility].; [employer], [place]. Comment on above: Patient Position: Sitting; Cuff Location : Left Arm; Cuff Size: Standard 05-06-2021 09:50-0400 Heart rate 101 /min Lynette Navarro LPN [facility], [facility].; [employer]. Comment on above: Pattern: Regular 05-06-2021 09:50-0400 Systolic blood pressure 121 mm[Hg] Lynette Navarro LPN [facility].; [facility]. Comment on above: Patient Position: Sitting; Cuff Location : Left Arm; Cuff Size: Standard 11-05-2020 10:21-0500 Body height 163.83 cm Le Ely LPN [facility].; [facility] 11-05-2020 10:21-0500 Body mass index (BMI) [Ratio] 30.93 kg/m2 [facility]. 11-05-2020 10:21-0500 Body surface area Derived from formula 1.89 m2 Le Ely LPN [facility].; [facility] 11-05-2020 10:21-0500 Body weight 83.01 kg Le Ely [employer] SUPERINT[employer]ENT [facility].; [facility]. 11-05-2020 10:21-0500 Diastolic blood pressure 85 mm[Hg] Le Ely [facility].; [place] [employer] [facility]. Comment on above: Patient Position: Sitting; Cuff Location : Left Arm; Cuff Size: Standard 11-05-2020 10:21-0500 Heart rate 98 /min Le Ely LPN [facility].; [place] [employer] [facility] [employer]. Comment on above: Pattern: Regular 11-05-2020 10:21-0500 Systolic blood pressure 132 mm[Hg] Le Ely LPN [facility].; [place] [employer] [facility]. Comment on above: Patient Position: Sitting; Cuff Location : Left Arm; Cuff Size: Standard 04-30-2020 10:12-0400 Body height 163.83 cm Emily Garza MD Work Phone: [facility].; [place] [employer]. 04-30-2020 10:12-0400 Body mass index (BMI) [Ratio] 30.93 kg/m2 Emily Garza MD Work Phone: [facility].; [employer]. 04-30-2020 10:12-0400 Body surface area Derived from formula 1.89 m2 Emily Garza MD Work Phone: [place] [employer].; [employer] 04-30-2020 10:12-0400 Body weight 83.01 kg Emily Garza MD Work Phone: [place] [employer].; [employer]. 04-30-2020 10:12-0400 Diastolic blood pressure 90 mm[Hg] Emily Garza MD Work Phone: [place] [employer].; [employer]. Comment on above: Patient Position: Sitting; Cuff Location : Left Arm; Cuff Size: Standard 04-30-2020 10:12-0400 Heart rate 104 /min Emily Garza MD Work Phone: [place] [employer] [facility].; [employer]. Comment on above: Pattern: Regular 04-30-2020 10:12-0400 Systolic blood pressure 144 mm[Hg] Emily Garza MD Work Phone: [employer].; [employer]. Comment on above: Patient Position: Sitting; Cuff Location : Left Arm; Cuff Size: Standard 10-31-2019 10:37-0500 Body height 163.83 cm Le Ely LPN [place] [employer] [facility].; [employer]. 10-31-2019 10:37-0500 Body mass index (BMI) [Ratio] 30.25 kg/m2 Le Ely LPN [place] [employer] [facility].; [employer]. 10-31-2019 10:37-0500 Body surface area Derived from formula 1.88 m2 Le Ely LPN [place] [employer] [facility] System[facility].; [employer], [facility]. 10-31-2019 10:37-0500 Body weight 81.19 kg Le Ely LPN [place] [employer] [facility], [facility].; [employer], [place]. 10-31-2019 10:37-0500 Diastolic blood pressure 95 mm[Hg] Le Ely LPN [employer] [facility].; [employer]. Comment on above: Patient Position: Sitting; Cuff Location : Left Arm; Cuff Size: Standard 10-31-2019 10:37-0500 Heart rate 92 /min [facility].; [employer]. Comment on above: Pattern: Regular 10-31-2019 10:37-0500 Systolic blood pressure 149 mm[Hg] eL Ely LPN [facility].; [employer]. Comment on above: Patient Position: Sitting; Cuff Location : Left Arm; Cuff Size: Standard 09-28-2019 11:32-0500 Body height 163.83 cm Rosalia Fox RN [employer].; [employer]. 09-28-2019 11:32-0500 Body mass index (BMI) [Ratio] 29.74 kg/m2 Rosalia Fox RN [place] [employer].; [employer]. 09-28-2019 11:32-0500 Body surface area Derived from formula 1.86 m2 Rosalia Fox RN [employer].; [employer]. 09-28-2019 11:32-0500 Body temperature 98.6 [degF] Rosalia Fox RN [employer].; [employer]. Comment on above: Method: Tympanic 09-28-2019 11:32-0500 Body weight 79.83 kg Rosalia Fox RN [employer].; [employer]. 09-28-2019 11:32-0500 Diastolic blood pressure 87 mm[Hg] Rosalia Fox RN [employer].; [employer]. Comment on above: Patient Position: Sitting; Cuff Location : Right Arm; Cuff Size: Standard 09-28-2019 11:32-0500 Heart rate 88 /min Rosalia Fox RN [employer].; [employer]. Comment on above: Pattern: Regular 09-28-2019 11:32-0500 Systolic blood pressure 141 mm[Hg] Rosalia Fox RN [employer].; [employer]. Comment on above: Patient Position: Sitting; Cuff Location : Right Arm; Cuff Size: Standard 05-04-2019 08:32-0400 Body height 163.83 cm Rosalia Fox RN [employer] [facility] System[facility].; [employer]. 05-04-2019 08:32-0400 Body mass index (BMI) [Ratio] 30.59 kg/m2 Rosalia Fox RN [place] [employer] [facility] System[facility].; [employer]. 05-04-2019 08:32-0400 Body surface area Derived from formula 1.89 m2 Rosalia Fox RN [employer].; [employer]. 05-04-2019 08:32-0400 Body temperature 98 [degF] Rosalia Fox RN [employer].; [employer]. Comment on above: Method: Tympanic 05-04-2019 08:32-0400 Body weight 82.1 kg Rosalia Fox RN [employer].; [employer]. 05-04-2019 08:32-0400 Diastolic blood pressure 78 mm[Hg] Rosalia Fox RN [employer].; [employer]. Comment on above: Patient Position: Sitting; Cuff Location : Left Arm; Cuff Size: Standard 05-04-2019 08:32-0400 Heart rate 85 /min Rosalia Fox RN [employer].; [employer]. Comment on above: Pattern: Regular 05-04-2019 08:32-0400 Systolic blood pressure 121 mm[Hg] Rosalia Fox RN [employer].; [employer]. Comment on above: Patient Position: Sitting; Cuff Location : Left Arm; Cuff Size: Standard 04-18-2019 09:23-0400 Body height 163.83 cm [facility] Rodrigorodrigo (scrjosette) [place] [employer] [facility].; [employer]. 04-18-2019 09:23-0400 Body mass index (BMI) [Ratio] 30.93 kg/m2 [facility] [employer].; [employer]. 04-18-2019 09:23-0400 Body surface area Derived from formula 1.89 m2 [facility] Rodrigogoi (scribe) [employer] [facility], Inc.; [employer] 04-18-2019 09:23-0400 Body weight 83.01 kg Hemsaurabh Garciai (scribe) [employer] [facility], Inc.; [employer], [employer] 04-18-2019 09:23-0400 Diastolic blood pressure 88 mm[Hg] Hemanta Rodrigogoi (scribe) [employer], [employer], [employer] Comment on above: Patient Position: Sitting; Cuff Location : Left Arm; Cuff Size: Standard 04-18-2019 09:23-0400 Heart rate 82 /min [email or web address] Garciai (scribe) [employer] [facility], Inc.; [employer], [employer] Comment on above: Pattern: Regular 04-18-2019 09:23-0400 Systolic blood pressure 154 mm[Hg] [email or web address] Garciai (scribe) [employer] [facility], Inc.; [employer], [employer] Comment on above: Patient Position: Sitting; Cuff Location : Left Arm; Cuff Size: Standard 01-31-2019 11:20-0400 Body height 163.83 cm Lori Leal LPN [employer] [facility], Inc.; [employer] 01-31-2019 11:20-0400 Body mass index (BMI) [Ratio] 30.08 kg/m2 Lori Leal LPN [employer], [employer].; [employer] 01-31-2019 11:20-0400 Body surface area Derived from formula 1.87 m2 Lori Leal LPN [employer], [employer].; [employer] 01-31-2019 11:20-0400 Body weight 80.74 kg Lori Leal LPN [employer], [employer].; [employer]. 01-31-2019 11:20-0400 Diastolic blood pressure 83 mm[Hg] Lori Leal LPN [employer], [employer].; [employer] Comment on above: Patient Position: Sitting; Cuff Location : Left Arm; Cuff Size: Standard 01-31-2019 11:20-0400 Heart rate 91 /min Lori [facility] Inc.; [employer]. Comment on above: Pattern: Regular 01-31-2019 11:20-0400 Systolic blood pressure 133 mm[Hg] Lori Leal LPN [place] [employer] [facility] SystemCom[facility] Inc.; [employer]. Comment on above: Patient Position: Sitting; Cuff Location : Left Arm; Cuff Size: Standard 10-18-2018 07:53-0500 Body height 163.83 cm Hemanta Gogoi (scribe) [facility], Inc.; [employer]. 10-18-2018 07:53-0500 Body mass index (BMI) [Ratio] 29.91 kg/m2 [facility] Gogoi (scribe) [employer] [facility] System[facility].; [employer]. 10-18-2018 07:53-0500 Body surface area Derived from formula 1.87 m2 [facility] alikegoi (scribe) [place] [employer] [facility], Inc.; [employer]. 10-18-2018 07:53-0500 Body weight 80.29 kg [facility] Hospitalanta alikegoi (scribe) [place] [employer] [facility] System[facility] [employer].; [employer]. 10-18-2018 07:53-0500 Diastolic blood pressure 88 mm[Hg] Hemanta Gogoi (scribe) [employer] [facility] System[facility].; [employer], [place]. Comment on above: Patient Position: Sitting; Cuff Location : Left Arm; Cuff Size: Standard 10-18-2018 07:53-0500 Heart rate 100 /min [facility] HospitalSigmoid Pharmagoi (scribe) [employer] [facility], Inc.; [employer]. Comment on above: Pattern: Regular 10-18-2018 07:53-0500 Systolic blood pressure 134 mm[Hg] Hemanta Gogoi (scribe) [employer] [facility] System[facility].; [employer]. Comment on above: Patient Position: Sitting; Cuff Location : Left Arm; Cuff Size: Standard 07-15-2018 08:44-0400 Body height 163.83 cm Mary Leal LPN [employer]. 07-15-2018 08:44-0400 Body mass index (BMI) [Ratio] 29.57 kg/m2 Mary K Mutersbaugh [employer] SUPERINTENDENT [employer], [employer].; [employer], [place]. 07-15-2018 08:44-0400 Body surface area Derived from formula 1.86 m2 Mary K Mutersbaugh [employer] SUPERINTENDENT [employer], [employer].; [employer] 07-15-2018 08:44-0400 Body weight 79.38 kg Mary Smiley Bolesersbaugh [employer]NER SUPERINTENDENT [employer], [place].; [employer]. 07-15-2018 08:44-0400 Diastolic blood pressure 79 mm[Hg] Mary K Mutersbaugh [employer] SUPERINTENDENT [employer], [facility].; [employer], [place]. Comment on above: Patient Position: Sitting; Cuff Location : Left Arm; Cuff Size: Standard 07-15-2018 08:44-0400 Heart rate 97 /min Mary Smiley Fontenotbaugh [employer] SUPERINTENDENT [employer], [employer].; [employer], [place]. Comment on above: Pattern: Regular 07-15-2018 08:44-0400 Systolic blood pressure 131 mm[Hg] Mary K Mutersbaugh [employer] SUPERINTENDENT [employer]. Comment on above: Patient Position: Sitting; Cuff Location : Left Arm; Cuff Size: Standard 05-25-2017 08:53-0400 Body height 163.83 cm Wei Marie PA-C Work Phone: [employer].; [employer]. 05-25-2017 08:53-0400 Body mass index (BMI) [Ratio] 30.42 kg/m2 Wei Marie PA-C Work Phone: [employer].; [employer]. 05-25-2017 08:53-0400 Body surface area Derived from formula 1.88 m2 Wei Marie PA-C Work Phone: [employer].; [employer]. 05-25-2017 08:530400 Body weight 81.65 kg Wei Marie PA-C Work Phone: [employer].; [employer]. 05-25-2017 08:53-0400 Diastolic blood pressure 88 mm[Hg] Wei Marie PA-C Work Phone: [place] [employer].; [employer]. Comment on above: Patient Position: Sitting; Cuff Location : Left Arm; Cuff Size: Standard 05-25-2017 08:53-0400 Heart rate 85 /min Wei Marie PA-C Work Phone: [place] [employer].; [employer]. Comment on above: Pattern: Regular 05-25-2017 08:53-0400 Systolic blood pressure 138 mm[Hg] Wei Marie PA-C Work Phone: [place] [employer].; [employer]. Comment on above: Patient Position: Sitting; Cuff Location : Left Arm; Cuff Size: Standard 01-29-2017 11:49-0400 Body height 163.83 cm Mary K Mutmeirbaugh [facility] [employer] [facility], Inc.; [employer]. 01-29-2017 11:49-0400 Body mass index (BMI) [Ratio] 30.25 kg/m2 Mary K Mutersbaugh [facility] [employer]. 01-29-2017 11:49-0400 Body surface area Derived from formula 1.88 m2 Mary K Mutersbaugh [employer] SUPERINTENDENT [place] [employer].; [employer]. 01-29-2017 11:49-0400 Body weight 81.19 kg Mary K Mutersbaugh [employer] SUPERINTENDENT [employer], [facility].; [employer]. 01-29-2017 11:49-0400 Diastolic blood pressure 102 mm[Hg] Mary K Mutersbaugh [employer] SUPERINTENDENT [employer], [place].; [employer]. Comment on above: Patient Position: Sitting; Cuff Location : Left Arm; Cuff Size: Standard 01-29-2017 11:49-0400 Heart rate 102 /min Mary K Mutersbaugh [employer] SUPERINTENDENT [employer], [place].; [employer]. Comment on above: Pattern: Regular 01-29-2017 11:49-0400 Systolic blood pressure 147 mm[Hg] Mary Leal LPN [employer].; [employer]. Comment on above: Patient Position: Sitting; Cuff Location : Left Arm; Cuff Size: Standard 01-07-2017 08:46-0400 Body height 163.83 cm Wei Marie PA-C Work Phone: [employer].; [employer]. 01-07-2017 08:46-0400 Body mass index (BMI) [Ratio] 30.25 kg/m2 Wei Marie PA-C Work Phone: [employer].; [employer]. 01-07-2017 08:46-0400 Body surface area Derived from formula 1.88 m2 Wei Marie PA-C Work Phone: [employer].; [employer]. 01-07-2017 08:46-0400 Body temperature 97.8 [degF] Wei Marie PA-C Work Phone: [employer].; [employer]. Comment on above: Method: Tympanic 01-07-2017 08:46-0400 Body weight 81.19 kg Wei Marie PA-C Work Phone: [employer].; [employer]. 01-07-2017 08:46-0400 Diastolic blood pressure 90 mm[Hg] Wei Marie PA-C Work Phone: [employer].; [employer]. Comment on above: Patient Position: Sitting; Cuff Location : Left Arm; Cuff Size: Large 01-07-2017 08:46-0400 Heart rate 103 /min Wei Marie PA-C Work Phone: [employer].; [employer]. Comment on above: Pattern: Regular 01-07-2017 08:46-0400 Systolic blood pressure 141 mm[Hg] Wei Marei PA-C Work Phone: [employer].; [employer]. Comment on above: Patient Position: Sitting; Cuff Location : Left Arm; Cuff Size: Large 10-20-2016 13:53-0500 Body height 163.83 cm Colleen Dietz LPN [facility], Inc.; [employer] 10-20-2016 13:53-0500 Body mass index (BMI) [Ratio] 30.08 kg/m2 Colleen Dietz [employer] SUPERINT[employer] [place] [employer] [facility], Inc.; [employer] 10-20-2016 13:53-0500 Body surface area Derived from formula 1.87 m2 Colleen Dietz [employer]NER SUPERINTENDENT [employer], [employer].; [employer], [place]. 10-20-2016 13:53-0500 Body weight 80.74 kg Colleen Dietz LPN [place] [employer] [facility], Inc.; [employer], [place]. 10-20-2016 13:53-0500 Diastolic blood pressure 87 mm[Hg] Colleen Dietz [employer] SUPERINTENDENT [place] [employer] [facility], Inc.; [employer], [place]. Comment on above: Patient Position: Sitting; Cuff Location : Left Arm; Cuff Size: Large 10-20-2016 13:53-0500 Heart rate 111 /min Colleen Dietz [employer] SUPERINTENDENT [place] [employer] [facility], Inc.; [employer], [place]. Comment on above: Pattern: Regular 10-20-2016 13:53-0500 Systolic blood pressure 127 mm[Hg] Colleen Dietz [employer] SUPERINT[employer]ENT [place] [employer] [facility], Inc.; [employer], [place]. Comment on above: Patient Position: Sitting; Cuff Location : Left Arm; Cuff Size: Large 01-27-2016 09:120400 Body height 163.83 cm Emily Garza MD Work Phone: [employer], [place].; [employer] 01-27-2016 09:12-0400 Body mass index (BMI) [Ratio] 29.74 kg/m2 Emily Garza MD Work Phone: [employer], [place].; [employer] 01-27-2016 09:120400 Body surface area Derived from formula 1.86 m2 Emily Garza MD Work Phone: [place] [employer].; [employer]. 01-27-2016 09:12-0400 Body weight 79.83 kg Emily Garza MD Work Phone: [place] [employer].; [employer] 01-27-2016 09:12-0400 Diastolic blood pressure 82 mm[Hg] Emily Garza MD Work Phone: [place] [employer].; [employer]. Comment on above: Patient Position: Sitting; Cuff Location : Left Arm; Cuff Size: Standard 01-27-2016 09:12-0400 Heart rate 96 /min Emily Garza MD Work Phone: [place] [employer].; [employer]. Comment on above: Pattern: Regular 01-27-2016 09:12-0400 Systolic blood pressure 124 mm[Hg] Emily Garza MD Work Phone: [place] [employer].; [employer]. Comment on above: Patient Position: Sitting; Cuff Location : Left Arm; Cuff Size: Standard 12-25-2014 11:35-0400 Body height 163.83 cm Jennifer Silva LPN [place] [employer] [facility], Inc.; [employer] 12-25-2014 11:35-0400 Body mass index (BMI) [Ratio] 29.07 kg/m2 Jennifer Silva [employer] SUPERINTENDENT [place] [employer] [facility], Inc.; [employer] 12-25-2014 11:35-0400 Body surface area Derived from formula 1.85 m2 Jennifer Silva LPN [place] [employer], [place]. 12-25-2014 11:35-0400 Body weight 78.02 kg Jennifer Silva [employer] G[employer]NER SUPERINTENDENT [employer], [employer], [place]. 12-25-2014 11:35-0400 Diastolic blood pressure 95 mm[Hg] Jennifer Silva LPN [employer], [employer].; [employer], [place]. Comment on above: Patient Position: Sitting; Cuff Location : Right Arm; Cuff Size: Standard 12-25-2014 11:35-0400 Heart rate 100 /min Jennifer Josh Silva A[employer] G[employer]NER SUPERINTENDENT [facility], Inc.; [employer], [place]. Comment on above: Pattern: Regular 12-25-2014 11:35-0400 Systolic blood pressure 137 mm[Hg] Jennifer Josh Silva A[employer] G[employer]NER SUPERINTENDENT [facility], Inc.; [employer], [place]. Comment on above: Patient Position: Sitting; Cuff Location : Right Arm; Cuff Size: Standard 11-16-2014 08:20-0500 Body height 163.83 cm Jennifer Silva [facility], Inc.; [employer], [place]. 11-16-2014 08:20-0500 Body mass index (BMI) [Ratio] 29.57 kg/m2 Jennifer Silva [facility], Inc.; [employer], [place]. 11-16-2014 08:20-0500 Body surface area Derived from formula 1.86 m2 Jennifer Silva [facility] [employer] [facility], Inc.; [employer], [place]. 11-16-2014 08:20-0500 Body weight 79.38 kg Jennifer Silva [place] [facility].; [employer], [place]. 11-16-2014 08:20-0500 Diastolic blood pressure 77 mm[Hg] Jenniferblake Silva [facility], [facility].; [employer], [place]. Comment on above: Patient Position: Sitting; Cuff Location : Left Arm; Cuff Size: Standard 11-16-2014 08:20-0500 Heart rate 98 /min Jenniferblake Silva [employer] [facility].; [employer], [place]. Comment on above: Pattern: Regular 11-16-2014 08:20-0500 Systolic blood pressure 128 mm[Hg] Jennifer Josh Silva [facility].; [employer], [place]. Comment on above: Patient Position: Sitting; Cuff Location : Left Arm; Cuff Size: Standard 05-07-2014 08:57-0400 Body height 163.83 cm Magalys Jason [facility].; [employer], [place]. 05-07-2014 08:57-0400 Body mass index (BMI) [Ratio] 29.24 kg/m2 Magalys Gale Eren CALDERON [facility], [facility].; [employer], [employer] 05-07-2014 08:57-0400 Body surface area Derived from formula 1.85 m2 Magalys Gale Eren [facility], [facility].; [employer], [employer] 05-07-2014 08:57-0400 Body weight 78.47 kg Magalys Gale Eren [facility].; [employer], [employer] 05-07-2014 08:57-0400 Diastolic blood pressure 77 mm[Hg] Magalys Gale Eren [facility].; [employer], [employer]. Comment on above: Patient Position: Sitting; Cuff Location : Left Arm; Cuff Size: Standard 05-07-2014 08:57-0400 Heart rate 77 /min Magalys [place] [facility].; [employer], [employer]. Comment on above: Pattern: Regular 05-07-2014 08:57-0400 Systolic blood pressure 121 mm[Hg] Magalys Gale Eren [facility].; [employer], [employer]. Comment on above: Patient Position: Sitting; Cuff Location : Left Arm; Cuff Size: Standard 11-13-2013 08:12-0500 Body height 163.83 cm Jennifer Silva LPN [facility], [facility].; [employer], [employer] 11-13-2013 08:12-0500 Body mass index (BMI) [Ratio] 29.07 kg/m2 Jennifer Silva LPN [facility].; [employer], [employer] 11-13-2013 08:12-0500 Body surface area Derived from formula 1.85 m2 Jennifer Silva LPN [place] [facility] [employer], [employer] 11-13-2013 08:12-0500 Body weight 78.02 kg Jennifer Silva LPN [place] [facility] [employer], [employer] 11-13-2013 08:12-0500 Diastolic blood pressure 83 mm[Hg] Jennifer Silva LPN [place] [facility] [employer], [place]. Comment on above: Patient Position: Sitting; Cuff Location : Right Arm; Cuff Size: Standard 11-13-2013 08:12-0500 Heart rate 92 /min Jennifer Josh Silva [employer] [facility].; [employer]. Comment on above: Pattern: Regular 11-13-2013 08:12-0500 Systolic blood pressure 127 mm[Hg] Jennifer Josh TamezAugusta [employer]PER[employer] [facility].; [employer]. Comment on above: Patient Position: Sitting; Cuff Location : Right Arm; Cuff Size: Standard 05-31-2013 14:46-0400 Body height 162.56 cm Jennifer Josh Silva [facility] [employer], [place]. 05-31-2013 14:46-0400 Body mass index (BMI) [Ratio] 29.7 kg/m2 Jennifer Silva [employer] [place] [facility].; [employer], [place]. 05-31-2013 14:46-0400 Body surface area Derived from formula 1.84 m2 Jennifer Silva [facility], [place].; [employer], [place]. 05-31-2013 14:46-0400 Body temperature 97.9 [degF] Jennifer [facility], [place].; [employer]. Comment on above: Method: Tympanic 05-31-2013 14:46-0400 Body weight 78.47 kg Jennifer Silva [facility].; [employer], [place]. 05-31-2013 14:46-0400 Diastolic blood pressure 85 mm[Hg] Jennifer Josh Silva [employer]PER[employer] [facility], [place].; [employer]. Comment on above: Patient Position: Sitting; Cuff Location : Left Arm; Cuff Size: Standard 05-31-2013 14:46-0400 Heart rate 92 /min Jennifer Josh Silva [employer] [place] [facility], [place].; [employer]. Comment on above: Pattern: Regular 05-31-2013 14:46-0400 Systolic blood pressure 135 mm[Hg] Jennifer Josh Silva [employer], [place].; [employer]. Comment on above: Patient Position: Sitting; Cuff Location : Left Arm; Cuff Size: Standard 05-02-2013 09:45-0400 Body height 162.56 cm Jennifer Josh Silva [employer], [employer], [place]. 05-02-2013 09:45-0400 Body mass index (BMI) [Ratio] 29.87 kg/m2 Jennifer N Augusta [employer] SUPER[employer], [employer], [place]. 05-02-2013 09:45-0400 Body surface area Derived from formula 1.84 m2 Jennifer N Shira [employer] SUPER[employer], [employer], [place]. 05-02-2013 09:45-0400 Body weight 78.93 kg Jennifer Josh Silva [employer], [place].; [employer], [place]. 05-02-2013 09:45-0400 Diastolic blood pressure 82 mm[Hg] Jennifer Josh Silva [employer]PER[employer], [employer], [place]. Comment on above: Patient Position: Sitting; Cuff Location : Left Arm; Cuff Size: Standard 05-02-2013 09:45-0400 Heart rate 93 /min Jennifer Josh Silva [employer]PER[employer], [place].; [employer]. Comment on above: Pattern: Regular 05-02-2013 09:45-0400 Systolic blood pressure 129 mm[Hg] Jennifer Josh TamezAugusta [employer]PER[employer], [employer], [place]. Comment on above: Patient Position: Sitting; Cuff Location : Left Arm; Cuff Size: Standard 11-04-2012 08:11-0500 Body height 162.56 cm Jennifer Josh Silva LPN [employer], [employer], [place]. 11-04-2012 08:11-0500 Body mass index (BMI) [Ratio] 30.04 kg/m2 Jennifer N Augusta [employer] SUPER[employer], [employer], [place]. 11-04-2012 08:11-0500 Body surface area Derived from formula 1.85 m2 Jennifer Josh Silva [employer], [employer]. 11-04-2012 08:11-0500 Body temperature 97.1 [degF] Jennifer Tamezjuma CALDERON [facility].; [employer] [facility], [place]. Comment on above: Method: Tympanic 11-04-2012 08:11-0500 Body weight 79.38 kg Jennifer Tolbert Shira CALDERON [facility].; [employer] [facility], [facility] 11-04-2012 08:11-0500 Diastolic blood pressure 88 mm[Hg] Jennifer Josh Silva LPN [facility] [employer], [employer] Comment on above: Patient Position: Sitting; Cuff Location : Left Arm; Cuff Size: Standard 11-04-2012 08:11-0500 Heart rate 95 /min Jennifer Josh Silva LPN [facility].; [employer], [employer] Comment on above: Pattern: Regular 11-04-2012 08:11-0500 Systolic blood pressure 134 mm[Hg] Jennifer Josh Silva LPN [facility] [employer], [employer] Comment on above: Patient Position: Sitting; Cuff Location : Left Arm; Cuff Size: Standard 04-29-2012 08:35-0400 Body height 163.83 cm Nohemy Amezcua [facility], [facility].; [employer] [facility], [facility]. 04-29-2012 08:35-0400 Body mass index (BMI) [Ratio] 28.9 kg/m2 Nohemy Kj Amezcua [facility], [facility].; [employer], [employer] 04-29-2012 08:35-0400 Body surface area Derived from formula 1.84 m2 Nohemy Amezcua [employer] SUPERINT[employer] [facility] [employer], [place]. 04-29-2012 08:35-0400 Body weight 77.57 kg Nohemy Kj Amezcua [facility].; [employer], [place]. 04-29-2012 08:35-0400 Diastolic blood pressure 88 mm[Hg] Nohemy Kj Amezcua [employer]PER[employer] [place] [facility].; [employer], [place]. Comment on above: Patient Position: Sitting; Cuff Location : Right Arm; Cuff Size: Standard 04-29-2012 08:35-0400 Heart rate 87 /min Nohemy Amezcua [employer] SUPERINT[employer]ENT [facility] [employer] [facility], [place]. Comment on above: Pattern: Regular 04-29-2012 08:35-0400 Systolic blood pressure 141 mm[Hg] Nohemy Amezcua [facility] [place] [facility], [place]. Comment on above: Patient Position: Sitting; Cuff Location : Right Arm; Cuff Size: Standard 12-07-2011 11:15-0400 Body height 163.83 cm Colleen Dietz [facility] [place] [employer], [place]. 12-07-2011 11:15-0400 Body mass index (BMI) [Ratio] 28.22 kg/m2 Sheila J Luis [facility], [facility].; [place] [employer], [place]. 12-07-2011 11:15-0400 Body surface area Derived from formula 1.82 m2 Colleen Dietz [facility].; [employer], [place]. 12-07-2011 11:15-0400 Body temperature 97.5 [degF] SheilaLyssa Dietz [facility], [facility].; [employer], [place]. Comment on above: Method: Tympanic 12-07-2011 11:15-0400 Body weight 75.75 kg Colleen Dietz [facility].; [place] [facility], [facility] 12-07-2011 11:15-0400 Diastolic blood pressure 85 mm[Hg] Colleen Dietz [facility] [employer], [place]. Comment on above: Patient Position: Sitting; Cuff Location : Left Arm; Cuff Size: Large 12-07-2011 11:15-0400 Heart rate 103 /min Colleen Dietz [facility], [facility].; [employer] [facility], [place]. Comment on above: Pattern: Regular 12-07-2011 11:15-0400 Inhaled oxygen concentration 20 % SheilaLyssa Dietz [facility].; [employer], [place]. Comment on above: Room air 12-07-2011 11:15-0400 Inhaled oxygen concentration 21 % Colleen Dietz [facility], [place].; [employer]. Comment on above: Room air 12-07-2011 11:15-0400 SaO2% (BldA) [Mass fraction] 99 % Colleen Dietz [facility].; [employer]. 12-07-2011 11:15-0400 Systolic blood pressure 133 mm[Hg] Colleen Dietz [facility].; [employer]. Comment on above: Patient Position: Sitting; Cuff Location : Left Arm; Cuff Size: Large 10-30-2011 08:26-0500 Body height 163.83 cm Elizabeth Farhan GreerSteve [facility], [place].; [employer]. 10-30-2011 08:26-0500 Body mass index (BMI) [Ratio] 28.9 kg/m2 Elizabeth [employer]peSteve [facility] [employer].; [employer]. 10-30-2011 08:26-0500 Body surface area Derived from formula 1.84 m2 Elizabeth Transcarga.peSteve [facility] [employer].; [employer]. 10-30-2011 08:26-0500 Body weight 77.57 kg Elizabeth Farhan GreerSteve [facility] System[facility].; [employer]. 10-30-2011 08:26-0500 Diastolic blood pressure 68 mm[Hg] Elizabeth C Steve [employer] SUPERINTENDENT [employer].; [employer]. Comment on above: Patient Position: Sitting; Cuff Location : Left Arm; Cuff Size: Large 10-30-2011 08:26-0500 Heart rate 86 /min Elizabeth Farhan GreerNew [place] [employer] SUPERINTENDENT [employer].; [employer]. Comment on above: Pattern: Regular 10-30-2011 08:26-0500 Systolic blood pressure 117 mm[Hg] Elizabeth C Steve [employer] SUPER[employer].; [employer]. Comment on above: Patient Position: Sitting; Cuff Location : Left Arm; Cuff Size: Large 08-03-2011 11:42-0500 Body temperature 98.8 [degF] Wei Marie PA-C Work Phone: [employer].; [employer]. Comment on above: Method: Tympanic 08-03-2011 11:42-0500 Body weight 77.11 kg Wei Marie PA-C Work Phone: [employer]; [employer]. 08-03-2011 11:42-0500 Heart rate 144 /min Wei Marie PA-C Work Phone: [employer].; [employer]. Comment on above: Pattern: Regular 08-03-2011 11:42-0500 Inhaled oxygen concentration 20 % Wei Marie PA-C Work Phone: [employer]; [employer]. Comment on above: Room air 08-03-2011 11:42-0500 Inhaled oxygen concentration 21 % Wei Marie PA-C Work Phone: [employer]; [employer]. Comment on above: Room air 08-03-2011 11:42-0500 SaO2% (BldA) [Mass fraction] 79 % Wei Marie PA-C Work Phone: [employer]; [employer]. 08-01-2011 10:06-0400 Body height 167.64 cm Yaquelin Marie RN [employer]. 08-01-2011 10:06-0400 Body mass index (BMI) [Ratio] 27.57 kg/m2 Yaquelin Marie RN [employer].; [employer]. 08-01-2011 10:06-0400 Body surface area Derived from formula 1.87 m2 Yaquelin Marie RN [employer].; [employer]. 08-01-2011 10:06-0400 Body temperature 97.7 [degF] Yaquelin Marie RN [employer].; [employer]. Comment on above: Method: Tympanic 08-01-2011 10:06-0400 Body weight 77.47 kg Yaquelin Marie RN [employer].; [employer]. 08-01-2011 10:06-0400 Diastolic blood pressure 62 mm[Hg] Yaquelin Marie RN [facility] [employer]. Comment on above: Patient Position: Sitting; Cuff Location : Left Arm; Cuff Size: Standard 08-01-2011 10:06-0400 Heart rate 115 /min Yaquelin Marie RN [facility] [employer]. Comment on above: Pattern: Regular 08-01-2011 10:06-0400 Systolic blood pressure 102 mm[Hg] Yaquelin Marie RN [facility], [facility].; [employer]. Comment on above: Patient Position: Sitting; Cuff Location : Left Arm; Cuff Size: Standard 04-28-2011 08:44-0400 Body height 167.64 cm Elizabeth Wilson LPN [facility] [employer], [place]. 04-28-2011 08:44-0400 Body mass index (BMI) [Ratio] 27.31 kg/m2 Elizabeth Farhan Wilson [employer]NER SUPERINTENDENT [facility] [employer], [place]. 04-28-2011 08:44-0400 Body surface area Derived from formula 1.86 m2 Elizabeth Farhan Wilson [employer] G[employer]NER SUPERINTENDENT [facility], [facility].; [employer], [place]. 04-28-2011 08:44-0400 Body weight 76.75 kg Elizabethrossy Wilson [employer] G[employer]NER SUPERINTENDENT [facility], [facility].; [employer]. 04-28-2011 08:44-0400 Diastolic blood pressure 87 mm[Hg] Elizabeth Farhan Wilson LPN [place] [employer], [facility].; [employer]. Comment on above: Patient Position: Sitting; Cuff Location : Left Arm; Cuff Size: Large 04-28-2011 08:44-0400 Heart rate 83 /min Elizabethrossy iWlson LPN [place] [employer] [facility], [place].; [employer]. Comment on above: Pattern: Regular 04-28-2011 08:44-0400 Systolic blood pressure 123 mm[Hg] Elizabeth Farhan Wilson LPN [place] [employer] [facility].; [employer]. Comment on above: Patient Position: Sitting; Cuff Location : Left Arm; Cuff Size: Large 09-25-2010 11:58-0500 Body temperature 97.7 [degF] Neilee L Vess [employer] G[employer]NER SUPERINTENDENT [employer], [place].; [employer]. 09-25-2010 11:58-0500 Body weight 77.11 kg Nejulissae L Vess [employer] G[employer]NER SUPERINTENDENT [employer], [place].; [employer], [place]. 09-25-2010 11:58-0500 Diastolic blood pressure 82 mm[Hg] Neilee L Vess [employer]NER SUPERINTENDENT [employer]. Comment on above: Patient Position: Sitting; Cuff Location : Left Arm; Cuff Size: Standard 09-25-2010 11:58-0500 Heart rate 101 /min DeluxeBoxjulissae L Vess A[employer] G[employer]NER SUPERINTENDENT [employer], [place].; [employer]. Comment on above: Pattern: Regular 09-25-2010 11:58-0500 Systolic blood pressure 140 mm[Hg] Neilee L Vess [employer] G[employer]NER SUPERINTENDENT [employer], [place].; [employer], [place]. Comment on above: Patient Position: Sitting; Cuff Location : Left Arm; Cuff Size: Standard Encounters Encounter Date Encounter Type Care Provider Facility Start: 06-15-2025 ambulatory Wei Marie Facility:[facility] Start: 02-13-2025 End: 02-13-2025 Medication Wei Marie PA-C Work Phone: [place] [employer], [place]. Start: 02-08-2025 End: 02-08-[address] Edi Bartlett MD -[facility] Work Phone: Start: 02-08-2025 End: 02-08-2025 ambulatory Wei Marie PA Work Phone: [facility] Work Phone: Start: 01-24-2025 End: 01-24-[address] Edi Bartlett MD -[facility] Work Phone: Start: 01-24-2025 End: 01-24-2025 ambulatory Edi Bartlett Facility:[facility] Start: 01-12-2025 End: 01-12-[address] Edi Bartlett MD -[facility] Work Phone: Start: 01-12-2025 End: 01-12-2025 ambulatory Weiritu Marie Facility:[facility] Start: 01-08-2025 End: 01-08-2025 ambulatory Wei Marie PA Work Phone: [facility] Work Phone: Start: 01-08-2025 End: 01-08-2025 Patient encounter [facility] Work Phone: Start: 01-08-2025 End: 01-08-2025 ambulatory Kandace Tate Facility:[facility] Start: 12-29-2024 End: 12-29-2024 Patient encounter procedure Kandace Fulk LISA -[facility] Work Phone: Start: 12-29-2024 End: 12-29-2024 ambulatory Weiritu Marie Facility:[facility] Start: 11-28-2024 End: 11-28-2024 Patient encounter procedure Wei J Marie PA-C Work Phone: [employer] Start: 11-28-2024 End: 11-28-2024 Periodic preventive med est patient 65yrs& older Wei Marie PA-C Work Phone: [employer] Start: 11-21-2024 End: 11-21-2024 Orders Wei Marie PA-C Work Phone: [employer] Start: 11-20-2024 End: 11-20-2024 Orders Wei Marie PA-C Work Phone: [employer] Start: 05-31-2024 Follow-up encounter Wei Be an PA-C Work Phone: [employer] Start: 05-31-2024 End: 05-31-2024 Office outpatient visit 15 minutes Wei Marie PA-C Work Phone: [employer] Start: 01-24-2024 End: 01-24-2024 ambulatory [facility] Work Phone: Start: 01-24-2024 End: 01-24-2024 Patient encounter procedure [facility]-Laboratory Work Phone: Start: 11-23-2023 End: 11-23-2023 Patient encounter procedure Margaret Hernandez [facility]; [facility] Start: 11-23-2023 End: 11-23-2023 Periodic preventive med est patient 65yrs& older Wei Marie PA-C Work Phone: [facility]. Start: 11-09-2023 End: 11-09-2023 Orders Wei Marie PA-C Work Phone: [facility]. Start: 08-16-2023 End: 08-16-2023 ambulatory [facility] Work Phone: Start: 08-16-2023 End: 08-16-2023 Patient encounter procedure [facility] - [facility] Work Phone: Start: 05-17-2023 End: 05-17-2023 ambulatory [facility] Work Phone: Start: 05-17-2023 End: 05-17-2023 Patient encounter procedure [facility]-Laboratory Work Phone: Start: 05-11-2023 End: 05-11-2023 Office outpatient visit 25 minutes Wei Marie PA-C Work Phone: [facility]. Start: 03-23-2023 End: 03-23-2023 ambulatory [facility] Work Phone: Start: 03-23-2023 End: 03-23-2023 Patient encounter procedure [facility] Work Phone: Start: 11-11-2022 End: 11-11-2022 Patient encounter procedure Wei Marie PA-C Work Phone: [facility]. Start: 11-04-2022 End: 11-04-2022 Orders Wei Marie PA-C Work Phone: [employer] Start: 07-14-2022 End: 07-14-2022 ambulatory [facility] Work Phone: Start: 07-14-2022 End: 07-14-2022 [facility] Start: 05-05-2022 End: 05-05-2022 Office outpatient visit 25 minutes Wei Marie PA-C Work Phone: [employer] Start: 03-27-2022 End: 03-27-2022 Medication Wei Marie PA-C Work Phone: [employer] Start: 01-26-2022 End: 01-26-2022 [facility] Start: 01-21-2022 End: 01-21-2022 Medication Wei Marie PA-C Work Phone: [employer] Start: 12-18-2021 End: 12-18-2021 ambulatory WEI MARIE [facility] Start: 12-01-2021 End: 12-01-2021 Medication Wei Marie PA-C Work Phone: [employer] Start: 11-05-2021 End: 11-05-2021 Patient encounter procedure Wei Marie PA-C Work Phone: [employer] Start: 10-27-2021 End: 10-27-2021 Orders Wei Marie PA-C Work Phone: [employer] Start: 10-20-2021 End: 10-20-2021 Patient encounter procedure Wei Marie PA-C Work Phone: [employer] Start: 10-17-2021 End: 10-17-2021 ambulatory WEI MARIE [facility] Start: 10-15-2021 End: 10-15-2021 Orders Wei Marie PA-C Work Phone: [employer] Start: 10-14-2021 End: 10-14-2021 ambulatory WEI MARIE [facility] Start: 10-08-2021 End: 10-08-2021 Office outpatient visit 15 minutes Wei Marie PA-C Work Phone: [employer] Start: 08-28-2021 End: 08-28-2021 Medication Wei Marie PA-C Work Phone: [employer] Start: 07-15-2021 End: 07-15-2021 Nursing evaluation of patient and report Wei Marie PA-C Work Phone: [employer] Start: 07-03-2021 End: 07-03-2021 Medication Wei Marie PA-C Work Phone: [employer] Start: 05-06-2021 End: 05-06-2021 Office outpatient visit 25 minutes Wei Marie PA-C Work Phone: [employer] Start: 04-29-2021 End: 04-29-2021 Orders Wei Marie PA-C Work Phone: [employer] Start: 03-17-2021 End: 03-17-2021 Orders Wei Marie PA-C Work Phone: [employer] Start: 11-05-2020 End: 11-06-2020 Office outpatient visit 15 minutes Wei Marie PA-C Work Phone: [employer] Start: 10-29-2020 End: 10-29-2020 Orders Wei Marie PA-C Work Phone: [employer] Start: 07-08-2020 End: 07-08-2020 Nursing evaluation of patient and report Wei Marie PA-C Work Phone: [employer] Start: 04-30-2020 End: 04-30-2020 Office outpatient visit 25 minutes Wei Marie PA-C Work Phone: [employer] Start: 12-11-2019 End: 12-15-2019 Medication Wei Marie PA-C Work Phone: [employer]. Start: 10-31-2019 End: 11-01-2019 Office outpatient visit 15 minutes Wei Marie PA-C Work Phone: [employer]. Start: 10-31-2019 End: 11-01-2019 Patient encounter procedure Wei Marie PA-C Work Phone: [employer]. Start: 10-23-2019 End: 10-31-2019 Orders Wei Marie PA-C Work Phone: [employer] Start: 10-05-2019 End: 10-05-2019 Orders Wei Marie PA-C Work Phone: [employer]. Start: 09-28-2019 End: 09-29-2019 Office outpatient visit 15 minutes Wei Marie PA-C Work Phone: [employer] Start: 07-05-2019 End: 07-05-2019 Nursing evaluation of patient and report Wei Marie PA-C Work Phone: [employer] Start: 06-02-2019 End: 06-02-2019 Orders Wei Marie PA-C Work Phone: [employer]. Start: 05-04-2019 End: 05-04-2019 Office outpatient visit 15 minutes Wei Marie PA-C Work Phone: [employer] Start: 04-18-2019 End: 04-18-2019 Office outpatient visit 25 minutes Wei Marie PA-C Work Phone: [employer] Start: 01-31-2019 End: 01-31-2019 Office outpatient visit 25 minutes Wei Marie PA-C Work Phone: [employer] Start: 12-03-2018 End: 12-03-2018 Orders Wei Marie PA-C Work Phone: [employer]. Start: 11-28-2018 End: 11-28-2018 Historical Summary Wei Marie PA-C Work Phone: [employer]. Start: 10-18-2018 End: 10-18-2018 Office outpatient visit 25 minutes Wei Marie PA-C Work Phone: [facility]. Start: 10-13-2018 End: 10-13-2018 Orders Wei Marie PA-C Work Phone: [employer] Start: 07-15-2018 End: 07-15-2018 Patient encounter status Wei Marie PA-C Work Phone: [facility].; [facility]. Start: 07-15-2018 End: 07-15-2018 Periodic preventive med est patient 65yrs& older Wei Marie PA-C Work Phone: [facility]. Start: 07-07-2018 End: 07-07-2018 Orders Wei Marie PA-C Work Phone: [employer]. Start: 06-23-2018 End: 06-23-2018 Orders Wei Marie PA-C Work Phone: [employer] Start: 05-25-2017 End: 05-25-2017 Patient encounter procedure Mary Leal LPN [facility].; [facility]. Start: 05-25-2017 End: 05-25-2017 Periodic preventive med est patient 65yrs& older Wei Marie PA-C Work Phone: [facility]. Start: 05-18-2017 End: 05-18-2017 Orders Wei Marie PA-C Work Phone: [employer] Start: 05-17-2017 End: 05-17-2017 Orders Wei Marie PA-C Work Phone: [employer] Start: 01-29-2017 End: 01-29-2017 Office outpatient visit 15 minutes Wei Marie PA-C Work Phone: [employer] Start: 01-07-2017 End: 01-07-2017 Office outpatient visit 15 minutes Wei Marie PA-C Work Phone: [employer] Start: 10-20-2016 End: 10-20-2016 Patient encounter procedure Wei Marie PA-C Work Phone: [employer] Start: 01-27-2016 End: 01-27-2016 Patient encounter procedure Wei Marie PA-C Work Phone: [employer]; [facility]. Start: 01-27-2016 End: 01-27-2016 Periodic preventive med est patient 40-64yrs Wei Marie PA-C Work Phone: [employer] Start: 01-20-2016 End: 01-20-2016 Orders Wei Marie PA-C Work Phone: [employer] Start: 01-06-2016 End: 01-07-2016 Orders Wei Marie PA-C Work Phone: [employer] Start: 11-29-2015 End: 11-29-2015 Medication Wei Marie PA-C Work Phone: [employer] Start: 12-25-2014 End: 12-25-2014 Office outpatient visit 10 minutes Wei Marie PA-C Work Phone: [employer] Start: 11-16-2014 End: 11-18-2014 Manual pelvic examination Wei Marie PA-C Work Phone: [employer]; [facility] Start: 11-16-2014 End: 11-18-2014 Periodic preventive med est patient 40-64yrs Wei Marie PA-C Work Phone: [employer] Start: 10-25-2014 End: 10-25-2014 Orders Wei Marie PA-C Work Phone: [facility]. Start: 10-18-2014 End: 10-18-2014 Orders Wei Marie PA-C Work Phone: [employer]. Start: 05-07-2014 End: 05-07-2014 Patient encounter procedure Wei Marie PA-C Work Phone: [employer]. Start: 11-13-2013 End: 11-13-2013 Patient encounter procedure Wei Marie PA-C Work Phone: [employer]. Start: 11-13-2013 End: 11-13-2013 Routine general medical examination at a health care facility Wei Marie PA-C Work Phone: [facility].; [facility]. Start: 11-10-2013 End: 11-10-2013 Historical Summary Wei Marie PA-C Work Phone: [employer]. Start: 11-06-2013 End: 11-06-2013 Orders Wei Marie PA-C Work Phone: [employer]. Start: 05-31-2013 End: 05-31-2013 Patient encounter procedure Wei Marie PA-C Work Phone: [employer]. Start: 05-02-2013 End: 05-02-2013 Patient encounter procedure Wei Marie PA-C Work Phone: [employer]. Start: 11-04-2012 End: 11-04-2012 Patient encounter procedure Wei Marie PA-C Work Phone: [employer]. Start: 11-04-2012 End: 11-04-2012 Routine general medical examination at a health care facility Wei Marie PA-C Work Phone: [facility].; [facility]. Start: 11-02-2012 End: 11-02-2012 Historical Summary Wei Marie PA-C Work Phone: [employer]. Start: 10-25-2012 End: 10-25-2012 Orders Wei Marie PA-C Work Phone: [facility]. Start: 09-29-2012 End: 09-30-2012 Orders Wei Marie PA-C Work Phone: [employer]. Start: 08-24-2012 End: 08-25-2012 Medication Wei Marie PA-C Work Phone: [employer]. Start: 04-29-2012 End: 04-29-2012 Patient encounter procedure Wei Marie PA-C Work Phone: [employer]. Start: 12-07-2011 End: 12-07-2011 Patient encounter procedure Wei Marie PA-C Work Phone: [employer]. Start: 10-30-2011 End: 10-30-2011 Patient encounter procedure Wei Marie PA-C Work Phone: [employer] Start: 10-30-2011 End: 10-30-2011 Routine gynecological examination Wei Marie PA-C Work Phone: [employer]; [facility]. Start: 10-15-2011 End: 10-15-2011 Orders Wei Marie PA-C Work Phone: [employer]. Start: 08-03-2011 End: 08-03-2011 Patient encounter procedure Wei Marie PA-C Work Phone: [employer] Start: 08-01-2011 End: 08-01-2011 Patient encounter procedure Wei Marie PA-C Work Phone: [employer] Start: 04-28-2011 End: 04-28-2011 Patient encounter procedure Wei Marie PA-C Work Phone: [employer] Start: 04-28-2011 End: 04-28-2011 Routine general medical examination at a [facility] facility Wei Marie PA-C Work Phone: [employer] [facility]. Start: 02-17-2011 End: 02-17-2011 Medication Wei Marie PA-C Work Phone: [employer]. Start: 12-09-2010 End: 12-09-2010 Medication Weiritu Marie PA-C Work Phone: [employer]. Start: 09-25-2010 End: 09-25-2010 Patient encounter procedure Weiritu Marie PA-C Work Phone: [employer]. Start: 05-24-2010 End: 05-24-2010 Historical Summary Wei Marie PA-C Work Phone: [employer] Manual pelvic examination Mary Leal LPN [employer] [facility].; [employer] Patient encounter procedure Mary Leal LPN [employer] [facility].; [employer]. Patient encounter procedure Le Ely LPN [employer]. Patient encounter procedure Emily Garza MD Work Phone: [place] [employer]. Patient encounter procedure Liana Osuna MA [place] [employer] [facility] [employer].; [employer] Patient encounter procedure Steve Johnson MD Work Phone: [employer]. Patient encounter procedure Margaret Hernandez MA [employer] [facility].; [employer]. Patient encounter status Hemanta Gogoi (scribe) [employer] [facility].; [employer] Routine general medi celestino examination at a [facility] facility Mary Leal LPN [employer], [place].; [employer] Routine gynecologica l examination Marydebra Leal LPN [facility], [place].; [employer] Procedures Date Procedure Procedure Detail Performing [...] Medical; EXTENDED RTN - 6 mo rtn [employer] Start: 05-Jun-2025 10:00-04:00 DON Marie Appointment Request [facility] Start: 11-28-2024 Dxa bone density study 1/> sites axial skel Bone Density (55629) Start: 28-Nov-2024 Intent [facility].; [employer] Start: 11-28-2024 Screening mammography bi 2-view breast inc cad Mammogram Bilateral Screening Digital w/CAD (58176) with 3D (tomosynthesis), bilateral (26680) Start: 28-Nov-2024 Intent [employer] Start: 11-28-2024 Patient encounter procedure Medical; PHYSICAL - AWV [facility]. Start: 28-Nov-2024 09:50-05:00 DON Marie Appointment Request [employer] [place]. Start: 11-21-2024 Comprehensive metabolic panel CMP w/ GFR* (62533) Start: 21-Nov-2024 Request [facility] [employer] Start: 11-21-2024 Hemoglobin glycosylated a1c HEMOGLOBIN A1C* (20080) Start: 21-Nov-2024 Request [facility] [employer] Start: 11-21-2024 Lipid panel LIPID PANEL (86622) Start: 21-Nov-2024 Request [facility] [employer] Start: 11-21-2024 Nursing evaluation of patient and report Medical; Nurse visit - [facility]. Start: 21-Nov-2024 10:00-05:00 NURSE, FLOAT Appointment Request [employer] [place]. Start: 05-31-2024 Well child visit Medical; EXTENDED RTN - HTN 6 mo check [employer] Start: 31-May-2024 10:00-04:00 DON Marie Appointment Request [facility]. Start: 05-23-2024 Patient encounter procedure Medical; EXTENDED RTN - 6 mo rtn [employer] Start: 23-May-2024 10:20-04:00 DON Marie Appointment Request [employer] [place]. Start: 01-27-2024 Procedure [facility] Start: 11-23-2023 Screening mammography bi 2-view breast inc cad Mammogram Bilateral Screening Digital w/CAD (11733) with 3D (tomosynthesis), bilateral (00549) Start: 23-Nov-2023 Intent [facility]. Start: 11-23-2023 Patient encounter procedure Medical; PHYSICAL - PHYSICAL [facility]. Start: 23-Nov-2023 10:10 DON Marie Appointment Request [facility] Start: 11-16-2023 Nursing evaluation of patient and report Medical; Nurse visit - [facility] -[facility]. Start: 16-Nov-2023 10:00 NURSE, FLOAT Appointment Request [facility] Start: 11-16-2023 Comprehensive metabolic panel [facility].; [facility]. Start: 11-16-2023 Hemoglobin glycosylated a1c [facility].; [facility] Start: 11-16-2023 Lipid panel [facility].; [facility]. Start: 05-17-2023 Procedure [facility] Start: 11-11-2022 Screening mammography bi 2-view breast inc cad Mammogram Bilateral Screening Digital w/CAD (80261) with 3D (tomosynthesis), bilateral (12748) Start: 11-Nov-2022 Intent [facility]; [facility]. Start: 07-14-2022 Procedure [facility] Work Phone: Patient referral [facility] Work Phone: Procedure [facility] Work Phone: Immunizations Immunization Date Immunization Notes Care Provider Jennifer wild 07-15-2021 influenza virus vacc ine, unspecified formulation Wei Marie PA-C Work Phone: [facility].; [employer] [facility]. 07-15-2021 influenza, injectabl e, quadrivalent, contains preservative Wei Marie PA-C Work Phone: [facility]; [facility] Comment on above: Site: Left DeltoidVI S Given: * Influenza - Inactivated (05/11/19) 07-08-2020 influenza, injectabl e, quadrivalent, contains preservative Wei Marie PA-C Work Phone: [employer]; [employer] Comment on above: Site: Left DeltoidVI S Given: * Influenza - Inactivated (05/03/15) 07-08-2020 influenza virus vacc ine, unspecified formulation Wei Marie PA-C Work Phone: [employer]; [employer] 10-31-2019 pneumococcal polysaccharide vaccine, 23 valent Wei Marie PA-C Work Phone: [employer]; [employer] Comment on above: Site: Left ArmVIS Gi jairo: * Pneumococcal Polysaccharide (PPSV23) (01/18/15) 07-05-2019 influenza virus vacc ine, unspecified formulation Wei Marie PA-C Work Phone: [employer]; [employer] 07-05-2019 influenza, injectabl e, quadrivalent, contains preservative Wei Marie PA-C Work Phone: [employer]; [facility]. Comment on above: Site: Left DeltoidVI S Given: * Influenza - Inactivated (05/03/15) 07-15-2018 pneumococcal conjuga te vaccine, 13 valent Wei Marie PA-C Work Phone: [employer]; [employer] Comment on above: Site: Left DeltoidVI S Given: * Pneumococcal Conjugate (PCV13) (08/01/15) 07-15-2018 influenza, injectabl e, quadrivalent, contains preservative Wei Marie PA-C Work Phone: [employer]; [facility] Comment on above: Site: Right DeltoidV IS Given: * Influenza - Inactivated (05/03/15) 10-20-2016 zoster vaccine, live Wei Marie PA-C Work Phone: [employer]; [facility]. Comment on above: Site: Deltoid Area ( Left)VIS Given: * Shingles (Herpes Zoster) (07/02/09) 07-28-2012 influenza virus vacc ine, unspecified formulation Wei Marie PA-C Work Phone: [facility].; [place] [employer] [facility] 07-28-2012 influenza, seasonal, injectable Wei Marie PA-C Work Phone: [facility]; [facility] 06-29-2011 influenza, seasonal, injectable Wei Marie PA-C Work Phone: [employer] [facility]; [place] [employer] [facility] 09-27-2009 tetanus toxoid, redu geoffrey diphtheria toxoid, and acellular pertussis vaccine, adsorbed Wei Marie PA-C Work Phone: [facility]; [facility]. Comment on above: ER? Payers Date Payer Category Payer Self-pay [id number] 2024 Medicare [id number] 2024 Unknown [id number] 1950 Unknown [id number] 2.16.84 [id number] 1950 Unknown [id number] 2.16.84 [id number] 1950 Unknown [id number] 2.16.84 [id number] Unknown Unknown [id number] 2.16.8 [id number] Unknown [id number] 2.16.8 [id number] Unknown [id number] 2.16.8 [id number] Unknown [id number] 2.16.8 [id number] Unknown [id number] 2.16.8 [id number] Unknown [id number] 2.16.8 [id number] Unknown [id number] 2.16.8 [id number] Social History Date Type Detail Facility Start: 01-13-2021 End: 01-13-2021 Tobacco smoking status PAIS Unknown if ever smoked [facility] Start: 1950 Sex Assigned At Female [facility] Alcohol Use: Alcohol Use: ; Occasional alcohol use. [employer]; [facility] Caffeine Use Caffeine Use [employer]; [facility] Current Work/Study Status: Current Work/Study Status: ; Retired. [employer]; [facility] Tobacco Use: Tobacco Use: ; S mokes < 1 pack of cigarettes per day. Current every day smoker. [facility] Occasional alcohol use [facility] [employer]; [facility]. Work Phone: Smokes tobacco daily [employer]; [employer] Work Phone: Smokes < 1 pack of cigarettes per day [facility] [employer] Work Phone: Retired [employer]; [employer] Work Phone: Start: 01-13-2021 [facility] Start: 01-11-2025 Sex Female (finding) [facility] Progress note 02-08-2025 Note Date & Type Note Facility 02-08-2025 Progress note [facility] Progress note 02-08-2025 Note Date & Type Note Facility 02-08-2025 Progress note Note Date/Time February 08, 2025 2:57pm [facility] [address] [place] [address] OFFICE VISIT Date of Service: 02/08/25 MR#: [id number] Acct: [id number] Name: ESTELLA BURNHAM Rep #: [id number] : 1950 Provider: Dr. Dex Bartlett MD Age/Sex: 74/F Location: [facility] Status: Signed Intake Vital Signs 12/29/24 10:20 [...] by me, Dr. Edi Bartlett MD 02/08/25 0300. Part of today?s visit was documented by [...] fallen in the past year?: No 02/08/25 5521 <Electronically signed by Edi Bartlett MD> Date _ Edi Bartlett MD Cosigner Signature: Date (if applicable) CC: LISA Robles ~ [facility] [employer] Work Phone: Evaluation note 12-29-2024 Note Date & Type Note Facility 12-29-2024 Evaluation note Diagnosis Onset Date Resolution Degenerative disc disease, lumbar acute December 29, 2024 10:16am Lumbar stenosis without neurogenic claudication acute December 10:16am Spondylolisthesis at L4-L5 level acute December 29, 2024 10:16am [facility] Work Phone: Evaluation note 12-29-2024 Note Date [...] lumbar region acute February 08, 2025 1:52pm [facility] Work Phone: Evaluation note Note Date & Type Note Facility Evaluation note No assessment information availa ble [facility] Work Phone: Reason for referral (narrative) Note Date & Type Note Facility Reason for referral (narrative) No reason for referral information available [facility] Work Phone: Summary Purpose Family History No [...] section and content) DATE CREATED AUTHOR 08/09/2019 [facility] ([place]) DATE CREATED AUTHOR AUTHOR'S ORGANIZ ATION 12/19/2021 [facility] DATE CREATED AUTHOR AUTHOR'S ORGANIZ ATION 06/08/2025 [facility] DATE CREATED AUTHOR AUTHOR'S ORGANIZ ATION 06/14/2025 [facility] Goals (unrecognized section and content) Goals may [...] BE BASED ON THE PRIMARY CLINICAL RECORDS. [facility] [employer] [facility]. provides no warranty or guarantee of the accuracy or completeness of information in this document.
[2025-06-15] MEDS: 0.9% Normal Saline (1000mL) 1,000 ML 75 ML IV (17:50)
--- NOTE | 2025-06-15 20:13 | HP.PCM.HOS_ITS ---
HPI - General General Date of Admission: 06/15/25 Date of Service: 06/15/25 Chief Complaint: Status post spinal stimulator implantation HPI Narrative ETSELLA BURNHAM, is a 75 F who was seen in the surgical recovery area of [facility] at the request of from pain management, he requested that the patient be admitted to the hospitalist service after the patient underwent implantation of a spinal stimulator. At the time of my examination in recovery, patient was having severe back and leg pain, Dr. Pollard ordered a CT of the thoracic and lumbar spine which showed no evidence of hematoma. Patient was further medicated by myself for pain and was admitted to [place] [address] for further care. I was told by that if the patient was medically stable tomorrow, she could be discharged home on 1 week of Keflex 500 mg 4 times a day. She will need to follow-up in the office with pain management. [facility] Medical History Wears glasses Wears partial dentures Easy bruising Smoker HTN (hypertension) Home Medications ?Medication ?Instructions ?Recorded ?Last Taken ?Type lisinopril 20 1 tab PO DAILY 01/13/2105/28 History mg-hydrochlorothiazide 25 mg tablet tramadol 50 mg tablet 50 mg PO BID 01/13/21 History buprenorphine 5 mcg/hour weekly 1 patch topical TH 01/1906/07/25 History transdermal patch gabapentin 300 mg capsule 300 mg PO TID 12/29/2406/14 History trazodone 100 mg tablet 100 mg PO QHS 12/29/2406/14 History meloxicam 7.5 mg tablet 7.5 mg PO DAILY ANTIINFLAMAT ORY 06/11/25 06/14/25 History Allergy/AdvReac Type Severity Reaction Status Date / Time No Known Allergies Allergy Verified 06/15/25 07:31 Family History Father Hypertension Mother Arthritis Surgical History History of colonoscopy History of total left knee replacement (TKR) H/O total knee replacement Social History household members: spouse housing: house Smoking Status: Heavy Smoker (>10/day) Tobacco: How many years used: 25 alcohol intake: never what type of physical activity do you participate in: none do you feel safe at home: Yes ROS Constitutional Constitutional: Denies anorexia, change in weight, chills, fatigue, fever(s), n ight sweats or weakness Eyes Eyes: Denies blurry vision, change in vision, discharge from eye(s) or eye pain Cardiovascular Cardiovascular: Denies chest pain, claudication, edema or palpitations Respiratory/Chest Respiratory/Chest: Denies cough, hemoptysis, shortness of breath at rest or shortness of breath with exertion Gastrointestinal Gastrointestinal: Denies abdominal pain, constipation, diarrhea, hematemesis, hematochezia, melena, nausea or vomiting Genitourinary Genitourinary: Denies dysuria, hematuria, urinary frequency, urinary hesitancy, urinary incontinence or urinary urgency Musculoskeletal Musculoskeletal: Reports back pain and other Details: Patient complains of right leg pain ; Denies joint pain, joint stiffness, joint swelling, myalgias or neck pain Neurologic Neurologic: Denies abnormal gait, abnormal speech, dizziness, focal weakness, headache(s), loss of vision, numbness, other visual disturbances, paresthesias, syncope or tingling Psychiatric Psychiatric: Denies anxiety, cognitive impairment, depression, irritability, mood swings or suicidal ideation Endocrine Endocrinology: Denies change in body appearance, cold intolerance, excessive sweating, heat intolerance, polydipsia or polyuria Hematologic/Lymphatic Hematologic/Lymphatic: Denies none, anemia, easy bleeding, easy bruising or lymphadenopathy Allergic/Immunologic Allergic/Immunologic: Denies rhinitis, urticaria, eczemia or asthma Vital Signs Vital Signs Vital Signs: 06/15/25 07:33 06/15/25 07:33 06/15/25 08:36 Temperature 98.6 F Temperature Source Temporal Pulse Rate 84 93 Respiratory Rate 18 16 Respiratory Pattern Normal Normal Blood Pressure 163/95 H Blood Pressure Mean 117 Blood Pressure Source Monitor Blood Pressure Position Sitting Blood Pressure Location Right Arm Baseline BP Pulse Ox 97 Oxygen Delivery Method Room Air Oxygen Flow Rate (L/min) 06/15/25 11:40 06/15/25 11:45 06/15/25 11:46 Temperature 97.6 F L 97.5 F L Temperature Source Temporal Pulse Rate 117 H 115 H 120 H Respiratory Rate 18 20 H 16 Respiratory Pattern Normal Blood Pressure 157/102 H 170/123 H 157/102 H Blood Pressure Mean 120 138 Blood Pressure Source Monitor Monitor Blood Pressure Position Semi-Fowlers Semi-Fowlers Blood Pressure Location Right Arm Right Arm Baseline BP 163/95 163/95 Pulse Ox 94 93 94 Oxygen Delivery Method Room Air Room Air Room Air Oxygen Flow Rate (L/min) 06/15/25 11:50 06/15/25 11:55 06/15/25 12:00 Temperature Temperature Source Pulse Rate 115 H 111 H 105 H Respiratory Rate 20 H 20 H 20 H Respiratory Pattern Blood Pressure 165/84 H 140/93 H 130/74 H Blood Pressure Mean 111 108 92 Blood Pressure Source Monitor Monitor Monitor Blood Pressure Position Semi-Fowlers Semi-Fowlers Semi-Fowlers Blood Pressure Location Right Arm Right Arm Right Arm Baseline BP 163/95 163/95 163/95 Pulse Ox 95 95 95 Oxygen Delivery Method Room Air Room Air Room Air Oxygen Flow Rate (L/min) 06/15/25 12:15 06/15/25 12:30 06/15/25 12:45 Temperature Temperature Source Pulse Rate 100 94 95 Respiratory Rate 20 H 18 18 Respiratory Pattern Blood Pressure 139/94 H 173/87 H 157/82 H Blood Pressure Mean 109 115 107 Blood Pressure Source Monitor Monitor Monitor Blood Pressure Position Semi-Fowlers Semi-Fowlers Semi-Fowlers Blood Pressure Location Right Arm Right Arm Right Forearm Baseline BP 163/95 163/95 163/95 Pulse Ox 95 94 93 Oxygen Delivery Method Room Air Room Air Room Air Oxygen Flow Rate (L/min) 06/15/25 12:55 06/15/25 13:00 06/15/25 13:15 Temperature Temperature Source Pulse Rate 69 80 106 H Respiratory Rate 16 16 20 H Respiratory Pattern Blood Pressure 137/75 H 148/93 H 165/103 H Blood Pressure Mean 95 111 123 Blood Pressure Source Monitor Monitor Monitor Blood Pressure Position Semi-Fowlers Semi-Fowlers Semi-Fowlers Blood Pressure Location Right Forearm Right Forearm Right Forearm Baseline BP 163/95 163/95 163/95 Pulse Ox 82 96 99 Oxygen Delivery Method Room Air Nasal Cannula Nasal Cannula Oxygen Flow Rate (L/min) 4 4 06/15/25 13:26 06/15/25 13:57 06/15/25 15:39 Temperature 97.9 F 98.4 F Temperature Source Temporal Temporal Pulse Rate 96 93 Respiratory Rate 18 16 Respiratory Pattern Normal Blood Pressure 156/99 H 128/86 H Blood Pressure Mean 118 100 Blood Pressure Source Monitor Monitor Blood Pressure Position Semi-Fowlers Left Lateral Blood Pressure Location Right Forearm Right Arm Baseline BP 163/95 163/95 Pulse Ox 98 92 Oxygen Delivery Method Room Air Room Air Oxygen Flow Rate (L/min) 06/15/25 15:54 06/15/25 17:48 06/15/25 18:07 Temperature 98.4 F 98.5 F Temperature Source Temporal Temporal Pulse Rate 93 122 H Respiratory Rate 16 18 Respiratory Pattern Blood Pressure 128/86 H 183/84 H Blood Pressure Mean 100 117 Blood Pressure Source Monitor Monitor Blood Pressure Position Left Lateral Prone Blood Pressure Location Right Arm Right Arm Baseline BP 163/95 Pulse Ox 92 95 Oxygen Delivery Method Room Air Nasal Cannula Oxygen Flow Rate (L/min) 2 2 Weight Weight: 80 kg Body Mass Index (BMI) 30.2 Physical Exam Const alert, oriented x3 and no apparent distress Constitutional Narrative: Patient appeared uncomfortable due to lower back and right leg pain General Appearance: cooperative, well kempt and well developed Orientation / Consciousness: awake, oriented to person, oriented to place and oriented to time HEENT normocephalic, head/scalp atraumatic, hearing grossly normal bilaterally and moist oral mucous membranes Eyes PERRL, EOMs intact bilaterally and conjunctivae normal Neck supple, no JVD, thyroid normal and no carotid bruits General: trachea midline Resp normal respiratory effort, no retractions, no use of accessory muscles and clear to auscultation bilaterally Auscultation: Negative for rales, rhonchi or wheezes Cardio regular rate, regular rhythm, S1 normal heart sound, S2 normal heart sound, no murmurs, no rub and no gallops GI normal to inspection, nondistended, normoactive bowel sounds, soft to palpation, non-tender and non-distended Extremity no clubbing, cyanosis or edema Skin no rashes or lesions noted General Skin Exam: no breakdown Neuro oriented x3, CN's II-XII intact bilaterally, no focal motor deficits and no sensory deficits noted Sensorium / Orientation: awake and alert Speech: speech normal Psych affect normal Results Imaging Radiology Impression Lumbar Spine CT 06/15/25 15:55 IMPRESSION: 1. No acute fracture. 2. Moderate spinal canal stenosis or neural foramina narrowing of L4-5 secondary to disc bulge and facet arthropathy. 3. Anterior spondylolisthesis of L4 on L5 by 9 mm. Reading Location: [facility] Thoracic Spine CT 06/15/25 15:55 IMPRESSION: 1. No acute fracture. 2. Neurostimulator as above. 3. Degenerative changes thoracic spine as described. Reading Location: [facility] Assessment & Plan Assessment/Plan (1) Degenerative disc disease, lumbar: QUALIFIERS: Disc-related pain type: discogenic back pain and lower extremity pain Qualified Code(s): M51.362 - Other intervertebral disc degeneration, lumbar region with discogenic back pain and lower extremity pain PLAN: Plan 1. Degenerative disc disease of the lumbar spine-status postimplantation of spinal stimulator for pain-patient will be admitted to [place] [address], she will receive IV Dilaudid for pain and oral oxycodone for pain management. Patient was placed on Keflex 500 mg 4 times daily per request of pain management. She will be reevaluated tomorrow. She will be seen by PT and OT #2 essential hypertension-patient is on lisinopril hydrochlorothiazide, blood pressure will be monitored #3 lumbar scoliosis-complicates care, management, recovery, and prognosis Total clinical time spent by myself addressing the patient's medical issues, reviewing all of her data, and collaborating with the patient's care team: 55 minutes Charges/Coding Visit Charges Inpatient E&M: 39285 Init Hosp L2
--- NOTE | 2025-06-15 21:12 | PCM.HOSP.N ---
Hospitalist Note Notified by nursing that pt continues to have uncontrolled 10/10 lumbar spine pain; she is not due for hydromorphone until 2149; oxycodone due at 2243. Orders placed for tizanidine 4mg PO q8h PRN muscle spasm for back pain.
--- NOTE | 2025-06-15 22:02 | PCM.HOSP.N ---
Hospitalist Note Pt assessed, found writhing and rocking in bed, crying I can't do this anymore. It hurts, nothing is helping. I can't move. Can't you just give me what they gave me in surgery to let me sleep? Educated patient on importance of relaxing muscles in order to alleviate some of her discomfort. Per RN she did agree to take the tizanidine but complained that it wouldn't do anything. She is moving self and sitting up, drawing right leg up into her abdomen. She states her home pain regimen including Tylenol ES, tramadol, meloxicam, Advil, aspirin, Oxy and then reports that none of it works. She is willing to try rotating ice and heat to surgical area. Advised RN to use fresh blankets out of the warmer instead of a KPad for heat and ice pack to area, no more than 20minutes at a time.
[2025-06-15] MEDS: 0.9% Saline Lock 10 ML Syringe IV (22:09)
[2025-06-16] VITALS (7 sets, daily range): BP systolic 136–149; BP diastolic 72–90; PULSE 97–113; RESP 16–17; TEMP 36.4–36.7; O2SAT 96–100
[2025-06-16] MEDS: 0.9% Saline Lock 10 ML Syringe IV ×3 (00:24→06:36)
[2025-06-16 05:31] LABS: Hematocrit 40.0 % (37-47); Hemoglobin 13.1 g/dL (12.0-15.0); Immature Granulocytes Count 0.070 X10^3/uL (0.0-0.0); Mean Corp Hgb Conc 32.8 g/dL (32-36); Mean Corpuscular Volume 94.6 fL (81-99); Mean Platelet Vol. 9.1 fl (6.2-12.0); NRBC Flagged by Analyzer 0 % (0-5); Platelet Count 166 K/mm3 (150-450); RBC Distribution Width CV 12.0 % (11.6-14.6); RBC Distribution Width SD 41.7 fl (35.1-43.9); Red Blood Count 4.23 M/mm3 (4.2-5.4); White Blood Count 11.6 K/mm3 (4.4-11.0)
--- NOTE | 2025-06-16 09:35 | CASEMGMT ---
LEXIS CM Face to Face with patient for initial transition planning/care coordination assessment. RN CM introduced self and role at [facility]. Patient lying in bed, alert and oriented, very painful. Patient willing to participate in assessment and is able to answer all questions appropriately. Care providers, pharmacy, and demographics verified. Strata: 1 PCP: Matthew Specialists: Atul pain Preferred Pharmacy:[facility] Insurance: [employer] Prescription Benefit: yes Living Will/HPOA: yes, Valeriy Hunt LNOK: Living Arrangements: Patient lives with in a 2 story home with bed and bath on first floor, 3 steps and railing to enter the home. Patient states she was independent at home. Transportation: self, DME/HHC: Patient has shower chair, raised toilet, cane, walker, rollator, grab bars at home. No previous HHC or SNF. Patient wishes to discharge home. RN CM discussed therapy to work with patient and provide recommendations for at discharge. RN CM discussed home with HHC or outpatient therapy vs SNF for additional rehab pending progress with therapy, patient voiced understanding. Therapy evals pending. Patient states she has no further needs or concerns at this time. CM to follow for discharge planning needs that may arise. Disposition Plan: TBD, anticipated home vs SNF pending course of treatment and progress with therapy. Louise MCMULLEN, RN, CM
[2025-06-16] MEDS: 0.9% Normal Saline (1000mL) 1,000 ML 75 ML IV (10:45)
[2025-06-16] MEDS: fentaNYL 100 MCG/2 ML Ampul 50 MCG IV (10:45)
[2025-06-16] MEDS: oxyCODONE HCl Cr 10 MG Tablet 20 MG PO ×2 (13:18→21:10)
--- NOTE | 2025-06-16 14:39 | PN_ITS ---
Subjective Subjective Patient seen and examined. She had insertion of a pain pump yesterday. Paitent complaining of severe pain and was writhing around in bed. SHe is unable to localize the exact site of the pain. She denied any urinary or fecal incontinence or numbness or tingling in her lower extremities. Review of systems is otherwise neativae. She is on 1L of oxygen. Objective Data Objective Data Vital Signs: Vital Signs Temp Pulse Resp BP Pulse Ox O2 Del Method O2 Flow Rate 97.5 F L 97 16 149/87 H 97 Nasal Cannula 1 06/16/25 08:19 06/16/25 08:19 06/16/25 08:19 06/16/25 08:19 06/16/25 08:19 06/16/25 11:00 06/16/25 11:00 Oxygen Flow Rate (L/min) 1 Oxygen Delivery Method Nasal Cannula Weight: 176 lb 5.917 oz Body Mass Index (BMI) 30.2 Intake & Output: Intake and Output for Last 24 Hours 06/14/25 06/15/25 06/16/25 23:59 23:59 23:59 Intake Total 151.25 / 451.25 1500 / 1500 Output Total 3 / 3 Balance 148.25 / 448.25 1500 / 1500 Lab / Micro Data 06/16/25 05:02 Labs: Laboratory Results - last 24 hr 06/16/25 05:02: WBC 11.6 H, RBC 4.23, Hgb 13.1, Hct 40.0, MCV 94.6, MCH 31.0, MCHC 32.8, RDW Std Deviation 41.7, RDW Coeff of Letitia 12.0, Plt Count 166, MPV 9.1, Immature Gran % (Auto) 0.600, Neut % (Auto) 90.5 H, Lymph % (Auto) 5.4 L, [place] % (Auto) 3.4, Eos % (Auto) 0.0, Baso % (Auto) 0.1, Absolute Neuts (auto) 10.5 H, Absolute Lymphs (auto) 0.63 L, Nucleated RBC % 0 Radiography Diagnostic Testing: Radiology Impression Lumbar Spine CT 06/15/25 15:55 IMPRESSION: 1. No acute fracture. 2. Moderate spinal canal stenosis or neural foramina narrowing of L4-5 secondary to disc bulge and facet arthropathy. 3. Anterior spondylolisthesis of L4 on L5 by 9 mm. Reading Location: [facility] Thoracic Spine CT 06/15/25 15:55 IMPRESSION: 1. No acute fracture. 2. Neurostimulator as above. 3. Degenerative changes thoracic spine as described. Reading Location: [facility] Physical Exam Const alert Constitutional Narrative: in severe distress due to pain, writhing around in bed. HEENT normocephalic, head/scalp atraumatic and moist oral mucous membranes Eyes EOMs intact bilaterally Neck supple and no JVD Lymph Lymphatic: no lymphedema noted Resp Resp Narrative: Mildly diminished breath sounds bibasilarly. No wheezes or crackles. On 1 L of oxygen by nasal cannula. Cardio regular rate, regular rhythm, S1 normal heart sound, S2 normal heart sound and no murmurs GI normal to inspection, nondistended, normoactive bowel sounds, soft to palpation, non-tender and non-distended Extremity normal capillary refill, no clubbing, cyanosis or edema and no calf tenderness Skin Skin Narrative: Intact dressing over lower back at site of pain pump insertion Neuro CN's II-XII intact bilaterally Neuro Narrative: Patient in severe distress due to pain. She is writhing around in bed and moaning. Power in lower extremities is 5/5. No numbness or tingling. Motor Exam: general weakness Psych Psych Narrative: in severe distress Mood & Affect: anxious Assessment & Plan Assessment/Plan (1) Lumbar stenosis without neurogenic claudication: (2) Degenerative disc disease, lumbar: QUALIFIERS: Disc-related pain type: discogenic back pain and lower extremity pain Qualified Code(s): M51.362 - Other intervertebral disc degeneration, lumbar region with discogenic back pain and lower extremity pain PLAN: Plan #Intractable pain after spinal pain pump insertion * Patient had spinal stimulator implantation done yesterday. Patient subsequently started having severe back and leg pain. CT of thoracic and lumbar spine did not show any evidence of hematoma. She received fentanyl yesterday. However she complains of very severe pain. She is unable to localize the pain. * Neurochecks were fairly normal though. * Pain meds adjusted. Pain management oxycodone 20 mg twice daily, IV morphine 62 mg IV every 6 hours as needed. * Will order neurochecks. Pain management. Low threshold to calling Dr. Webster to see patient if needed. I spoke to Dr. Henry today and he said he did not think that patient needed to be transferred. * PT OT on board. For precautions. * She is on buprenorphine patch at home but has not been using it because she says it does not work. * #Hypertension: On lisinopril and hydrochlorothiazide. #History of lumbar scoliosis status post degenerative disc disease: S/p implantation of spinal stimulator for pain: As above DVT prophylaxis: SCDs. No anticoagulation due to recent procedure Charges/Coding Visit Charges Inpatient E&M: 47103 Subs Hosp L2
[2025-06-17 00:18] VITALS: BP 135/78; PULSE 97; RESP 16; TEMP 36.9; O2SAT 96
[2025-06-17 04:51] LABS: Hematocrit 40.0 % (37-47); Hemoglobin 13.3 g/dL (12.0-15.0); Immature Granulocytes Count 0.080 X10^3/uL (0.0-0.0); Mean Corp Hgb Conc 33.3 g/dL (32-36); Mean Corpuscular Volume 94.8 fL (81-99); Mean Platelet Vol. 9.2 fl (6.2-12.0); NRBC Flagged by Analyzer 0 % (0-5); Platelet Count 196 K/mm3 (150-450); RBC Distribution Width CV 12.3 % (11.6-14.6); RBC Distribution Width SD 42.4 fl (35.1-43.9); Red Blood Count 4.22 M/mm3 (4.2-5.4); White Blood Count 13.7 K/mm3 (4.4-11.0)
[2025-06-17 05:44] LABS: Anion Gap 10 (5-15); BUN 25 mg/dL (4-19); BUN/Creat Ratio 32.9 RATIO (10-20); Calcium,Total 10.1 mg/dL (7.6-11.0); Carbon Dioxide 25.3 mmol/L (21.0-32.0); Chloride 99 mmol/L (98-108); Estimated Creatinine Clearance 64.09 ml/min (50-250); Glucose 143 mg/dL (70-99); Potassium 5.3 mmol/L (3.3-5.1)
[2025-06-17 07:56] VITALS: O2SAT 95
[2025-06-17 08:38] VITALS: BP 122/75; PULSE 78; RESP 19; TEMP 36.3; O2SAT 100
[2025-06-17] MEDS: Polyethylene Glycol 3350 17 GM PACKET PO (08:53)
[2025-06-17] MEDS: oxyCODONE HCl Cr 10 MG Tablet 20 MG PO ×2 (09:35→21:13)
--- NOTE | 2025-06-17 10:11 | CT_ITS ---
PROCEDURE: SPINE LUMBAR WITHOUT CONTRAST 06/17/2025 REASON FOR EXAM: SEVERE LOWER BACK PAIN AFTER SPINAL STIMULATOR TECHNIQUE: Procedure Code: CTSPL Modality: CT Procedure: SPINE LUMBAR WITHOUT CONTRAST Coronal and Sagittal reconstruction series were provided. One or more dose reduction techniques were used (e.g., Automated exposure control, adjustment of the mA and/or kV according to patient size, use of iterative reconstruction technique COMPARISON: MRI lumbar spine 01/08/2025. RADIATION DOSE SUMMARY: CTDlvol: 19.26 mGy DLP: 588.53 mGycm FINDINGS: Vertebrae: No acute bony abnormalities. Alignment: Anterolisthesis L4 on L5 by 10 mm. L1-2: Disc space narrowing, uncovertebral hypertrophy and facet joint arthropathy with moderate bilateral foramina stenosis and moderate canal stenosis. L2-3: Disc space narrowing. Facet joint arthropathy. Facet joint arthropathy. Severe right and mild left foramina stenosis. Moderate canal stenosis. L3-4: Disc bulge. Facet joint arthropathy. Severe canal stenosis. Moderate bilateral foramina stenosis. L4-5: Uncovered disc bulge. Facet joint arthropathy. Severe bilateral foramina stenosis and mass-effect upon the exiting nerves. Severe canal stenosis. L5-S1: Vacuum phenomena. Disc space narrowing. Facet joint arthropathy. Severe bilateral foramina stenosis. Severe canal stenosis. Sacrum: No acute bony abnormalities. A spinal stimulator with electrodes enter in between the posterior elements of T12-L1. CT/Spine Lumbar without Contrast IMPRESSION: Degenerate changes similar to MRI 01/08/2025. Severe canal stenosis at L3-L4 and L4-L5. Severe bilateral foramina stenosis at L4-L5 and L5-S1. Reading Location: [id number]
--- NOTE | 2025-06-17 12:53 | PN_ITS ---
Subjective Subjective Patient seen and examined with her nurse by her bedside. She still complaining of severe pain and now states is in her back. She still complain of pain in her legs. She is not able to move her lower extremities fully. Review of systems otherwise negative. She has remained hemodynamically stable. Objective Data Objective Data Vital Signs: Vital Signs Temp Pulse Resp BP Pulse Ox O2 Del Method O2 Flow Rate 97.3 F L 78 19 H 122/75 H 100 Room Air 2 06/17/25 08:38 06/17/25 08:38 06/17/25 08:38 06/17/25 08:38 06/17/25 08:38 06/17/25 08:38 06/17/25 07:56 Oxygen Flow Rate (L/min) 2 Oxygen Delivery Method Room Air Weight: 176 lb 5.917 oz Body Mass Index (BMI) 30.2 Intake & Output: Intake and Output for Last 24 Hours 06/15/25 06/16/25 06/17/25 23:59 23:59 23:59 Intake Total 151.25 / 451.25 1897.5 / 2097.5 250 / 250 Output Total 3 / 700 / 1300 1100 / 1100 Balance 148.25 / 448.25 1197.5 / 797.5 -850 / -850 Lab / Micro Data 06/17/25 04:25 06/17/25 04:25 Labs: Laboratory Results - last 24 hr 06/17/25 04:25: WBC 13.7 H, RBC 4.22, Hgb 13.3, Hct 40.0, MCV 94.8, MCH 31.5, MCHC 33.3, RDW Std Deviation 42.4, RDW Coeff of Letitia 12.3, Plt Count 196, MPV 9.2, Immature Gran % (Auto) 0.600, Neut % (Auto) 89.3 H, Lymph % (Auto) 5.7 L, Marshall % (Auto) 4.3, Eos % (Auto) 0.0, Baso % (Auto) 0.1, Absolute Neuts (auto) 12.2 H, Absolute Lymphs (auto) 0.78 L, Nucleated RBC % 0, Sodium 134, Potassium 5.3 H, Chloride 99, Carbon Dioxide 25.3, Anion Gap 10, BUN 25 H, Creatinine 0.77, Estim Creat Clear Calc 64.09, Est GFR (MDRD) Non-Af 82, BUN/Creatinine Ratio 32.9 H, Glucose 143 H, Calcium 10.1 Radiography Diagnostic Testing: Radiology Impression Lumbar Spine CT 06/17/25 10:11 IMPRESSION: Degenerate changes similar to MRI 01/08/2025. Severe canal stenosis at L3-L4 and L4-L5. Severe bilateral foramina stenosis at L4-L5 and L5-S1. Reading Location: [facility] Physical Exam Const alert, oriented x3 and no apparent distress Constitutional Narrative: still uncomfortable due to severe pain. General Appearance: cooperative, well kempt and well developed Orientation / Consciousness: awake HEENT normocephalic, head/scalp atraumatic, hearing grossly normal bilaterally and moist oral mucous membranes Eyes EOMs intact bilaterally and conjunctivae normal Neck supple, no JVD, thyroid normal and no carotid bruits General: trachea midline Lymph Lymphatic: no lymphedema noted Resp normal respiratory effort, no retractions, no use of accessory muscles and clear to auscultation bilaterally Resp Narrative: Mildly diminished breath sounds bibasilarly. No wheezes or crackles. On 1 L of oxygen by nasal cannula. Auscultation: Negative for rales, rhonchi or wheezes Cardio regular rate, regular rhythm, S1 normal heart sound, S2 normal heart sound and no murmurs GI normal to inspection, nondistended, normoactive bowel sounds, soft to palpation, non-tender and non-distended Extremity normal capillary refill, no clubbing, cyanosis or edema and no calf tenderness Skin no rashes or lesions noted Skin Narrative: Intact dressing over lower back at site of pain pump insertion General Skin Exam: no breakdown Neuro oriented x3, CN's II-XII intact bilaterally, no focal motor deficits and no sensory deficits noted Neuro Narrative: Patient in [id number] distress due to pain. She is writhing around in bed and moaning. Power in lower extremities is 5/5. No numbness or tingling. Sensorium / Orientation: awake and alert Speech: speech normal Motor Exam: general weakness Psych cooperative Psych Narrative: in severe distress Mood & Affect: anxious Assessment & Plan Assessment/Plan (1) Lumbar stenosis without neurogenic claudication: (2) Degenerative disc disease, lumbar: QUALIFIERS: Disc-related pain type: discogenic back pain and lower extremity pain Qualified Code(s): M51.362 - Other intervertebral disc degeneration, lumbar region with discogenic back pain and lower extremity pain PLAN: Plan #Intractable pain after spinal pain pump insertion * Patient had spinal stimulator implantation done yesterday. Patient subsequently started having severe back and leg pain. CT of thoracic and lumbar spine did not show any evidence of hematoma. She received fentanyl yesterday. However she complains of very severe pain. She is unable to localize the pain. * Neurochecks were fairly normal though. * Pain meds adjusted. Pain management oxycodone 20 mg twice daily, IV morphine 62 mg IV every 6 hours as needed. * On neurochecks by nursing. * I got a CT lumbar spine again today which showed severe spinal canal stenosis at L3-4 and L4-5, as well as severe bilateral foraminal stenosis at L4-L5 and L5-S1. Has a spinal stimulator with electrodes in between the posterior elements of T12-L1. * PT OT on board. For precautions. * She is on buprenorphine patch at home but has not been using it because she says it does not work. * #Hypertension: On lisinopril and hydrochlorothiazide. #History of lumbar scoliosis status post degenerative disc disease: S/p implantation of spinal stimulator for pain: As above DVT prophylaxis: SCDs. No anticoagulation due to recent procedure Charges/Coding Visit Charges Inpatient E&M: 77722 Subs Hosp L2
[2025-06-17 14:52] VITALS: BP 135/71; PULSE 107; RESP 22; TEMP 36.3; O2SAT 95
[2025-06-17] MEDS: 0.9% Saline Lock 10 ML Syringe IV (18:40)
[2025-06-17 20:43] VITALS: BP 146/80; PULSE 90; RESP 20; TEMP 36.3; O2SAT 96
[2025-06-18] MEDS: 0.9% Saline Lock 10 ML Syringe IV ×3 (00:20→22:11)
[2025-06-18 02:59] VITALS: BP 129/76; PULSE 78; RESP 18; TEMP 36.8; O2SAT 96
[2025-06-18 06:18] LABS: Hematocrit 40.5 % (37-47); Hemoglobin 13.7 g/dL (12.0-15.0); Immature Granulocytes Count 0.110 X10^3/uL (0.0-0.0); Mean Corp Hgb Conc 33.8 g/dL (32-36); Mean Corpuscular Volume 92.9 fL (81-99); Mean Platelet Vol. 10.9 fl (6.2-12.0); NRBC Flagged by Analyzer 0 % (0-5); POSITIVE COUNT YES; RBC Distribution Width CV 12.2 % (11.6-14.6); RBC Distribution Width SD 41.8 fl (35.1-43.9); Red Blood Count 4.36 M/mm3 (4.2-5.4); White Blood Count 10.7 K/mm3 (4.4-11.0)
[2025-06-18 06:21] LABS: Differential Indicated SCAN CRITERIA MET
[2025-06-18 06:41] LABS: Anion Gap 13 (5-15); BUN 30 mg/dL (4-19); BUN/Creat Ratio 38.1 RATIO (10-20); Calcium,Total 10.0 mg/dL (7.6-11.0); Carbon Dioxide 19.7 mmol/L (21.0-32.0); Chloride 99 mmol/L (98-108); Estimated Creatinine Clearance 64.09 ml/min (50-250); Glucose 127 mg/dL (70-99); Potassium 5.5 mmol/L (3.3-5.1)
[2025-06-18 06:49] LABS: Differential Comment SCANNED; Red Cell Morphology NORM C+C NORMAL (NORM C&C)
--- NOTE | 2025-06-18 08:42 | NURSING ---
jane reardon updated on conversation with Dr. Pollard.
--- NOTE | 2025-06-18 08:49 | PN.HOSP_ITS ---
Reason for Visit Chief Complaint: Status post spinal stimulator implantation Subjective Subjective Still with pain and numbness in her lower extremities. Denies any bowel or bladder incontinence. Objective Data Objective Data Vital Signs: Vital Signs Temp Pulse Resp BP Pulse Ox O2 Del Method O2 Flow Rate 36.8 C 78 18 129/76 H 96 Nasal Cannula 2 06/18/25 02:59 06/18/25 02:59 06/18/25 02:59 06/18/25 02:59 06/18/25 02:59 06/18/25 02:59 06/18/25 02:59 Oxygen Flow Rate (L/min) 2 Oxygen Delivery Method Nasal Cannula Weight: 80 kg Body Mass Index (BMI) 30.2 Intake & Output: Intake and Output for Last 24 Hours 06/16/25 06/17/25 06/18/25 23:59 23:59 23:59 Intake Total 1897.5 / 2097.5 970 / 970 Output Total 700 / 1300 2000 / 1999 Balance 1197.5 / 797.5 -1030 / -1030 Lab / Micro Data 06/18/25 05:35 06/18/25 05:35 Labs: Laboratory Results - last 24 hr 06/18/25 05:35: WBC 10.7, RBC 4.36, Hgb 13.7, Hct 40.5, MCV 92.9, MCH 31.4, MCHC 33.8, RDW Std Deviation 41.8, RDW Coeff of Letitia 12.2, Plt Count , MPV 10.9, I mmature Gran % (Auto) 1.000 H, Neut % (Auto) 87.1 H, Lymph % (Auto) 7.4 L, [place] % (Auto) 4.1, Eos % (Auto) 0.4, Baso % (Auto) 0.0, Absolute Neuts (auto) 9.3 H, Absolute Lymphs (auto) 0.79 L, Nucleated RBC % 0, Differential Comment SCANNED, Platelet Estimate ADEQUATE, RBC Morphology NORM C+C, Sodium 131 L, Potassium 5.5 H, Chloride 99, Carbon Dioxide 19.7 L, Anion Gap 13, BUN 30 H, Creatinine 0.78, Estim Creat Clear Calc 64.09, Est GFR (MDRD) Non-Af 80, BUN/Creatinine Ratio 38.1 H, Glucose 127 H, Calcium 10.0 Radiography Diagnostic Testing: Radiology Impression Lumbar Spine CT 06/17/25 10:11 IMPRESSION: Degenerate changes similar to MRI 01/08/2025. Severe canal stenosis at L3-L4 and L4-L5. Severe bilateral foramina stenosis at L4-L5 and L5-S1. Reading Location: [facility] Physical Exam Const alert Constitutional Narrative: Up in chair. Anxious. Grabbing her legs and having to move her legs using her arms. Extremity normal to inspection Neuro Neuro Narrative: No hyperreflexia of lower extremities. No clonus lower extremities. 4 out of 5 strength in dorsiflexion of the great toe bilaterally and plantarflexion of the feet bilaterally. Sensorium / Orientation: awake and alert Psych Mood & Affect: anxious Assessment & Plan Assessment/Plan (1) Lumbar stenosis without neurogenic claudication: (2) Degenerative disc disease, lumbar: QUALIFIERS: Disc-related pain type: discogenic back pain and lower extremity pain Qualified Code(s): M51.362 - Other intervertebral disc degeneration, lumbar region with discogenic back pain and lower extremity pain PLAN: Plan Intractable pain after spinal pain pump insertion * Patient had spinal stimulator implantation done 06/15. Patient subsequently started having severe back and leg pain. CT of thoracic and lumbar spine did not show any evidence of hematoma. However she complains of very severe pain. She is unable to localize the pain. * CT T-spine 06/15: no acute fracture. neurostimulator. degen changes * CT L-spine 06/17: severe canal stenosis L3-4, L4-5. Severe bilateral formainal stenosis L4-5 L4-S1. * On IV dexamethasone, oxycodone 20 BID, gabapentin 600 TID. PRN IV morphine and oxycodone, tizanidine. Will change steroids to prednisone * Dr. Temple is order an MRI of the back. Chronic medical conditions: * Hypertension: On lisinopril and hydrochlorothiazide. * History of lumbar scoliosis status post degenerative disc disease: S/p implantation of spinal stimulator for pain: As above DVT prophylaxis: SCDs. Charges/Coding Visit Charges Inpatient E&M: 72588 Subs Hosp L2
[2025-06-18 09:06] VITALS: BP 137/70; PULSE 94; RESP 18; TEMP 36.6; O2SAT 97
[2025-06-18] MEDS: oxyCODONE HCl Cr 10 MG Tablet 20 MG PO ×2 (09:40→22:11)
[2025-06-18] MEDS: Polyethylene Glycol 3350 17 GM PACKET PO (09:40)
--- NOTE | 2025-06-18 09:50 | CASEMGMT ---
Addendum entered by Kavya Slade 06/18/25 11:42: Received confirmation that [facility] Rehab unit will accept pt once she is medically ready and without IV narcotics for 24 hours and pain controlled. Addendum entered by Kavya Slade 06/18/25 10:34: Pt will need to be off of IV narcotics for 24 hours before being able to dc to Rehab unit or TCU. Original Note: Made aware by charge nurse that Dr. Pollard is questioning if pt can have nerve conduction study to [facility]. Spoke with director, this cannot be done inpt nor if pt goes to [facility] Rehab unit or TCU. RN CM into pt room to discuss dc planning. Pt just finished working with therapy, spoke to therapy regarding session. Discussed with pt. Pt states she would like to get rehab at [facility]. Discussed Rehab unit as well as TCU and the differences. Therapist in room feels pt can tolerate the rehab unit. Pt states this is her first choice and TCU would be second choice. Pt denies need for a list of options unless either cannot take her. Pt states she does not want to go out of town. Discussed that pt cannot have the nerve conduction test while inpt or at either units. Pt agreeable with this. TC to Dr. Pollard, he is aware of study unable to be done only as outpt. He states he is ordering a MRI and if normal, pt may dc. He is aware of preferences and he states he will call . Updated hospitalist on plan as well. Referral made to [facility] Rehab unit admissions at this time. She is aware that pt is medically ready pending MRI results.
--- NOTE | 2025-06-18 12:33 | MRI_ITS ---
PROCEDURE: MRI SPINE THORACIC (ROUTINE); SPINE LUMBAR (ROUTINE) 06/18/2025 REASON FOR EXAM: BACK PAIN. NO CONTRAST TECHNIQUE: Procedure Code: MRISPT; MRISPL Modality: MR Procedure: SPINE THORACIC (ROUTINE); SPINE LUMBAR (ROUTINE) Multiplanar and multisequential MRI of the thoracic and lumbar spines without contrast. COMPARISON: T-spine CT 06/15/2025, L-spine CT 06/17/2025. FINDINGS: THORACIC: No acute fracture or subluxation. Alignment is anatomic. No abnormal marrow signal. Mild multilevel spondylotic changes with varying degrees of disc desiccation, multiple small endplate degenerative Schmorl's nodes, anterior endplate osteophytosis, and ligamentum flavum/facet hypertrophy. Implanted spinal cord stimulator device leads tracking along the dorsal aspect of the mid-lower thoracic spinal canal, with associated metallic susceptibility. Small left paracentral disc protrusions at T6-7 and T8-9, indenting the ventral thecal sac, without significant spinal canal narrowing. There is moderate spinal canal stenosis at T11-12 due to dorsal disc bulging and ligamentum flavum/facet hypertrophy, resulting in moderate spinal canal stenosis. Mild-moderate bilateral neural foraminal narrowing at T11-12 and T12-L1. Nonspecific prominence of the central spinal canal/trace syrinx within the mid to lower thoracic cord, extending from T6-T10. Additionally, there is cord signal abnormality/edema within the conus medullaris bilaterally at the levels of T11-T12, most likely sequelae of moderate spinal canal stenosis at this level. LUMBAR: No acute fracture. Prominent Modic type 1 and 2 degenerative endplate marrow signal changes at L2-3, L4-5 and L5-S1. Chronic grade 2 degenerative anterolisthesis of L4 on L5, by 10 mm. Alignment is otherwise anatomic. Moderate multilevel spondylotic changes with varying degrees of disc desiccation and narrowing, anterior endplate osteophytosis, multiple small degenerative Schmorl's nodes, and hypertrophic facet arthropathy. T12-L1: Dorsal annular disc bulge indenting the ventral thecal sac, with mild spinal canal narrowing. Mild left and moderate right neural foraminal narrowing. L1-2: Dorsal disc bulge and ligamentum flavum/facet hypertrophy results in mild spinal canal narrowing. Mild right and moderate left neural foraminal narrowing. L2-3: Dorsal disc bulge and ligamentum flavum/facet hypertrophy, as well as asymmetric prominence of the epidural fat results in mild-moderate spinal canal narrowing. Mild right and advanced left neural foraminal narrowing. L3-4: Dorsal disc bulge and ligamentum flavum/facet hypertrophy results in mild- moderate spinal canal narrowing. Mild-moderate bilateral neural foraminal narrowing. L4-5: Grade 2 anterolisthesis of L4, with partially uncovered dorsal disc bulge and ligamentum flavum/facet hypertrophy results in advanced spinal canal stenosis, and advanced bilateral foraminal stenosis. L5-S1: Dorsal disc bulge and ligamentum flavum/facet hypertrophy, as well as left paracentral extruded disc material/annular fissure results in mild-moderate spinal canal narrowing. Moderate-advanced bilateral neural foraminal narrowing. MRI/Spine Lumbar (Routine) IMPRESSION: 1. Multilevel spondylotic changes, as described in detail above. 2. Moderate spinal canal stenosis at T11-12, with likely associated new cord si gnal abnormality/edema versus myelomalacia within the conus medullaris at these levels. 3. 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 4. Chronic grade 2 anterolisthesis of L4 on L5 by 10 mm, with associated advanc ed spinal canal and bilateral neural foraminal stenosis at the L4-5 level. Reading Location: [facility]
[2025-06-18 15:56] VITALS: BP 103/79; PULSE 92; RESP 18; TEMP 36.1; O2SAT 97
[2025-06-18 20:52] VITALS: BP 131/73; PULSE 69; RESP 16; TEMP 36.7; O2SAT 94
[2025-06-19 03:20] VITALS: BP 144/83; PULSE 91; RESP 18; TEMP 36.4; O2SAT 94
--- NOTE | 2025-06-19 08:09 | PN.HOSP_ITS ---
Reason for Visit Chief Complaint: Status post spinal stimulator implantation Subjective Subjective Still with weakness in her lower extremities but improving. Objective Data Objective Data Vital Signs: Vital Signs Temp Pulse Resp BP Pulse Ox O2 Del Method O2 Flow Rate 36.4 C L 91 18 144/83 H 94 Room Air 2 06/19/25 03:20 06/19/25 03:20 06/19/25 03:20 06/19/25 03:20 06/19/25 03:20 06/19/25 03:20 06/18/25 09:06 Oxygen Flow Rate (L/min) 2 Oxygen Delivery Method Room Air Weight: 80 kg Body Mass Index (BMI) 30.2 Intake & Output: Intake and Output for Last 24 Hours 06/17/25 06/18/25 06/19/25 23:59 23:59 23:59 Intake Total 970 / 970 320 / 320 Output Total 1999 / 1999 200 / 200 Balance -1030 / -1030 -200 / 0 320 / 320 Lab / Micro Data 06/18/25 05:35 06/18/25 05:35 Radiography Diagnostic Testing: Radiology Impression Lumbar Spine X-Ray 06/15/25 09:47 IMPRESSION: Fluoroscopic services provided for spinal cord stimulator placement. Reading Location: [facility] Lumbar Spine MRI 06/18/25 12:33 IMPRESSION: 1. Multilevel spondylotic changes, as described in detail above. 2. Moderate spinal canal stenosis at T11-12, with likely associated new cord signal abnormality/edema versus myelomalacia within the conus medullaris at these levels. 3. 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 4. Chronic grade 2 anterolisthesis of L4 on L5 by 10 mm, with associated advanced spinal canal and bilateral neural foraminal stenosis at the L4-5 level. Reading Location: [facility] Thoracic Spine MRI 06/18/25 12:33 IMPRESSION: 1. Multilevel spondylotic changes, as described in detail above. 2. Moderate spinal canal stenosis at T11-12, with likely associated new cord signal abnormality/edema versus myelomalacia within the conus medullaris at these levels. 3. 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 4. Chronic grade 2 anterolisthesis of L4 on L5 by 10 mm, with associated advanced spinal canal and bilateral neural foraminal stenosis at the L4-5 level. Reading Location: [facility] Physical Exam Const alert Constitutional Narrative: Anxious. Afebrile. Up in a chair. Extremity normal to inspection and full ROM Neuro Neuro Narrative: Improved strength in lower extremities overall. Patient able to flex at her hips more so on the right than on the left. Psych Mood & Affect: anxious Assessment & Plan Assessment/Plan (1) Lumbar stenosis without neurogenic claudication: (2) Degenerative disc disease, lumbar: QUALIFIERS: Disc-related pain type: discogenic back pain and lower extremity pain Qualified Code(s): M51.362 - Other intervertebral disc degeneration, lumbar region with discogenic back pain and lower extremity pain PLAN: Plan Intractable pain after spinal pain pump insertion * Improving * patient had spinal stimulator implantation done 06/15. Patient subsequently started having severe back and leg pain. CT of thoracic and lumbar spine did not show any evidence of hematoma. However she complains of very severe pain. She is unable to localize the pain. * CT T-spine 06/15: no acute fracture. neurostimulator. degen changes * CT L-spine 06/17: severe canal stenosis L3-4, L4-5. Severe bilateral formainal stenosis L4-5 L4-S1. * On IV dexamethasone, oxycodone 20 BID, gabapentin 600 TID. PRN IV morphine and oxycodone, tizanidine. Will change steroids to prednisone * MRI T and L spine: Moderate spinal canal stenosis at T11-12, with likely associated new cord signal abnormality/edema versus myelomalacia within the conus medullaris at these levels. * DW Dr. Pollard on 06/18 recommended conservative mgmt. Chronic medical conditions: * Hypertension: On lisinopril and hydrochlorothiazide. * History of lumbar scoliosis status post degenerative disc disease: S/p implantation of spinal stimulator for pain: As above DVT prophylaxis: SCDs. DC to rehab today.
[2025-06-19 08:52] VITALS: BP 116/82; PULSE 95; RESP 18; TEMP 36.2; O2SAT 96
[2025-06-19] MEDS: Polyethylene Glycol 3350 17 GM PACKET PO (09:01)
[2025-06-19] MEDS: oxyCODONE HCl Cr 10 MG Tablet 20 MG PO (09:39)
[2025-06-19 10:10] VITALS: O2SAT 95
--- NOTE | 2025-06-19 10:38 | DS.PCM_ITS ---
Providers Date of Admission: 06/15/25 Primary Care Physician: LISA Robles Reason For Visit: UNCONTROLLED LUMBAR SPINE PAIN, LUMBAR RADICULOPAT Diagnosis Discharge Diagnosis (1) Lumbar stenosis without neurogenic claudication: Status: Acute Code(s): M48.061 - Spinal stenosis, lumbar region without neurogenic claudication (2) Degenerative disc disease, lumbar: Status: Acute Code(s): M51.369 - Other intervertebral disc degeneration, lumbar region without mention of lumbar back pain or lower extremity pain Qualifiers: Disc-related pain type: discogenic back pain and lower extremity pain Q ualified Code(s): M51.362 - Other intervertebral disc degeneration, lumbar region with discogenic back pain and lower extremity pain Plan Intractable pain after spinal pain pump insertion * Improving * patient had spinal stimulator implantation done 06/15. Patient subsequently started having severe back and leg pain. CT of thoracic and lumbar spine did not show any evidence of hematoma. However she complains of very severe pain. She is unable to localize the pain. * CT T-spine 06/15: no acute fracture. neurostimulator. degen changes * CT L-spine 06/17: severe canal stenosis L3-4, L4-5. Severe bilateral formainal stenosis L4-5 L4-S1. * On IV dexamethasone, oxycodone 20 BID, gabapentin 600 TID. PRN IV morphine and oxycodone, tizanidine. Will change steroids to prednisone * MRI T and L spine: Moderate spinal canal stenosis at T11-12, with likely associated new cord signal abnormality/edema versus myelomalacia within the conus medullaris at these levels. * DW Dr. Pollard on 06/18 recommended conservative mgmt. Chronic medical conditions: * Hypertension: On lisinopril and hydrochlorothiazide. * History of lumbar scoliosis status post degenerative disc disease: S/p implantation of spinal stimulator for pain: As above DVT prophylaxis: SCDs. DC to rehab today. Medications at Discharge Home Medications lisinopril 20 mg-hydrochlorothiazide 25 mg tablet 1 tab PO DAILY 01/13/21 gabapentin 300 mg capsule 300 mg PO TID 12/29/24 trazodone 100 mg tablet 100 mg PO QHS 12/29/24 meloxicam 7.5 mg tablet 7.5 mg PO DAILY ANTIINFLAMATORY 06/11/25 cephalexin 500 mg capsule 500 mg PO Q6 #0 caps 06/19/25 oxycodone 10 mg tablet,crush resistant,extended release 12 hr (OxyContin) 20 mg (2 x 10 mg) PO BID #0 tabs 06/19/25 oxycodone 5 mg tablet 10 mg (2 x 5 mg) PO Q6H PRN PRN Pain Score 1-10 #0 tabs 06/19/25 prednisone 10 mg tablet 10 mg PO DAILY #26 tabs 06/19/25 tizanidine 2 mg tablet 4 mg (2 x 2 mg) PO Q8H PRN PRN Muscle Spasm #0 tabs 06/19/25 Hospital Course Operations - (spinal arinumROE. ) Summary of Care Provided Minutes Spent on Discharge: 32 Hospital Course: Patient had a spinal stimulator placed on the and then developed severe pain. Patient had thoracic and lumbar spine CAT scan that showed no evidence of any hematoma or any other complications but patient continued to have severe pain but also weakness in her lower extremities. She underwent MRI of her thoracic and lumbar spine that showed moderate spinal canal stenosis at T11-12 with a likely associated new cord signal abnormality/edema versus myelomalacia. Patient had been started on steroids before the MRI was completed with dexamethasone and has since been transition over to prednisone. Patient has had improvement of her weakness and pain. With her spinal cord edema, patient will follow-up with Dr. Webster as outpatient. Weight / BMI Weight Weight: 80 kg Body Mass Index (BMI) 30.2 ABG / Lab / Microbiology Data 06/18/25 05:35 06/18/25 05:35 Radiography Diagnostic Testing: Radiology Impression Lumbar Spine MRI 06/18/25 12:33 IMPRESSION: 1. Multilevel spondylotic changes, as described in detail above. 2. Moderate spinal canal stenosis at T11-12, with likely associated new cord signal abnormality/edema versus myelomalacia within the conus medullaris at these levels. 3. 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 4. Chronic grade 2 anterolisthesis of L4 on L5 by 10 mm, with associated advanced spinal canal and bilateral neural foraminal stenosis at the L4-5 level. Reading Location: [facility] Thoracic Spine MRI 06/18/25 12:33 IMPRESSION: 1. Multilevel spondylotic changes, as described in detail above. 2. Moderate spinal canal stenosis at T11-12, with likely associated new cord signal abnormality/edema versus myelomalacia within the conus medullaris at these levels. 3. 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 4. Chronic grade 2 anterolisthesis of L4 on L5 by 10 mm, with associated advanced spinal canal and bilateral neural foraminal stenosis at the L4-5 level. Reading Location: [facility] D/C Instructions DC O2, CPAP, BIPAP Needs Home O2 Discharge instructions: No Meaningful Use Info Meaningful Use Meaningful Use Diagnoses (Choose all that apply): None applicable Discharge Plan Admission Admit Date/Time: 06/15/25 16:44 Primary Reason for Your Visit: Back pain Attending Provider: Bakari Pollard Primary Care Provider: Alisha Castro Consulting Providers: Ruddy Rojas Discharge Orders/Prescriptions Prescriptions: New cephalexin 500 mg Capsule 500 mg PO Q6 Qty: 0 0RF oxycodone 5 mg Tablet 10 mg PO Q6H PRN PRN (Reason: Pain Score 1-10) Qty: 0 0RF oxycodone [OxyContin] 10 mg Tablet,Oral Only,Ext.Rel.12 Hr 20 mg PO BID Qty: 0 0RF tizanidine 2 mg Tablet 4 mg PO Q8H PRN PRN (Reason: Muscle Spasm) Qty: 0 0RF prednisone 10 mg tablet 10 mg PO DAILY Qty: 26 0RF Rx Instructions: 4 tabs for 2 days, then 3 tabs for 3 days, then 2 tabs for 3 days, 1 tab for 3 days. Continued lisinopril-hydrochlorothiazide 20-25 mg tablet 1 tab PO DAILY Patient Comments: TAKE 1 TABLET BY MOUTH ONCE DAILY trazodone 100 mg tablet 100 mg PO QHS gabapentin 300 mg capsule 300 mg PO TID meloxicam 7.5 mg tablet 7.5 mg PO DAILY Discontinued tramadol 50 mg tablet 50 mg PO BID Patient Comments: TAKE 1 TABLET BY MOUTH TWICE DAILY FOR 28 DAYS buprenorphine 5 mcg/hour patch weekly 1 patch topical TH Referrals / Follow Up: Bakari Pollard MD [Med Staff - Active Staff, Pain Management] - Within 1 Week Alisha Castro PA [Primary Care Provider, Family Practice] - Within 2 Weeks Disposition Disposition (needs filled in before D/C Order can be placed): Inpatient Rehab Unit/Facility Charges/Coding Visit Charges Inpatient E&M: 47061 Disch Hosp >30min
--- NOTE | 2025-06-19 10:50 | PHA.DC.MR.R ---
Pharmacy [place] Med Reconciliation Pharmacy Service has performed discharge medication reconciliation for this patient. The patient's discharge medication list was reviewed for discrepancies and discrepancies were resolved. Medications at Discharge Home Medications lisinopril 20 mg-hydrochlorothiazide 25 mg tablet 1 tab PO DAILY 01/13/21 gabapentin 300 mg capsule 300 mg PO TID 12/29/24 trazodone 100 mg tablet 100 mg PO QHS 12/29/24 meloxicam 7.5 mg tablet 7.5 mg PO DAILY ANTIINFLAMATORY 06/11/25 cephalexin 500 mg capsule 500 mg PO Q6 #0 caps 06/19/25 oxycodone 10 mg tablet,crush resistant,extended release 12 hr (OxyContin) 20 mg (2 x 10 mg) PO BID #0 tabs 06/19/25 oxycodone 5 mg tablet 10 mg (2 x 5 mg) PO Q6H PRN PRN Pain Score 1-10 #0 tabs 06/19/25 prednisone 10 mg tablet 10 mg PO DAILY #26 tabs 06/19/25 tizanidine 2 mg tablet 4 mg (2 x 2 mg) PO Q8H PRN PRN Muscle Spasm #0 tabs 06/19/25
--- NOTE | 2025-06-19 11:05 | CASEMGMT ---
Pt is medically ready for dc and [facility] Rehab unit is ready to accept pt. RN CM into pt room, pt is aware of this. Updated pt nurse that she may call report. Pt denies any questions or further needs at this time. DC Plan: [facility] Rehab unit.
--- NOTE | 2025-06-19 11:18 | NURSING ---
Report called to Barbara at . Pt will get transferred now.
== END 2025-06-19 12:05 | DRG 941 ==
LOC: SDC 17:01 → MS3 17:01
PROVIDERS: Student in an Organized Health Care Education/Training Program; Admitting Provider Internal Medicine; Referring Provider Anesthesiology Pain Medicine; Visit Provider Anesthesiology Pain Medicine
PROC: 00HV3MZ Insertion of Neurostimulator Lead into Spinal Cord, Percutaneous Approach (ICD-10-PCS; CPT 63685; principal; 2025-06-15 08:45)
DX: G89.18 Other acute postprocedural pain (principal); F17.200 Nicotine dependence, unspecified, uncomplicated; I10 Essential (primary) hypertension; M48.062 Spinal stenosis, lumbar region with neurogenic claudication; M51.26 Other intervertebral disc displacement, lumbar region; M51.16 Intervertebral disc disorders with radiculopathy, lumbar region; M43.16 Spondylolisthesis, lumbar region; M51.362 Other intervertebral disc degeneration, lumbar region with discogenic back pain and lower extremity pain; G89.4 Chronic pain syndrome; Z79.1 Long term (current) use of non-steroidal anti-inflammatories (NSAID); Z79.891 Long term (current) use of opiate analgesic; Z79.899 Other long term (current) drug therapy
CPT/HCPCS: 36415; 72100; 72128; 72131; 72146; 72148; 76000; 80048; 85025; 94640; 94668; 97163; 97166; 97530; 97535; 99252; C1778; A4216; G0463; J2405

== ENCOUNTER 2025-06-19 12:22 | Inpatient (IN) | payer MEDICARE, BC, SELFPAY ==
[2025-06-19 12:33] VITALS: BP 141/80; PULSE 78; RESP 16; TEMP 36.8; BMI 30.7
--- NOTE | 2025-06-19 13:15 | PCM.HP.STD ---
Documented by User: REANNA Zhou 06/19/25 14:17 HPI - General General Date of Admission: 06/19/25 Date of Service: 06/19/25 Chief Complaint: debility-rehab HPI Narrative ESTELLA BURNHAM, is a 75 F who presents to inpatient rehab after being admitted to [facility] on 06/15/2025 for pain management following following implantation of spinal stimulator by Dr. Pollard, related to her history of lumbar scolosis. The patient subsequently started having severe back and leg pain. CT of the thoracic and lumbar spine did not show any evidence of a hematoma however she did complain of severe pain 10/10. She did have a CT of the thoracic spine on 06/15 showing no acute fractures of the, neurostimulator in place with degenerative changes. On 06/17/2025: CT of the L-spine did show severe canal stenosis of L3-L4 and L4-L5 with severe bilateral foraminal stenosis at L4-L5 and L5-S1. MRI of the T and L-spine did show moderate spinal stenosis at T11-T12 with likely associated new cord signal abnormality/edema versus myelomalacia within the conus medullaris. Pt was then started on IV dexamethasone, oxycodone 20 twice daily, gabapentin 600 mg p.o. 3 times daily and she was utilizing IV morphine, oxycodone, and tenacity. She has since changed steroids to oral prednisone. Upon meeting with the patient at bedside, she is stating that her pain is 6/10. Nursing is currently in the process of medicating for pain. We did discuss the importance of staying on top of her pain and not letting it get out of control. I also taught her deep breathing exercises to assist with managing pain in addition to oral pain management. She was beginning to have increased anxiety related to the pain and stated that the deep breathing exercises did help. Patient does endorse having some numbness and tingling down bilateral lower extremities but she is able to discern touch during assessment. She does state that she has had difficulty walking related to uncontrolled pain which limits her movements. Patient also has history of hypertension in which she takes lisinopril/hydrochlorothiazide. DVT prophylaxis: Heparin 5000 units SQ every 8 hours [facility] Medical History (Updated 06/20/25 @ 16:[address] Colleen Back, DO) Lumbar stenosis with neurogenic claudication Wears glasses Wears partial dentures Easy bruising Smoker HTN (hypertension) Home Medications ?Medication ?Instructions ?Recorded ?Last Taken ?Type gabapentin 300 mg capsule 600 mg PO TID nerve pain 12/29/24 06/19/25 History trazodone 100 mg tablet 100 mg PO QHS sleep 12/29/24 06/14/25 History alendronate 70 mg tablet (Fosamax) 70 mg PO QWEEK osteoporosis 06/19/25 Unknown History oxycodone 5 mg tablet 10 mg (2 x 5 mg) PO Q6H PRN PRN 06/19/25 06/19/25 03:15 Rx Pain Score 1-10 #0 tabs prednisone 10 mg tablet 40 mg PO DAILY inflamation 06/19/25 Unknown History tizanidine 2 mg tablet 4 mg PO Q8H Muscle Spasm 06/19/25 Unknown History calcium carbonate 500 mg (2.5 x 200 mg calcium (500 06/20/25 Unknown Rx mg)) PO BIDCM #1 TAB cephalexin 500 mg capsule 500 mg PO Q6 ATB #10 caps 06/20/25 Unknown Rx cholecalciferol (vitamin D3) 25 25 mcg PO DAILYCM #1 TAB 06/20/25 Unknown Rx mcg (1,000 unit) tablet heparin (porcine) 5,000 unit/mL 5,000 unit subcut Q12 #1 mL 06/20/25 Unknown Rx injection solution hydralazine 10 mg tablet 10 mg PO Q6H PRN PRN sys>159 or 06/20/25 Unknown Rx BUTLER >84 #1 TAB oxycodone 10 mg tablet,crush 20 mg (2 x 10 mg) PO BID 1 day #4 06/20/25 Unknown Rx resistant,extended release 12 hr tabs (OxyContin) sennosides 8.6 mg-docusate sodium 2 tab PO BID #1 TAB 06/20/25 Unknown Rx 50 mg tablet (Stimulant Laxative Plus) sodium chloride 0.9 % (flush) (BD 10 - 40 ml IV UD PRN Saline Flush 06/20/25 Unknown Rx PosiFlush Normal Saline 0.9 % #5 mL injection syringe) Allergy/AdvReac Type Severity Reaction Status Date / Time No Known Allergies Allergy Verified 06/15/25 07:31 Family History Father Hypertension Mother Arthritis Surgical History (Updated 06/20/25 @ 15:[address] Colleen Back, DO) S/P insertion of spinal cord stimulator History of colonoscopy History of total left knee replacement (TKR) H/O total knee replacement Social History household members: spouse housing: house Smoking Status: Heavy Smoker (>10/day) Tobacco: How many years used: 25 alcohol intake: never what type of physical activity do you participate in: none do you feel safe at home: Yes ROS Constitutional Constitutional: Reports weakness Eyes Eyes: Reports systems reviewed and no addt'l complaints, except as documented and other Details: Wears corrective lenses ENT HEENT: Reports systems reviewed and no addt'l complaints, except as documented Cardiovascular Cardiovascular: Reports systems reviewed and no addt'l complaints, except as documented Respiratory/Chest Respiratory/Chest: Reports systems reviewed and no addt'l complaints, except as documented Gastrointestinal Gastrointestinal: Reports constipation Genitourinary Genitourinary: Reports systems reviewed and no addt'l complaints, except as documented Musculoskeletal Musculoskeletal: Reports muscle weakness, myalgias, numbness, radiating pain into limb and other Details: Back pain that radiates to bilateral legs Integumentary Integumentary: Reports systems reviewed and no addt'l complaints, except as documented and as per HPI Neurologic Neurologic: Reports tingling, weakness and other Details: Neuropathic pain. Psychiatric Psychiatric: Reports anxiety Endocrine Endocrinology: Reports systems reviewed and no addt'l complaints, except as documented Hematologic/Lymphatic Hematologic/Lymphatic: Reports systems reviewed and no addt'l complaints, except as documented Allergic/Immunologic Allergic/Immunologic: Reports systems reviewed and no addt'l complaints, except as documented Vital Signs Vital Signs Vital Signs: 06/19/25 12:33 Temperature 98.2 F Temperature Source Temporal Pulse Rate 78 Respiratory Rate 16 Blood Pressure 141/80 H Blood Pressure Mean 100 Blood Pressure Source Monitor Blood Pressure Position Sitting Blood Pressure Location Right Arm Oxygen Delivery Method Room Air Weight Weight: 179 lb 9.6 oz Body Mass Index (BMI) 30.7 Physical Exam Const alert and oriented x3 General Appearance: cooperative HEENT normocephalic Mouth: oral and palatal mucosa normal Eyes PERRL Neck full ROM Lymph Lymphatic: no lymphadenopathy noted Resp normal respiratory effort, no use of accessory muscles and clear to auscultation bilaterally Cardio regular rate and regular rhythm GI GI Narrative: no guarding with palpation. Constipation x 4 days slightly distended Auscultation: normoactive bowel sounds Back/Spine General Back: other Patient has been experiencing mid to low back pain which is currently 6/10. Medication be administered. Numbness and tingling down bilateral legs although she can feel light touch. Pain stimulator in place. Extremity no clubbing, cyanosis or edema Extremity Narrative: 1+ pedal edema bilaterally. Nonpitting in nature. Skin no rashes or lesions noted, no wounds and no jaundice Skin Narrative: Pain stimulator Neuro oriented x3 and moves all extremities Sensorium / Orientation: awake, alert, oriented to person, oriented to place and oriented to time Speech: speech normal Coordination: other (Patient is able to move bilateral lower extremities, pain makes more diffic) Psych affect normal Psych Narrative: appropriate, makes good eye contact, experiencing anxiety related to pain. Insight: insight good Judgement: judgement good Results Lab / Micro Data Attestation: I reviewed the patient's lab results. 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, lumbar region (4) Spondylolisthesis, lumbar region: (5) Degenerative disc disease, lumbar: QUALIFIERS: Disc-related pain type: discogenic back pain and lower extremity pain Qualified Code(s): M51.362 - Other intervertebral disc degeneration, lumbar region with discogenic back pain and lower extremity pain (6) Essential hypertension: (7) Constipation: QUALIFIERS: Constipation type: drug induced constipation Qualified Code(s): K59.03 - Drug induced constipation PLAN: Plan lisinopril 20 mg-hydrochlorothiazide 25 mg tablet 1 tab PO DAILY gabapentin 300 mg capsule 600mg PO TID trazodone 100 mg tablet 100 mg PO QHS cephalexin 500 mg capsule 500 mg PO Q6 oxycodone 10 mg tablet,crush resistant,extended release 12 hr (OxyContin) 20 mg PO BID oxycodone 5 mg tablet 10 mg (2 x 5 mg) PO Q6H PRN PRN Pain Score 1-10 prednisone 40 mg x 2 days mg tablet 10 mg PO DAILY Prednisone 30 mg x 3 days p.o. daily Prednisone 20 mg x 3 days p.o. daily Prednisone 10 mg x 3 days p.o. then discontinue tizanidine 2 mg tablet 4 mg PO Q8H PRN Muscle Spasm Fosamax 70 mg p.o. weekly Meloxicam 7.5 mg p.o. daily Senna 2 tablets p.o. twice daily MiraLAX 17 g p.o. daily as needed for constipation Teaching of relaxation techniques such as deep breathing CBC in the a.m. CMP in the a.m. Magnesium level in the a.m. Phosphorus level in the a.m. Vitamin D level in the a.m. Charges/Coding Visit Charges Inpatient E&M: 42053 Init Hosp L2 Documented by User: Dr. Colleen Back DO 06/20/25 17:55 HPI - General General Date of Admission: 06/19/25 HPI Narrative ESTELLA BURNHAM, is a 75 F who presents to inpatient rehab after being admitted to [facility] on 06/15/2025 for pain management following following implantation of spinal stimulator by Dr. Pollard, related to her history of lumbar scolosis. The patient subsequently started having severe back and leg pain. CT of the thoracic and lumbar spine did not show any evidence of a hematoma however she did complain of severe pain 07/06. She did have a CT of the thoracic spine on 06/15 showing no acute fractures of the, neurostimulator in place with degenerative changes. On 06/17/2025: CT of the L-spine did show severe canal stenosis of L3-L4 and L4-L5 with severe bilateral foraminal stenosis at L4-L5 and L5-S1. MRI of the T and L-spine did show moderate spinal stenosis at T11-T12 with likely associated new cord signal abnormality/edema versus myelomalacia within the conus medullaris. Pt was then started on IV dexamethasone, oxycodone 20 twice daily, gabapentin 600 mg p.o. 3 times daily and she was utilizing IV morphine, oxycodone, and tenacity. She has since changed steroids to oral prednisone. Upon meeting with the patient at bedside, she is stating that her pain is 6/10. Nursing is currently in the process of medicating for pain. We did discuss the importance of staying on top of her pain and not letting it get out of control. I also taught her deep breathing exercises to assist with managing pain in addition to oral pain management. She was beginning to have increased anxiety related to the pain and stated that the deep breathing exercises did help. Patient does endorse having some numbness and tingling down bilateral lower extremities but she is able to discern touch during assessment. She does state that she has had difficulty walking related to uncontrolled pain which limits her movements. Patient also has history of hypertension in which she takes lisinopril/hydrochlorothiazide. DVT prophylaxis: Heparin 5000 units SQ every 8 hours I reviewed the H&P and agree with findings. I saw the patient on the morning of 06/20 with the the [employer]. Please see my PN for details. Has had intractable pain and progressive increases in neurologic deficits since the procedure last Wednesday. The orthopedic spine surgeon is not available to see this patient because he is out of town and will not be back till next week. I feel that she needs to have an MRI of the thoracic and lumbar spines with contrast and I also feel she needs to be evaluated by neurology/neurosurgery for possible intervention. Will try and arrange transfer for today to either [facility] Or [facility]. Pain is adequately controlled today and she is not fidgety or restless in the bed. She is not shaking and complaining of severe pain. Taking some oxycodone 10 mg for breakthrough pain. [facility] Medical History (Updated 06/20/25 @ 16:[address] Colleen Back, DO) Lumbar stenosis with neurogenic claudication Wears glasses Wears partial dentures Easy bruising Smoker HTN (hypertension) Home Medications ?Medication ?Instructions ?Recorded ?Last Taken ?Type gabapentin 300 mg capsule 600 mg PO TID nerve pain 12/29/24 06/19/25 History trazodone 100 mg tablet 100 mg PO QHS sleep 12/29/24 06/14/25 History alendronate 70 mg tablet (Fosamax) 70 mg PO QWEEK osteoporosis 06/19/25 Unknown History oxycodone 5 mg tablet 10 mg (2 x 5 mg) PO Q6H PRN PRN 06/19/25 06/19/25 03:15 Rx Pain Score 1-10 #0 tabs prednisone 10 mg tablet 40 mg PO DAILY inflamation 06/19/25 Unknown History tizanidine 2 mg tablet 4 mg PO Q8H Muscle Spasm 06/19/25 Unknown History calcium carbonate 500 mg (2.5 x 200 mg calcium (500 06/20/25 Unknown Rx mg)) PO BIDCM #1 TAB cephalexin 500 mg capsule 500 mg PO Q6 ATB #10 caps 06/20/25 Unknown Rx cholecalciferol (vitamin D3) 25 25 mcg PO DAILYCM #1 TAB 06/20/25 Unknown Rx mcg (1,000 unit) tablet heparin (porcine) 5,000 unit/mL 5,000 unit subcut Q12 #1 mL 06/20/25 Unknown Rx injection solution hydralazine 10 mg tablet 10 mg PO Q6H PRN PRN sys>159 or 06/20/25 Unknown Rx BUTLER >84 #1 TAB oxycodone 10 mg tablet,crush 20 mg (2 x 10 mg) PO BID 1 day #4 06/20/25 Unknown Rx resistant,extended release 12 hr tabs (OxyContin) sennosides 8.6 mg-docusate sodium 2 tab PO BID #1 TAB 06/20/25 Unknown Rx 50 mg tablet (Stimulant Laxative Plus) sodium chloride 0.9 % (flush) (BD 10 - 40 ml IV UD PRN Saline Flush 06/20/25 Unknown Rx PosiFlush Normal Saline 0.9 % #5 mL injection syringe) Allergy/AdvReac Type Severity Reaction Status Date / Time No Known Allergies Allergy Verified 06/15/25 07:31 Family History Father Hypertension Mother Arthritis Surgical History (Updated 06/20/25 @ 15:[address] Colleen Back DO) S/P insertion of spinal cord stimulator History of colonoscopy History of total left knee replacement (TKR) H/O total knee replacement Social History household members: spouse housing: house Smoking Status: Heavy Smoker (>10/day) Tobacco: How many years used: 25 alcohol intake: never what type of physical activity do you participate in: none do you feel safe at home: Yes Results Lab / Micro Data 06/20/25 05:35 06/20/25 05:35 Assessment & Plan Assessment/Plan (1) Debility, unspecified: (2) Osteoporosis: QUALIFIERS: Osteoporosis type: age-related Presence of current pathological fracture: without current pathological fracture Qualified Code(s): M81.0 - Age-related osteoporosis without current pathological fracture 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, lumbar region (4) Spondylolisthesis, lumbar region: (5) Degenerative disc disease, lumbar: QUALIFIERS: Disc-related pain type: discogenic back pain and lower extremity pain Qualified Code(s): M51.362 - Other intervertebral disc degeneration, lumbar region with discogenic back pain and lower extremity pain (6) Essential hypertension: (7) Constipation: QUALIFIERS: Constipation type: drug induced constipation Qualified Code(s): K59.03 - Drug induced constipation
[2025-06-19] MEDS: 0.9% Saline Lock 10 ML Syringe IV (13:45)
[2025-06-19 17:25] VITALS: BP 99/64; PULSE 68; RESP 16; TEMP 35.6; O2SAT 95
[2025-06-19 20:35] VITALS: PULSE 68; RESP 16; O2SAT 95
[2025-06-19] MEDS: oxyCODONE HCl Cr 10 MG Tablet 20 MG PO (20:36)
[2025-06-19] MEDS: Senna/Docusate Sodium 1 Tablet 2 TABLET PO (20:36)
[2025-06-19] MEDS: Heparin Injection (Vial) 5,000 UNIT/ML VIAL 5000 UNIT SC (20:38)
--- NOTE | 2025-06-20 02:56 | NURSING ---
pt sleeping at intervals this hs d/t back pain. pt given polar care at the beginning of the shift with little effect. requesting more pain medication 3 hours after hs medications were given 0300 pt awake and k-pad given to try help with the pain along with oxyir 10mg given . encouraged pt to to listen to music to take her mind off of her pain. pt did switch the channel to a game show. staff giving much encouragement this evening with fair effect. pt reported that her stimulator had not been turned on yet
--- NOTE | 2025-06-20 03:20 | NURSING ---
staff to check on pt at this time, pt is resting quietly with eyes closed with even non-labored breathing
[2025-06-20] MEDS: 0.9% Saline Lock 10 ML Syringe IV ×3 (03:55→15:40)
[2025-06-20 06:31] LABS: Hematocrit 42.2 % (37-47); Hemoglobin 14.6 g/dL (12.0-15.0); Immature Granulocytes Count 0.160 X10^3/uL (0.0-0.0); Mean Corp Hgb Conc 34.6 g/dL (32-36); Mean Corpuscular Volume 91.7 fL (81-99); Mean Platelet Vol. 9.4 fl (6.2-12.0); NRBC Flagged by Analyzer 0 % (0-5); Platelet Count 243 K/mm3 (150-450); RBC Distribution Width CV 12.2 % (11.6-14.6); RBC Distribution Width SD 41.1 fl (35.1-43.9); Red Blood Count 4.60 M/mm3 (4.2-5.4); White Blood Count 12.0 K/mm3 (4.4-11.0)
[2025-06-20 07:12] LABS: Magnesium 2.7 mg/dL (1.5-2.2); Vitamin D,25 Hydroxy 27.7 ng/mL (30-100)
[2025-06-20 07:13] LABS: AST(SGOT) 32 U/L (<=31); Alanine Aminotransfer ALT/SGPT 74 U/L (<=34); Albumin, Serum 4.3 g/dL (3.4-4.8); Alkaline Phosphatase 57 U/L (35-104); Anion Gap 12 (5-15); BUN 29 mg/dL (4-19); BUN/Creat Ratio 38.6 RATIO (10-20); Calcium,Total 10.2 mg/dL (7.6-11.0); Carbon Dioxide 23.2 mmol/L (21.0-32.0); Chloride 97 mmol/L (98-108); Estimated Creatinine Clearance 64.68 ml/min (50-250); Globulin 2.6 g/dL (2.2-4.2); Glucose 94 mg/dL (70-99); Potassium 4.1 mmol/L (3.3-5.1)
[2025-06-20] MEDS: Heparin Injection (Vial) 5,000 UNIT/ML VIAL 5000 UNIT SC (07:49)
[2025-06-20] MEDS: Polyethylene Glycol 3350 17 GM PACKET PO (07:49)
[2025-06-20] MEDS: Senna/Docusate Sodium 1 Tablet 2 TABLET PO (07:49)
[2025-06-20 07:50] VITALS: O2SAT 93
--- NOTE | 2025-06-20 08:18 | REHABEVAL_ITS ---
Documented by User: REANNA Zhou 06/20/25 08:22 Admission Information Primary Diagnosis:: debility Status Changes from Prescreening?: No changes Identified Actual Problem List:: Pain, ALteration in Cmfrt and Mobility Impaired Potential Problem List:: DVT, Falls, Skin Integrity and Depression Risk of Complications DVT: LMWH Bleeding: Monitor Lab Values and Nursing to Teach Precautions for anti- coagulation therapy. Infection: Clinical Staff to Monitor for S/S of infection: Falls: Patient will be evaluated for Fall Precautions Skin Breakdown: Nursing will assess skin daily using assessment tool. Pain: Clinical staff will assess patient's pain level per protocol. Plan of Care Patient requires physician specializing in physical medicine and rehab oversight to provide close medical supervision of rehab issues including: Pain Management, Bowel and Bladder, Medical and co-morbidity Management, DVT prophylaxis and Coordination of treatment team Documented by User: Dr. Colleen Back DO 06/20/25 09:28 Admission Information Primary Diagnosis:: debility due to spinal canal stenosis Actual Problem List:: Bowel, Constipation, Alteration in Sleep, Self Care Deficit and Alteration-Leisure Activ. Potential Problem List:: Bleeding, Infection, UTI and Aspiration Risk of Complications DVT: JEM Reinier and - (heparin 5,000 Q12H)
[2025-06-20 08:23] VITALS: BMI 29.5
--- NOTE | 2025-06-20 09:28 | PCM.RU.PYE ---
Admission Information Primary Diagnosis:: Debility secondary to spinal canal stenosis Actual Problem List:: Pain, ALteration in Cmfrt, Bowel, Constipation, Alteration in Sleep, Mobility Impaired, Self Care Deficit and Alteration-Leisure Activ. Potential Problem List:: DVT, Bleeding, Infection, UTI, Aspiration, Falls, Skin Integrity and Depression Risk of Complications DVT: JEM Hose and - (Heparin 5000 units SQ every 12 hours) Bleeding: Monitor Lab Values, Nursing to Teach Precautions for anti-coagulation therapy., Wound, if applicable, to be assessed every shift. and Stroke patients assessed for lethargy or change in status. Infection: Clinical Staff to Monitor for S/S of infection: and S/S of infection include fever, redness, warmth, etc. Urinary Tract Infection: Monitor for frequency, burning, discomfort, or incontinence. and Nursing will obtain urine sample for urinalysis and C&S when ordered. Aspiration: Clinical staff will monitor for coughing, drooling, congestion., Speech will evaluate swallowing and dsyphasia. and Nursing will monitor patient swallowing during meals. Falls: Patient will be evaluated for Fall Precautions and Patient will be placed on Fall Precautions as indicated per protocol. Skin Breakdown: Nursing will assess skin daily using assessment tool. and Nursing will place on Skin Breakdown Precautions as indicated. Pain: Clinical staff will assess patient's pain level per protocol., Medications will be given, if needed, and the pain level reassessed. and Other methods: Massage, distraction, decrease stimulus, etc. used PRN. Plan of Care Patient requires physician specializing in physical medicine and rehab oversight to provide close medical supervision of rehab issues including: Pain Management, Sleep Problems, Bowel and Bladder, Medical and co-morbidity Management, DVT prophylaxis, Rehabilitation Leadership and Coordination of treatment team Patient needs Physical Therapy: For a minimum of 1 hour and At least 5 out of 7 days Patient needs Physical Therapy to improve:: Mobility, Strengthening, Transfers, Stretching, ROM, Endurance, Stairs, Gait and Balance Patient needs Occupational Therapy: For a minimum of 1 hour and At least 5 out of 7 days Patient needs Occupational Therapy to improve ADL's incl.: Eating, Grooming, Bathing, Dressing, Toileting, Toilet transfers, Community Reintegration, Higher functioning activities, Household tasks, Adaptive Equipment, Splinting and Other activities as determined Patient requires 24/ Rehabilitation Nursing for: Pain Issues, Identifying and preventing risk factors, Monitoring and reporting current medical conditions, Assisting with ambulation, transfer, and all ADL's, Teaching patients about disease process and medications, Family teaching, Providing safe environment, Bowel and Bladder Issues, Skin integrity and Medication Management Patient needs Director Financial Analysis/ Case Management for: Discharge Planning, Arranging Home Equipment or Services and Family Interventions Patient needs Dietary and Nutrition Services for: Adequate Nutrition, Nutritional Supplements and Nutritional Education Goals Goals Patient will remain: free from falls Patient will perform eating at: MOD I level of assist. Patient will perform bed mobility at: MOD I level of assist.
[2025-06-20] MEDS: oxyCODONE HCl Cr 10 MG Tablet 20 MG PO (09:52)
--- NOTE | 2025-06-20 10:42 | PCM.PROGNOTE ---
Subjective Subjective Day #5/7 of Keflex for prophylaxis against infection after recent insertion of a spinal cord stimulator. Afebrile VSS - Maintaining appropriate oxygen saturation on RA Oral intake - FOOD good FLUIDS poor Discussed with nursing - retaining urine if she tries to use the bed thompson. PVR's when she has been placed on the BSC are < 200. Reviewed the THERAPY notes Medication list reviewed. Has had only 2 doses of Oxycodone 10 mg PRN since arrival on rehab yesterday. All lab from this morning was personally reviewed. The white blood cell count is elevated at 12,000 with 67.7% neutrophils and 1.3% immature granulocytes but she has been on high-dose steroids. Hemoglobin is normal at 14.6 with normochromic normocytic indices. Platelets are within normal limits. Sodium is 133 which is up from 131 on 06/18/2025. Potassium is 4.1 today. The BUN is 29 with a creatinine of 0.76 which is stable. Calcium, phosphorus and magnesium are unremarkable. ALT is mildly elevated at 74 but the AST is normal at 32. Bilirubin and alk phos are normal. Vitamin D level is low at 27.7. Last visit with orthopedic spine surgery was 02/08/25. She saw Dr. Bartlett. At that time she complained of chronic back pain which has been worsening and was worse on the right side. It radiated into her buttocks and into the R posterior thigh and sometimes into the ankle. She had neurogenic claudication with ambulation. At that time she had 5/5 strength in both lower extremities and intact sensation. Imaging in 2022 was reviewed at that visit and showed L3-L4 spondylolisthesis with moderate bilateral lateral recess and neuroforaminal stenosis. There was also spondylolisthesis of L4 on L5 with instability seen on the dynamic view. There was severe bilateral lateral recess and neuroforaminal stenosis. At L5-S1 there was moderate left lateral recess and neuroforaminal stenosis. There was osteopenia present. Dr. Bartlett ordered a DEXA that showed a T score of -2.[address] Bartlett told the patient she would need at least 3 months of treatment for osteoporosis before she could have surgery. She has been taking Fosamax 10 mg daily since then that was prescribed by her PCP. She has not had another appt with Dr. Bartlett since being started on Fosamax. 06/15/25 - implantation of spinal stimulator for chronic back pain due to foraminal stenosis, spondylolisthesis, disc herniations and canal stenosis. She had 10 mg of Decadron IV on the day of surgery and then was placed on 4 mg Decadron q6H for a total of 11 doses. she was then transitioned to Prednisone 40 mg daily and had a dose on 06/18 and on 06/19 and today. Following surgery the pain escalated significantly and she was placed on Oxycontin 20 mg BID, Tizanidine 4 mg Q8H PRN, Oxycodone 10 mg Q4-6 hours for breakthrough pain. Gabapentin was increased from 300 mg TID to 600 mg TID and this helped some. 06/16/25 Seen by PT and she could stand and scoot her hips to the head of the bed. She refused to walk due to the severe pain. She was total assist to get from the bed to the chair. On 06/17 she did a static stand for 6.5 minutes with lateral WS to off set wt. On 06/18/25 she was ataxic per therapy and unable to stand. She was unable to control her legs. 06/18/25 had MRI of the thoracic and lumbar spines. The MRI's were done without contrast. IMPRESSION: 1. Multilevel spondylotic changes, as described in detail above. 2. Moderate spinal canal stenosis at T11-12, with likely associated new cord signal abnormality/edema versus myelomalacia within the conus medullaris at these levels. 3. 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 4. Chronic grade 2 anterolisthesis of L4 on L5 by 10 mm, with associated advanced spinal canal and bilateral neural foraminal stenosis at the L4-5 level. 06/19/25 Transferred to acute inpt rehab. Nursing required 2 people to stand and get onto a BSC. She is not able to walk and could not support herself with standing. 06/20/25 Seen by PT for initial eval on rehab. LLE was noted to have plantar flexion/inversion. She is unable to dorsiflex either foot or move her ankles on her own. R leg is more painful but, also more functional than the left. takes 2 people to stand. She is max assist X2 to stand and pivot ......previously independent prior to the surgery. Scissoring/ataxic with attempt to ambulate. Unable to control her legs. Prior to the stimulator she was ambulating short distances,,,,,,,either with a cane or wall walking. Pain increased with weight bearing and she was only able to ambulate a short distance before she had to stop. She is alert and appropriate. Mucous membranes are dry Lungs-clear to auscultation Heart-regular rate and rhythm Abdomen-soft, nontender, nondistended, regular bowel sounds in all quadrants Very poor rectal sphincter tone - was incontinent of stool when I inserted my finger into the rectum. She is retaining urine now. Patellar reflexes are present BL and not hyperreflexic, The R Achilles reflex is intact but, no Achilles reflex on the L. Unable to lift the LLE off the bed for more than 1 and has to strain alot to even get it off the bed. The RLE has 5/5 strength and she can hold it up for a count of 5 with no drift. She is c/o tingling/numbness in both legs from the groin down but, she is intact to pinprick in all dermatomes and the sensation is symmetrical. I observed her trying to stand and pivot from the chair to the bed with max assist of 2 and she has no control over her legs. They are buckling and scissoring and she is not able to stand upright even with 2 person assist. She can not dorsiflex either foot. The left LE is rotated inward and the foot is plantar flexed. I could not elicit clonus. Objective Data Objective Data Vital Signs: Vital Signs Temp Pulse Resp BP Pulse Ox O2 Del Method 96.0 F L 68 16 99/64 93 Room Air 06/19/25 17:25 06/19/25 20:35 06/19/25 20:35 06/19/25 17:25 06/20/25 07:50 06/20/25 07:50 Oxygen Delivery Method Room Air Weight: 172 lb 2.896 oz Body Mass Index (BMI) 29.5 Intake & Output: Intake and Output for Last 24 Hours 06/18/25 06/19/25 06/20/25 23:59 23:59 23:59 Intake Total 680 / 680 440 / 440 Output Total 800 / 800 935 / 935 Balance -120 / -120 -495 / -495 Lab / Micro Data 06/20/25 05:35 06/20/25 05:35 Labs: Laboratory Results - last 24 hr 06/20/25 05:35: WBC 12.0 H, RBC 4.60, Hgb 14.6, Hct 42.2, MCV 91.7, MCH 31.7, MCHC 34.6, RDW Std Deviation 41.1, RDW Coeff of Letitia 12.2, Plt Count 243, MPV 9.4, Immature Gran % (Auto) 1.300 H, Neut % (Auto) 67.7, Lymph % (Auto) 19.9, [place] % (Auto) 10.0, Eos % (Auto) 0.8, Baso % (Auto) 0.3, Absolute Neuts (auto) 8.1 H, Absolute Lymphs (auto) 2.38, Nucleated RBC % 0, Sodium 133, Potassium 4.1, Chloride 97 L, Carbon Dioxide 23.2, Anion Gap 12, BUN 29 H, Creatinine 0.76, Estim Creat Clear Calc 64.68, Est GFR (MDRD) Non-Af 83, BUN/Creatinine Ratio 38.6 H, Glucose 94, Calcium 10.2, Phosphorus 2.8, Magnesium 2.7 H, Total Bilirubin 0.61, AST 32, ALT 74 H, Alkaline Phosphatase 57, Total Protein 6.9, Albumin 4.3, Globulin 2.6, Albumin/Globulin Ratio 1.7, Vitamin D 25-Hydroxy 27.7 L Assessment & Plan Assessment/Plan (1) Debility, unspecified: (2) Osteoporosis: QUALIFIERS: Osteoporosis type: age-related Presence of current pathological fracture: without current pathological fracture Qualified Code(s): M81.0 - Age-related osteoporosis without current pathological fracture PLAN: Has been on Fosamax 10 mg daily and tolerating well without any reflux. T-score for the lumbar spine in December 2024 was 0.2 which is normal. The left femoral neck was -1.8, the left total hip was -1.8, the right femoral neck was -2.6 and the right total hip was -2.2. 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, lumbar region (4) Spondylolisthesis, lumbar region: (5) Degenerative disc disease, lumbar: QUALIFIERS: Disc-related pain type: discogenic back pain and lower extremity pain Qualified Code(s): M51.362 - Other intervertebral disc degeneration, lumbar region with discogenic back pain and lower extremity pain (6) Essential hypertension: (7) Left leg paresthesias: (8) Paresthesia of bilateral legs: (9) Ataxia: (10) Lower extremity weakness: QUALIFIERS: Laterality: bilateral Qualified Code(s): R29.898 - Other symptoms and signs involving the musculoskeletal system (11) Fecal incontinence: QUALIFIERS: Fecal incontinence type: unspecified Qualified Code(s): R15.9 - Full incontinence of feces (12) Urine retention: (13) Leukocytosis: (14) Vitamin D deficiency: PLAN: Plan 1. Neurologic deficits have dramatically increased since prior to the implantation of the spinal stimulator on 06/15/2025. Previously had 5/5 strength in both lower extremities and now can barely lift the left leg off the bed and cannot maintain it off the bed. Has lost her left Achilles reflex. She is ataxic and complaining of numbness/tingling in both lower extremities. She has poor rectal sphincter tone and is incontinent of stool when I inserted my finger. She is now retaining urine. She is unable to stand without max assist of 2 people. She has seen Dr. Alanna Bartlett from orthopedic spine surgery and her last visit was in January 2025. He is not available and will be out of town until next week. In my opinion she needs to be emergently evaluated by neurosurgery and we discussed transfer. She is agreeable to transfer and calls have been made to both [facility] and [facility]. We are awaiting a callback. Radiology notified to push the recent imaging to [facility] and [facility]. D/W Dr. Pollard. No change to the drug regimen today except will DC Meloxicam in preparation for possible surgery. D/W [facility] and answered all his questions. 2. Check a UA and insert a Christy catheter for urine retention. 3. Await call back on transfer to a higher level of care where she can be evaluated by spine surgery. 4. Start a vitamin D supplement and supplemental calcium. Continue Fosamax for now. Plan on having her follow-up with endocrinology for management of osteoporosis. Charges/Coding Visit Charges Inpatient E&M: 15236 Subs Hosp L2
[2025-06-20 11:30] LABS: Mucous, Urine 0 SEEN /hpf (<or=2+); Red Blood Cells-Urine 0 SEEN /hpf (0-5)
[2025-06-20 11:38] LABS: Color, Urine Yellow (Yellow); Glucose, Dipstick Normal (Normal); Ketone-Dipstick Negative (Negative); Leukocyte Esterase-Dipstick Negative /ul (Negative); Nitrite-Dipstick Negative (Negative); Occult Blood-Urine Negative /ul (Negative); Protein-Dipstick 15 mg/dl (Negative); Specific Gravity, Urine 1.010 (1.002-1.030); Urine Bilirubin Dipstick Negative (Negative)
[2025-06-20 11:48] LABS: Squamous Epithelial Cells - UA 0-5 SEEN /hpf (5-10)
[2025-06-20 15:25] VITALS: BP 94/47; PULSE 79; RESP 16; TEMP 36.8; O2SAT 100
[2025-06-20] MEDS: 0.9% Normal Saline (1000mL) 1,000 ML 999 ML IV (15:40)
--- NOTE | 2025-06-20 15:48 | PCM.DC.SUM ---
Providers Date of Admission: 06/19/25 Date of Discharge: 06/20/25 Primary Care Physician: LISA Robles Consultations 06/20/25 08:58 Consult: Orthopedics Routine Consulting Provider: Edi Bartlett Reason for Consult: continued pain, posturing of LLE EMERGENT Consult: No MD Notified: Yes Date Notified: 06/20/25 Time Notified: 08:58 Method of Notification: Text Reason For Visit: LUMBAR RADICULOPATHY Diagnosis Discharge Diagnosis (1) Debility, unspecified: Status: Acute Code(s): R53.81 - Other malaise (2) Lumbar stenosis with neurogenic claudication: Status: Chronic Code(s): M48.062 - Spinal stenosis, lumbar region with neurogenic claudication (3) Spondylolisthesis, lumbar region: Status: Chronic Code(s): M43.16 - Spondylolisthesis, lumbar region (4) Spondylolisthesis at L4-L5 level: Status: Chronic Code(s): M43.16 - Spondylolisthesis, lumbar region (5) Degenerative disc disease, lumbar: Status: Chronic Code(s): M51.369 - Other intervertebral disc degeneration, lumbar region without mention of lumbar back pain or lower extremity pain Qualifiers: Disc-related pain type: discogenic back pain and lower extremity pain Qualified Code(s): M51.362 - Other intervertebral disc degeneration, lumbar region with discogenic back pain and lower extremity pain (6) S/P insertion of spinal cord stimulator: Status: Acute Code(s): Z96.89 - Presence of other specified functional implants Plan: 06/15/[address] [facility] by Dr. Bakari Pollard. (7) Intractable back pain: Status: Acute Code(s): M54.9 - Dorsalgia, unspecified Plan: Has had chronic back pain with radicular pain into the Buttocks and down the R leg. Pain escalated following insertion of the spinal stimulator. (8) Paresthesia of bilateral legs: Status: Acute Code(s): R20.2 - Paresthesia of skin Plan: C/O numbness and tingling but, sensation intact to pinprick. (9) Ataxia: Status: Acute Code(s): R27.0 - Ataxia, unspecified Plan: Was ambulating prior to recent procedure. Now she is unable to stand without assist of 2 and when she tries to walk the legs buckle and scissor and she is ataxic. She walked 8' today at the wall rail but, essentially the PT dragged her 10 feet and her legs were buckling and she collapsed into the WC. (10) Lower extremity weakness: Status: Acute Code(s): R29.898 - Other symptoms and signs involving the musculoskeletal system Qualifiers: Laterality: bilateral Qualified Code(s): R29.898 - Other symptoms and signs involving the musculoskeletal system Plan: Acute on chronic. (11) Fecal incontinence: Status: Acute Code(s): R15.9 - Full incontinence of feces Qualifiers: Fecal incontinence type: unspecified Qualified Code(s): R15.9 - Full incontinence of feces Plan: This is new. when I did a rectal she had very poor sphincter tone and when I removed my finger she was incontinent of stool. (12) Urine retention: Status: Acute Code(s): R33.9 - Retention of urine, unspecified Plan: If you get her onto a bedside commode she can urinate but, she is having to bear down and has to do this multiple times to empty. It takes max assist of 2 to get her on the BSC and so a Christy was placed. The UA has 0 WBC's and no bacteria. She can not urinate sitting on a bedpan and had large residual. (13) Leukocytosis: Status: Acute Code(s): D72.829 - Elevated white blood cell count, unspecified Qualifiers: Leukocytosis type: bandemia Qualified Code(s): D72.825 - Bandemia Plan: She has been AF and I suspect the leukocytosis is due to high dose steroids. (14) Essential hypertension: Status: Chronic Code(s): I10 - Essential (primary) hypertension Plan: PO fluid intake has been poor. HCTZ was discontinued. she got her regular dose of Lisinopril 20 mg today the most recent blood pressure is 94/47 with a heart rate of 79. IV fluids have been ordered. (15) Vitamin D deficiency: Status: Chronic Code(s): E55.9 - Vitamin D deficiency, unspecified Plan: Has not been taking a vitamin D supplement or calcium supplement. She was prescribed Fosamax 10 mg daily by her PCP a few months ago. The vitamin D level is currently low at 27.7 and she was started on cholecalciferol 25 mcg daily. (16) Osteoporosis: Status: Chronic Code(s): M81.0 - Age-related osteoporosis without current pathological fracture Qualifiers: Osteoporosis type: age-related Presence of current pathological fracture: without current pathological fracture Qualified Code(s): M81.0 - Age-related osteoporosis without current pathological fracture Plan: Has been on Fosamax 10 mg daily and tolerating well without any reflux. T-score for the lumbar spine in December 2024 was 0.2 which is normal. The left femoral neck was -1.8, the left total hip was -1.8, the right femoral neck was -2.6 and the right total hip was -2.2. Plan 1. Neurologic deficits have dramatically increased since prior to the implantation of the spinal stimulator on 06/15/2025. Previously had 5/5 strength in both lower extremities and now can barely lift the left leg off the bed and cannot maintain it off the bed. Has lost her left Achilles reflex. She is ataxic and complaining of numbness/tingling in both lower extremities. She has poor rectal sphincter tone and is incontinent of stool when I inserted my finger. She is now retaining urine. She is unable to stand without max assist of 2 people[address] has [address] Dr[address] Alanna Bartlett from orthopedic spine surgery and her last visit was in January 2025. He is not available and will be out of town until next week. In my opinion she needs to be emergently evaluated by neurosurgery and we discussed transfer. She is agreeable to transfer and calls have been made to both [facility] and [facility]. We are awaiting a callback. Radiology notified to push the recent imaging to [facility] and [facility]. D/W Dr. Pollard. No change to the drug regimen today except will DC Meloxicam in preparation for possible surgery. D/W [facility] and answered all his questions. [facility] did accept her for transfer and she will be [facility] rm [id number]. Medications at Discharge Home Medications gabapentin 300 mg capsule 600 mg PO TID nerve pain 12/29/24 trazodone 100 mg tablet 100 mg PO QHS sleep 12/29/24 alendronate 70 mg tablet (Fosamax) 70 mg PO QWEEK osteoporosis 06/19/25 oxycodone 5 mg tablet 10 mg (2 x 5 mg) PO Q6H PRN PRN Pain Score 1-10 #0 tabs 06/19/25 prednisone 10 mg tablet 40 mg PO DAILY inflamation 06/19/25 tizanidine 2 mg tablet 4 mg PO Q8H Muscle Spasm 06/19/25 calcium carbonate 500 mg (2.5 x 200 mg calcium (500 mg)) PO BIDCM #1 TAB 06/20/25 cephalexin 500 mg capsule 500 mg PO Q6 ATB #10 caps 06/20/25 cholecalciferol (vitamin D3) 25 mcg (1,000 unit) tablet 25 mcg PO DAILYCM #1 TAB 06/20/25 heparin (porcine) 5,000 unit/mL injection solution 5,000 unit subcut Q12 #1 mL 06/20/25 lisinopril 20 mg tablet 20 mg PO DAILY #1 TAB 06/20/25 oxycodone 10 mg tablet,crush resistant,extended release 12 hr (OxyContin) 20 mg (2 x 10 mg) PO BID 1 day #4 tabs 06/20/25 sennosides 8.6 mg-docusate sodium 50 mg tablet (Stimulant Laxative Plus) 2 tab PO BID #1 TAB 06/20/25 sodium chloride 0.9 % (flush) (BD PosiFlush Normal Saline 0.9 % injection syringe) 10 - 40 ml IV UD PRN Saline Flush #5 mL 06/20/25 Hospital Course Operations - (Implantation of a spinal cord stimulator on 06/15/[address] Bakari Pollard.) Procedures None Summary of Care Provided Minutes Spent on Discharge: 90 Hospital Course: Madelaine Hunt is a 75-year-old female with a past medical history of chronic back pain with radicular pain into the legs and neurogenic claudication, hypertension and tobacco dependence. She presented to the hospital in the a.m. on 06/15/2025 for insertion of a spinal cord stimulator by Dr. Pollard. In the RR after the procedure she has severe pain radiating into her legs. CT scan of the lumbar and thoracic spine was ordered. The CT scan showed degenerative changes similar to an MRI done in December 2024 and also showed severe canal stenosis at L3-L4 and L4-L5. There was severe bilateral foraminal stenosis at L4-L5 and L5-S1. There were degenerative changes in the thoracic spine and there was specifically no hematoma. She was not able to ambulate and she was admitted to the hospital on the hospitalist service. PT/OT were consulted. She was started on Oxycontin 20 mg BID, Tizanidine 4 mg Q8H PRN, Oxycodone 10 mg q 6H PRN and gabapentin 300 mg TID was continued. She had 10 mg of IV Decadron in the OR and was started on 4 mg IV q 6 hours and received 11 doses and then was transitioned to Prednisone 40 mg daily on 06/18/25. She continued to c/o intractable pain and gabapentin was increased to 600 mg 3 times daily which did provide some relief. She had been seeing Dr. Pollard for pain management for a few years and she has also seen Dr. Alanna Bartlett from ortho spine surgery. Her last visit with orthopedic spine surgery was 02/08/25. At that time she complained of chronic back pain which had been worsening. she was referred to Dr. Bartlett by Dr. Pollard. The pain radiated into her buttocks and into the R posterior thigh and sometimes into the ankle. She had neurogenic claudication with ambulation. At that time she had 5/5 strength in both lower extremities and intact sensation. Imaging in 2022 was reviewed at that visit and showed L3-L4 spondylolisthesis with moderate bilateral lateral recess and neuroforaminal stenosis. There was also spondylolisthesis of L4 on L5 with instability seen on the dynamic view. There was severe bilateral lateral recess and neuroforaminal stenosis. At L5-S1 there was moderate left lateral recess and neuroforaminal stenosis. There was osteopenia present. A repeat MRI was ordered and Dr. Bartlett ordered a DEXA that showed a T score of -2.5 in the hips. The T score in the LS spine was +0.2 but, this is likely falsely increased due to arthritic changes/spurs. Dr. Bartlett told the patient she would need at least 3 months of treatment for osteoporosis before she could have surgery. She has been taking Fosamax 10 mg daily since then that was prescribed by her PCP. she has not been taking a vitamin D or calcium supplement. Recent vitamin D level is low at 27 and she was started on cholecalciferol during this most recent admission to the hospital. She has not had another appt with Dr. Bartlett since being started on Fosamax. Dr. Bartlett is out of town currently and will not be back until next week. She continued to have severe pain and was not able to walk. She was noted to be ataxic. On 06/18/25 she had MRIs without contrast of the lumbar and thoracic spine. Impressions were multilevel spondylotic changes with moderate spinal canal stenosis at T11-T12 with likely associated new cord signal abnormality/edema versus myelomalacia within the conus medullaris at these levels. There was nonspecific trace syrinx/prominence of the central spinal canal from T6-T10. There was chronic grade 2 anterolisthesis of L4 on L5 measuring approximately 10 mm. There was associated advanced spinal canal and bilateral neuroforaminal stenosis at the L4-L5 level. She was transferred to the acute inpt rehab unit on 06/19/25. On 06/20/25 the pain was better controlled but, she was unable to lift the LLE off the bed by more than 1 and this required extreme effort. The right lower extremity had 5/5 strength. She was not able to dorsiflex either foot/ankle. She had weak plantarflexion bilaterally. The patellar reflexes were normal bilaterally and she had a normal right Achilles reflex. The left Achilles reflex was absent. She was intact to pinprick sensation in both lower extremities. Even though she feels a sharp pinprick she is complaining of tingling and numbness extending from the groin to the toes bilaterally. Her rectal exam was done and she had poor sphincter tone. When I removed my finger she was incontinent of stool and did not realize. She has urinary hesitancy and when place on a bedpan she retains. She can urinate when she gets on the BSC but, she is having to bear down multiple times to empty. It takes max assist of 2 people to get her onto the bedside commode. I did not perceive any ankle clonus. When I initially check the strength in the LLE she had been sitting in the recliner for a bit. She could not lift the LLE more than an inch off the bed. She was placed in bed and has remained there for the rest of the day. On re-examination she is able to lift the LLE with some strain about 1 foot off the bed.....there is some drift and she is grimacing with the effort. PT attempted to walk her. She was at the wall rail and required max assist to go 8'........most the therapist had to drag her forward. Her legs were buckling and scissoring. She is unable to control her legs. She requires max assist of 2 people to stand and she has no control of her legs when trying to pivot from a chair to the bed. We contact [facility] to have her transferred so she could be evaluated by a spine surgeon. We did not do a MRI of the thor and lumbar spines with contrast because, we thought they would want to obtain these studies at the receiving hospital. [facility] accepted the pt for transfer. I spoke with the pt and her family and answered all their questions. Prior to DC the BP was 94/47. MM are very dry and she has had poor fluid intake. She denied lightheadedness. She was ordered 1 liter of NS over 1 hour and then continued NS at 100 cc/hr. We will check VS again after the bolus and give additional boluses if needed. A UA was ordered and showed 0 WBC's and no bacteria. It is clear and evelina colored. Physical Exam Const alert Constitutional Narrative: She is no longer fidgety and restless and she appears to be in less pain.......she feels the pain regimen is adequate now. She is anxious about having to be transferred to a different facilty but, she understands why this is necessary. She calmed down somewhat when her and son showed up. General Appearance: cooperative HEENT normocephalic and head/scalp atraumatic HEENT Narrative: Mucous membranes are very dry. No evidence of thrush. Eyes PERRL, EOMs intact bilaterally, conjunctivae normal and no scleral icterus Eyes Narrative: No discharge from the eyes. Neck supple General: trachea midline Chest Chest: symmetrical chest wall rise Resp normal respiratory effort and clear to auscultation bilaterally Effort and Inspection: able to speak in complete sentences Cardio regular rate, regular rhythm and no JVD Cardio Narrative: No ectopy. GI normal to inspection, nondistended, normoactive bowel sounds, soft to palpation and non-tender no CVA tenderness Back/Spine Back/Spine Narrative: The incisions from insertion of the spinal stimulator are intact with no dehiscence and no james-incisional erythema. There is no significant swelling around the incisions and there is no purulent DC. steri strips are intact Extremity no calf tenderness and no pedal edema Skin Rashes: no rashes Neuro Neuro Narrative: See the hospital course dictation for the PE/neuro exam on the LE's Psych mental status grossly normal, thought process normal, cooperative, affect normal and speech normal Psych Narrative: anxious Weight / BMI Weight Weight: 172 lb 2.896 oz Body Mass Index (BMI) 29.5 ABG / Lab / Microbiology Data 06/20/25 05:35 06/20/25 05:35 Laboratory: Laboratory Results - last 24 hr 06/20/25 05:35: WBC 12.0 H, RBC 4.60, Hgb 14.6, Hct 42.2, MCV 91.7, MCH 31.7, MCHC 34.6, RDW Std Deviation 41.1, RDW Coeff of Letitia 12.2, Plt Count 243, MPV 9.4, Immature Gran % (Auto) 1.300 H, Neut % (Auto) 67.7, Lymph % (Auto) 19.9, Benzie % (Auto) 10.0, Eos % (Auto) 0.8, Baso % (Auto) 0.3, Absolute Neuts (auto) 8.1 H, Absolute Lymphs (auto) 2.38, Nucleated RBC % 0, Sodium 133, Potassium 4.1, Chloride 97 L, Carbon Dioxide 23.2, Anion Gap 12, BUN 29 H, Creatinine 0.76, Estim Creat Clear Calc 64.68, Est GFR (MDRD) Non-Af 83, BUN/Creatinine Ratio 38.6 H, Glucose 94, Calcium 10.2, Phosphorus 2.8, Magnesium 2.7 H, Total Bilirubin 0.61, AST 32, ALT 74 H, Alkaline Phosphatase 57, Total Protein 6.9, Albumin 4.3, Globulin 2.6, Albumin/Globulin Ratio 1.7, Vitamin D 25-Hydroxy 27.7 L 06/20/25 11:20: Urine Color Yellow, Urine Clarity Sl. Cloudy, Urine pH 7.0, Ur Specific [place] 1.010, Urine Protein 15 H, Urine Glucose (UA) Normal, Urine Ketones Negative, Urine Occult Blood Negative, Urine Nitrite Negative, Urine Bilirubin Negative, Urine Urobilinogen 1 H, Ur Leukocyte Esterase Negative, Urine RBC 0 SEEN, Urine WBC 0 SEEN, Ur Squamous Epith Cells 0-5 SEEN, Urine Bacteria 0 SEEN, Urine Mucus 0 SEEN D/C Instructions DC O2, CPAP, BIPAP Needs Home O2 Discharge instructions: No Meaningful Use Info Meaningful Use Meaningful Use Diagnoses (Choose all that apply): None applicable Discharge Plan Admission Admit Date/Time: 06/19/25 12:22 Primary Reason for Your Visit: Debility due to spinal canal stenosis Attending Provider: Colleen Back Primary Care Provider: Alisha Castro Consulting Providers: Edi Bartlett Discharge Orders/Prescriptions Prescriptions: New sodium chloride 0.9 % (flush) [BD PosiFlush Normal Saline 0.9] Syringe 10 - 40 ml IV UD PRN (Reason: Saline Flush) Qty: 5 0RF calcium carbonate 200 mg calcium (500 mg) Tablet,Chewable 500 mg PO BIDCM Qty: 1 0RF cholecalciferol (vitamin D3) 25 mcg (1,000 unit) Tablet 25 mcg PO DAILYCM Qty: 1 0RF lisinopril 20 mg Tablet 20 mg PO DAILY Qty: 1 0RF heparin (porcine) 5,000 unit/mL Solution 5,000 unit subcut Q12 Qty: 1 0RF oxycodone [OxyContin] 10 mg Tablet,Oral Only,Ext.Rel.12 Hr 20 mg PO BID 1 Days Qty: 4 0RF sennosides-docusate sodium [Stimulant Laxative Plus] 8.6-50 mg Tablet 2 tab PO BID Qty: 1 0RF Continued trazodone 100 mg tablet 100 mg PO QHS gabapentin 300 mg capsule 600 mg PO TID oxycodone 5 mg Tablet 10 mg PO Q6H PRN PRN (Reason: Pain Score 1-10) Qty: 0 0RF alendronate [Fosamax] 70 mg tablet 70 mg PO QWEEK prednisone 10 mg tablet 40 mg PO DAILY tizanidine 2 mg Tablet 4 mg PO Q8H cephalexin 500 mg Capsule 500 mg PO Q6 Qty: 10 0RF Rx Instructions: she is on day 5/ after insertion spinal stimulator Discontinued lisinopril-hydrochlorothiazide 20-25 mg tablet 1 tab PO DAILY meloxicam 7.5 mg tablet 7.5 mg PO DAILY oxycodone [OxyContin] 10 mg Tablet,Oral Only,Ext.Rel.12 Hr 20 mg PO BID Qty: 0 0RF Referrals / Follow Up: Alisha Castro PA [Primary Care Provider, Family Practice] Disposition Disposition (needs filled in before D/C Order can be placed): Acute Care Hospital Charges/Coding Visit Charges Inpatient E&M: 73591 Disch Hosp >30min
[2025-06-20] MEDS: 0.9% Normal Saline (1000mL) 1,000 ML 100 ML IV (16:52)
[2025-06-20 16:56] VITALS: BP 94/49; PULSE 68
[2025-06-20 18:39] VITALS: BP 98/60; PULSE 68; RESP 17; TEMP 36.8; O2SAT 17
--- NOTE | 2025-06-20 18:42 | NURSING ---
discharged to [facility]. Report called to [facility]. family aware
== END 2025-06-20 18:43 | disposition short-term general hospital (02) | DRG 950 ==
PROVIDERS: Admitting Provider Internal Medicine; Referring Provider Internal Medicine; Visit Provider Internal Medicine
DX: Z48.811 Encounter for surgical aftercare following surgery on the nervous system (principal); M48.04 Spinal stenosis, thoracic region; I10 Essential (primary) hypertension; I73.9 Peripheral vascular disease, unspecified; D72.825 Bandemia; M41.86 Other forms of scoliosis, lumbar region; K59.03 Drug induced constipation; E55.9 Vitamin D deficiency, unspecified; M48.07 Spinal stenosis, lumbosacral region; M51.16 Intervertebral disc disorders with radiculopathy, lumbar region; F41.9 Anxiety disorder, unspecified; F17.200 Nicotine dependence, unspecified, uncomplicated; M43.16 Spondylolisthesis, lumbar region; M48.062 Spinal stenosis, lumbar region with neurogenic claudication; R15.9 Full incontinence of feces; G89.29 Other chronic pain; Z79.83 Long term (current) use of bisphosphonates; Z79.899 Other long term (current) drug therapy; M81.0 Age-related osteoporosis without current pathological fracture; M51.362 Other intervertebral disc degeneration, lumbar region with discogenic back pain and lower extremity pain; Z96.82 Presence of neurostimulator; R33.9 Retention of urine, unspecified; R27.0 Ataxia, unspecified; R20.2 Paresthesia of skin
CPT/HCPCS: 36415; 80053; 81001; 82306; 83735; 84100; 85025; 94668; 97110; 97140; 97162; 97167; 97530; 97802; A4216